=== PATIENT | female | born 1960 | race Caucasian/White ===

== ENCOUNTER 2018-04-16 17:14 | Inpatient (IN) | payer BC ==
[2018-04-16 18:44] LABS: Absolute Lymphocytes (CBC) 2.2 K/uL (0.7-4.9); Absolute Monocytes 0.4 K/uL (0.1-1.3); Absolute Neutrophil 6.1 K/uL (1.8-8.0); Eosinophils % 1.7 % (0-4.4); Hematocrit 38.4 % (36.0-45.0); Lymphocytes % 24.1 % (15.3-44.8); MPV 8.7 fL (7.6-11.3); RBC Red Blood Cell Count 4.69 M/uL (3.86-4.86)
--- NOTE | 2018-04-16 18:51 | RAD REPORT ---
EXAM DESCRIPTION: US - Extrem Venous W Compress Arash - 04/16/2018 6:44 pm CLINICAL HISTORY: Pain;Swelling Bilateral leg edema and swelling. COMPARISON: Extrem Venous W Compress Arash dated 10/14/2016 TECHNIQUE: Real-time sonographic interrogation of the left and right lower extremity deep venous sys tems was performed. FINDINGS: Normal compressibility, flow augmentation, phasic flow and spontaneous flow is identified in both the left and right lower extremity deep venous systems. IMPRESSION: No sonographic evidence of left or right lower extremity deep venous thrombosis.
[2018-04-16 19:13] LABS: Potassium 4.2 mmol/L (3.5-5.1)
[2018-04-16] MEDS ORDERED: VANCOMYCIN 1 GM/250 ML BAG ONE (19:27)
--- NOTE | 2018-04-16 19:35 | EDPHYS ---
Physician Documentation [facility] Name: Zarina Womack Age: 57 yrs Sex: Female : 1960 Arrival Date: 04/16/2018 Time: 17:16 Bed 26 Private MD: Raman Quevedo ED Physician Maximo Jimenez HPI: 04/16 18:38 This 57 yrs old Female presents to ER via Wheelchair with complaints of Leg kb Swelling. 18:45 The patient presents with pain, that is acute, swelling, tenderness, drainage, kb erythema. The complaints affect the left lower leg and right lower leg. Context: the patient can fully bear weight, the patient is able to ambulate. Onset: The symptoms/episode began/occurred 2 month(s) ago. Modifying factors: The symptoms are alleviated by nothing. the symptoms are aggravated by nothing. Associated signs and symptoms: Pertinent positives: calf tenderness, swelling, Pertinent negatives fever, nausea, numbness, rash, tingling, vomiting, warmth, weakness. Treatment prior to arrival includes: wound care. Severity of symptoms: At their worst the symptoms were moderate, in the emergency department the symptoms are unchanged. The patient has not experienced similar symptoms in the past. The patient has not recently seen a physician. Pt was at wound care and sent here for DVT rule out. Dr Quevedo recommends admission for cellulitis if US negative. Historical: - Allergies: 17:28 Sulfa (Sulfonamide Antibiotics); aj - Home Meds: 17:28 ProAir RespiClick 90 mcg/actuation inhalation aepb 1 puff every 4-6 hours [Active]; aj - PMHx: 17:28 COPD; Anxiety; Depression; lymphedema; aj - PSHx: 17:28 Tonsillectomy; Hysterectomy; aj - Immunization history:: Adult Immunizations up to date. - Social history:: Smoking status: Patient uses tobacco products, smokes one pack cigarettes per day. - Ebola Screening: : Patient negative for fever greater than or equal to 101.5 degrees Fahrenheit, and additional compatible Ebola Virus Disease symptoms Patient denies exposure to infectious person Patient denies travel to an Ebola-affected area in the 21 days before illness onset No symptoms or risks identified at this time. ROS: 18:42 Constitutional: Negative for fever, chills, and weight loss, Neck: Negative for injury, kb pain, and swelling, Cardiovascular: Negative for chest pain, palpitations, and edema, Respiratory: Negative for shortness of breath, cough, wheezing, and pleuritic chest pain, Abdomen/GI: Negative for abdominal pain, nausea, vomiting, diarrhea, and constipation, Back: Negative for injury and pain, : Negative for injury, bleeding, discharge, and swelling, Neuro: Negative for headache, weakness, numbness, tingling, and seizure. 18:42 MS/extremity: Positive for erythema, pain, swelling, of the right lower leg and left lower leg. Exam: 18:42 Constitutional: This is a well developed, well nourished patient who is awake, alert, kb and in no acute distress. Head/Face: Normocephalic, atraumatic. Chest/axilla: Normal chest wall appearance and motion. Nontender with no deformity. No lesions are appreciated. Cardiovascular: Regular rate and rhythm with a normal S1 and S2. No gallops, murmurs, or rubs. Normal PMI, no JVD. No pulse deficits. Respiratory: Lungs have equal breath sounds bilaterally, clear to auscultation and percussion. No rales, rhonchi or wheezes noted. No increased work of breathing, no retractions or nasal flaring. Abdomen/GI: Soft, non-tender, with normal bowel sounds. No distension or tympany. No guarding or rebound. No evidence of tenderness throughout. Neuro: Awake and alert, GCS 15, oriented to person, place, time, and situation. Cranial nerves II-XII grossly intact. Motor strength 5/5 in all extremities. Sensory grossly intact. Cerebellar exam normal. Normal gait. 18:42 Musculoskeletal/extremity: Extremities: grossly normal except: noted in the left lower leg and right lower leg: erythema, pain, swelling, tenderness, drainage, ROM: intact in all extremities, Circulation is intact in all extremities. Sensation intact. Vital Signs: 17:28 BP 140 / 75; Pulse 85; Resp 19; Temp 98.4; Pulse Ox 99% on 4 lpm NC; Weight 97.52 kg; aj Height 5 ft. 1 in. (154.94 cm); 18:10 BP 163 / 84; Pulse 83; Resp 20; Pulse Ox 98% on 2 lpm NC; tl3 19:58 BP 136 / 66; Pulse 80 MON; Resp 16 S; Pulse Ox 97% on 4 lpm NC; rv 21:08 BP 130 / 77; Pulse 68; Resp 17; Pulse Ox 98% on R/A; rv 22:10 BP 133 / 71; Pulse 82; Resp 18; Pulse Ox 98% on R/A; tl3 17:28 Body Mass Index 40.62 (97.52 kg, 154.94 cm) aj MDM: 17:33 Patient medically screened. kb 18:42 Data reviewed: vital signs, nurses notes. Data interpreted: Pulse oximetry: on room air kb is 98 %. Interpretation: normal. Counseling: I had a detailed discussion with the patient and/or guardian regarding: the historical points, exam findings, and any diagnostic results supporting the discharge/admit diagnosis, lab results, radiology results, the need for further work-up and treatment in the hospital. 19:32 Physician consultation: Kimberly Christy MD was contacted at 19:32, regarding admission, kb to the medical/surgical unit. patient's condition, and will see patient in ED, shortly. 04/16 17:46 Order name: CBC with Diff; Complete Time: 18:49 kb 04/16 17:46 Order name: Basic Metabolic Panel; Complete Time: 19:18 kb 04/16 17:46 Order name: Blood Culture Adult (2) kb 04/16 18:49 Order name: Procalcitonin; Complete Time: 20:17 kb 04/16 18:49 Order name: Lactate; Complete Time: 20:28 kb 04/16 18:59 Order name: Wound Culture kb 04/16 17:41 Order name: US Extremity Venous W Compression Arash; Complete Time: 18:58 kb Administered Medications: 19:35 Drug: vancoMYCIN 1 grams Route: IVPB; Infused Over: 2 hrs; Site: left forearm; tl3 Delivery: Primary tubing; 21:51 Follow up: IV Status: Completed infusion; IV Intake: 250ml tl3 19:36 Drug: [place] (7.5 mg-325 mg) 1 tabs Route: PO; tl3 21:51 Follow up: Response: No adverse reaction; Pain is decreased tl3 Disposition: 04/16/18 19:33 Hospitalization ordered by Kimberly Christy for Observation. Preliminary diagnosis are Cellulitis of right lower limb, Cellulitis of left lower limb, Lymphedema, not elsewhere classified. - Bed requested for Telemetry/MedSurg (observation). - Status is Observation. rv - Condition is Stable. - Problem is new. - Symptoms are unchanged. UTI on Admission? No Addendum: 04/24/2018 02:16 Co-signature as Attending Physician, Maximo Jimenez MD. r n Signatures: Dispatcher [employer] EDMS Mathieu Lauren, HEMMING AND TACKING MACHINE OPERATOR-C HEMMING AND TACKING MACHINE OPERATOR-Ckb Wilma Aleman, RN RN Anitha Godwin RN Maximo Junior MD MD rn Lowrey, Tammy, RN RN tl3 Kole Rehman RN RN rv Corrections: (The following items were deleted from the chart) 04/16 19:54 19:33 Hospitalization Ordered by Kimberly Christy MD for Inpatient Admission. Preliminary kb diagnosis is Cellulitis of right lower limb; Cellulitis of left lower limb; Lymphedema, not elsewhere classified. Bed requested for Telemetry/MedSurg (Inpatient). Status is Inpatient Admission. Condition is Stable. Problem is new. Symptoms are unchanged. UTI on Admission? No. kb 21:21 19:54 04/16/2018 19:33 Hospitalization Ordered by Kimberly Christy MD for Observation. kl Preliminary diagnosis is Cellulitis of right lower limb; Cellulitis of left lower limb; Lymphedema, not elsewhere classified. Bed requested for Telemetry/MedSurg (observation). Status is Observation. Condition is Stable. Problem is new. Symptoms are unchanged. UTI on Admission? No. kb 22:27 21:21 04/16/2018 19:33 Hospitalization Ordered by Kimberly Christy MD for Observation. rv Preliminary diagnosis is Cellulitis of right lower limb; Cellulitis of left lower limb; Lymphedema, not elsewhere classified. Bed requested for Telemetry/MedSurg (observation). Status is Observation. Condition is Stable. Problem is new. Symptoms are unchanged. UTI on Admission? No. kl
--- NOTE | 2018-04-16 19:35 | ER ---
Nurse's Notes [facility] Name: Zarina Womack Age: 57 yrs Sex: Female : 1960 Arrival Date: 04/16/2018 Time: 17:16 Bed 26 Private MD: Raman Quevedo Diagnosis: Cellulitis of right lower limb;Cellulitis of left lower limb;Lymphedema, not elsewhere classified Presentation: 04/16 17:26 Presenting complaint: Patient states: Bilateral leg pain for [address] marta Quevedo for evaluation for possible DVT. Transition of care: patient was received from another setting of care (ambulatory primary care physician practice). Onset of symptoms was January 2018. Risk Assessment: Do you want to hurt yourself or someone else? Patient reports no desire to harm self or others. Initial Sepsis Screen: Does the patient meet any 2 criteria? No. Patient's initial sepsis screen is negative. Does the patient have a suspected source of infection? No. Patient's initial sepsis screen is negative. Care prior to arrival: None. 17:26 Method Of Arrival: Wheelchair 17:26 Acuity: AISSATOU 3 aj Triage Assessment: 17:28 General: Appears in no apparent distress. comfortable, obese, Behavior is calm, aj cooperative, appropriate for age. Pain: Complains of pain in right leg and left leg. Neuro: Level of Consciousness is awake, alert, obeys commands, Oriented to person, place, time, situation, Appropriate for age. Respiratory: Airway is patent Respiratory effort is even, labored, Respiratory pattern is symmetrical, tachypnea. Derm: Skin is intact, is healthy with good turgor. Historical: - Allergies: 17:28 Sulfa (Sulfonamide Antibiotics); aj - Home Meds: 17:28 ProAir RespiClick 90 mcg/actuation inhalation aepb 1 puff every 4-6 hours [Active]; aj - PMHx: 17:28 COPD; Anxiety; Depression; lymphedema; aj - PSHx: 17:28 Tonsillectomy; Hysterectomy; aj - Immunization history:: Adult Immunizations up to date. - Social history:: Smoking status: Patient uses tobacco products, smokes one pack cigarettes per day. - Ebola Screening: : Patient negative for fever greater than or equal to 101.5 degrees Fahrenheit, and additional compatible Ebola Virus Disease symptoms Patient denies exposure to infectious person Patient denies travel to an Ebola-affected area in the 21 days before illness onset No symptoms or risks identified at this time. Screenin:32 Abuse screen: Denies threats or abuse. Nutritional screening: No deficits noted. tl3 Tuberculosis screening: No symptoms or risk factors identified. Fall Risk None identified. Assessment: 17:32 General: Appears uncomfortable, obese, well developed, well nourished, Behavior is tl3 calm, cooperative, appropriate for age. Pain: Complains of pain in left leg and right leg. Neuro: Level of Consciousness is awake, alert, obeys commands, Oriented to person, place, time, situation, Appropriate for age. Cardiovascular: Heart tones S1 S2 present Patient's skin is warm and dry. Cardiovascular: Respiratory: Airway is patent Respiratory effort is even, unlabored, Respiratory pattern is regular, symmetrical, Breath sounds are clear. GI: No signs and/or symptoms were reported involving the gastrointestinal system. : No signs and/or symptoms were reported regarding the genitourinary system. EENT: No signs and/or symptoms were reported regarding the EENT system. Derm: No signs and/or symptoms reported regarding the dermatologic system. Derm: swelling bilateral lower legs, for the last two months. Musculoskeletal: No signs and/or symptoms reported regarding the musculoskeletal system. 18:10 Reassessment: Patient appears in no apparent distress at this time. No changes from tl3 previously documented assessment. Patient and/or family updated on plan of care and expected duration. Pain level reassessed. Patient is alert, oriented x 3, equal unlabored respirations, skin warm/dry/pink. Ultrasound at beddside. 20:00 Reassessment: Patient appears in no apparent distress at this time. Patient and/or rv family updated on plan of care and expected duration. Pain level reassessed. Patient is alert, oriented x 3, equal unlabored respirations, skin warm/dry/pink. awaiting admitting orders. 21:09 Reassessment: Patient appears in no apparent distress at this time. Patient and/or rv family updated on plan of care and expected duration. Pain level reassessed. Patient is alert, oriented x 3, equal unlabored respirations, skin warm/dry/pink. 22:10 Reassessment: Patient appears in no apparent distress at this time. No changes from tl3 previously documented assessment. Patient and/or family updated on plan of care and expected duration. Pain level reassessed. Patient is alert, oriented x 3, equal unlabored respirations, skin warm/dry/pink. Vital Signs: 17:28 BP 140 / 75; Pulse 85; Resp 19; Temp 98.4; Pulse Ox 99% on 4 lpm NC; Weight 97.52 kg; aj Height 5 ft. 1 in. (154.94 cm); 18:10 BP 163 / 84; Pulse 83; Resp 20; Pulse Ox 98% on 2 lpm NC; tl3 19:58 BP 136 / 66; Pulse 80 MON; Resp 16 S; Pulse Ox 97% on 4 lpm NC; rv 21:08 BP 130 / 77; Pulse 68; Resp 17; Pulse Ox 98% on R/A; rv 22:10 BP 133 / 71; Pulse 82; Resp 18; Pulse Ox 98% on R/A; tl3 17:28 Body Mass Index 40.62 (97.52 kg, 154.94 cm) aj ED Course: 17:16 Patient arrived in ED. as 17:18 Raman Quevedo MD is Private Physician. as 17:27 Triage completed. aj 17:28 Arm band placed on left wrist. Patient placed in an exam room, on oxygen, on cardiac aj monitor, on pulse oximetry. 17:31 Zora Albert, DELMA is Primary Nurse. tl3 17:32 Patient has correct armband on for positive identification. court recording monitor on. Pulse tl3 ox on. NIBP on. 17:32 No provider procedures requiring assistance completed. tl3 17:33 Lauren Murdock FNP-C is [facility]. kb 17:33 Maximo Jimenez MD is Attending Physician. kb 18:00 Inserted saline lock: 20 gauge in left antecubital area, using aseptic technique. tl3 18:44 US Extremity Venous W Compression Arash In Process Unspecified. EDMS 18:45 Ultrasound completed. Patient tolerated well. hr 19:33 Kimberly Christy MD is Hospitalizing Provider. kb 22:10 Patient admitted, IV remains in place. tl3 Administered Medications: 19:35 Drug: vancoMYCIN 1 grams Route: IVPB; Infused Over: 2 hrs; Site: left forearm; tl3 Delivery: Primary tubing; 21:51 Follow up: IV Status: Completed infusion; IV Intake: 250ml tl3 19:36 Drug: [place] (7.5 mg-325 mg) 1 tabs Route: PO; tl3 21:51 Follow up: Response: No adverse reaction; Pain is decreased tl3 Intake: 21:51 IV: 250ml; Total: 250ml. tl3 Outcome: 19:33 Decision to Hospitalize by Provider. kb 22:10 Admitted to Med/surg accompanied by tech, via wheelchair, with chart, Report called to tl3 DELMA Henriquez 22:10 Condition: stable 22:10 Instructed on the need for admit, Demonstrated understanding of instructions. 22:27 Patient left the ED. rv Signatures: Dispatcher [employer] EDMS Lauren Murdock, DRUM BARKER OPERATOR-C DRUM BARKER OPERATOR-Anitha Carlson, RN Lorrie Gross Amelia as Lowrey, Tammy, RN RN tl3 Kole Rehman RN RN rv Corrections: (The following items were deleted from the chart) 17:30 17:28 BP 140 / 75; Pulse 85bpm; Resp 19bpm; Pulse Ox 99% RA; Temp 98.4F; 97.52 kg; aj Height 5 ft. 1 in.; BMI: 40.6; aj 22:10 18:00 Inserted saline lock: 20 gauge tl3 tl3
[2018-04-16] MEDS ORDERED: HYDROCODONE/APAP 7.5/325 MG TAB ONE (19:37)
--- NOTE | 2018-04-16 20:31 | P.HP ---
Certification for Inpatient Patient admitted to: Observation With expected LOS: <2 Midnights Practitioner: I am a practitioner with admitting privileges, knowledge of patient current condition, hospital course, and medical plan of care. Services: Services provided to patient in accordance with Admission requirements found in Title 42 Section 412.3 of the Code of Federal Regulations Patient History Date of Service: 04/16/18 Reason for admission: Cellulitis History of Present Illness: Ms Vu childs is 7-year-old woman with history of COPD on home oxygen about 4 L by [place], hypertension, chronic lymphedema, who has been dealing with bilateral lower extremity chronic wound that has been progressively worse lately. She noticed increasing secretion, yellowish/creatinine, foul odor. She stated that has had fever and chills but several weeks ago, not recently. She went to wound clinic today, she has seen Dr Quevedo, who send her to ER for evaluation and rule out DVT. Lab work shows normal WBC count, she is afebrile. Bilateral Doppler ultrasound lower extremity was negative for DVT. Allergies Sulfa (Sulfonamide Antibiotics) Adverse Reaction (Mild, Verified 05/06/17 11:24) hallucinations Home medications list reviewed: Yes Home Medications: Umeclidinium Brm/Vilanterol Tr [Anoro Ellipta 62.5-25 Mcg INH] 1 puff PO DAILY 08/26/16 Mirtazapine [Remeron*] 15 mg PO BEDTIME 04/16/17 Sertraline HCl 50 mg PO DAILY 04/28/17 - Past Medical/Surgical History Diabetic: No -: COPD -: Hyperlipidemia -: Tobacco abuse -: Chronic lymphedema to the lower extremities -: History of MRSA infection -: Nephrolithiasis bilaterally -: Staghorn calculus bilaterally -: Large ventral hernia -: Morbid obesity -: Depression with anxiety -: Hysterectomy -: Tonsillectomy -: Removal of kidney stones Psychosocial/ Personal History: The patient is , has 2 children. 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 - Family History Father -: Lung disease, Cancer Mother -: Heart disease, Hypertension, Stroke, Cancer - Social History Smoking Status: Current every day smoker Counseled patient to stop smoking for: less than 10 minutes Alcohol use: Yes CD- Drugs: No Caffeine use: Yes Place of Residence: Home Review of Systems 10-point ROS is otherwise unremarkable Physical Examination - Physical Exam General: Alert, In no apparent distress HEENT: Atraumatic, PERRLA, Mucous membr. moist/pink, EOMI, Sclerae nonicteric Neck: Supple, 2+ carotid pulse no bruit, No LAD, Without JVD or thyroid abnormality Respiratory: Clear to auscultation bilaterally, Normal air movement Cardiovascular: Regular rate/rhythm, Normal S1 S2 Gastrointestinal: Normal bowel sounds, No tenderness Musculoskeletal: No tenderness, Swelling (Lower extremity swelling 2+ bilaterally) Integumentary: Skin breakdown, Erythema, Other (Bilateral lower extremity lymphedema, with foul oder secretions) Neurological: Normal speech, Normal strength at 5/5 x4 extr, Normal tone, Normal affect Lymphatics: No axilla or inguinal lymphadenopathy - Studies Laboratory Data (last 24 hrs) 04/16/18 18:30: Sodium 138, Potassium 4.2, BUN 12, Creatinine 0.70, Glucose 119 H 04/16/18 18:30: WBC 9.0, Hgb 12.8, Hct 38.4, Plt Count 261 Assessment and Plan - Problems (Diagnosis) (1) Cellulitis Current Visit: Yes Status: Acute Qualifiers: Site of cellulitis: extremity Site of cellulitis of extremity: lower extremity Laterality: unspecified laterality Qualified Code(s): L03.119 - Cellulitis of unspecified part of limb (2) COPD (chronic obstructive pulmonary disease) Onset Date: 08/27/16 Current Visit: No Status: Acute Qualifiers: COPD type: unspecified COPD Qualified Code(s): J44.9 - Chronic obstructive pulmonary disease, unspecified (3) Lymphedema Onset Date: 08/26/14 Current Visit: No Status: Acute (4) chronic obstructive pulmonary disease Onset Date: 08/26/14 Current Visit: No Status: Chronic (5) Tobacco abuse Current Visit: Yes Status: Acute - Plan The patient will be admitted to the hospital due to bilateral lower extremities cellulitis in context of chronic lymphedema. Will start empiric IV antibiotics. She definitely Needs a good plan of wound care as outpatient, which will be established upon discharge. Consult wound care team. - Advance Directives Does patient have a Living Will: No Does patient have a Durable POA for Healthcare: No - Code Status/Comfort Care Code Status Assessed: Yes Code Status: Full Code
[2018-04-16] MEDS ORDERED: ONDANSETRON 4 MG/2 ML VIAL IV PRN (22:07)
[2018-04-16 23:08] VITALS: BMI 39.8
[2018-04-16] MEDS: Levofloxacin 750mg IV 750 MG/150 ML BAG IV SCH (23:40)
[2018-04-17] MEDS: ALBUTEROL 2.5 MG/3 ML NEB SOL NEB PRN (00:15)
[2018-04-17] MEDS: IPRATROPIUM BROM 0.5MG/2.5ML NEB PRN (00:15)
[2018-04-17] MEDS ORDERED: VANCOMYCIN 750 MG in NA CHLORIDE 0.9% 150 ML IVPB ONE (00:30)
[2018-04-17] MEDS ORDERED: VANCOMYCIN 1 GM/VIAL ONE (01:17)
[2018-04-17] MEDS ORDERED: NA CHLORIDE 0.9% 250 ML ONE (01:37)
[2018-04-17] MEDS: NICOTINE 21 MG/PAT TD SCH ×2 (01:53→09:04)
[2018-04-17] MEDS: ACETAMINOPHEN 500 MG TAB PO PRN ×3 (01:54→22:27)
[2018-04-17 05:42] LABS: Absolute Lymphocytes (CBC) 1.3 K/uL (0.7-4.9); Absolute Monocytes 0.5 K/uL (0.1-1.3); Absolute Neutrophil 6.7 K/uL (1.8-8.0); Basophils % 0.8 % (0-1.3); Eosinophils % 1.6 % (0-4.4); Hematocrit 37.1 % (36.0-45.0); MPV 9.3 fL (7.6-11.3); Monocytes % 5.6 % (3.3-12.3); RBC Red Blood Cell Count 4.49 M/uL (3.86-4.86)
[2018-04-17 06:02] LABS: Potassium 4.3 mmol/L (3.5-5.1)
[2018-04-17] MEDS ORDERED: INFLUENZA VACCINE (for 3y+) 0.5 ML DOSE IMVAC ONE (09:00)
[2018-04-17] MEDS: ENOXAPARIN 40 MG/0.4 ML SQ SCH (09:03)
[2018-04-17] MEDS: VANCOMYCIN 1.75 GM in NA CHLORIDE 0.9% 500 ML IVPB SCH (12:24)
--- NOTE | 2018-04-17 17:23 | PN ---
Date of Progress Note: 04/17/2018 Subjective: The patient is seen and examined. Chart reviewed, and case discussed with RN. The patient reports that she is having some weeping and pain from her lower extremity lymphedema along with some redness. Review of Systems: Negative except as above. Medications: List reviewed. Physical Examination: Vital Signs: Temperature 97.9, heart rate 81, blood pressure 123/60, respirations 20, O2 of 95% on 4 L via nasal cannula. General: Awake, alert, oriented x3, in some mild distress. An ill-appearing female, obese. CV: S1 and S2. Regular rate and rhythm. Peripheral pulses present. No murmurs. Respiratory: Moving air well bilaterally. No wheezing or stridor. Gastrointestinal: Abdomen is soft, nontender, nondistended. Positive bowel sounds. Extremities: No clubbing or cyanosis. The patient does have 3+ edema in bilateral lower extremities with weeping skin. Chronic venous stasis changes of bilateral lower extremities along with some erythema, warm to touch. Neurologic: Nonfocal. Laboratory Data: Sodium 138, potassium 4.3, chloride 101, CO2 of 32, BUN 11, creatinine 0.7, glucose 143, calcium 10.2. WBC 8.7, H and H 12.2 and 37.1, platelets 236, neutrophils 77%. Blood cultures are pending. Wound culture growing 3+ gram-negative rods. Assessment: A 57-year-old female with: 1. Bilateral lower extremity cellulitis. We will continue with IV antibiotics. Preliminary wound cultures are growing 3+ gram-negative rods. We will continue to monitor. Blood cultures are negative to date. Wound Care unfortunately is unavailable. 2. Chronic lymphedema of bilateral lower extremities. We will continue compression. 3. Chronic obstructive pulmonary disease, chronic bronchitis. Continue albuterol p.r.n. 4. Nicotine dependence with cigarette smoking, continuous, counseled. 5. Hyperlipidemia, diet controlled. 6. Large ventral hernia. 7. Morbid obesity. 8. Major depressive disorder with anxiety. 9. Gastrointestinal and deep venous thrombosis prophylaxis with PPI and Lovenox. Plan: We will continue with IV antibiotics. Follow up on cultures. Consider Infectious Disease consultation. ADDENDUM: Patient found to have maggots in her leg wounds. Dr. Scott consulted for debridement SA/MODL Voice ID: [id number] Report ID: [id number] CROW
[2018-04-17] MEDS: RANITIDINE 150 MG TABLET PO SCH (20:17)
[2018-04-17] MEDS: Levofloxacin 750mg IV 750 MG/150 ML BAG IV SCH (21:18)
[2018-04-18] MEDS: VANCOMYCIN 1.75 GM in NA CHLORIDE 0.9% 500 ML IVPB SCH (00:05)
[2018-04-18] MEDS: RANITIDINE 150 MG TABLET PO SCH ×2 (09:20→20:11)
[2018-04-18] MEDS: ENOXAPARIN 40 MG/0.4 ML SQ SCH (09:22)
[2018-04-18] MEDS: NICOTINE 21 MG/PAT TD SCH (09:23)
[2018-04-18] MEDS: ALBUTEROL 2.5 MG/3 ML NEB SOL NEB PRN (09:44)
[2018-04-18] MEDS: IPRATROPIUM BROM 0.5MG/2.5ML NEB PRN (09:44)
[2018-04-18] MEDS: NA CHLORIDE 0.9% 1,000 ML IV SCH ×2 (13:36→23:29)
[2018-04-18] MEDS: ACETAMINOPHEN 500 MG TAB PO PRN ×2 (14:54→20:14)
--- NOTE | 2018-04-18 16:57 | PN ---
Date of Progress Note: 04/18/2018 History: The patient seen and examined. Chart reviewed and case discussed with Dr. Scott. The leslie knutson is still having some pain and slight erythema of legs, still has some weeping. Pain is control led with medications. Review of Systems: Negative except as above. Medications: List reviewed. Physical Examination: Vital Signs: Temperature 97.9, heart rate 76, blood pressure 150/70, respirations 18, OS 92% on 4 L via nasal cannula. General: The awake, alert, oriented x3, not in any acute distress. Mildly ill-appearing female. BM I 39. Obese. CV: S1, S2. Regular rate and rhythm. Peripheral pulses are present. No murmurs. Respiratory: Diminished breath sounds bilaterally. No wheezing or stridor. Gastrointestinal: Abdomen is obese, soft, nontender, nondistended. Positive bowel sounds. Extremities: No clubbing, cyanosis. The patient has diffuse edema of the lower extremities. Skin: Bilateral lower extremity chronic venous stasis changes along with wound with some surrounding erythema. Warm to touch. The patient does have some weeping from the legs. Neurologic: Nonfocal. Laboratory Data: Labs are pending. Blood cultures no growth to date. Wound cultures are growing Kl ebsiella and Proteus. Assessment And Plan: A 57-year-old female with: 1.Bilateral lower extremity cellulitis. Wound cultures growing Klebsiella and Proteus sensitive to Levaquin. We will continue IV antibiotics. Appreciate Dr. Scott's input. We will need extensive local wound care. The patient did have maggots on her legs found yesterday on a bandage change. Blo od cultures are negative to date. 2.Chronic lymphedema of bilateral lower extremities. We will continue with compression and wound ca re as per Dr. Scott. 3.Chronic obstructive pulmonary disease, chronic bronchitis. The patient does have some diminished air sounds. We will continue breathing treatments. No wheezing at this time. We will avoid steroid s. 4.Nicotine dependence with cigarette smoking. Continue counseled. 5.Hyperlipidemia. 6.Diet, controlled. 7.Large ventral hernia. 8.Morbid obesity. 9.Major depressive disorder with anxiety, stable. 10.Gastrointestinal and deep venous thrombosis prophylaxes, addressed. 11.Hypercalcemia, unclear etiology. We will continue IV fluids and monitor calcium level. Plan: Continue IV antibiotics and wound care, likely discharge in the 24-48 hours, depending on clin ical response and surgery recommendations. SA/MODL Voice ID: [id number] Report ID: [id number]
[2018-04-18] MEDS: Levofloxacin 750mg IV 750 MG/150 ML BAG IV SCH (21:18)
[2018-04-18 22:40] VITALS: O2SAT 94
[2018-04-19 06:23] LABS: Absolute Lymphocytes (CBC) 1.3 K/uL (0.7-4.9); Absolute Monocytes 0.4 K/uL (0.1-1.3); Absolute Neutrophil 3.9 K/uL (1.8-8.0); Eosinophils % 3.1 % (0-4.4); Lymphocytes % 21.7 % (15.3-44.8); MPV 9.4 fL (7.6-11.3); Monocytes % 7.1 % (3.3-12.3); RBC Red Blood Cell Count 4.42 M/uL (3.86-4.86)
[2018-04-19 06:41] LABS: Albumin 2.8 g/dL (3.4-5.0); Bilirubin Total 0.3 mg/dL (0.2-1.0); Potassium 4.5 mmol/L (3.5-5.1); Protein, Total 8.9 g/dL (6.4-8.2)
[2018-04-19] MEDS: NICOTINE 21 MG/PAT TD SCH (07:57)
[2018-04-19] MEDS: ENOXAPARIN 40 MG/0.4 ML SQ SCH (07:57)
[2018-04-19] MEDS: RANITIDINE 150 MG TABLET PO SCH (07:58)
[2018-04-19 13:07] VITALS: BP 143/81; TEMP 98
--- NOTE | 2018-04-19 20:58 | DS ---
Date of Discharge: 04/19/2018 Consultants: Dr. Scott with General Surgery. Admitting Diagnoses: 1.Cellulitis, bilateral lower extremity. 2.Acute chronic obstructive pulmonary disease, chronic bronchitis. 3.Chronic respiratory failure secondary to chronic obstructive pulmonary disease. 4.Lymphedema, chronic. 5.Nicotine dependence with cigarette smoking, counseled. Discharge Diagnoses: 1.Bilateral lower extremity cellulitis with wound cultures growing Proteus and Klebsiella. 2.Chronic lymphedema of bilateral lower extremities. 3.Chronic obstructive pulmonary disease and chronic bronchitis. 4.Chronic respiratory failure on home O2 secondary to chronic obstructive pulmonary disease. 5.Nicotine dependence with cigarette smoking, counseled. 6.Hyperlipidemia, diet controlled. 7.Large ventral hernia. 8.Morbid obesity. 9.Major depressive disorder with anxiety, stable. 10.Hypercalcemia, corrected. 11.Noncompliance. Hospital Course: The patient is a 57-year-old female, who comes in with bilateral lower extremity ce llulitis. The patient does see Dr. Quevedo in the [facility] for her chronic lymphedema, ca glenn, had progressively worsening, weeping, foul odor, and erythema. The patient was found to have ce llulitis. Lower extremity Doppler was done, which was negative for DVT. Dr. Scott with [facility] was consulted for possible debridement. The patient was found to have maggots in the wound. T he patient had local wound care done. Dr. Scott did not recommend any surgical intervention at thi s point. Local wound care was initiated. The patient did have some hypercalcemia, started on IV flu id, which was then corrected. The patient otherwise is doing well. Blood cultures did not show any growth. Her wound cultures did show Klebsiella and Proteus, which is likely more usually bladder org anisms causing UTI, likely related to her urinary incontinence infecting the skin. The patient was c ounseled extensively regarding hygiene. The patient is very noncompliant. Does not wear her dwayne allen stockings. The patient was counseled extensively. She also does not keep good hygiene and does not elevate her legs and with the gravity dependent edema making her condition worse. The patient w as then cleared for discharge. She was sent home in a stable condition with home health with PT as s he does have some difficulty getting up into her hospital bed at home. Followup: She will follow up with primary care physician in 2-3 days. Follow up with warp preparer in 2 weeks for her toenails. Follow up with surgeon, Dr. Scott in 2 weeks. Follow up with [facility] with Dr. Quevedo next week. Return to ER for worsening condition. Diet: Heart healthy. Activity: Fall precautions. Finish up course of antibiotics. Physical Examination: General: Awake, alert, oriented x3. CV: S1 and S2. No murmurs. Respiratory: Moving air well bilaterally. Abdomen: Abdomen is soft, nontender, nondistended. Positive bowel sounds. Extremities: No clubbing, cyanosis. The patient has chronic lymphedema. Skin: Mild erythema and some chronic lymphedema changes and venous stasis changes. Neurologic: Nonfocal. Total time spent discharging the patient was 35 minutes. SISI Voice ID: [id number] Report ID: [id number]
== END 2018-04-19 15:45 | disposition home or self-care (01) | DRG 603 ==
LOC: ER 17:14 → ERHOLD 19:55 → INTOOBSV 19:55 → OBSVTOIN 19:55 → 2ND 22:02 → OBSVTOIN 04-18 11:40
PROVIDERS: ADMIT Internal Medicine; ATTEND Internal Medicine
DX: L03.116 Cellulitis of left lower limb (principal); J96.10 Chronic respiratory failure, unspecified whether with hypoxia or hypercapnia; L03.115 Cellulitis of right lower limb; B96.4 Proteus (mirabilis) (morganii) as the cause of diseases classified elsewhere; B96.1 Klebsiella pneumoniae [K. pneumoniae] as the cause of diseases classified elsewhere; I89.0 Lymphedema, not elsewhere classified; J44.9 Chronic obstructive pulmonary disease, unspecified; E78.5 Hyperlipidemia, unspecified; K43.9 Ventral hernia without obstruction or gangrene; E66.01 Morbid (severe) obesity due to excess calories; Z68.39 Body mass index [BMI] 39.0-39.9, adult; F32.9 Major depressive disorder, single episode, unspecified; E83.52 Hypercalcemia; F17.210 Nicotine dependence, cigarettes, uncomplicated; Z99.81 Dependence on supplemental oxygen; Z91.19 Patient's noncompliance with other medical treatment and regimen; Z88.2 Allergy status to sulfonamides
CPT/HCPCS: 36415; 80048; 80053; 80202; 83605; 84145; 85025; 87040; 87070; 87077; 87186; 87205; 93970; 94640; 94760; 96365; 96366; 99285; G0378; J1650; J3370; J7030

== ENCOUNTER 2018-09-07 01:52 | Inpatient (IN) | payer BC ==
[2018-09-07 02:31] LABS: Absolute Lymphocytes (CBC) 1.5 K/uL (0.7-4.9); Absolute Monocytes 0.4 K/uL (0.1-1.3); Absolute Neutrophil 6.1 K/uL (1.8-8.0); Basophils % 0.9 % (0-1.3); Eosinophils % 1.4 % (0-4.4); Hematocrit 42.6 % (36.0-45.0); Lymphocytes % 18.1 % (15.3-44.8); MPV 9.8 fL (7.6-11.3); Monocytes % 5.2 % (3.3-12.3); RBC Red Blood Cell Count 5.13 M/uL (3.86-4.86)
[2018-09-07] MEDS ORDERED: ALBUTEROL 2.5 MG/3 ML NEB SOL ONE (02:31)
[2018-09-07] MEDS ORDERED: IPRATROPIUM BROM 0.5MG/2.5ML ONE (02:31)
[2018-09-07 02:32] LABS: Protime INR 0.96
[2018-09-07 02:48] LABS: ALT/SGPT 29 U/L (12-78); AST/SGOT 22 U/L (15-37); Albumin 3.3 g/dL (3.4-5.0); Alkaline Phosphatase 159 U/L (45-117); BUN Blood Urea Nitrogen 15 mg/dL (7-18); Bicarbonate 36 mmol/L (21-32); Bilirubin Direct 0.1 mg/dL (0-0.2); Bilirubin Total 0.3 mg/dL (0.2-1.0); Glucose Level 171 mg/dL (74-106); Magnesium 2.1 mg/dL (1.8-2.4); NT PRO-BNP 390 pg/mL (<125); Potassium 4.5 mmol/L (3.5-5.1); Protein, Total 9.4 g/dL (6.4-8.2); Sodium Level 137 mmol/L (136-145); Troponin (Emerg Dept Use Only) < 0.02 ng/mL (0.0-0.045)
[2018-09-07] MEDS ORDERED: FUROSEMIDE 100 MG/10 ML VIAL IV ONE (03:05)
--- NOTE | 2018-09-07 04:16 | EDPHYS ---
Physician Documentation [facility] Name: Zarina Womack Age: 58 yrs Sex: Female : 1960 Arrival Date: 09/07/2018 Time: 01:54 Bed 7 Private MD: Gin Perez ED Physician Mikey Lange HPI: 09/07 03:48 This 58 yrs old Female presents to ER via Wheelchair with complaints of gs Breathing Difficulty, Chest Pain. 03:48 The patient has shortness of breath at rest. Onset: The symptoms/episode began/occurred gs 5 day(s) ago, and became worse and became persistent. Duration: The symptoms are chronic, are continuous. The patient's shortness of breath is aggravated by exertion, smoking. Associated signs and symptoms: Pertinent positives: non-productive cough. Severity of symptoms: At their worst the symptoms were incapacitating in the emergency department the symptoms are unchanged. The patient has experienced similar episodes in the past, multiple times. The patient has not recently seen a physician. Historical: - Allergies: 02:41 Sulfa (Sulfonamide Antibiotics); lp1 - Home Meds: 02:41 ProAir RespiClick 90 mcg/actuation inhalation aepb 1 puff every 4-6 hours [Active]; lp1 - PMHx: 02:41 Anxiety; COPD; Depression; lymphedema; lp1 - PSHx: 02:41 Hysterectomy; Tonsillectomy; lp1 - Immunization history:: Adult Immunizations up to date. - Social history:: Smoking status: Patient uses tobacco products, smokes one-half pack cigarettes per day. - Ebola Screening: : No symptoms or risks identified at this time. ROS: 03:48 All other systems are negative. gs Exam: 03:48 Head/Face: Normocephalic, atraumatic. Eyes: Pupils equal round and reactive to light, gs extra-ocular motions intact. Lids and lashes normal. Conjunctiva and sclera are non-icteric and not injected. Cornea within normal limits. Periorbital areas with no swelling, redness, or edema. ENT: Nares patent. No nasal discharge, no septal abnormalities noted. Tympanic membranes are normal and external auditory canals are clear. Oropharynx with no redness, swelling, or masses, exudates, or evidence of obstruction, uvula midline. Mucous membranes moist. 03:48 Neck: Trachea midline, no thyromegaly or masses palpated, and no cervical lymphadenopathy. Supple, full range of motion without nuchal rigidity, or vertebral point tenderness. No Meningismus. Chest/axilla: Normal chest wall appearance and motion. Nontender with no deformity. No lesions are appreciated. 03:48 Abdomen/GI: Soft, non-tender, with normal bowel sounds. No distension or tympany. No guarding or rebound. No evidence of tenderness throughout. Back: No spinal tenderness. No costovertebral tenderness. Full range of motion. 03:48 Constitutional: The patient appears alert, awake, in obvious distress, severely distressed. 03:48 Cardiovascular: Rate: tachycardic, Rhythm: regular, Edema: 4+ edema to level of left midcalf and right midcalf. 03:48 Respiratory: severe repiratory distress is noted, Respirations: accessory muscle usage, that is mild, Breath sounds: decreased breath sounds, that are severe, are located in both bases. 03:48 Musculoskeletal/extremity: Exam is negative for acute changes. 03:48 Skin: Appearance: Color: cyanotic. 03:48 Neuro: Exam negative for acute changes. Vital Signs: 02:03 BP 171 / 160; Pulse 98; Resp 26; Pulse Ox 95% on 8 lpm NC; Weight 95.25 kg (R); Height ak1 5 ft. 2 in. (157.48 cm) (R); Pain 3/10; 02:30 BP 149 / 79; Pulse 85; Resp 21; Pulse Ox 100% on 45% BiPAP; lp1 03:00 BP 149 / 79; Pulse 82; Resp 23; Pulse Ox 100% on BiPAP; ak1 03:30 BP 124 / 75; Pulse 79; Resp 23; Pulse Ox 100% on 45% BiPAP; lp1 04:23 BP 145 / 81; Pulse 77; Resp 21; Temp 98.1; Pulse Ox 98% on BiPAP; ak1 05:00 BP 139 / 76; Pulse 77; Resp 22; Pulse Ox 99% on 45% BiPAP; lp1 06:00 BP 151 / 78; Pulse 75; Resp 24; Pulse Ox 98% on 45% BiPAP; lp1 02:03 Body Mass Index 38.41 (95.25 kg, 157.48 cm) ak1 MDM: 02:05 Patient medically screened. 03:48 Differential diagnosis: CHF exacerbation, Chronic Obstructive Pulmonary Disease gs Myocardial Infarction pneumonia, pulmonary edema. Data reviewed: vital signs, nurses notes. Counseling: I had a detailed discussion with the patient and/or guardian regarding: the historical points, exam findings, and any diagnostic results supporting the discharge/admit diagnosis. Response to treatment: the patient's symptoms have markedly improved after treatment, and as a result, I will admit patient. 09/07 02:10 Order name: Basic Metabolic Panel; Complete Time: 03:11 09/07 02:10 Order name: CBC with Diff; Complete Time: 03:11 09/07 02:10 Order name: LFT's; Complete Time: 03:11 09/07 02:10 Order name: Magnesium; Complete Time: 03:11 09/07 02:10 Order name: NT PRO-BNP; Complete Time: 03:11 09/07 02:10 Order name: PT-INR; Complete Time: 03:11 09/07 02:10 Order name: Troponin (emerg Dept Use Only); Complete Time: 03:11 09/07 02:10 Order name: XRAY Chest (1 view) 09/07 02:10 Order name: BIPAP 09/07 03:11 Order name: ABG 09/07 04:52 Order name: Influenza Screen (A EDND 09/07 05:52 Order name: Procalcitonin [facility] 09/07 05:57 Order name: Lactate [facility] 09/07 02:10 Order name: EKG; Complete Time: 02:11 09/07 02:10 Order name: Cardiac monitoring; Complete Time: 02:42 09/07 02:10 Order name: EKG - Nurse/Tech; Complete Time: 04:23 09/07 02:10 Order name: IV Saline Lock; Complete Time: 02:42 09/07 02:10 Order name: Labs collected and sent; Complete Time: 02:43 09/07 02:10 Order name: O2 Per Protocol; Complete Time: 02:43 09/07 02:10 Order name: O2 Sat Monitoring; Complete Time: 02:43 gs Administered Medications: 02:10 Drug: Albuterol - atroVENT (3:1) (2.5 mg - 0.5 mg) 3 ml Route: Nebulizer; lp1 03:36 Follow up: Response: No adverse reaction ak1 02:59 Drug: Lasix 60 mg Route: IVP; Site: right forearm; ak1 03:36 Follow up: Response: No adverse reaction ak1 Disposition: 03:48 Critical Care:. Disposition: 09/07/18 04:15 Hospitalization ordered by Kimberly Christy for Inpatient Admission. Preliminary diagnosis are Heart failure, Acute and chronic respiratory failure. - Bed requested for Telemetry/MedSurg (observation). - Status is Inpatient Admission. lp1 - Condition is Stable. - Problem is an acute exacerbation. - Symptoms have improved. UTI on Admission? No Critical care time excluding procedures: 03:48 Critical care time: Bedside Care: 10 minutes, Consultation: 10 minutes, Family gs Intervention: 10 minutes. Total time: 30 minutes Signatures: Dispatcher [employer] EDRafaela Howell RN RN 1 Padmini Monzon RN RN ak1 Josefina Jorgensen RN RN Mikey Lange MD MD Corrections: (The following items were deleted from the chart) 05:09 04:15 Hospitalization Ordered by Kimberly Christy MD for Inpatient Admission. Preliminary cg diagnosis is Heart failure; Acute and chronic respiratory failure. Bed requested for Telemetry/MedSurg (observation). Status is Inpatient Admission. Condition is Stable. Problem is an acute exacerbation. Symptoms have improved. UTI on Admission? No. gs 06:27 05:09 09/07/2018 04:15 Hospitalization Ordered by Kimberly Christy MD for Inpatient lp1 Admission. Preliminary diagnosis is Heart failure; Acute and chronic respiratory failure. Bed requested for Telemetry/MedSurg (observation). Status is Inpatient Admission. Condition is Stable. Problem is an acute exacerbation. Symptoms have improved. UTI on Admission? No. cg
--- NOTE | 2018-09-07 04:16 | ER ---
Nurse's Notes [facility] Name: Zarina Womack Age: 58 yrs Sex: Female : 1960 Arrival Date: 09/07/2018 Time: 01:54 Bed 7 Private MD: Gin Perez Diagnosis: Heart failure;Acute and chronic respiratory failure Presentation: 09/07 02:05 Presenting complaint: Patient states: chest pain earlier in the day, SOB X3 days AT [employer]. ak1 pt uses home oxygen. 03:05 Transition of care: patient was not received from another setting of care. Onset of ak1 symptoms is unknown. Risk Assessment: Do you want to hurt yourself or someone else? Patient reports no desire to harm self or others. Initial Sepsis Screen: Does the patient meet any 2 criteria? RR > 20 per min. Care prior to arrival: None. 03:05 Acuity: AISSATOU 2 ak1 03:05 Method Of Arrival: Wheelchair ak1 06:26 Initial Sepsis Screen: Does the patient have a suspected source of infection? No. lp1 Patient's initial sepsis screen is negative. Triage Assessment: 03:05 General: Appears in no apparent distress. Behavior is calm, cooperative. EENT:. Neuro: ak1 No deficits noted. Cardiovascular: Reports chest pain. Respiratory: Reports shortness of breath at rest Onset: The symptoms/episode began/occurred 3 days AT [employer], the patient has moderate shortness of breath. Historical: - Allergies: 02:41 Sulfa (Sulfonamide Antibiotics); lp1 - Home Meds: 02:41 ProAir RespiClick 90 mcg/actuation inhalation aepb 1 puff every 4-6 hours [Active]; lp1 - PMHx: 02:41 Anxiety; COPD; Depression; lymphedema; lp1 - PSHx: 02:41 Hysterectomy; Tonsillectomy; lp1 - Immunization history:: Adult Immunizations up to date. - Social history:: Smoking status: Patient uses tobacco products, smokes one-half pack cigarettes per day. - Ebola Screening: : No symptoms or risks identified at this time. Screenin:00 Abuse screen: Denies threats or abuse. Denies injuries from another. Nutritional ak1 screening: No deficits noted. Tuberculosis screening: No symptoms or risk factors identified. Fall Risk Ambulatory Aid- Crutches/Cane/Walker (15 pts). Gait- Impaired (20 pts.). Assessment: 03:00 General: Appears in no apparent distress. Behavior is calm, cooperative. Pain: ak1 Complains of pain in chest. Neuro: No deficits noted. Cardiovascular: Rhythm is regular. Respiratory: Airway is patent Respiratory effort is labored, Breath sounds with wheezes. GI: No signs and/or symptoms were reported involving the gastrointestinal system. : No signs and/or symptoms were reported regarding the genitourinary system. EENT: No signs and/or symptoms were reported regarding the EENT system. Derm: No signs and/or symptoms reported regarding the dermatologic system. Musculoskeletal: No signs and/or symptoms reported regarding the musculoskeletal system. 03:15 Reassessment: Patient up to bs with assistance; voided and BM noted. lp1 Vital Signs: 02:03 BP 171 / 160; Pulse 98; Resp 26; Pulse Ox 95% on 8 lpm NC; Weight 95.25 kg (R); Height ak1 5 ft. 2 in. (157.48 cm) (R); Pain 3/10; 02:30 BP 149 / 79; Pulse 85; Resp 21; Pulse Ox 100% on 45% BiPAP; lp1 03:00 BP 149 / 79; Pulse 82; Resp 23; Pulse Ox 100% on BiPAP; ak1 03:30 BP 124 / 75; Pulse 79; Resp 23; Pulse Ox 100% on 45% BiPAP; lp1 04:23 BP 145 / 81; Pulse 77; Resp 21; Temp 98.1; Pulse Ox 98% on BiPAP; ak1 05:00 BP 139 / 76; Pulse 77; Resp 22; Pulse Ox 99% on 45% BiPAP; lp1 06:00 BP 151 / 78; Pulse 75; Resp 24; Pulse Ox 98% on 45% BiPAP; lp1 02:03 Body Mass Index 38.41 (95.25 kg, 157.48 cm) ak1 ED Course: 01:54 Patient arrived in ED. es 01:54 Gin Perez MD is Private Physician. es 02:03 Arm band placed on Patient placed in an exam room, in a wheelchair, on oxygen, on ak1 awake overnight monitor, on pulse oximetry, pt refused to get on to ER stretcher. 02:05 Mikey Lange MD is Attending Physician. gs 02:20 Rafaela Bravo, RN is Primary Nurse. lp1 02:20 Missed attempt(s): 22 gauge in left antecubital area. lp1 02:21 Initial lab(s) drawn, by me, sent to lab. lp1 02:22 XRAY Chest (1 view) In Process Unspecified. EDMS 02:30 Inserted saline lock: 22 gauge in right forearm, using aseptic technique. lp1 03:00 Patient has correct armband on for positive identification. Placed in gown. Call light ak1 in reach. front desk monitor on. Pulse ox on. NIBP on. bedside commode placed for pt comfort. pt staying in wheelchair for comfort. 03:06 Triage completed. ak1 04:13 Kimberly Christy MD is Hospitalizing Provider. gs 04:24 No provider procedures requiring assistance completed. Patient admitted, IV remains in ak1 place. 05:30 Initial lab(s) drawn, by me, sent to lab. Flu and/or RSV swab sent to lab. lp1 Administered Medications: 02:10 Drug: Albuterol - atroVENT (3:1) (2.5 mg - 0.5 mg) 3 ml Route: Nebulizer; lp1 03:36 Follow up: Response: No adverse reaction ak1 02:59 Drug: Lasix 60 mg Route: IVP; Site: right forearm; ak1 03:36 Follow up: Response: No adverse reaction ak1 Output: 06:00 Urine: 800ml (Voided); Total: 800ml. lp1 Outcome: 04:15 Decision to Hospitalize by Provider. 05:34 Admitted to Med/surg accompanied by tech, family with patient, via wheelchair, room ak1 409, with oxygen, with chart, Report called to ana 05:34 Condition: stable 05:34 Instructed on the need for admit. 06:27 Patient left the ED. lp1 Signatures: Dispatcher [employer] Shnadra Severino Laura, RN RN lp1 Padmini Monzon RN RN ak1 Mikey Lange MD MD
--- NOTE | 2018-09-07 05:03 | P.HP ---
Certification for Inpatient Patient admitted to: Inpatient With expected LOS: >2 Midnights Practitioner: I am a practitioner with admitting privileges, knowledge of patient current condition, hospital course, and medical plan of care. Services: Services provided to patient in accordance with Admission requirements found in Title 42 Section 412.3 of the Code of Federal Regulations Patient History Date of Service: 09/07/18 Reason for admission: acute on chronic respiratory failure History of Present Illness: Ms Womack is a 58 years old woman with history of COPD on home oxygen 3L, morbid obesity, chronic lymphedema on lower extremities, who start about 3 days ago with dry cough, chills and more SOB than usual. Last night, her symptoms got worse and she was brought to ED for further evaluation. At arrival to the hospital she was afebrile, O2 sat 95% on 8L of O2. She was placed on BiPAP, and gradually her SOB improved. CXR shows no acute infiltrate, awaiting formal radiology report. Lab work remarkable for normal WBC count. Allergies Sulfa (Sulfonamide Antibiotics) Adverse Reaction (Mild, Verified 04/16/18 23:02) hallucinations Home medications list reviewed: Yes Home Medications: Acetaminophen [Tylenol Extra Strength] 500 mg PO Q4HP PRN 04/17/18 Albuterol Sulfate [Proair Respiclick] 1 puff IH Q4HP PRN 04/17/18 levoFLOXacin [Levaquin] 500 mg PO DAILY #10 tab 04/19/18 - Past Medical/Surgical History Diabetic: No -: COPD -: Hyperlipidemia -: Tobacco abuse -: Chronic lymphedema to the lower extremities -: History of MRSA infection -: Nephrolithiasis bilaterally -: Staghorn calculus bilaterally -: Large ventral hernia -: Morbid obesity -: Depression with anxiety -: Hysterectomy -: Tonsillectomy -: Removal of kidney stones Psychosocial/ Personal History: The patient is , has 2 children. 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 - Family History Father -: Lung disease, Cancer Mother -: Heart disease, Hypertension, Stroke, Cancer - Social History Smoking Status: Current every day smoker Counseled patient to stop smoking for: less than 10 minutes Alcohol use: No CD- Drugs: No Caffeine use: Yes Place of Residence: Home Review of Systems 10-point ROS is otherwise unremarkable Physical Examination - Physical Exam General: Alert, In no apparent distress HEENT: Atraumatic, PERRLA, Mucous membr. moist/pink, EOMI, Sclerae nonicteric Neck: Supple, 2+ carotid pulse no bruit, No LAD, Without JVD or thyroid abnormality Respiratory: Diminished, Other (poor air movement) Cardiovascular: Regular rate/rhythm, Normal S1 S2 Gastrointestinal: Normal bowel sounds, No tenderness Musculoskeletal: No tenderness, Swelling Integumentary: No rashes Neurological: Normal speech, Normal strength at 5/5 x4 extr, Normal tone, Normal affect Lymphatics: No axilla or inguinal lymphadenopathy - Studies Laboratory Data (last 24 hrs) 09/07/18 02:10: PT 11.4, INR 0.96 09/07/18 02:10: WBC 8.3, Hgb 13.5, Hct 42.6, Plt Count 201 09/07/18 02:10: Sodium 137, Potassium 4.5, BUN 15, Creatinine 0.73, Glucose 171 H, Magnesium 2.1, Total Bilirubin 0.3, AST 22, ALT 29, Alkaline Phosphatase 159 H Assessment and Plan - Problems (Diagnosis) (1) Acute and chronic respiratory failure Onset Date: 04/29/17 Current Visit: No Status: Acute Qualifiers: Respiratory failure complication: hypoxia Qualified Code(s): J96.21 - Acute and chronic respiratory failure with hypoxia (2) COPD exacerbation Onset Date: 04/29/17 Current Visit: No Status: Acute (3) Lymphedema Onset Date: 08/26/14 Current Visit: No Status: Acute (4) Obesity, morbid Onset Date: 08/27/16 Current Visit: No Status: Chronic - Plan Will admit the patient due to acute on chronic respiratory failure secondary to COPD exacerbation. Will order lactate, procalcitonin, influenza screening. Continue BiPAP, IV steroids and breathing treatmenst, consult Dr Hogue. - Advance Directives Does patient have a Living Will: No Does patient have a Durable POA for Healthcare: No - Code Status/Comfort Care Code Status Assessed: Yes Code Status: Full Code
[2018-09-07 06:06] LABS: Arterial Blood Carboxyhemoglob 2.7 % (0-1.5); Blood O2 Saturation 98.8 % (92-98.5)
[2018-09-07] MEDS ORDERED: IPRATROPIUM BROM 0.5MG/2.5ML NEB PRN (07:31)
[2018-09-07] MEDS ORDERED: ONDANSETRON 4 MG/2 ML VIAL IV PRN (07:31)
[2018-09-07] MEDS ORDERED: ACETAMINOPHEN 500 MG TAB PO PRN (07:31)
[2018-09-07] MEDS ORDERED: ALBUTEROL 2.5 MG/3 ML NEB SOL NEB PRN (07:31)
--- NOTE | 2018-09-07 08:20 | RAD REPORT ---
EXAM DESCRIPTION: RAD - Chest Single View - 09/07/2018 2:24 am CLINICAL HISTORY: Shortness of breath COMPARISON: April 2017 chest film, July 2016 CT study TECHNIQUE: AP portable chest image was obtained 0221 hours . FINDINGS: Patient has a prominent baseline interstitial lung pattern. Pulmonary artery enlargement i s present and stable. Medial right base opacification is a prominent pericardial fat pad demonstrated on the comparison CT. This is a stable finding. No peripheral mass or consolidation. Heart and vascu lature are normal. No measurable pleural effusion and no pneumothorax. No acute bony abnormality seen . No acute aortic findings suspected. IMPRESSION: Prominent, chronic interstitial lung disease not substantially different from 2017. No focal mass or consolidation. Extent of chronic disease could mask early stages of interstitial edema or infiltrate.
[2018-09-07] MEDS ORDERED: METHYLPREDNISOLONE 40 MG INJ IV SCH (09:00)
[2018-09-07] MEDS: ENOXAPARIN 40 MG/0.4 ML SQ SCH (10:20)
[2018-09-07] MEDS: SPIRONOLACTONE 25 MG TABLET PO SCH ×2 (10:20→21:35)
[2018-09-07] MEDS: FUROSEMIDE 20 MG/ 2ML VIAL IV SCH ×2 (10:20→18:17)
--- NOTE | 2018-09-07 11:38 | P.CNS ---
Date of Consult: 09/07/18 Chief Complaint: acute on chronic respiratory failure History of Present Illness: Patient is 58 years of age well known to me she [place] in the for quite some time and then she could not afford to pay for her medications for visit doctors offices for refills patient has been only using pro air he had progressive dyspnea over the past many months also complains of right leg which is chronically more swollen than the left has some cough but no fever chills chest pain long-acting bronchodilators helped her Allergies Sulfa (Sulfonamide Antibiotics) Adverse Reaction (Mild, Verified 04/16/18 23:02) hallucinations Home Medications: Albuterol Sulfate [Proair Respiclick] 1 puff IH Q4HP PRN 04/17/18 - Past Medical/Surgical History Diabetic: No -: COPD -: Hyperlipidemia -: Tobacco abuse -: Chronic lymphedema to the lower extremities -: History of MRSA infection -: Nephrolithiasis bilaterally -: Staghorn calculus bilaterally -: Large ventral hernia -: Morbid obesity -: Depression with anxiety -: Hysterectomy -: Tonsillectomy -: Removal of kidney stones Psychosocial/ Personal History: The patient is , has 2 children. 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 - Family History Father Medical History: Lung disease, Cancer Mother Medical History: Heart disease, Hypertension, Stroke, Cancer - Social History Smoking Status: Current every day smoker Alcohol use: No CD- Drugs: No Caffeine use: Yes Place of Residence: Home Review of Systems General: Weakness Respiratory: Cough, Shortness of Breath Cardiovascular: Edema Physical Examination Temp Pulse Resp BP Pulse Ox 97.3 F 81 16 148/76 H 93 09/07/18 08:00 09/07/18 10:20 09/07/18 08:00 09/07/18 10:20 09/07/18 08:00 General: Alert, Oriented x3 HEENT: Atraumatic Neck: Supple Respiratory: Expiratory wheezes Cardiovascular: Regular rate/rhythm, Normal S1 S2, Edema (Left greater than the right) Gastrointestinal: Normal bowel sounds, Soft and benign Laboratory Data (last 24 hrs) 09/07/18 02:10: PT 11.4, INR 0.96 09/07/18 02:10: WBC 8.3, Hgb 13.5, Hct 42.6, Plt Count 201 09/07/18 02:10: Sodium 137, Potassium 4.5, BUN 15, Creatinine 0.73, Glucose 171 H, Magnesium 2.1, Total Bilirubin 0.3, AST 22, ALT 29, Alkaline Phosphatase 159 H - Problems (1) Respiratory failure Current Visit: Yes Status: Acute Plan: Patient is 58 years of age with a history of COPD admitted with acute on chronic respiratory failure noncompliance with medication she has hypoxic hypercapnic white count is normal vital signs satisfactory chest x-ray shows chronic interstitial changes prominent hilum possible underlying pulmonary hypertension will consider cheaper inhaler 2D echo trial of diuretics for the possibility of diastolic dysfunction no evidence of sepsis titrate sat to 90% do ABGs the qualify for noninvasive ventilator/BiPAP I have added diuretics Qualifiers: Chronicity: acute on chronic
[2018-09-07 12:25] LABS: Urine Appearance CLOUDY; Urine Bilirubin NEGATIVE (NEG); Urine Blood 3+ (NEG); Urine Color YELLOW; Urine Glucose TRACE (NEG); Urine Protein NEGATIVE (NEG); Urine Urobilinogen 0.2 mg/dL (0.2-1.0); Urine pH 5.5 (5.0-7.0)
[2018-09-07 12:45] LABS: Urine Microscopic Reflex ORDER UMIC
[2018-09-07 12:55] LABS: Urine Bacteria <20 /HPF (<20); Urine Culture Reflex Order NOT NEEDED; Urine RBC 20-50 /HPF (NONE SEEN)
[2018-09-07] MEDS: IPRATROPIUM BROM 0.5MG/2.5ML NEB SCH ×2 (14:13→19:30)
[2018-09-07] MEDS: ARFORMOTEROL TARTRATE 15 MCG/2 ML VIAL.NEB NEB SCH ×2 (14:13→19:30)
[2018-09-07 15:32] LABS: Arterial Blood Carboxyhemoglob 2.7 % (0-1.5); Blood O2 Saturation 90.9 % (92-98.5)
--- NOTE | 2018-09-07 16:01 | RAD REPORT ---
EXAM DESCRIPTION: US - Extrem Venous W Compress Arash - 09/07/2018 3:52 pm CLINICAL HISTORY: bilateral lower ext swelling Bilateral leg edema and swelling. COMPARISON: Extrem Venous W Compress Arash dated 04/16/2018 TECHNIQUE: Real-time sonographic interrogation of the left and right lower extremity deep venous sys tems was performed. FINDINGS: Normal compressibility, flow augmentation, phasic flow and spontaneous flow is identified in both the left and right lower extremity deep venous systems. IMPRESSION: No sonographic evidence of left or right lower extremity deep venous thrombosis.
--- NOTE | 2018-09-07 18:09 | PN ---
Date of Progress Note: 09/07/2018 Subjective: The patient is seen and examined. Chart reviewed and case discussed with RN and Dr. Cecille goode. The patient is having significant amount of respiratory distress, currently on BiPAP. Family at the bedside, treatment plan explained, all questions answered. Medications: List reviewed. Physical Examination: Vital Signs: Temperature 97.3, heart rate 81, blood pressure 148/73, respirations 16, and O2 of 93% on BiPAP. General: Awake, alert, and oriented x3. Appears much older than stated age, in acute respiratory di stress. Obese, BMI of 38.4. CV: S1 and S2. Regular rate and rhythm. Peripheral pulses present. Respiratory: Diminished breath sounds. Wheezing present. Gastrointestinal: Abdomen is soft, nontender, and nondistended. Positive bowel sounds. No guarding or rigidity. The patient has large ventral hernia. Extremities: No clubbing or cyanosis. The patient has chronic lymphedema of the lower extremities, left greater than right. Neurologic: Cranial nerves 2 to 12 intact grossly. No focal neurological deficit. Speech is normal . Skin: Left lower extremity lymphedema and chronic venous stasis changes, right greater than left. Laboratory Data: Sodium 137, potassium 4.5, chloride 99, CO2 of 36, BUN 15, creatinine 0.73, and glu cose 171. Lactate is 1.2. Influenza screen is negative. Assessment And Plan: A 58-year-old female with, 1.Utdgg-oq-uqtuusg respiratory failure with hypoxia. The patient normally uses 3 L of oxygen at [place], currently on BiPAP. The patient has hypercapnia as well. We will continue with BiPAP for now, ap preciate pulmonology input secondary to chronic obstructive pulmonary disease, the patient only takes albuterol inhaler as needed, is not on any maintenance inhalers due to cost. 2.Acute chronic obstructive pulmonary disease exacerbation. We will continue with nebulizer treatme nts and steroids. We will continue supplemental oxygen. 3.Chronic lymphedema. We will order a Doppler ultrasound to rule out deep venous thrombosis. 4.Obesity, BMI of 38.4. 5.Noncompliance due to cost. 6.Nicotine dependence with cigarette smoking, continuous. The patient is counseled for less than 3 minutes. 7.Deep venous thrombosis prophylaxis, currently on Lovenox. PLAN: We will obtain echocardiogram. The patient has been added on Aldactone by Pulmonology. Wean off steroids. Follow up on cultures. We will consult Wound Care for chronic lymphedema and obtain w ound cultures. /MARÍA Voice ID: [id number] Report ID: [id number]
[2018-09-07] MEDS: predniSONE 20 MG TAB PO SCH (21:36)
[2018-09-08] MEDS: IPRATROPIUM BROM 0.5MG/2.5ML NEB SCH ×4 (01:10→20:00)
[2018-09-08 06:20] LABS: Absolute Lymphocytes (CBC) 0.7 K/uL (0.7-4.9); Absolute Monocytes 0.3 K/uL (0.1-1.3); Absolute Neutrophil 6.4 K/uL (1.8-8.0); Basophils % 0.9 % (0-1.3); Eosinophils % 0.2 % (0-4.4); Hematocrit 42.6 % (36.0-45.0); Lymphocytes % 9.3 % (15.3-44.8); MPV 10.4 fL (7.6-11.3); Monocytes % 3.8 % (3.3-12.3); RBC Red Blood Cell Count 5.17 M/uL (3.86-4.86)
[2018-09-08 06:26] LABS: Potassium 4.7 mmol/L (3.5-5.1)
[2018-09-08 06:39] LABS: Blood Morphology Comment NOT SEEN (NOT SEEN); Platelet Estimate ADEQ; Urine White Blood Cell Casts OK
[2018-09-08] MEDS: ARFORMOTEROL TARTRATE 15 MCG/2 ML VIAL.NEB NEB SCH ×2 (07:35→20:00)
--- NOTE | 2018-09-08 08:36 | P.PN ---
Subjective Date of Service: 09/08/18 Chief Complaint: acute on chronic respiratory failure Subjective: Improving (Patient is doing much better wants to go home) Review of Systems General: Weakness Respiratory: Shortness of Breath Physical Examination - Vital Signs Temperature: 97.2 F Blood Pressure: 129/72 Pulse: 65 Respirations: 20 Pulse Ox (%): 94 - Physical Exam General: Alert, Oriented x3 Respiratory: Clear to auscultation bilaterally, Diminished Cardiovascular: Regular rate/rhythm, Edema Assessment & Plan - Problems (Diagnosis) (1) Respiratory failure Current Visit: Yes Status: Acute Plan: Patient admitted with acute on chronic respiratory failure is doing well is back at her baseline shortness of breath is much better I suggest patient be discharged home on Lasix 20 mg once a day spironolactone 25 mg twice a day albuterol nebulize q.4h to 6 p.r.n. and prednisone 10 mg twice a day for 10 days no antibiotics necessary patient to stop by my office and berry picker a sample of Symbicort she does not have significant desaturation on oxygen to qualify for a BiPAP Qualifiers: Chronicity: acute on chronic Discharge Plan: Home
[2018-09-08] MEDS: SPIRONOLACTONE 25 MG TABLET PO SCH ×2 (08:38→20:56)
[2018-09-08] MEDS: FUROSEMIDE 20 MG/ 2ML VIAL IV SCH ×2 (08:39→09:00)
[2018-09-08] MEDS: ENOXAPARIN 40 MG/0.4 ML SQ SCH (08:39)
[2018-09-08] MEDS: predniSONE 20 MG TAB PO SCH ×2 (08:39→20:56)
[2018-09-08] MEDS ORDERED: FUROSEMIDE 20 MG TABLET PO SCH (11:17)
--- NOTE | 2018-09-08 11:34 | EKG ---
Test Date: 2018-09-07 Test Time: 04:04:16 Screen Repairer Crusher: AG3 MEASUREMENT RESULTS: Intervals: Rate: 80 AZ: 128 QRSD: 80 QT: 368 QTc: 424 [place]: P: 68 AZ: 128 QRS: 93 T: 53 INTERPRETIVE STATEMENTS: Sinus rhythm with premature atrial complexes Rightward axis Borderline ECG Compared to ECG 04/28/2017 12:55:21 Atrial premature complex(es) now present supraventricular beat(s) now present Right-axis deviation now present Electronically Signed On 09-07-18 10:48:36 CDT by Biju Courtney
[2018-09-08] MEDS: FUROSEMIDE 20 MG TABLET PO SCH ×2 (11:57→16:32)
--- NOTE | 2018-09-08 23:02 | P.PN ---
Subjective Date of Service: 09/08/18 Chief Complaint: acute on chronic respiratory failure Subjective: Improving The patient is seen and examined. Chart reviewed and case discussed with nursing staff. The patient reports improved breathing. Requiring intermittent bipap Family at the bedside, treatment plan explained, all questions answered. Review of Systems 10-point ROS is otherwise unremarkable Physical Examination - Vital Signs Temperature: 98.2 F Blood Pressure: 153/70 Pulse: 83 Respirations: 20 Pulse Ox (%): 94 - Physical Exam General: Alert, In no apparent distress, Oriented x3 HEENT: Atraumatic, PERRLA, EOMI Neck: Supple, JVD not distended Respiratory: Diminished, Expiratory wheezes Cardiovascular: Regular rate/rhythm, Normal S1 S2 Gastrointestinal: Normal bowel sounds, No tenderness Musculoskeletal: Other (The patient has chronic lymphedema of the lower extremities, left greater than right. ) Integumentary: No rashes, Other (Chronic changes to bilateral lower extremities) Neurological: Normal speech, Normal tone, Normal affect Lymphatics: No axilla or inguinal lymphadenopathy Assessment And Plan - Plan A 58-year-old female with, Dsaoi-dc-blhalce respiratory failure with hypoxia. The patient normally uses 3 L of oxygen at home, currently on BiPAP. The patient has hypercapnia as well. We will continue with BiPAP as needed for now , appreciate pulmonology input secondary to chronic obstructive pulmonary disease, the patient only takes albuterol inhaler as needed, is not on any maintenance inhalers due to cost. Acute chronic obstructive pulmonary disease exacerbation. We will continue with nebulizer treatments and steroids. We will continue supplemental oxygen. Chronic lymphedema. Doppler ultrasound negative for deep venous thrombosis. Wound care, recommends [facility]. Recommendations appreciated. Wound cultures pending Obesity, BMI of 38.4. Noncompliance due to cost. Nicotine dependence with cigarette smoking, continuous. The patient is counseled for less than 3 minutes. Deep venous thrombosis prophylaxis, currently on Lovenox. PLAN: Continue Aldactone. Wean off steroids. Follow up on cultures.
[2018-09-09] MEDS: IPRATROPIUM BROM 0.5MG/2.5ML NEB SCH ×3 (02:00→12:51)
[2018-09-09 03:37] VITALS: O2SAT 97
[2018-09-09 05:05] VITALS: BMI 38.3
[2018-09-09] MEDS: ARFORMOTEROL TARTRATE 15 MCG/2 ML VIAL.NEB NEB SCH (08:09)
[2018-09-09] MEDS: predniSONE 20 MG TAB PO SCH (08:28)
[2018-09-09] MEDS: SPIRONOLACTONE 25 MG TABLET PO SCH (08:28)
[2018-09-09] MEDS: FUROSEMIDE 20 MG TABLET PO SCH (08:28)
[2018-09-09] MEDS: ENOXAPARIN 40 MG/0.4 ML SQ SCH (08:29)
[2018-09-09 08:52] VITALS: TEMP 97.9
[2018-09-09 13:58] VITALS: BP 130/65
== END 2018-09-09 15:00 | disposition home or self-care (01) | DRG 190 ==
LOC: ER 01:52 → ERHOLD 04:51 → 4TH 06:01
PROVIDERS: ADMIT Internal Medicine; ATTEND Family Medicine
PROC: 5A09457 Assistance with Respiratory Ventilation, 24-96 Consecutive Hours, Continuous Positive Airway Pressure (ICD-10-PCS; principal; 2018-09-07)
DX: J44.1 Chronic obstructive pulmonary disease with (acute) exacerbation (principal); J96.21 Acute and chronic respiratory failure with hypoxia; J96.22 Acute and chronic respiratory failure with hypercapnia; F17.210 Nicotine dependence, cigarettes, uncomplicated; E66.01 Morbid (severe) obesity due to excess calories; Z68.38 Body mass index [BMI] 38.0-38.9, adult; I89.0 Lymphedema, not elsewhere classified; E78.5 Hyperlipidemia, unspecified; Z22.322 Carrier or suspected carrier of Methicillin resistant Staphylococcus aureus; F32.9 Major depressive disorder, single episode, unspecified; F41.9 Anxiety disorder, unspecified; Z91.120 Patient's intentional underdosing of medication regimen due to financial hardship
CPT/HCPCS: 36415; 71045; 80048; 80076; 81003; 81015; 82805; 83605; 83735; 83880; 84145; 84443; 84484; 85025; 85610; 87070; 87077; 87186; 87205; 87804; 93005; 93970; 94640; 94660; 94760; 96374; 99285; J1650; J1940; J2920; J7512; J7605

== ENCOUNTER 2019-05-21 12:03 | Observation (INO) | payer BC ==
[2019-05-21] MEDS ORDERED: METHYLPREDNISOLONE 125 MG INJ ONE (12:48)
[2019-05-21] MEDS ORDERED: NA CHLORIDE 0.9% 500 ML ONE (12:49)
[2019-05-21] MEDS ORDERED: LEVALBUTEROL 1.25 MG/3 ML NEB ONE (12:49)
[2019-05-21 12:59] LABS: Basophils % 0.8 % (0-1.3); Hematocrit 40.4 % (36.0-45.0); Lymphocytes % 10.2 % (15.3-44.8); MPV 9.8 fL (7.6-11.3); RBC Red Blood Cell Count 4.75 M/uL (3.86-4.86)
[2019-05-21 13:18] LABS: Potassium 3.9 mmol/L (3.5-5.1)
--- NOTE | 2019-05-21 13:42 | RAD REPORT ---
EXAM DESCRIPTION: RAD - Chest Single View - 05/21/2019 1:13 pm CLINICAL HISTORY: Persistent cough and congestion COMPARISON: September 07, 2018, April 2017 TECHNIQUE: AP portable chest image was obtained 1302 hours . FINDINGS: Extensive chronic interstitial lung disease is present. This is worse in each lung base. H eart and vasculature are normal. No measurable pleural effusion and no pneumothorax. No acute bony ab normality seen. No acute aortic findings. IMPRESSION: Prominent interstitial lung disease in the mid and lower lung greer. Pattern is not substantially different back to 2017. Extent of chronic disease could mask acute interstitial edema or infiltrate.
--- NOTE | 2019-05-21 13:56 | ER ---
Nurse's Notes [facility] Name: Zarina Womack Age: 58 yrs Sex: Female : 1960 Arrival Date: 05/21/2019 Time: 12:06 Bed 13 Private MD: Gin Perez Diagnosis: Chronic obstructive pulmonary disease with (acute) exacerbation;Dyspnea, unspecified Presentation: 05/21 12:19 Presenting complaint: Patient states: Cough and congestion since Friday. Shortness of ca1 breath started 2 days ago. On home O2 at 3LPM continuous. Cough with brownish sputum reported. Fever yesterday at 101F. PT on tachypneic, breathing labored on mild respiratory distress. Transition of care: patient was not received from another setting of care. Onset of symptoms was May 21, 2019. Risk Assessment: Do you want to hurt yourself or someone else? Patient reports no desire to harm self or others. Initial Sepsis Screen: Does the patient meet any 2 criteria? No. Patient's initial sepsis screen is negative. Does the patient have a suspected source of infection? Yes: Productive cough/pneumonia. Care prior to arrival: None. 12:19 Method Of Arrival: Wheelchair ca1 12:19 Acuity: AISSATOU 2 ca1 Historical: - Allergies: 12:24 Sulfa (Sulfonamide Antibiotics); ca1 - Home Meds: 12:43 prednisone 10 mg Oral tab once daily [Active]; furosemide 40 mg Oral tab 2 tabs once ca1 daily [Active]; spironolactone 25 mg Oral tab 2 tabs once daily [Active]; Symbicort inhalation inhalation [Active]; Spiriva Respimat inhalation inhalation [Active]; - PMHx: 12:24 Anxiety; COPD; Depression; lymphedema; Hypertension; Hernia; ca1 - PSHx: 12:24 Hysterectomy; Tonsillectomy; Cataracts; ca1 - Immunization history:: Adult Immunizations up to date, Flu vaccine is not up to date. - Social history:: Smoking status: Patient uses tobacco products, smokes one-half pack cigarettes per day. - Ebola Screening: : Patient negative for fever greater than or equal to 101.5 degrees Fahrenheit, and additional compatible Ebola Virus Disease symptoms Patient denies exposure to infectious person Patient denies travel to an Ebola-affected area in the 21 days before illness onset No symptoms or risks identified at this time. - Family history:: not pertinent. - Hospitalizations: : No recent hospitalization is reported. Screenin:50 Abuse screen: Denies threats or abuse. Denies injuries from another. Nutritional ca1 screening: No deficits noted. Tuberculosis screening: No symptoms or risk factors identified. Fall Risk IV access (20 points). Ambulatory Aid- Crutches/Cane/Walker (15 pts). Gait- Weak (10 pts.). Total Iraheta Fall Scale indicates Low Risk Score (25-44 pts). Fall prevention measures have been instituted. Side Rails Up X 2 Family Present and informed to notify staff if they need to leave bedside As available Patient and Family Educated on Fall Prevention Program and strategies. Assessment: 12:50 General: Appears in no apparent distress. uncomfortable, ill, Behavior is calm, ca1 cooperative, appropriate for age. General: Reports feeling ill for > 3 days. Pain: Complains of pain in forehead Pain currently is 5 out of 10 on a pain scale. Neuro: Level of Consciousness is awake, alert, obeys commands, Oriented to person, place, time, situation, Appropriate for age. Cardiovascular: Heart tones S1 S2 present Capillary refill is > 3 seconds Patient's skin is warm and dry. Rhythm is sinus rhythm. Respiratory: Reports shortness of breath on exertion since 2 days ago cough that is productive, since a week ago Airway is patent Respiratory effort is even, labored, Respiratory pattern is symmetrical, tachypnea Breath sounds with wheezes bilaterally. Onset: The symptoms/episode began/occurred 2 days ago, the patient has moderate shortness of breath. GI: Abdomen is round obese, Bowel sounds present X 4 quads. Abd is soft and non tender X 4 quads. : No deficits noted. No signs and/or symptoms were reported regarding the genitourinary system. EENT: Parent/caregiver reports the patient having nasal congestion since a week ago. Derm: Skin is fragile, Skin is pink, warm \T\ dry. Derm: both legs wrapped with Kerlix Dressing. Pt reports it is seeping fluids and that is baseline. Last changed 2 days ago. Musculoskeletal: Circulation, motion, and sensation intact. Swelling present in right leg and left leg. 14:20 Reassessment: Patient appears in no apparent distress at this time. Patient is alert, ca1 oriented x 3, equal unlabored respirations, skin warm/dry/pink. Dr. Ramos at bedside. 15:04 Reassessment: Kerlix dressing changed on both lower extremities by AIDE Cohen. Pt ca1 tolerated well. 15:55 Reassessment: Patient appears in no apparent distress at this time. Patient is alert, ca1 oriented x 3, equal unlabored respirations, skin warm/dry/pink. Vital Signs: 12:24 BP 149 / 78; Pulse 92; Resp 28 S; Temp 98.3(O); Pulse Ox 90% on R/A; Weight 108.86 kg ca1 (R); Height 5 ft. 2 in. (157.48 cm) (R); Pain 5/10; 13:19 BP 150 / 74; Pulse 103; Resp 20 S; Pulse Ox 96% on 3 lpm NC; ca1 15:45 BP 138 / 63; Pulse 106; Resp 20; Temp 98.9(O); Pulse Ox 91% on 3 lpm NC; mh5 12:24 Body Mass Index 43.90 (108.86 kg, 157.48 cm) ca1 ED Course: 12:06 Patient arrived in ED. mr 12:06 Gin Perez MD is Private Physician. mr 12:19 Yen Blount, DELMA is Primary Nurse. ca1 12:23 Triage completed. ca1 12:24 Arm band placed on right wrist. ca1 12:28 Maximo Jimenez MD is Attending Physician. rn 12:40 Inserted saline lock: 20 gauge in right wrist, using aseptic technique. Blood jp3 collected. Oxygen administration via nasal cannula \T\ 4L/min. 12:40 Initial lab(s) drawn, by vt, sent to lab. First set of blood cultures drawn by vt. jp3 12:52 Call light in reach. Adult w/ patient. Verbal reassurance given. peoplesoft crm developer on. jp3 Pulse ox on. NIBP on. 12:58 EKG done, by nuclear test technician. reviewed by Maximo Jimenez MD. at1 13:14 XRAY CXR (1 view) In Process Unspecified. EDMS 13:25 Second set of blood cultures drawn by me. jp3 13:32 Blood Culture Adult (2) Sent. jp3 13:53 Carlos Ramos DO is Hospitalizing Provider. rn 15:56 No provider procedures requiring assistance completed. Patient admitted, IV remains in ca1 place. Administered Medications: 12:47 Drug: Xopenex (3) 1.25 mg Route: Inhalation; ca1 12:48 Drug: SOLU-Medrol 125 mg Route: IVP; Site: right forearm; ca1 14:21 Follow up: Response: No adverse reaction ca1 12:48 Drug: NS 0.9% 500 ml Route: IV; Rate: bolus; Site: right forearm; ca1 13:30 Follow up: Response: No adverse reaction; IV Status: Completed infusion ca1 14:22 Follow up: Response: No adverse reaction; IV Intake: 500ml ca1 Intake: 14:22 IV: 500ml; Total: 500ml. ca1 Outcome: 13:55 Decision to Hospitalize by Provider. rn 15:56 Admitted to Med/surg accompanied by tech, via wheelchair, room 230, with chart, Report ca1 called to MIGUEL RN 15:56 Condition: stable 15:56 Instructed on the need for admit. 16:18 Patient left the ED. ca1 Signatures: Dispatcher [employer] Dianne Avina Roman, MD MD rn Gonzales, Amanda, pet nutrition specialist EKG Tat1 Ally Peter 5 Nuno Smiley jp3 Yen Blount, RN RN ca1
--- NOTE | 2019-05-21 13:56 | EDPHYS ---
Physician Documentation [facility] Name: Zarina Womack Age: 58 yrs Sex: Female : 1960 Arrival Date: 05/21/2019 Time: 12:06 Bed 13 Private MD: Gin Perez ED Physician Maximo Jimenez HPI: 05/21 13:14 This 58 yrs old Female presents to ER via Wheelchair with complaints of rn Breathing Difficulty, Cough, Congestion. 13:14 The patient has shortness of breath with light activity. rn 13:15 Onset: The symptoms/episode began/occurred 1 week(s) ago. Duration: The symptoms are rn intermittent. The patient's shortness of breath is aggravated by exertion, light activity. Severity of symptoms: At their worst the symptoms were moderate in the emergency department the symptoms are unchanged. The patient has experienced similar episodes in the past. Reports sob, cough, fatigue, worse with exertion, felt flu like illness over last week. No fever now, reports edema in legs at baseline. Has COPD with oxygen at home. . Historical: - Allergies: 12:24 Sulfa (Sulfonamide Antibiotics); ca1 - Home Meds: 12:43 prednisone 10 mg Oral tab once daily [Active]; furosemide 40 mg Oral tab 2 tabs once ca1 daily [Active]; spironolactone 25 mg Oral tab 2 tabs once daily [Active]; Symbicort inhalation inhalation [Active]; Spiriva Respimat inhalation inhalation [Active]; - PMHx: 12:24 Anxiety; COPD; Depression; lymphedema; Hypertension; Hernia; ca1 - PSHx: 12:24 Hysterectomy; Tonsillectomy; Cataracts; ca1 - Immunization history:: Adult Immunizations up to date, Flu vaccine is not up to date. - Social history:: Smoking status: Patient uses tobacco products, smokes one-half pack cigarettes per day. - Ebola Screening: : Patient negative for fever greater than or equal to 101.5 degrees Fahrenheit, and additional compatible Ebola Virus Disease symptoms Patient denies exposure to infectious person Patient denies travel to an Ebola-affected area in the 21 days before illness onset No symptoms or risks identified at this time. - Family history:: not pertinent. - Hospitalizations: : No recent hospitalization is reported. ROS: 13:15 Constitutional: + subjective fever Eyes: Negative for injury, pain, redness, and internal control specialist, Neck: Negative for injury, pain, and swelling, Cardiovascular: Negative for chest pain, palpitations Respiratory: Negative for pleuritic chest pain Abdomen/GI: Negative for abdominal pain, nausea, vomiting, diarrhea, and constipation, MS/Extremity: + chronic lymphedema Skin: Negative for injury Neuro: Negative for headache, numbness, tingling, and seizure. Exam: 13:15 Constitutional: Overweight female, mild to moderate tachypnea, sitting in wheelchair rn by choice Head/Face: Normocephalic, atraumatic. ENT: dry MM, no stridor or swelling Cardiovascular: Regular rate and rhythm. No pulse deficits. Respiratory: + moderate tachypnea with poor inspiratory air flow, + exp wheezing noted Abdomen/GI: soft, non-tender MS/ Extremity: Pulses equal, no cyanosis. Neurovascular intact. Full, normal range of motion. Equal circumference. Neuro: Awake and alert, GCS 15, oriented to person, place, time, and situation. Cranial nerves II-XII grossly intact. Motor strength 4/5 in all extremities. Sensory grossly intact. Vital Signs: 12:24 BP 149 / 78; Pulse 92; Resp 28 S; Temp 98.3(O); Pulse Ox 90% on R/A; Weight 108.86 kg ca1 (R); Height 5 ft. 2 in. (157.48 cm) (R); Pain 5/10; 13:19 BP 150 / 74; Pulse 103; Resp 20 S; Pulse Ox 96% on 3 lpm NC; ca1 15:45 BP 138 / 63; Pulse 106; Resp 20; Temp 98.9(O); Pulse Ox 91% on 3 lpm NC; mh5 12:24 Body Mass Index 43.90 (108.86 kg, 157.48 cm) ca1 MDM: 12:28 Patient medically screened. rn 13:51 Differential diagnosis: CHF exacerbation, Chronic Obstructive Pulmonary Disease rn Myocardial Infarction pneumonia, Pneumothorax pulmonary edema, reactive airway disease. Data reviewed: vital signs, nurses notes, lab test result(s), radiologic studies, plain films, and as a result, I will admit patient. Counseling: I had a detailed discussion with the patient and/or guardian regarding: the historical points, exam findings, and any diagnostic results supporting the discharge/admit diagnosis, lab results, radiology results, the need for further work-up and treatment in the hospital. Response to treatment: the patient's symptoms have mildly improved after treatment, and as a result, I will admit patient. Admission orders: after a detailed discussion of the patient's condition and case, the admit orders are written by me. ED course: Pt still tachypneic, no pneumonia, neg flu, will admit for COPD exacerbation. . 05/21 12:40 Order name: Blood Culture Adult (2) rn 05/21 12:40 Order name: BMP; Complete Time: 13:31 rn 05/21 12:40 Order name: CBC with Diff; Complete Time: 13:31 rn 05/21 12:40 Order name: NT PRO-BNP; Complete Time: 13:31 rn 05/21 12:40 Order name: Lactate; Complete Time: 13:31 rn 05/21 12:40 Order name: Flu; Complete Time: 13:31 rn 05/21 12:40 Order name: XRAY CXR (1 view); Complete Time: 13:51 rn 05/21 12:40 Order name: EKG; Complete Time: 12:41 rn 05/21 12:40 Order name: Cardiac monitoring; Complete Time: 12:45 rn 05/21 12:40 Order name: EKG - Nurse/Tech; Complete Time: 12:45 rn 05/21 12:40 Order name: IV Saline Lock; Complete Time: 12:45 rn 05/21 12:40 Order name: Labs collected and sent; Complete Time: 12:45 rn 05/21 12:40 Order name: O2 Per Protocol; Complete Time: 12:45 rn 05/21 12:40 Order name: O2 Sat Monitoring; Complete Time: 12:45 rn Administered Medications: 12:47 Drug: Xopenex (3) 1.25 mg Route: Inhalation; ca1 12:48 Drug: SOLU-Medrol 125 mg Route: IVP; Site: right forearm; ca1 14:21 Follow up: Response: No adverse reaction ca1 12:48 Drug: NS 0.9% 500 ml Route: IV; Rate: bolus; Site: right forearm; ca1 13:30 Follow up: Response: No adverse reaction; IV Status: Completed infusion ca1 14:22 Follow up: Response: No adverse reaction; IV Intake: 500ml ca1 Disposition: 05/21/19 13:55 Hospitalization ordered by Carlos Ramos for Observation. Preliminary diagnosis are Chronic obstructive pulmonary disease with (acute) exacerbation, Dyspnea, unspecified. - Bed requested for Telemetry/MedSurg (observation). - Status is Observation. ca1 - Condition is Stable. - Problem is an acute exacerbation. - Symptoms have improved. UTI on Admission? No Signatures: Dispatcher [employer] EDMS Maximo Jimenez MD MD rn Botello, Elizabeth eb Acob, Cheryl, RN RN ca1 Corrections: (The following items were deleted from the chart) 14:51 13:55 Hospitalization Ordered by Carlos Ramos DO for Observation. Preliminary eb diagnosis is Chronic obstructive pulmonary disease with (acute) exacerbation; Dyspnea, unspecified. Bed requested for Telemetry/MedSurg (observation). Status is Observation. Condition is Stable. Problem is an acute exacerbation. Symptoms have improved. UTI on Admission? No. rn 16:18 14:51 05/21/2019 13:55 Hospitalization Ordered by Carlos Ramos DO for Observation. ca1 Preliminary diagnosis is Chronic obstructive pulmonary disease with (acute) exacerbation; Dyspnea, unspecified. Bed requested for Telemetry/MedSurg (observation). Status is Observation. Condition is Stable. Problem is an acute exacerbation. Symptoms have improved. UTI on Admission? No. eb
--- NOTE | 2019-05-21 14:56 | P.HP ---
Certification for Inpatient Patient admitted to: Observation With expected LOS: <2 Midnights Patient will require the following post-hospital care: None Practitioner: I am a practitioner with admitting privileges, knowledge of patient current condition, hospital course, and medical plan of care. Services: Services provided to patient in accordance with Admission requirements found in Title 42 Section 412.3 of the Code of Federal Regulations Patient History Date of Service: 05/21/19 Primary Care Provider: Dr. Perez; Pulmonary-Dr. Hogue Reason for admission: Shortness of breath, cough History of Present Illness: 58-year-old female with history of COPD on chronic steroid and oxygen. Patient reports increasing cough, congestion over the past week. She denies significant fever, chills. She reports some sputum production but clear. She has been trying to manage her COPD at home. She came to the ER for further evaluation. In the ER patient evaluated. Patient was slightly tachypneic in the ER. Oxygen saturations were around 90%. Chest x-ray shows no evidence of pneumonia. Influenza test negative. Lactic acid normal. BMP normal. White count 10.1, hemoglobin 13.2. Sodium 133, potassium 3.9, BUN of 13, creatinine 0.9 with a GFR 61. Bicarb 35. Glucose 343. Patient was given breathing treatment with improvement. Patient admitted for observation. When I saw the patient in the ER, she appeared stable. Patient with history of COPD, chronic lymphedema. She is seen by pulmonology as an outpatient. Patient did not appear in any respiratory distress. Patient continues to smoke. She is trying to quit. She uses a nicotine patch. Allergies Sulfa (Sulfonamide Antibiotics) Adverse Reaction (Mild, Verified 04/16/18 23:02) hallucinations Home medications list reviewed: Yes Home Medications: Albuterol Sulfate [Proair Respiclick] 1 puff IH Q4HP PRN 04/17/18 Budesonide/Formoterol Fumarate [Symbicort 160-4.5 Mcg Inhaler] 2 puff IH BID 30 Days #1 [email or web address] 09/08/18 Furosemide [Lasix*] 20 mg PO BIDL #60 tab 09/09/18 Spironolactone [Aldactone*] 25 mg PO BID #60 tab 09/09/18 Sulfamethoxazole/Trimethoprim [Bactrim Ds Tablet] 1 each PO BID #14 tablet 09/09 predniSONE [Deltasone*] 10 mg PO BID #20 tab 09/09/18 - Past Medical/Surgical History Diabetic: No -: COPD, steroid dependent, home oxygen -: Hyperlipidemia -: Tobacco abuse -: Chronic lymphedema to the lower extremities -: History of MRSA infection -: Nephrolithiasis bilaterally -: Staghorn calculus bilaterally -: Large ventral hernia -: Morbid obesity -: Depression with anxiety -: Hysterectomy -: Tonsillectomy -: Removal of kidney stones Psychosocial/ Personal History: The patient is , has 2 children. 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 - Family History Father -: Lung disease, Cancer Mother -: Heart disease, Hypertension, Stroke, Cancer - Social History Smoking Status: Heavy Tobacco smoker (>10 cigarettes/day) Counseled patient to stop smoking for: less than 10 minutes Smoking therapy provided: Yes Patient receptive to therapy: Yes Alcohol use: No CD- Drugs: No Caffeine use: Yes Review of Systems General: As per HPI Eyes: Unremarkable ENT: Nose Congestion, As per HPI Respiratory: Cough, Shortness of Breath, Sputum, Wheezing, As per HPI Cardiovascular: Unremarkable Gastrointestinal: Unremarkable Genitourinary: Unremarkable Musculoskeletal: As per HPI (Chronic lymphedema) Integumentary: As per HPI Neurological: Unremarkable Lymphatics: Unremarkable Physical Examination - Physical Exam General: Alert, In no apparent distress, Oriented x3, Cooperative HEENT: Atraumatic, Normocephalic, Mucous membr. moist/pink Neck: Supple Respiratory: Expiratory wheezes (Bilateral) Cardiovascular: Normal pulses, Regular rate/rhythm Gastrointestinal: Normal bowel sounds, Soft and benign, Non-distended, No tenderness, No masses, No rebound, No guarding, Other (Large ventral hernia, morbid obesity) Musculoskeletal: Other (Lower extremity wrapping in place of bilateral below- knee) Neurological: Normal speech, Normal strength at 5/5 x4 extr, Normal tone, Normal affect - Studies Laboratory Data (last 24 hrs) 05/21/19 12:40: WBC 10.1, Hgb 13.2, Hct 40.4, Plt Count 195 05/21/19 12:40: Sodium 133 L, Potassium 3.9, BUN 13, Creatinine 0.94, Glucose 343 H Microbiology Data (last 24 hrs): 05/21/19 12:44 Nasopharnyx Influenza Type A Antigen Screen - Final 12/20/19 12:44 Nasopharnyx Influenza Type B Antigen Screen - Final Assessment and Plan - Plan Impression: COPD exacerbation with history of COPD, steroid dependent/chronic home oxygen Chronic lymphedema to the lower extremities Elevated blood sugar suspect diabetes mellitus type 2 Morbid obesity Large ventral hernia Tobacco abuse Plan: COPD exacerbation with history of COPD, steroid dependent/chronic home oxygen: Patient will be admitted for further observation and treatment. Will continued to maintain sats above 93%. Will increase steroid to prednisone 20 mg 1 pill twice daily. Will continue with Dulera and Spiriva. Will provide albuterol/ Atrovent nebs as needed. Respiratory consulted to help with this. Will consult pulmonology who she sees as an outpatient for further recommendation. Will provide DVT prophylaxis-Lovenox. Anticipate discharge tomorrow with clinical improvement. Patient will need a continue with home oxygen at discharge. Chronic lymphedema to the lower extremities: Will continue with her wrappings every other day. Will continue with her diuretic therapy-Aldactone 50 mg daily and Lasix 40 mg daily. Will recommend 1500 cc per day fluid restriction. Elevated blood sugar suspect diabetes mellitus type 2: Blood sugar elevated. Suspect diabetes mellitus type 2. Will check A1c. Will provide sliding scale. Will monitor Accu-Cheks. Patient may require medication at discharge. Morbid obesity: Will calculate BMI. Lifestyle modification education provided. Large ventral hernia: No heavy lifting, pushing or pulling. Tobacco abuse: Will provide nicotine patch. Continue tobacco cessation especially since the patient uses home oxygen. Discharge Plan: Home Plan to discharge in: 24 Hours - Advance Directives Does patient have a Living Will: No Does patient have a Durable POA for Healthcare: No - Code Status/Comfort Care Code Status Assessed: Yes (Patient is full code) Time Spent Managing Pts Care (In Minutes): 55
--- NOTE | 2019-05-21 16:34 | EKG ---
Test Date: 2019-05-21 Test Time: 12:53:07 Mail Service Coordinator: DANY MEASUREMENT RESULTS: Intervals: Rate: 89 LA: 112 QRSD: 98 QT: 348 QTc: 423 [place]: P: 51 LA: 112 QRS: 61 T: 47 INTERPRETIVE STATEMENTS: Normal sinus rhythm Nonspecific ST abnormality Abnormal ECG Compared to ECG 09/07/2018 04:04:16 ST (T wave) deviation now present Atrial premature complex(es) no longer present Right-axis deviation no longer present Electronically Signed On 05-21-19 16:33:45 DEBEADER by Simone Alvarado
[2019-05-21] MEDS ORDERED: ACETAMINOPHEN 500 MG TAB PO PRN (16:39)
[2019-05-21] MEDS ORDERED: GLUCAGON 1 MG/VIAL IM PRN ×3 (16:39→17:57)
[2019-05-21] MEDS ORDERED: INSULIN -REGULAR HUMAN 50 UNIT/0.5 ML ML SQ SCH (16:39)
[2019-05-21] MEDS ORDERED: D50W 25 GM/50 ML SYRINGE/VIAL IV PRN ×3 (16:39→17:57)
[2019-05-21] MEDS ORDERED: ONDANSETRON 4 MG/2 ML VIAL IV PRN (16:39)
[2019-05-21] MEDS ORDERED: SYMBICORT IH SCH (17:00)
[2019-05-21] MEDS ORDERED: HOME MED [TIOTROPIUM 5 SPRAYS/INHALER] IH SCH (17:00)
[2019-05-21] MEDS: IPRATROPIUM BROM 0.5MG/2.5ML NEB PRN (17:07)
[2019-05-21] MEDS: ALBUTEROL 2.5 MG/3 ML NEB SOL NEB PRN (17:07)
[2019-05-21] MEDS: ENOXAPARIN 40 MG/0.4 ML SQ SCH (17:12)
[2019-05-21] MEDS ORDERED: INFLUENZA VACCINE (for 3y+) 0.5 ML DOSE IMVAC ONE (18:00)
[2019-05-21] MEDS: INSULIN -REGULAR HUMAN 50 UNIT/0.5 ML ML SQ SCH ×2 (18:53→21:00)
[2019-05-21] MEDS ORDERED: INSULIN GLARGINE 100 UNITS/ML SQ ONE (19:00)
[2019-05-21] MEDS ORDERED: INSULIN 70/30 100 UNITS/ML SQ ONE (20:52)
[2019-05-21] MEDS ORDERED: NA CHLORIDE 0.9% 1,000 ML IV SCH (21:00)
[2019-05-21] MEDS ORDERED: POTASSIUM CL SA 10 MEQ TAB PO ONE (21:00)
[2019-05-21] MEDS: predniSONE 20 MG TAB PO SCH (21:35)
[2019-05-21] MEDS: INSULIN GLARGINE 100 UNITS/ML SQ SCH (21:36)
[2019-05-22] MEDS: IPRATROPIUM BROM 0.5MG/2.5ML NEB PRN ×2 (00:10→09:35)
[2019-05-22 01:07] VITALS: BMI 39.5
[2019-05-22 05:25] LABS: Absolute Lymphocytes (CBC) 0.7 K/uL (0.7-4.9); Basophils % 0.3 % (0-1.3); Hematocrit 36.8 % (36.0-45.0); MPV 9.9 fL (7.6-11.3); RBC Red Blood Cell Count 4.38 M/uL (3.86-4.86)
[2019-05-22 05:43] LABS: Potassium 4.3 mmol/L (3.5-5.1)
[2019-05-22 06:48] LABS: Blood Morphology Comment NOT SEEN (NOT SEEN); Platelet Estimate ADEQ; Urine White Blood Cell Casts OK
--- NOTE | 2019-05-22 07:57 | RAD REPORT ---
EXAM DESCRIPTION: Chon Pa And Lat (2 Views)05/22/2019 7:09 am CLINICAL HISTORY: Cough COMPARISON: May 21, 2019 FINDINGS: Prominent bilateral interstitial lung opacities are without obvious change The lungs appear clear of acute infiltrate. Lungs are moderately hyperaerated. Main pulmonary artery is prominent perhaps secondary to pulmonary arterial hypertension The heart is normal size IMPRESSION: No acute abnormalities displayed
[2019-05-22] MEDS ORDERED: SPIRONOLACTONE 25 MG TABLET PO SCH (09:00)
[2019-05-22] MEDS ORDERED: FUROSEMIDE 40 MG TABLET PO SCH (09:00)
[2019-05-22] MEDS: INSULIN -REGULAR HUMAN 50 UNIT/0.5 ML ML SQ SCH ×2 (09:12→12:12)
[2019-05-22] MEDS: ENOXAPARIN 40 MG/0.4 ML SQ SCH (09:13)
[2019-05-22] MEDS: predniSONE 20 MG TAB PO SCH (09:13)
[2019-05-22] MEDS: INSULIN GLARGINE 100 UNITS/ML SQ SCH (09:13)
[2019-05-22] MEDS: ALBUTEROL 2.5 MG/3 ML NEB SOL NEB PRN (09:35)
[2019-05-22 12:26] VITALS: O2SAT 92
[2019-05-22 13:40] VITALS: BP 159/79; TEMP 98.6
[2019-05-22] MEDS ORDERED: INSULIN 70/30 100 UNITS/ML SQ ONE (20:46)
--- NOTE | 2019-05-23 04:33 | DS ---
Date of Discharge: 05/22/2019 Discharge Diagnoses: 1.Chronic obstructive pulmonary disease exacerbation. 2.Hypoxemia, improved. 3.Uncontrolled hyperglycemia? New diagnosis of diabetes mellitus. 4.Morbid obesity. 5.Large ventral hernia. 6.Tobacco abuse. 7.Chronic lymphedema in the lower extremity. Procedure: Chest x-ray did not show any acute abnormalities. Consultations: None. History Of Present Illness: Please refer to Dr. Ramos' history and physical exam. Hospital Course: A 58-year-old female with history of COPD, chronic steroid use, and home O2, presen marisa with increased cough and congestion, clear sputum. She presented to the emergency room with tach ypnea, O2 saturation around 90%. Chest x-ray did not show any signs of pneumonia. Flu was negative. Her sugar was very high around 350. She is not known to have diabetes. She was started on prednis one 20 mg twice a day and she felt much better and she demanded to go home this morning, because she had a lot of [place] work need to be done before the holiday. The patient understands that her sug ar was very high and she was started on Lantus yesterday because she had no history of diabetes tyrone quiroz. Her hemoglobin A1c was ordered, but it is still pending. I advised the patient to stay until M , so we can further assist her and arrange for a followup with the primary care physician before discharge because she needs to be seen as soon as possible, if not immediately, to evaluate her gluc ose. Patient refused. She understands the risk of diabetic coma, . We will discharge her on g lipizide pills 5 mg twice a day. She will also be continued on prednisone twice a day and she will follow up with Dr. Hogue to taper that down. She is clinically on 10 mg once a day. Sh leonie will continue her home inhaler. I will start her empirically on Levaquin 500 mg for 7 days for the COPD exacerbation, and she will be discharged today in stable condition. Discharge Condition: Stable. Discharge Diet: 1800 ADA. Discharge Followup: Discharge followup with primary care physician on Friday to discuss her glucose. Discharge followup with Dr. Lynn in a week to taper her prednisone. Discharge Activity: As tolerated. Discharge Physical Examination: Vital Signs: Blood pressure is 140/66, respiratory rate 17, pulse 7 1, temperature is 97.5. General: Patient is alert and oriented x3, does not look in any distress. HEENT: Atraumatic, normocephalic. PERRLA. Oral mucosa is moist. Neck: Supple. No JVP. No carotid bruits. Chest: Clear to auscultation bilaterally. There is no expiratory wheezing. No rhonchi. Heart: Regular rate and rhythm. S1 and S2 normal. No gallop or murmur. Abdomen: Soft, nontender. No masses. No hepatosplenomegaly. Positive bowel sounds. She does have hernia. Extremities: Both lower extremities are wrapped below the knee, but significant for lymphedema. Discharge Medications: 1.Levaquin 500 mg for 7 days. 2.Prednisone 20 mg twice a day for 7 days, then Dr. Hogue to taper. 3.Glipizide 5 mg orally twice a day for 7 days, then she had to follow up with primary care physicia n that she has diabetes or not and should she need to continue on that. The patient is on prednisone , so she most likely will need the glipizide for now. 4.Symbicort inhaler as before 2 puffs twice a day. 5.Lasix 20 mg once a day. 6.Aldactone mg once a day. 7.Spiriva, 2 puffs, inhaler daily. LANRE/MARÍA Voice ID: [id number] Report ID: [id number]
== END 2019-05-22 14:30 | disposition home or self-care (01) ==
LOC: ER 12:03 → ERHOLD 14:23 → 2ND 15:57
PROVIDERS: ADMIT Family Medicine; ATTEND Family Medicine
DX: J44.1 Chronic obstructive pulmonary disease with (acute) exacerbation (principal); R09.02 Hypoxemia; R73.9 Hyperglycemia, unspecified; E66.01 Morbid (severe) obesity due to excess calories; Z68.39 Body mass index [BMI] 39.0-39.9, adult; K43.9 Ventral hernia without obstruction or gangrene; F17.210 Nicotine dependence, cigarettes, uncomplicated; I89.0 Lymphedema, not elsewhere classified; Z79.52 Long term (current) use of systemic steroids; Z99.81 Dependence on supplemental oxygen; Z88.2 Allergy status to sulfonamides
CPT/HCPCS: 96361; 93005; 87040 ×2; 85025 ×2; 80048 ×2; 36415; 83735; 82947 ×7; 83605; 83036; 83880; 87804 ×2; 71045; 71046; 94640 ×3; 96374; 99285; J1650 ×2; J7040; J7030; J2930; G0378 ×3; J1815; J7512

== ENCOUNTER 2019-12-10 18:21 | Observation (INO) | payer BC ==
[2019-12-10 19:27] LABS: Absolute Lymphocytes (CBC) 0.7 K/uL (0.7-4.9); Basophils % 0.6 % (0-1.3); Hematocrit 43.7 % (36.0-45.0); Lymphocytes % 3.7 % (15.3-44.8); MPV 9.6 fL (7.6-11.3); RBC Red Blood Cell Count 5.13 M/uL (3.86-4.86)
[2019-12-10 19:30] LABS: Protime INR 1.03
--- NOTE | 2019-12-10 19:41 | RAD REPORT ---
EXAM DESCRIPTION: Chon Single View12/10/2019 7:28 pm CLINICAL HISTORY: sob COMPARISON: 2017 FINDINGS: Chronic appearing bilateral lung opacities. The lungs appear clear of acute infiltrate. T he heart is borderline enlarged Central pulmonary arteries are prominent indicative of pulmonary venous hypertension Lungs are moderately hyperaerated consistent with COPD
[2019-12-10 19:48] LABS: ALT/SGPT 33 U/L (12-78); AST/SGOT 33 U/L (15-37); Albumin 3.2 g/dL (3.4-5.0); Alkaline Phosphatase 138 U/L (45-117); Amylase 36 U/L (25-115); BUN Blood Urea Nitrogen 10 mg/dL (7-18); Bicarbonate 31 mmol/L (21-32); Bilirubin Direct 0.2 mg/dL (0-0.2); Bilirubin Total 0.7 mg/dL (0.2-1.0); CKMB Creatine Kinase MB 1.6 ng/mL (0.3-3.6); Creatine Phosphokinase 79 U/L (26-192); Glucose Level 310 mg/dL (74-106); Lipase 151 U/L (73-393); Potassium 4.2 mmol/L (3.5-5.1); Protein, Total 8.6 g/dL (6.4-8.2); Sodium Level 136 mmol/L (136-145); Troponin (Emerg Dept Use Only) < 0.02 ng/mL (0.0-0.045)
[2019-12-10 20:01] LABS: Blood Morphology Comment NOT SEEN (NOT SEEN); Platelet Estimate ADEQ; Urine White Blood Cell Casts OK
--- NOTE | 2019-12-10 20:53 | ER ---
Nurse's Notes [facility] Name: Zarina Womack Age: 59 yrs Sex: Female : 1960 Arrival Date: 12/10/2019 Time: 18:42 Bed 17 Private MD: Diagnosis: COPD Exacerbation Presentation: 12/09 18:45 Chief complaint: EMS states: SOB since AM worst at 1400, called on scene 30 means [employer]. ca1 pt has history of COPD, on continuous O2 at home at 4LPM via NC. Upon arrival on scene, pt severely tachypneic and tachycardic, SPO2 at 88%, NRB at 10LPM applied, Sats went up to 97-98%. Changed to 4LPM O2 via NC, sats stable and pt breathing better. ETCO2 initial at 50%, now at 30%. Solu-medrol 125mg IV given. Pt reports fever started today. Coronavirus screen: Surgical mask placed on patient. Patient moved to private room, placed in contact and droplet isolation with eye protection until further assessment. Patient reports a cough. Patient reports shortness of breath or difficulty breathing. Patient reports a measured and/or subjective temperature greater than 100.4F. Patient denies travel on a cruise ship or to a country the [facility] currently lists as an affected area. Patient denies contact with known and/or suspected case of COVID-19. Ebola Screen: Patient negative for fever greater than or equal to 101.5 degrees Fahrenheit, and additional compatible Ebola Virus Disease symptoms Patient denies exposure to infectious person. Patient denies travel to an Ebola-affected area in the 21 days before illness onset. No symptoms or risks identified at this time. Initial Sepsis Screen: Does the patient meet any 2 criteria? RR > 20 per min. HR > 90 bpm. Yes Does the patient have a suspected source of infection? Yes: Productive cough/pneumonia Skin breakdown/wound. Risk Assessment: Do you want to hurt yourself or someone else?. Onset of symptoms was December 10, 2019. 18:45 Method Of Arrival: EMS: [facility] ca1 18:45 Acuity: AISSATOU 2 ca1 18:45 Care prior to arrival: Medication(s) given: Normal saline infusion, 100 ml Solu-medrol ca1 125 mg IV IV initiated. 20 GA, in the right hand. Triage Assessment: 19:29 General: Appears in no apparent distress. comfortable, Behavior is calm, cooperative. ls4 Historical: - Allergies: 18:54 Sulfa (Sulfonamide Antibiotics); ca1 - PMHx: 18:54 Anxiety; COPD; Depression; Hernia; Hypertension; lymphedema; ca1 - PSHx: 18:54 Hysterectomy; Tonsillectomy; Cataracts; ca1 - Immunization history:: Adult Immunizations up to date. - Social history:: Smoking status: Patient reports the use of cigarette tobacco products, smokes one pack cigarettes per day. Screenin:27 Abuse screen: Denies threats or abuse. Denies injuries from another. Nutritional ls4 screening: No deficits noted. Tuberculosis screening: No symptoms or risk factors identified. Fall Risk None identified. Assessment: 19:29 General: Appears distressed, uncomfortable, ill, unkempt, Behavior is calm, ls4 cooperative, flat. Neuro: Level of Consciousness is awake, alert, obeys commands. Respiratory: Airway is patent Respiratory effort is unlabored, Respiratory pattern is tachypnea Breath sounds with rhonchi bilaterally. Derm: weeping edema and inflamed lower extremities, chronic. yellow discharge on dressing Decubitus Parent/caregiver reports the patient having. Musculoskeletal: No deficits noted. No signs and/or symptoms reported regarding the musculoskeletal system. Vital Signs: 18:45 BP 130 / 98; Pulse 116; Resp 26 S; Temp 99.4(O); Pulse Ox 90% on 4 lpm NC; Height 5 ft. ca1 1 in. (154.94 cm) (R); 20:30 BP 136 / 88; Pulse 104; Resp 24; Temp 98.9(O); Pulse Ox 93% on 4 lpm NC; Pain 0/10; ls4 22:00 BP 142 / 88; Pulse 104; Resp 23; Pulse Ox 95% on 4 lpm NC; Pain 0/10; ls4 23:00 BP 134 / 82; Pulse 104; Resp 21; Pulse Ox 96% on 4 lpm NC; Pain 0/10; ls4 ED Course: 18:42 Patient arrived in ED. ca1 18:52 Triage completed. ca1 18:54 Arm band placed on right wrist. ca1 19:00 Jonathan Jimenez MD is Attending Physician. mh7 19:15 Maintain EMS IV. Dressing intact. Good blood return noted. Site clean \T\ dry. Gauge \T\ ca 1 site: G20 R hand. 19:27 Sandra Monahan, RN is Primary Nurse. ls4 19:28 Chest Single View XRAY In Process Unspecified. EDMS 19:28 No apparent distress. ls4 19:28 No provider procedures requiring assistance completed. Oxygen administration via nasal ls4 cannula \T\ 4L/min. 19:33 Patient has correct armband on for positive identification. Bed in low position. Call ls4 light in reach. patient in wheelchair. 20:52 Tomas Carter is Hospitalizing Provider. [facility] Administered Medications: No medications were administered Outcome: 20:53 Decision to Hospitalize by Provider. [facility] 12/10 00:22 Admitted to Tele accompanied by nurse, via wheelchair, room 431, with oxygen, on ls4 monitor, with chart, Report called to JUAN NGUYỄN Condition: stable Instructed on the need for admit. 00:59 Patient left the ED. mg2 Signatures: Dispatcher [employer] EDMS Chente Fernandez RN RN mg2 Sandra Monahan, DELMA RN ls4 Yen Blount RN RN ca1 Jonathan Jimenez MD MD 7
--- NOTE | 2019-12-10 20:54 | EDPHYS ---
Physician Documentation [facility] Name: Zarina Womack Age: 59 yrs Sex: Female : 1960 Arrival Date: 12/10/2019 Time: 18:42 Bed 17 Private MD: ED Physician Jonathan Jimenez HPI: 12/09 19:43 This 59 yrs old Female presents to ER via EMS with complaints of Shortness of mh7 Breath. 19:43 The patient has shortness of breath at rest. Onset: The symptoms/episode began/occurred mh7 this morning. Duration: The symptoms are intermittent, with no pattern. The patient's shortness of breath is aggravated by coughing, is alleviated by nothing. Associated signs and symptoms: Pertinent positives: productive cough, fever, Pertinent negatives: chest pain, diaphoresis, dizziness, hemoptysis, loss of consciousness, nausea, numbness in extremities, visual changes, vomiting. Severity of symptoms: At their worst the symptoms were moderate today, in the emergency department the symptoms have improved moderately. The patient has experienced similar episodes in the past, chronically. Historical: - Allergies: 18:54 Sulfa (Sulfonamide Antibiotics); ca1 - PMHx: 18:54 Anxiety; COPD; Depression; Hernia; Hypertension; lymphedema; ca1 - PSHx: 18:54 Hysterectomy; Tonsillectomy; Cataracts; ca1 - Immunization history:: Adult Immunizations up to date. - Social history:: Smoking status: Patient reports the use of cigarette tobacco products, smokes one pack cigarettes per day. ROS: 19:43 Eyes: Negative for injury, pain, redness, and discharge, ENT: Negative for injury, mh7 pain, and discharge, Neck: Negative for injury, pain, and swelling, Cardiovascular: Negative for chest pain, palpitations, and edema, Abdomen/GI: Negative for abdominal pain, nausea, vomiting, diarrhea, and constipation, Back: Negative for injury and pain, : Negative for injury, bleeding, discharge, and swelling, MS/Extremity: Negative for injury and deformity, Skin: Negative for injury, rash, and discoloration, Neuro: Negative for headache, weakness, numbness, tingling, and seizure, Psych: Negative for depression, anxiety, suicide ideation, homicidal ideation, and hallucinations, Allergy/Immunology: Negative for hives, rash, and allergies, Endocrine: Negative for neck swelling, polydipsia, polyuria, polyphagia, and marked weight changes, Hematologic/Lymphatic: Negative for swollen nodes, abnormal bleeding, and unusual bruising. Exam: 19:43 Constitutional: This is a well developed, well nourished patient who is awake, alert, mh7 and in no acute distress. Head/Face: Normocephalic, atraumatic. Eyes: Pupils equal round and reactive to light, extra-ocular motions intact. Lids and lashes normal. Conjunctiva and sclera are non-icteric and not injected. Cornea within normal limits. Periorbital areas with no swelling, redness, or edema. Neck: Trachea midline, no thyromegaly or masses palpated, and no cervical lymphadenopathy. Supple, full range of motion without nuchal rigidity, or vertebral point tenderness. No Meningismus. Chest/axilla: Normal chest wall appearance and motion. Nontender with no deformity. No lesions are appreciated. 19:43 Abdomen/GI: Soft, non-tender, with normal bowel sounds. No distension or tympany. No guarding or rebound. No evidence of tenderness throughout. Back: No spinal tenderness. No costovertebral tenderness. Full range of motion. 19:43 Neuro: Awake and alert, GCS 15, oriented to person, place, time, and situation. Cranial nerves II-XII grossly intact. Motor strength 5/5 in all extremities. Sensory grossly intact. Cerebellar exam normal. Normal gait. Psych: Awake, alert, with orientation to person, place and time. Behavior, mood, and affect are within normal limits. 19:43 Cardiovascular: Rate: tachycardic, Rhythm: regular, Pulses: no pulse deficits are appreciated, Heart sounds: normal, normal S1and S2, Edema: is not appreciated, JVD: is not appreciated. 19:43 Respiratory: mild respiratory distress is noted, Respirations: prolonged exhalation, that is mild, tachypnea, that is mild, Breath sounds: rhonchi, that are moderate, are scattered, Respiratory rate: 26 19:43 Musculoskeletal/extremity: Extremities: noted in the right leg and left leg: erythema, chronic, ROM: intact in all extremities, Circulation is intact in all extremities. Sensation intact. 19:43 Skin: bilateral lower extremity erythema. Vital Signs: 18:45 BP 130 / 98; Pulse 116; Resp 26 S; Temp 99.4(O); Pulse Ox 90% on 4 lpm NC; Height 5 ft. ca1 1 in. (154.94 cm) (R); 20:30 BP 136 / 88; Pulse 104; Resp 24; Temp 98.9(O); Pulse Ox 93% on 4 lpm NC; Pain 0/10; ls4 22:00 BP 142 / 88; Pulse 104; Resp 23; Pulse Ox 95% on 4 lpm NC; Pain 0/10; ls4 23:00 BP 134 / 82; Pulse 104; Resp 21; Pulse Ox 96% on 4 lpm NC; Pain 0/10; ls4 MDM: 19:40 Patient medically screened. [facility] 19:43 Differential diagnosis: Anemia CHF exacerbation, Chronic Obstructive Pulmonary Disease [facility] pneumonia, Pneumothorax pulmonary edema. 20:51 Differential diagnosis: reactive airway disease. Data reviewed: vital signs, nurses [facility] notes, EMS record, old medical records, lab test result(s), cardiac enzymes, CBC, electrolytes, radiologic studies, plain films. 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 Interpretation: acceptable, Plan: O2 by NC applied. Counseling: I had a detailed discussion with the patient and/or guardian regarding: the historical points, exam findings, and any diagnostic results supporting the discharge/admit diagnosis, the presence of at least one elevated blood pressure reading (>120/80) during this emergency department visit, lab results, radiology results, the need for further work-up and treatment in the hospital. 12/09 18:55 Order name: Amylase, Serum; Complete Time: 19:54 ca1 12/09 18:55 Order name: Basic Metabolic Panel; Complete Time: 19:54 ca1 12/09 18:55 Order name: Blood Culture Adult (2) ca1 12/09 18:55 Order name: CBC with Diff; Complete Time: 20:42 ca1 12/09 18:55 Order name: Ckmb; Complete Time: 19:54 ca1 12/09 18:55 Order name: CPK; Complete Time: 19:54 ca1 12/09 18:55 Order name: Lactate; Complete Time: 19:54 ca1 12/09 18:55 Order name: LFT's; Complete Time: 19:54 ca1 12/09 18:55 Order name: Lipase; Complete Time: 19:54 ca1 12/09 18:55 Order name: Procalcitonin; Complete Time: 20:42 ca1 12/09 18:55 Order name: Protime (+inr); Complete Time: 19:54 ca1 12/09 18:55 Order name: Ptt, Activated; Complete Time: 19:54 ca1 12/09 18:55 Order name: Troponin (emerg Dept Use Only); Complete Time: 19:54 ca1 12/09 18:55 Order name: Urine Microscopic Only 12/09 18:55 Order name: Chest Single View XRAY; Complete Time: 19:54 ca1 12/09 18:55 Order name: Cardiac monitoring; Complete Time: 19:14 ca1 12/09 18:55 Order name: IV Saline Lock - Large Bore; Complete Time: 19:15 ca1 12/09 18:55 Order name: Labs collected and sent; Complete Time: 19:15 ca1 12/09 18:55 Order name: O2 Per Protocol; Complete Time: 19:15 ca1 12/09 18:55 Order name: O2 Sat Monitoring; Complete Time: 19:15 ca1 12/09 19:37 Order name: Flu; Complete Time: 06:44 ls4 12/09 19:37 Order name: COVID-19 [facility] 12/09 20:02 Order name: CBC Smear Scan; Complete Time: 20:42 EDMS Administered Medications: No medications were administered Disposition: 12/10/19 20:53 Hospitalization ordered by Tomas Carter for Inpatient Admission. Preliminary diagnosis is COPD Exacerbation. - Bed requested for Telemetry/MedSurg (Inpatient). - Status is Inpatient Admission. mg2 - Condition is Stable. - Problem is an acute exacerbation. - Symptoms have improved. Signatures: Dispatcher [employer] EDMS Josefina Jorgensen RN RN cg Chente Fernandez RN RN mg2 Sandra Monahan RN RN ls4 Yen Blount RN RN ca1 Jonathan Jimenez MD MD 7 Corrections: (The following items were deleted from the chart) 23:20 20:53 Hospitalization Ordered by Tomas Carter for Inpatient Admission. Preliminary cg diagnosis is COPD Exacerbation. Bed requested for Telemetry/MedSurg (Inpatient). Status is Inpatient Admission. Condition is Stable. Problem is an acute exacerbation. Symptoms have improved. mh7 12/10 00:59 12/09 23:20 12/10/2019 20:53 Hospitalization Ordered by Tomas Carter for Inpatient mg2 Admission. Preliminary diagnosis is COPD Exacerbation. Bed requested for Telemetry/MedSurg (Inpatient). Status is Inpatient Admission. Condition is Stable. Problem is an acute exacerbation. Symptoms have improved.
--- NOTE | 2019-12-10 21:56 | P.HP ---
Certification for Inpatient Patient admitted to: Inpatient With expected LOS: >2 Midnights Practitioner: I am a practitioner with admitting privileges, knowledge of patient current condition, hospital course, and medical plan of care. Services: Services provided to patient in accordance with Admission requirements found in Title 42 Section 412.3 of the Code of Federal Regulations Patient History Date of Service: 12/10/19 Reason for admission: Shortness of breath History of Present Illness: 59-year-old woman with a history of COPD, chronic respiratory failure on 3 L of oxygen by nasal cannula, chronic bilateral lower extremity lymphedema present to the emergency department with a complaint of progressive shortness of breath and cough for 3 days duration. Patient stated she used her nebulizers without improvement. Chest x-ray in the ED shows hyperinflated lungs, no acute infiltrate. Patient was still coughing and wheezing during my examination. She stated she only partially improved with treatment given in the ED. She is admitted for further management of COPD exacerbation. Allergies Sulfa (Sulfonamide Antibiotics) Adverse Reaction (Mild, Verified 04/16/18 23:02) hallucinations Home Medications: Albuterol Sulfate [Proair Respiclick] 1 puff IH Q4HP PRN 04/17/18 Budesonide/Formoterol Fumarate [Symbicort 160-4.5 Mcg Inhaler] 2 puff IH BID 30 Days #1 [email or web address] 09/08/18 Furosemide [Lasix*] 20 mg PO BIDL #60 tab 09/09/18 Spironolactone [Aldactone*] 25 mg PO BID #60 tab 09/09/18 Tiotropium [Spiriva Handihaler*] 2 puff IH DAILY 05/21/19 predniSONE [Deltasone*] 10 mg PO DAILY 05/21/19 Prednisone [Sterapred Ds] 20 mg PO BID #28 tab.ds.pk 05/22/19 glipiZIDE [Glipizide] 5 mg PO BID #14 tablet 05/22/19 levoFLOXacin [Levaquin] 500 mg PO DAILY #7 tab 05/22/19 - Past Medical/Surgical History Diabetic: No -: COPD, steroid dependent, home oxygen -: Hyperlipidemia -: Tobacco abuse -: Chronic lymphedema to the lower extremities -: History of MRSA infection -: Nephrolithiasis bilaterally -: Staghorn calculus bilaterally -: Large ventral hernia -: Morbid obesity -: Depression with anxiety -: Hysterectomy -: Tonsillectomy -: Removal of kidney stones Psychosocial/ Personal History: The patient is , has 2 children. 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 - Family History Father -: Lung disease, Cancer Mother -: Heart disease, Hypertension, Stroke, Cancer - Social History Alcohol use: No CD- Drugs: No Caffeine use: Yes Review of Systems Other: Except as documented, all other systems reviewed and negative. Physical Examination - Physical Exam General: Alert, In no apparent distress, Obese HEENT: Mucous membr. moist/pink, Sclerae nonicteric Neck: Supple, JVD not distended Respiratory: Diminished, Expiratory wheezes Cardiovascular: Regular rate/rhythm, Normal S1 S2, Edema (3+ bilateral lower extremity pitting edema) Gastrointestinal: Normal bowel sounds, Soft and benign, No tenderness Musculoskeletal: Other (Bilateral lower extremity lymphedema) Integumentary: Other (Weight-gain bilateral lower venostasis dermatitis.) Neurological: Normal strength at 5/5 x4 extr, Cranial nerves 3-12 intact - Studies Laboratory Data (last 24 hrs) 12/10/19 19:10: PT 12.1, INR 1.03, APTT 29.0 12/10/19 19:10: WBC 18.8 H, Hgb 14.1, Hct 43.7, Plt Count 203 12/10/19 19:10: Sodium 136, Potassium 4.2, BUN 10, Creatinine 0.69, Glucose 310 H, Total Bilirubin 0.7, AST 33, ALT 33, Alkaline Phosphatase 138 H, Amylase 36, Lipase 151 Microbiology Data (last 24 hrs): 12/10/19 20:03 Nasopharnyx Influenza Type A Antigen Screen - Final 12/10/19 20:03 Nasopharnyx Influenza Type B Antigen Screen - Final Assessment and Plan - Problems (Diagnosis) (1) Acute and chronic respiratory failure Onset Date: 04/29/17 Current Visit: No Status: Acute Qualifiers: Respiratory failure complication: hypoxia Qualified Code(s): J96.21 - Acute and chronic respiratory failure with hypoxia (2) COPD exacerbation Onset Date: 04/29/17 Current Visit: No Status: Acute (3) Chronic venous hypertension w ulceration Current Visit: No Status: Acute (4) Lymphedema Onset Date: 08/26/14 Current Visit: No Status: Acute (5) Obesity, morbid Onset Date: 08/27/16 Current Visit: No Status: Chronic - Plan Admit to the medical floor. Start IV Solu-Medrol, scheduled DuoNeb, IV antibiotics Screen for COVID 19 is done. Continue home dose lasix. Continue home medications. Consult to Pulmonary - Advance Directives Does patient have a Living Will: No Does patient have a Durable POA for Healthcare: No
[2019-12-11] MEDS ORDERED: ACETAMINOPHEN 500 MG TAB PO PRN (00:23)
[2019-12-11] MEDS: METHYLPREDNISOLONE 40 MG INJ IV SCH ×3 (01:13→12:49)
[2019-12-11] MEDS: IPRATROPIUM BROM 0.5MG/2.5ML NEB SCH ×3 (02:00→12:59)
[2019-12-11] MEDS: ALBUTEROL 2.5 MG/3 ML NEB SOL NEB SCH ×3 (02:00→12:59)
[2019-12-11 03:05] VITALS: BMI 36.8
[2019-12-11] MEDS ORDERED: levoFLOXacin 750 MG TAB PO SCH (05:00)
[2019-12-11 07:18] LABS: Absolute Lymphocytes (CBC) 0.5 K/uL (0.7-4.9); Basophils % 0.2 % (0-1.3); Hematocrit 41.8 % (36.0-45.0); Lymphocytes % 3.9 % (15.3-44.8); MPV 10.1 fL (7.6-11.3); RBC Red Blood Cell Count 4.88 M/uL (3.86-4.86)
[2019-12-11 07:20] LABS: BUN Blood Urea Nitrogen 13 mg/dL (7-18); Bicarbonate 34 mmol/L (21-32); Glucose Level 392 mg/dL (74-106); Phosphorus 3.1 mg/dL (2.5-4.9); Potassium 4.3 mmol/L (3.5-5.1); Sodium Level 138 mmol/L (136-145); Thyroid Stimulating Hormone 0.354 uIU/mL (0.360-3.740)
[2019-12-11] MEDS ORDERED: ENOXAPARIN 40 MG/0.4 ML SQ SCH (09:00)
--- NOTE | 2019-12-11 09:15 | P.PN ---
Subjective Date of Service: 12/11/19 Chief Complaint: Shortness of breath Patient reports feeling much better this morning. She states that the wheezing is almost resolved. She denies shortness of breath. She was able to sleep earlier this morning. Nurse reports maggots from the sores on her bilateral legs. Physical Examination - Vital Signs Temperature: 98.2 F Blood Pressure: 145/65 Pulse: 80 Respirations: 18 Pulse Ox (%): 97 - Physical Exam General: Alert, In no apparent distress, Oriented x3, Obese Neck: JVD not distended Respiratory: Clear to auscultation bilaterally, Diminished Cardiovascular: Regular rate/rhythm, Normal S1 S2 Gastrointestinal: Normal bowel sounds, Soft and benign, No tenderness Musculoskeletal: Other (Bilateral lower extremity lymphedema) Integumentary: Venous stasis ulcer (Bilateral legs, and weeping.) Neurological: Normal strength at 5/5 x4 extr - Studies Laboratory Data (last 24 hrs) 12/10/19 19:10: PT 12.1, INR 1.03, APTT 29.0 12/10/19 19:10: WBC 18.8 H, Hgb 14.1, Hct 43.7, Plt Count 203 12/10/19 19:10: Sodium 136, Potassium 4.2, BUN 10, Creatinine 0.69, Glucose 310 H, Total Bilirubin 0.7, AST 33, ALT 33, Alkaline Phosphatase 138 H, Amylase 36, Lipase 151 Microbiology Data (last 24 hrs): 12/10/19 20:03 Nasopharnyx Influenza Type A Antigen Screen - Final 12/10/19 20:03 Nasopharnyx Influenza Type B Antigen Screen - Final Assessment And Plan - Current Problems (Diagnosis) (1) Acute and chronic respiratory failure Onset Date: 04/29/17 Current Visit: No Status: Acute Qualifiers: Respiratory failure complication: hypoxia Qualified Code(s): J96.21 - Acute and chronic respiratory failure with hypoxia (2) COPD exacerbation Onset Date: 04/29/17 Current Visit: No Status: Acute (3) Chronic venous hypertension w ulceration Current Visit: No Status: Acute (4) Lymphedema Onset Date: 08/26/14 Current Visit: No Status: Acute (5) Obesity, morbid Onset Date: 08/27/16 Current Visit: No Status: Chronic - Plan Continue scheduled DuoNeb, IV antibiotics. Change IV steroids to oral prednisone. COVID 19 result is pending Continue home dose lasix. Continue home medications. Consult to Pulmonary. Consult general surgery.
[2019-12-11] MEDS ORDERED: VANCOMYCIN 1.5 GM in NA CHLORIDE 0.9% 500 ML IV SCH ×4 (10:00)
--- NOTE | 2019-12-11 10:07 | P.CNS ---
Date of Consult: 12/11/19 Reason for Consult: COPD exacerbation Chief Complaint: Shortness of breath History of Present Illness: Patient is 59 years of age with a history of severe COPD still continues to smoke heavily became short of breath denies any fever or productive cough she is doing well currently she has got maggots in her wound in the right leg feeling better patient has had multiple exacerbations in the past is on low-dose prednisone and was doing well until recently Allergies Sulfa (Sulfonamide Antibiotics) Adverse Reaction (Mild, Verified 04/16/18 23:02) hallucinations Home Medications: Budesonide/Formoterol Fumarate [Symbicort 160-4.5 Mcg Inhaler] 2 puff IH BID 12/11/19 Furosemide [Lasix*] 40 mg PO DAILY 12/11/19 Spironolactone [Aldactone*] 12/11/19 Tiotropium [place] [Spiriva] 2 puff IH DAILY 12/11/19 predniSONE [Prednisone*] 10 mg PO DAILY 12/11/19 - Past Medical/Surgical History Diabetic: No -: COPD, steroid dependent, home oxygen -: Hyperlipidemia -: Tobacco abuse -: Chronic lymphedema to the lower extremities -: History of MRSA infection -: Nephrolithiasis bilaterally -: Staghorn calculus bilaterally -: Large ventral hernia -: Morbid obesity -: Depression with anxiety -: Hysterectomy -: Tonsillectomy -: Removal of kidney stones Psychosocial/ Personal History: The patient is , has 2 children. 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 - Family History Father Medical History: Lung disease, Cancer Mother Medical History: Heart disease, Hypertension, Stroke, Cancer - Social History Smoking Status: Current every day smoker Alcohol use: No CD- Drugs: No Caffeine use: Yes Place of Residence: Home Review of Systems 10-point ROS is otherwise unremarkable General: Weakness Respiratory: Cough, Shortness of Breath Physical Examination Temp Pulse Resp BP Pulse Ox 98.2 F 80 18 145/65 H 97 12/11/19 09:15 12/11/19 09:15 12/11/19 09:15 12/11/19 09:15 12/11/19 09:15 General: Alert, In no apparent distress, Oriented x3 Respiratory: Expiratory wheezes Cardiovascular: Regular rate/rhythm, Normal S1 S2, Edema Laboratory Data (last 24 hrs) 12/10/19 19:10: PT 12.1, INR 1.03, APTT 29.0 12/10/19 19:10: WBC 18.8 H, Hgb 14.1, Hct 43.7, Plt Count 203 12/10/19 19:10: Sodium 136, Potassium 4.2, BUN 10, Creatinine 0.69, Glucose 310 H, Total Bilirubin 0.7, AST 33, ALT 33, Alkaline Phosphatase 138 H, Amylase 36, Lipase 151 - Problems (1) COPD exacerbation Onset Date: 04/29/17 Current Visit: No Status: Acute Plan: Patient is 59 years of age admitted with COPD exacerbation she is currently doing well oxygenation satisfactory chest x-ray consistent with COPD white count has declined consider discharging on prednisone the g twice a day for 5 days then 10 mg daily dose of levofloxacin 500 mg daily I sincerely doubt that she has noland virus infection she still continues to smoke heavily
[2019-12-11] MEDS ORDERED: D50W 25 GM/50 ML SYRINGE/VIAL IV PRN (10:24)
[2019-12-11] MEDS ORDERED: GLUCAGON 1 MG/VIAL IM PRN (10:24)
[2019-12-11 10:29] VITALS: O2SAT 93
[2019-12-11] MEDS ORDERED: ALBENDAZOLE 200 MG TABLET PO ONE (11:11)
[2019-12-11] MEDS ORDERED: INSULIN -REGULAR HUMAN 50 UNIT/0.5 ML ML IV SCH (11:30)
--- NOTE | 2019-12-11 12:43 | CON ---
Date of Consultation: 12/11/2019 Reason For Consultation: Maggots in lower extremity wounds. History Of Present Illness: Patient is a 59-year-old gentleman with multiple medical problems, who c breezy in with progressive shortness of breath and cough for 3 days duration. Her COVID test is pendin g. She is a person under investigation. She is feeling better with oxygen and she has lymphedema an d she had dressing that her changes once a week and that when the nurses changed it last time , they saw a few maggots in the right leg and I was consulted. She states that she has not seen any and [facility], saw Dr. Quevedo and she has not seen a lymphedema specialist. No sore throat, runny nose, headaches, dizziness, fever or chills. No chest pain. Review of Systems: Otherwise unremarkable. Past Medical History: Significant for COPD, steroid dependent, on home oxygen; hyperlipidemia; chron ic lymphedema; tobacco use; history of MRSA; history of kidney stones; morbid obesity; ventral hernia . Past Surgical History: Hysterectomy, tonsillectomy, removal of kidney stones. Allergies: SULFA. Social History: Patient recently stopped smoking but she did smoke. Denies any alcohol use. Family History: Significant for lung cancer in the father, heart disease, hypertension, stroke in th e mother. Physical Examination: Vital Signs: Her vitals are stable. She is afebrile. Neurological: She is awake, alert, and oriented x3. Head and Neck: Cranial nerves 2 through 12 are grossly within normal limits. No neck masses. No JV D. Throat clear. Neck supple. Chest: Clear. Heart: S1, S2. Abdomen: Soft. Extremities: Diminished dorsalis pedis and posterior tibial pulses. There is wrinkling of the skin indicating improvement with diuretics. There is redness in the lower extremities consistent with miley lulitis. Careful examination of both legs does not reveal any larva or any maggots that I can visual ize, may have been cleaned up already by the nursing staff last night. There is no open wounds. Laboratory Data: White count was 18.8, on admission is 12.9, may be secondary to steroid use. INR i s 1.03. Chemistry reviewed. Procalcitonin was 0.61. Assessment: 59-year-old female with chronic obstructive pulmonary disease, cellulitis and lymphedema , bilateral lower extremity with history of maggots. Recommendations: Continue IV antibiotics as ordered and respiratory management per the medical team. As far as the legs are concerned, I think Albendazole would help 1 time dose of 400 mg and Silvaden e 1% to the wound should help. No need for any acute surgical intervention. Patient can followup wi th me in my clinic after discharge in 2 weeks. Plan of care discussed with the patient as well as Dr. Ramos. AUGIE/MARÍA Voice ID: [id number] Report ID: [id number]
--- NOTE | 2019-12-11 13:19 | P.DS ---
Admission Date: 12/10/19 Discharge Date: 12/11/19 Reason for Admission: Shortness of breath Consultations: Pulmonology- Dr. Hogue General surgery- Dr. Akhtar Procedures: Chest x-ray EXAM DESCRIPTION: Chon Single View12/10/2019 7:28 pm CLINICAL HISTORY: sob COMPARISON: 2017 FINDINGS: Chronic appearing bilateral lung opacities. The lungs appear clear of acute infiltrate. The heart is borderline enlarged Central pulmonary arteries are prominent indicative of pulmonary venous hypertension Lungs are moderately hyperaerated consistent with COPD Medical problem list Acute on chronic respiratory failure secondary to COPD on chronic steroids and home oxygen Chronic venous hypertension with ulceration Lymphedema Obesity BMI 36.9 GERD Brief History of Present Illness: 51-year-old female with medical history of COPD on chronic steroids at home oxygen, lymphedema, tobacco abuse, GERD presented emergency department for 3 day history of increasing shortness of breath and cough. Patient was evaluated in the emergency department and found to persist to have cough and shortness of breath even after treatment. Patient was admitted for further evaluation and management. Hospital Course: Patient is admitted history for COPD exacerbation, patient was tested for COVID. Patient also found to have chronic lymphedema with recurrent cellulitis, apparently maggots were found in the ulcerations. Patient was admitted overnight, given steroids and antibiotics as well as oxygen. Patient tolerated this well and is currently not wheezing. The patient is on 3-4 L per nasal cannula on home oxygen is currently tolerating 4 L per nasal cannula in maintaining her saturations. Pulmonology and general surgery both evaluated the patient on the telemetry floor, patient tested negative for COVID, both pulmonology and general surgery agreed the patient could be managed better on outpatient basis. For the COPD exacerbation patient continue with prednisone 10 mg b.i.d. for 7 days and then continue with her normal 10 mg daily dosing of prednisone. Patient also given Levaquin 500 mg once daily for 7 days. Patient also continue with home oxygen. Patient also continue with her daily medications of Symbicort 160-4.5 mcg inhaler, Spiriva inhaler. Will also continue patient's Lasix 40 mg p.o. daily. Patient need to follow up with pulmonology in clinic. Patient with history of chronic lymphedema complicated by ulcerations. Patient was evaluated by general surgery to determine what kind of wound care she would need. General surgery give 1 time dose of mebendazole and recommends continuing with Silvadene topical daily to the affected area. Patient also follow up with general surgery on outpatient basis the next 2 weeks in clinic. <Ike Burnett - Last Filed: 12/11/19 13:20> Admission Date: 12/10/19 Discharge Date: 12/11/19 Procedures: Case discussed at length with nurse practitioner. Agree with evaluation, assessment and plan of care. Case also discuss with surgery and pulmonology. <Carlos Ramos - Last Filed: 12/11/19 18:08> Disposition: ROUTINE DISCHARGE Discharge Condition: FAIR Vital Signs/Physical Exam: Temp Pulse Resp BP Pulse Ox 98.2 F 80 18 145/65 H 97 12/11/19 09:15 12/11/19 09:15 12/11/19 09:15 12/11/19 09:15 12/11/19 09:15 General: Alert, In no apparent distress, Oriented x3 HEENT: Atraumatic, Normocephalic Neck: Supple Respiratory: Diminished (Bilaterally) Cardiovascular: Regular rate/rhythm, Normal S1 S2, Edema (Patient with chronic lymphedema) Capillary refill: <2 Seconds Gastrointestinal: Normal bowel sounds, Soft and benign Musculoskeletal: No clubbing, No contractures, No warmth Integumentary: Tenderness/swelling, Erythema, Other (Patient with chronic lymphedema bilateral lower extremities with some ulcerations present.) Neurological: Normal speech, Normal strength at 5/5 x4 extr, Normal tone, Sensation intact Laboratory Data at Discharge: WBC 12.9 K/uL (4.3-10.9) H D 12/11/19 05:40 Hgb 13.6 g/dL (12.0-15.0) 12/11/19 05:40 Hct 41.8 % (36.0-45.0) 12/11/19 05:40 Plt Count 172 K/uL (152-406) 12/11/19 05:40 PT 12.1 SECONDS (9.5-12.5) 12/10/19 19:10 INR 1.03 12/10/19 19:10 APTT 29.0 SECONDS (24.3-36.9) 12/10/19 19:10 Sodium 138 mmol/L (136-145) 12/11/19 05:40 Potassium 4.3 mmol/L (3.5-5.1) 12/11/19 05:40 BUN 13 mg/dL (7-18) 12/11/19 05:40 Creatinine 0.64 mg/dL (0.55-1.3) 12/11/19 05:40 Glucose 392 mg/dL (74-106) H 12/11/19 05:40 Phosphorus 3.1 mg/dL (2.5-4.9) 12/11/19 05:40 Magnesium 2.0 mg/dL (1.8-2.4) 12/11/19 05:40 Total Bilirubin 0.7 mg/dL (0.2-1.0) 12/10/19 19:10 AST 33 U/L (15-37) 12/10/19 19:10 ALT 33 U/L (12-78) 12/10/19 19:10 Alkaline Phosphatase 138 U/L (45-117) H 12/10/19 19:10 Amylase 36 U/L (25-115) 12/10/19 19:10 Lipase 151 U/L (73-393) 12/10/19 19:10 <Ike Burnett - Last Filed: 12/11/19 13:20> Vital Signs/Physical Exam: Temp Pulse Resp BP Pulse Ox 98.9 F 80 18 126/68 93 12/11/19 12:00 12/11/19 12:00 12/11/19 12:00 12/11/19 12:00 12/11/19 12:00 Laboratory Data at Discharge: WBC 12.9 K/uL (4.3-10.9) H D 12/11/19 05:40 Hgb 13.6 g/dL (12.0-15.0) 12/11/19 05:40 Hct 41.8 % (36.0-45.0) 12/11/19 05:40 Plt Count 172 K/uL (152-406) 12/11/19 05:40 PT 12.1 SECONDS (9.5-12.5) 12/10/19 19:10 INR 1.03 12/10/19 19:10 APTT 29.0 SECONDS (24.3-36.9) 12/10/19 19:10 Sodium 138 mmol/L (136-145) 12/11/19 05:40 Potassium 4.3 mmol/L (3.5-5.1) 12/11/19 05:40 BUN 13 mg/dL (7-18) 12/11/19 05:40 Creatinine 0.64 mg/dL (0.55-1.3) 12/11/19 05:40 Glucose 392 mg/dL (74-106) H 12/11/19 05:40 Phosphorus 3.1 mg/dL (2.5-4.9) 12/11/19 05:40 Magnesium 2.0 mg/dL (1.8-2.4) 12/11/19 05:40 Total Bilirubin 0.7 mg/dL (0.2-1.0) 12/10/19 19:10 AST 33 U/L (15-37) 12/10/19 19:10 ALT 33 U/L (12-78) 12/10/19 19:10 Alkaline Phosphatase 138 U/L (45-117) H 12/10/19 19:10 Amylase 36 U/L (25-115) 12/10/19 19:10 Lipase 151 U/L (73-393) 12/10/19 19:10 <Carlos Ramos - Last Filed: 12/11/19 18:08> Patient Discharge Instructions: 1. You need to follow up both with pulmonology and general surgery. Please follow up with general surgery in 2 weeks for further management of chronic lymphedema with ulcerations. Please follow up with pulmonology in 1-2 weeks as well. 2. Patient was admitted history for COPD exacerbation, patient was tested for COVID. Patient also found to have chronic lymphedema with recurrent cellulitis, apparently maggots were found in the ulcerations. Patient was admitted overnight, given steroids and antibiotics as well as oxygen. Patient tolerated this well and is currently not wheezing. The patient is on 3-4 L per nasal cannula on home oxygen is currently tolerating 4 L per nasal cannula in maintaining her saturations. Pulmonology and general surgery both evaluated the patient on the telemetry floor, patient tested negative for COVID, both pulmonology and general surgery agreed the patient could be managed better on outpatient basis. For the COPD exacerbation patient continue with prednisone 10 mg b.i.d. for 7 days and then continue with her normal 10 mg daily dosing of prednisone. Patient also given Levaquin 500 mg once daily for 7 days. Patient also continue with home oxygen. Patient also continue with her daily medications of Symbicort 160-4.5 mcg inhaler, Spiriva inhaler. Will also continue patient's Lasix 40 mg p.o. daily. Patient need to follow up with pulmonology in clinic. Patient with history of chronic lymphedema complicated by ulcerations. Patient was evaluated by general surgery to determine what kind of wound care she would need. General surgery give 1 time dose of mebendazole and recommends continuing with Silvadene topical daily to the affected area. Patient also follow up with general surgery on outpatient basis the next 2 weeks in clinic. Diet: AHA Activity: Ad max Time spent managing pt's care (in minutes): 55 <Ike Burnett - Last Filed: 12/11/19 13:20> <Carlos Ramos - Last Filed: 12/11/19 18:08> Home Medications: Budesonide/Formoterol Fumarate [Symbicort 160-4.5 Mcg Inhaler] 2 puff IH BID 12/11/19 Furosemide [Lasix*] 40 mg PO DAILY 12/11/19 Silver Sulfadiazine Crm [Silvadene] 1 appl TOP DAILY #1 jar 12/11/19 Spironolactone [Aldactone*] 12/11/19 Tiotropium Killen [Spiriva] 2 puff IH DAILY 12/11/19 levoFLOXacin [Levaquin] 500 mg PO DAILY #7 tab 12/11/19 predniSONE [Deltasone] 10 mg PO BID 7 Days #28 tab 12/11/19 New Medications: levoFLOXacin [Levaquin] 500 mg PO DAILY #7 tab predniSONE [Deltasone] 10 mg PO BID 7 Days #28 tab Silver Sulfadiazine Crm [Silvadene] 1 appl TOP DAILY #1 jar Followup: Raji Hogue MD [ACTIVE - CAN ADMIT] - (call to schedule appointment) Raad Akhtar MD [ACTIVE - CAN ADMIT] - (call to schedule an appointment)
[2019-12-11 13:41] VITALS: BP 126/68; TEMP 98.9
[2019-12-12] MEDS ORDERED: SILVER SULFADIAZINE 1% 50 GM TOP SCH (09:00)
== END 2019-12-11 14:45 | disposition home or self-care (01) ==
LOC: ER 18:21 → ERHOLD 22:00 → INTOOBSV 22:00 → 4TH 12-11 00:25
PROVIDERS: ADMIT Internal Medicine; ATTEND Internal Medicine
DX: J96.21 Acute and chronic respiratory failure with hypoxia (principal); J44.1 Chronic obstructive pulmonary disease with (acute) exacerbation; I87.2 Venous insufficiency (chronic) (peripheral); I89.0 Lymphedema, not elsewhere classified; L03.116 Cellulitis of left lower limb; L03.115 Cellulitis of right lower limb; E66.9 Obesity, unspecified; Z68.36 Body mass index [BMI] 36.0-36.9, adult; R05 Cough; Z20.828 Contact with and (suspected) exposure to other viral communicable diseases; K21.9 Gastro-esophageal reflux disease without esophagitis; E78.5 Hyperlipidemia, unspecified; F41.8 Other specified anxiety disorders; F17.210 Nicotine dependence, cigarettes, uncomplicated; Z79.52 Long term (current) use of systemic steroids; Z79.51 Long term (current) use of inhaled steroids; Z99.81 Dependence on supplemental oxygen; Z79.84 Long term (current) use of oral hypoglycemic drugs; Z79.899 Other long term (current) drug therapy; Z86.14 Personal history of Methicillin resistant Staphylococcus aureus infection
CPT/HCPCS: 87040 ×2; 85025 ×2; 80048 ×2; 36415; 82150; 83735; 82550; 87205; 84100; 85610; 82947; 80076; 83605; 85730; 84443; 84484; 82553; 83690; 84145; 87804 ×2; 71045; 94760 ×2; 99285; J1650; J2920 ×3; G0378 ×2; J3370; J7040

== ENCOUNTER 2020-09-11 09:30 | Inpatient (IN) | payer BC ==
--- OUTSIDE RECORDS SUMMARY | 2020-09-11 09:33 | XMS REPORT | Continuity of Care Document ---
:1960 Author Organization [facility] t Address [address] [place] [id number] Care Team Providers Name Role Phone Unavailable Unavailable Unavailable Problems This patient has no known problems. Allergies, Adverse Reactions, Alerts This patient has no known allergies or adverse reactions. Social History Social Habit Start Date Stop Date Quantity Comments Source Sex Assigned At [facility] Medications This patient has no known medications. Procedures Procedure Date / Time Performed Performing Clinician Sourc e SARS-COV2/RT-PCR ([facility] 2019-12-10 20:09:00 [facility] Results Test Description Test Time Test Comments Results Result Comments Source SARS-CoV2/RT-PCR ([facility]) 2019-12-11 10:15:00 Test Item Value Reference Range Interpretation Comme nts SARS-COV2/RT-PCR (test code = Negative Not Detected, Negative 21068-9) SARS-COV-2 PERFORMING LAB [facility] (test code = 35258-3) NORIS (test code = NORIS) Negative result for this test determines that SARS-CoV-2 RNA was not present in the specimen above the Limit of Detection (LOD). However, Negative results do not preclude SARS-CoV-2 infection and should not be used as the sole basis for treatment or patient management decisions. Negative results must be combined with clinical observations, patient history, and epidemiological information. A false negative result may occur if a specimen is improperly collected, transported or handled. A false negative result should be considered if patient's recent exposures or clinical presentation indicate that COVID-19 (SARS-CoV-2) is likely and diagnostic tests for other causes of illness are negative. Re-testing should be considered in cases of suspected false negatives. The limit of detection for this assay is 800 copies/mL. This SARS CoV-2 test is a real-time RT-PCR test intended for the qualitative detection of nucleic acid from SARS-CoV-2 in a nasopharyngeal swab specimen collected from individuals suspected of COVID-19 by their healthcare provider. This test has not been Food and Drug Administration (FDA) cleared or approved. This is a modified version of an approved Emergency Use Authorization (EUA) and is in the process of review by the FDA. Once authorized by the FDA, the issued EUA will be effective until the declaration that circumstances exist justifying the authorization of the emergency use of in vitro diagnostic tests for detection and/or diagnosis of COVID-19 is terminated under Section 564(b)(2) of the Act or the EUA is revoked under Section 564(g) of the Act. Fact Sheet for Healthcare Providers:https://www.[employer]/sites/default/files/produ ct/documents/Fact_Sheet_HC_Pr bllhgwq_Mify_YWOK-HyR-9.pdf Fact Sheet for Healthcare Patients:https://www.[employer]/sites/default/files/produc t/documents/Fact_Sheet_Patien uv_Lmhh_GKOX-MyS-8.pdf Performing Laboratory:[facility] [facility].[place], [place] [address] [place], [place] [address]ARS-COV2/RT-PCR ([facility])2019-12-11 10:15:00 Test Item Value Reference Range Interpretation Comments SARS-COV2/RT-PCR (test code = Negative Not Detected, Negative [id number]) SARS-COV-2 PERFORMING LAB [facility] (test code = 6127972) Negative result for this test determines that SARS-CoV-2 RNA was not present in the specimen above the Limit of Detection (LOD). However, Negative results do not preclude SARS-CoV-2 infection and should not be used as the sole basis for treatment or patient management decisions. Negative results mustbe combined with clinical observations, patient history, and epidemiological information. A false negative result may occur if a specimen is improperly collected, transported or handled. A false negative result should be considered if patient's recent exposures or clinical presentation indicate that COVID-19 (SARS-CoV-2) is likely and diagnostic tests for other causes of illness are negative. Re-testing should be considered in cases of suspected false negatives.The limit of detection for this assay is 800 copies/mL.This SARS CoV-2 test is a real-time RT-PCR test intended for the qualitative detection of nucleic acid from SARS-CoV-2 in a nasopharyngeal swab specimen collected from individuals susp ected of COVID-19 by their healthcare provider.This test has not been Food and Drug Administration (FDA) cleared or approved. This is a modified version of an approved Emergency Use Authorization (EUA) and is in the process of review by the FDA. Once authorized by the FDA, the issued EUA will be effective until the declaration that circumstances exist justifying the authorization of the emergency use of in vitro diagnostic tests for detection and/or diagnosis of COVID-19 is terminated under Section 564(b)(2) of the Act or the EUA is revoked under Section 564(g) of the Act.Fact Sheet for Healthcare Providers:https://www.[employer]/sites/default/files/product/documents/Fact_Shee w_JG_Okkzupgxd_Igxu_BJXL-FqL-4.pdfFact Sheet for Healthcare Patients:https://www.[employer]/sites/default/files/product/ documents/Foeb_Dmrev_Czgsrnyv_Rpis_LLLY-EbS-7.pdfPerforming Laboratory:[facility] [place] [address]
[2020-09-11] MEDS ORDERED: IPRATROPIUM BROM 0.5MG/2.5ML ONE (10:11)
[2020-09-11] MEDS ORDERED: ALBUTEROL 2.5 MG/3 ML NEB SOL ONE (10:11)
[2020-09-11] MEDS ORDERED: METHYLPREDNISOLONE 125 MG INJ ONE (10:11)
[2020-09-11 10:16] LABS: Absolute Lymphocytes (CBC) 0.9 K/uL (0.7-4.9); Basophils % 0.7 % (0-1.3); Hematocrit 42.5 % (36.0-45.0); Lymphocytes % 10.1 % (15.3-44.8); MPV 9.2 fL (7.6-11.3); RBC Red Blood Cell Count 4.93 M/uL (3.86-4.86)
[2020-09-11 10:24] LABS: Protime INR 0.98
--- NOTE | 2020-09-11 10:37 | RAD REPORT ---
EXAM DESCRIPTION: Chon Single View09/11/2020 10:15 am CLINICAL HISTORY: Shortness of breath COMPARISON: 2019 FINDINGS: Diffuse bilateral interstitial opacities without obvious change. Small pleural effusions. Heart is mildly enlarged. Central pulmonary arteries prominent probably pulmonary arterial hypertension. Lungs are hyperaerated
[2020-09-11 11:03] LABS: SARS-COV-2 RT PCR NEGATIVE (NEGATIVE)
[2020-09-11 11:13] LABS: ALT/SGPT 33 U/L (12-78); AST/SGOT 17 U/L (15-37); Albumin 3.3 g/dL (3.4-5.0); Alkaline Phosphatase 144 U/L (45-117); BUN Blood Urea Nitrogen 10 mg/dL (7-18); Bicarbonate 37 mmol/L (21-32); Bilirubin Direct 0.2 mg/dL (0-0.2); Bilirubin Total 0.4 mg/dL (0.2-1.0); Magnesium 1.9 mg/dL (1.8-2.4); NT PRO-BNP 140 pg/mL (<125); Potassium 3.9 mmol/L (3.5-5.1); Protein, Total 9.3 g/dL (6.4-8.2); Sodium Level 133 mmol/L (136-145); Troponin (Emerg Dept Use Only) < 0.02 ng/mL (0.0-0.045)
[2020-09-11 11:15] LABS: Glucose Level 426 mg/dL (74-106)
[2020-09-11] MEDS ORDERED: NA CHLORIDE 0.9% 1,000 ML ONE (11:56)
[2020-09-11] MEDS ORDERED: INSULIN -REGULAR HUMAN 50 UNIT/0.5 ML ML ONE ×2 (11:56→20:42)
[2020-09-11] MEDS ORDERED: AZITHROMYCIN IV 500 MG in NA CHLORIDE 0.9% 250 ML IVPB ONE (12:45)
[2020-09-11] MEDS ORDERED: CEFTRIAXONE/SWI 1gm 1 GM/10 ML SYR ONE (12:49)
--- NOTE | 2020-09-11 13:24 | ER ---
Nurse's Notes [facility] Caitlin Name: Zarina Womack Age: 60 yrs Sex: Female : 1960 Arrival Date: 09/11/2020 Time: 09:32 Bed 5 Private MD: Raji Hogue K Diagnosis: Chronic obstructive pulmonary disease with (acute) exacerbation;Hyperglycemia, unspecified;Type 2 diabetes mellitus-adult onset Presentation: 09/11 09:51 Chief complaint: Patient's son or daughter states: worsening SOB since Friday, also iw having right sided chest pain and pain between her shoulder blades. Coronavirus screen: shortness of breath. Ebola Screen: Patient negative for fever greater than or equal to 101.5 degrees Fahrenheit, and additional compatible Ebola Virus Disease symptoms Patient denies exposure to infectious person. Patient denies travel to an Ebola-affected area in the 21 days before illness onset. No symptoms or risks identified at this time. Initial Sepsis Screen: Does the patient meet any 2 criteria? RR > 20 per min. HR > 90 bpm. Does the patient have a suspected source of infection?. Risk Assessment: Do you want to hurt yourself or someone else? Patient reports no desire to harm self or others. Onset of symptoms was September 09, 2020. 09:51 Method Of Arrival: Wheelchair iw 09:51 Acuity: AISSATOU 2 iw Triage Assessment: 18:45 Respiratory: jl7 Historical: - Allergies: 09:53 Sulfa (Sulfonamide Antibiotics); iw - PMHx: 09:53 Anxiety; COPD; Depression; Hernia; Hypertension; lymphedema; iw - PSHx: 09:53 Hysterectomy; Tonsillectomy; Cataracts; iw - Immunization history:: Adult Immunizations up to date, Client reports receiving the 2nd dose of the Covid vaccine, Date received: August 27, 2020. - Social history:: Smoking status: unknown. Screenin:00 Abuse screen: Denies threats or abuse. Denies injuries from another. Nutritional jl7 screening: No deficits noted. Tuberculosis screening: No symptoms or risk factors identified. Fall Risk IV access (20 points). Total Iraheta Fall Scale indicates No Risk (0-24 pts). Assessment: 10:00 General: Appears in no apparent distress. uncomfortable, Behavior is calm, cooperative, jl7 appropriate for age. Pain: Denies pain. Neuro: Level of Consciousness is awake, alert, obeys commands, Oriented to person, place, time, situation. Cardiovascular: Heart tones present Patient's skin is warm and dry. Rhythm is regular. Respiratory: Airway is patent Respiratory effort is even, labored, with nasal flaring, Respiratory pattern is symmetrical, tachypnea Breath sounds are diminished bilaterally. Derm: Skin is pink, warm \T\ dry. 11:00 Reassessment: Patient appears in no apparent distress at this time. No changes from jl7 previously documented assessment. Patient and/or family updated on plan of care and expected duration. Pain level reassessed. Patient is alert, oriented x 3, equal unlabored respirations, skin warm/dry/pink. 12:00 Reassessment: Patient appears in no apparent distress at this time. No changes from jl7 previously documented assessment. Patient and/or family updated on plan of care and expected duration. Pain level reassessed. Patient is alert, oriented x 3, equal unlabored respirations, skin warm/dry/pink. 13:00 Reassessment: Patient appears in no apparent distress at this time. No changes from jl7 previously documented assessment. Patient and/or family updated on plan of care and expected duration. Pain level reassessed. Patient is alert, oriented x 3, equal unlabored respirations, skin warm/dry/pink. 16:00 Reassessment: Patient appears in no apparent distress at this time. No changes from jl7 previously documented assessment. Patient and/or family updated on plan of care and expected duration. Pain level reassessed. Patient is alert, oriented x 3, equal unlabored respirations, skin warm/dry/pink. 16:45 Reassessment: Pt moved to ER room 5. jl7 18:00 Reassessment: Patient appears in no apparent distress at this time. No changes from jl7 previously documented assessment. Patient and/or family updated on plan of care and expected duration. Pain level reassessed. Patient is alert, oriented x 3, equal unlabored respirations, skin warm/dry/pink. Vital Signs: 09:51 BP 155 / 116; Pulse 110; Resp 30 S; Temp 97.8; Pulse Ox 93% on 3 lpm NC; iw 11:47 BP 151 / 64; Pulse 109; Resp 26; Pulse Ox 95% on 4 lpm NC; jl7 12:42 BP 139 / 109; Pulse 107; Resp 24 S; Pulse Ox 84% on 5 lpm NC; jl7 14:30 BP 148 / 104; Pulse 106; Resp 22 S; Pulse Ox 95% on 4 lpm NC; jl7 16:45 BP 156 / 94; Pulse 105; Resp 21 S; Pulse Ox 95% on 4 lpm NC; jl7 ED Course: 09:32 Patient arrived in ED. am2 09:32 Raji Hogue MD is Private Physician. am2 09:40 Maykel Squires [facility] pm1 09:41 Chilo Venegas MD is Attending Physician. pm1 09:47 Latisha Chandler RN is Primary Nurse. jl7 09:52 Triage completed. iw 09:53 Arm band placed on. iw 10:00 Patient has correct armband on for positive identification. Bed in low position. Call jl7 light in reach. telemetry monitor on. Pulse ox on. NIBP on. Warm blanket given. 10:00 Initial lab(s) drawn, by me, sent to lab. Inserted saline lock: 20 gauge in right in jl7 left Blood collected. 10:14 COVID swab sent to lab. Flu and/or RSV swab sent to lab. jl7 10:15 XRAY Chest (1 view) In Process Unspecified. EDMS 13:22 Tomas Carter is Hospitalizing Provider. pm1 18:45 No provider procedures requiring assistance completed. Patient admitted, IV remains in jl7 place. intact, No redness/swelling at site. Administered Medications: 10:02 Drug: SOLU-Medrol 125 mg Route: IVP; Site: right antecubital; jl7 11:52 Follow up: Response: No adverse reaction jl7 10:11 Drug: Albuterol - atroVENT (ipratropium) (3:1) (2.5 mg - 0.5 mg) 3 ml Route: Nebulizer; jl7 11:52 Follow up: Response: No adverse reaction jl7 11:40 Drug: Insulin Regular Human 10 units {Co-Signature: aa5 (Tamara Balderrama RN).} Route: jl7 IVP; Site: right antecubital; 12:40 Follow up: Response: No adverse reaction; Blood sugar is lowered jl7 11:40 Drug: NS 0.9% 1000 ml Route: IV; Rate: 1000 ml; Site: right antecubital; jl7 13:00 Follow up: Response: No adverse reaction; IV Status: Completed infusion; IV Intake: jl7 1000ml 12:39 Drug: Rocephin (cefTRIAXone) 1 grams Route: IV; Rate: calculated rate; Site: right jl7 antecubital; 12:42 Follow up: Response: No adverse reaction; IV Status: Completed infusion jl7 13:13 Drug: AZITHromycin 500 mg Route: IVPB; Infused Over: 1 hrs; Site: right antecubital; jl7 14:13 Follow up: Response: No adverse reaction; IV Status: Completed infusion jl7 Intake: 13:00 IV: 1000ml; Total: 1000ml. jl7 Outcome: 13:23 Decision to Hospitalize by Provider. pm1 18:45 [facility] to [facility]. [facility] jl7 18:45 Condition: stable 18:45 Discharge instructions given to patient, Instructed on the need for admit, Demonstrated understanding of instructions. 20:59 Patient left the ED. rr5 Signatures: Dispatcher [employer] EDMS Vicki Monroy RN RN iw Maykel Squires NP [employer] pm1 Latisha Chandler RN RN jl7 Anitha Hardy am2 Mainor Jung RN RN rr5 Tamara Balderrama RN aa5 Corrections: (The following items were deleted from the chart) 13:14 12:42 BP 139 / 139; Pulse 107bpm; Resp 24bpm; Spontaneous; Pulse Ox 84% 5 lpm Nasal jl7 Cannula; jl7
--- NOTE | 2020-09-11 13:24 | EDPHYS ---
Physician Documentation [facility] Name: Zarina Womack Age: 60 yrs Sex: Female : 1960 Arrival Date: 09/11/2020 Time: 09:32 Bed 5 Private MD: Raji Hogue K ED Physician Chilo Venegas HPI: 09/11 10:06 This 60 yrs old Female presents to ER via Wheelchair with complaints of pm1 Breathing Difficulty. 10:06 The patient has shortness of breath at rest. Onset: The symptoms/episode began/occurred pm1 2 day(s) ago. Duration: The symptoms are continuous, and are steadily getting worse, Has increased her home oxygen and taken breathing treatment without improvement. The patient's shortness of breath is aggravated by light activity, is alleviated by nothing. Associated signs and symptoms: Pertinent positives: cough, chest pain, Pertinent negatives: fever. Severity of symptoms: in the emergency department the symptoms are worse. The patient has experienced similar episodes in the past, several times. The patient has not recently seen a physician, Sees Dr. Jurado for her COPD, PCP Dr. Perez who she has not seen in 2-3 years. Historical: - Allergies: 09:53 Sulfa (Sulfonamide Antibiotics); iw - PMHx: 09:53 Anxiety; COPD; Depression; Hernia; Hypertension; lymphedema; iw - PSHx: 09:53 Hysterectomy; Tonsillectomy; Cataracts; iw - Immunization history:: Adult Immunizations up to date, Client reports receiving the 2nd dose of the Covid vaccine, Date received: August 27, 2020. - Social history:: Smoking status: unknown. ROS: 10:06 Constitutional: Negative for fever, chills, and weight loss, Neck: Negative for injury, pm1 pain, and swelling. 10:06 Back: Negative for injury and pain, MS/Extremity: Negative for injury and deformity, Skin: Negative for injury, rash, and discoloration, Neuro: Negative for headache, weakness, numbness, tingling, and seizure. 10:06 Cardiovascular: Positive for chest pain, of the anterior aspect of right upper chest, Edema - history of lymphedema, Negative for palpitations. 10:06 Respiratory: Positive for cough, shortness of breath. 10:06 Abdomen/GI: Negative for abdominal pain, nausea, vomiting, and diarrhea. Exam: 10:06 Head/Face: Normocephalic, atraumatic. pm1 10:06 MS/ Extremity: Pulses equal, no cyanosis. Neurovascular intact. Full, normal range of motion. 10:06 Constitutional: The patient appears in no acute distress, alert, awake, comfortable, non-diaphoretic, non-toxic, well developed, well nourished, obese, unkempt. 10:06 Cardiovascular: Rate: tachycardic, actual rate is 110 bpm, Rhythm: regular, Pulses: no pulse deficits are appreciated, Edema: pedal edema, that is marked. 10:06 Respiratory: the patient does not display signs of respiratory distress, Breath sounds: decreased breath sounds, are located in both bases. 10:06 Abdomen/GI: Inspection: obese Large ventral hernia present, Palpation: abdomen is soft and non-tender, in all quadrants, Hernia: noted in the Ventral, incarceration, is not appreciated, tenderness, is not appreciated. 10:06 Neuro: Exam negative for acute changes, Orientation: is normal, Mentation: is normal, Motor: is normal, moves all fours. Vital Signs: 09:51 BP 155 / 116; Pulse 110; Resp 30 S; Temp 97.8; Pulse Ox 93% on 3 lpm NC; iw 11:47 BP 151 / 64; Pulse 109; Resp 26; Pulse Ox 95% on 4 lpm NC; jl7 12:42 BP 139 / 109; Pulse 107; Resp 24 S; Pulse Ox 84% on 5 lpm NC; jl7 14:30 BP 148 / 104; Pulse 106; Resp 22 S; Pulse Ox 95% on 4 lpm NC; jl7 16:45 BP 156 / 94; Pulse 105; Resp 21 S; Pulse Ox 95% on 4 lpm NC; jl7 MDM: 09:41 Patient medically screened. pm1 13:21 Data reviewed: vital signs. pm1 13:21 Physician consultation: Tomas Raul was called at 13:21, was contacted at 13:21, pm1 regarding admission, patient's condition, and will see patient. 09/11 09:47 Order name: Basic Metabolic Panel; Complete Time: 11:25 pm1 09/11 09:47 Order name: CBC with Diff; Complete Time: 11:03 pm1 09/11 09:47 Order name: LFT's; Complete Time: 11:25 pm1 09/11 09:47 Order name: Magnesium; Complete Time: 11:25 pm1 09/11 09:47 Order name: NT PRO-BNP; Complete Time: 11:25 pm1 09/11 09:47 Order name: PT-INR; Complete Time: 11:03 pm1 09/11 09:47 Order name: Troponin (emerg Dept Use Only); Complete Time: 11:25 pm1 09/11 11:03 Order name: COVID-19/FLU A+B; Complete Time: 11:03 EDMS 09/11 12:52 Order name: Glucose, Ancillary Testing; Complete Time: 13:08 EDMS 09/11 13:31 Order name: Basic Metabolic Panel EDMS 09/11 13:31 Order name: Basic Metabolic Panel EDMS 09/11 13:31 Order name: CBC with Automated Diff EDMS 09/11 09:47 Order name: XRAY Chest (1 view); Complete Time: 11:03 pm1 09/11 09:47 Order name: EKG; Complete Time: 09:48 pm1 09/11 09:47 Order name: Cardiac monitoring; Complete Time: 11:06 pm1 09/11 09:47 Order name: EKG - Nurse/Tech; Complete Time: 11:06 pm1 09/11 09:47 Order name: IV Saline Lock; Complete Time: 10:11 pm1 09/11 09:47 Order name: Labs collected and sent; Complete Time: 10:11 pm09/11 09:47 Order name: O2 Per Protocol; Complete Time: 10:11 pm1 09/11 09:47 Order name: O2 Sat Monitoring; Complete Time: 10:11 pm09/11 13:31 Order name: CBC with Automated Diff EDMS 09/11 20:30 Order name: Glucose, Ancillary Testing; Complete Time: 20:37 EDMS Administered Medications: 10:02 Drug: SOLU-Medrol 125 mg Route: IVP; Site: right antecubital; 11:52 Follow up: Response: No adverse reaction 7 10:11 Drug: Albuterol - atroVENT (ipratropium) (3:1) (2.5 mg - 0.5 mg) 3 ml Route: Nebulizer; 11:52 Follow up: Response: No adverse reaction 11:40 Drug: Insulin Regular Human 10 units {Co-Signature: aa5 (Tamara Balderrama RN).} Route: jl7 IVP; Site: right antecubital; 12:40 Follow up: Response: No adverse reaction; Blood sugar is lowered 11:40 Drug: NS 0.9% 1000 ml Route: IV; Rate: 1000 ml; Site: right antecubital; 7 13:00 Follow up: Response: No adverse reaction; IV Status: Completed infusion; IV Intake: jl7 1000ml 12:39 Drug: Rocephin (cefTRIAXone) 1 grams Route: IV; Rate: calculated rate; Site: right [facility] antecubital; 12:42 Follow up: Response: No adverse reaction; IV Status: Completed infusion [facility] 13:13 Drug: AZITHromycin 500 mg Route: IVPB; Infused Over: 1 hrs; Site: right antecubital; [facility] 14:13 Follow up: Response: No adverse reaction; IV Status: Completed infusion [facility] Disposition: 09/11/20 13:23 Hospitalization ordered by Tomas Carter for Inpatient Admission. Preliminary diagnosis are Chronic obstructive pulmonary disease with (acute) exacerbation, Hyperglycemia, unspecified, Type 2 diabetes mellitus - adult onset. - Bed requested for Telemetry/MedSurg (Inpatient). - Status is Inpatient Admission. rr5 - Condition is Stable. - Problem is new. - Symptoms have improved. Addendum: 09/13/2020 06:40 Co-signature as Attending Physician, Chilo Venegas MD I agree with the assessment and c olivares plan of care. Signatures: Dispatcher [employer] EDWY Zohra Luna Corey, MD MD cha Williams, Irene, RN Maykel Wilcox NP TRANSMISSION BUILDER pm1 Laitsha Chandler RN RN jl7 Mainor Jung RN RN rr5 Tamara Balderrama RN aa5 Corrections: (The following items were deleted from the chart) 09/11 10:24 09:48 CORONAVIRUS+MR.LAB.BRZ ordered. EDMS EDMS 10:24 09:48 Influenza Screen (A \T\ B)+BA.LAB.BRZ ordered. EDWY EDMS 13:24 13:23 Hospitalization Ordered by Tomas Carter for Inpatient Admission. Preliminary pm1 diagnosis is Chronic obstructive pulmonary disease with (acute) exacerbation; Hyperglycemia, unspecified. Bed requested for Telemetry/MedSurg (Inpatient). Status is Inpatient Admission. Condition is Stable. Problem is new. Symptoms have improved. pm1 18:24 13:24 09/11/2020 13:23 Hospitalization Ordered by Tomas Carter for Inpatient bd Admission. Preliminary diagnosis is Chronic obstructive pulmonary disease with (acute) exacerbation; Hyperglycemia, unspecified; Type 2 diabetes mellitus - adult onset. Bed requested for Telemetry/MedSurg (Inpatient). Status is Inpatient Admission. Condition is Stable. Problem is new. Symptoms have improved. pm1 18:42 18:24 09/11/2020 13:23 Hospitalization Ordered by Tomas Carter for Inpatient bd Admission. Preliminary diagnosis is Chronic obstructive pulmonary disease with (acute) exacerbation; Hyperglycemia, unspecified; Type 2 diabetes mellitus - adult onset. Bed requested for [facility] ER [facility]. Status is Inpatient Admission. Condition is Stable. Problem is new. Symptoms have improved. bd 19:51 18:42 09/11/2020 13:23 Hospitalization Ordered by Tomas Carter for Inpatient iw Admission. Preliminary diagnosis is Chronic obstructive pulmonary disease with (acute) exacerbation; Hyperglycemia, unspecified; Type 2 diabetes mellitus - adult onset. Bed requested for Telemetry/MedSurg (Inpatient). Status is Inpatient Admission. Condition is Stable. Problem is new. Symptoms have improved. bd 20:59 19:51 09/11/2020 13:23 Hospitalization Ordered by Tomas Carter for Inpatient rr5 Admission. Preliminary diagnosis is Chronic obstructive pulmonary disease with (acute) exacerbation; Hyperglycemia, unspecified; Type 2 diabetes mellitus - adult onset. Bed requested for Telemetry/MedSurg (Inpatient). Status is Inpatient Admission. Condition is Stable. Problem is new. Symptoms have improved. iw
[2020-09-11] MEDS ORDERED: ALBUTEROL 2.5 MG/3 ML NEB SOL NEB PRN (13:28)
[2020-09-11] MEDS ORDERED: IPRATROPIUM BROM 0.5MG/2.5ML NEB PRN (13:28)
[2020-09-11] MEDS: METHYLPREDNISOLONE 40 MG INJ IV SCH (18:00)
--- NOTE | 2020-09-11 18:58 | P.HP ---
Certification for Inpatient Patient admitted to: Inpatient With expected LOS: >2 Midnights Practitioner: I am a practitioner with admitting privileges, knowledge of patient current condition, hospital course, and medical plan of care. Services: Services provided to patient in accordance with Admission requirements found in Title 42 Section 412.3 of the Code of Federal Regulations Patient History Date of Service: 09/11/20 Reason for admission: Shortness of breath History of Present Illness: 60-year-old with a history COPD, bilateral lower extremity lymphedema, morbid obesity and a large ventral hernia presented to the emergency department with a complaint of progressive shortness of breath. Patient at baseline uses 3 L of oxygen by nasal cannula. She reports nonproductive cough and wheezing. She has bilateral lower extremity swelling from the lymphedema, with malodorous discharge which per patient is chronic. Patient was requiring 4 L of oxygen by nasal cannula in the ED after bronchodilator treatment and IV Solu-Medrol. Patient blood sugar also elevated to 400. She has not been diagnosed with diabetes and not on any therapy. Patient is admitted for further management of COPD exacerbation and hyperglycemia. Allergies Sulfa (Sulfonamide Antibiotics) Adverse Reaction (Mild, Verified 04/16/18 23:02) hallucinations Home Medications: Budesonide/Formoterol Fumarate [Symbicort 160-4.5 Mcg Inhaler] 2 puff IH BID 12/11/19 Furosemide [Lasix*] 40 mg PO DAILY 12/11/19 Silver Sulfadiazine Crm [Silvadene] 1 appl TOP DAILY #1 jar 12/11/19 Spironolactone [Aldactone*] 12/11/19 Tiotropium [place] [Spiriva] 2 puff IH DAILY 12/11/19 levoFLOXacin [Levaquin] 500 mg PO DAILY #7 tab 12/11/19 predniSONE [Deltasone] 10 mg PO BID 7 Days #28 tab 12/11/19 - Past Medical/Surgical History Diabetic: No -: COPD, steroid dependent, home oxygen -: Hyperlipidemia -: Tobacco abuse -: Chronic lymphedema to the lower extremities -: History of MRSA infection -: Nephrolithiasis bilaterally -: Staghorn calculus bilaterally -: Large ventral hernia -: Morbid obesity -: Depression with anxiety -: Hysterectomy -: Tonsillectomy -: Removal of kidney stones Psychosocial/ Personal History: The patient is , has 2 children. 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 - Family History Father -: Lung disease, Cancer Mother -: Heart disease, Hypertension, Stroke, Cancer - Social History Alcohol use: No CD- Drugs: No Caffeine use: Yes Review of Systems Other: Except as documented, all other systems reviewed and negative. Physical Examination - Physical Exam General: Alert, In no apparent distress, Other (Unkempt) HEENT: Atraumatic, Normocephalic, PERRLA, Mucous membr. moist/pink, EOMI, Sclerae nonicteric Neck: Supple, JVD not distended Respiratory: Diminished (Bilateral), Other (No crackles, mild expiratory wheezes.) Cardiovascular: Regular rate/rhythm, Normal S1 S2, Edema (4+ bilateral lower extremity edema) Gastrointestinal: Normal bowel sounds, Soft and benign, Non-distended, Other (Large ventral hernia) Musculoskeletal: Other (Bilateral lower extremity lymphedema) Integumentary: Other (And stasis ulcers and dermatitis with malodorous discharge) Neurological: Normal speech, Normal strength at 5/5 x4 extr, Cranial nerves 3-12 intact - Studies Laboratory Data (last 24 hrs) 09/11/20 10:01: PT 11.3, INR 0.98 09/11/20 10:01: WBC 8.90, Hgb 14.0, Hct 42.5, Plt Count 192 09/11/20 10:01: Sodium 133 L, Potassium 3.9, BUN 10, Creatinine 0.77, Glucose 426 H*, Magnesium 1.9, Total Bilirubin 0.4, AST 17, ALT 33, Alkaline Phosphatase 144 H Assessment and Plan - Problems (Diagnosis) (1) Acute and chronic respiratory failure Onset Date: 04/29/17 Current Visit: No Status: Acute Qualifiers: Respiratory failure complication: hypoxia Qualified Code(s): J96.21 - Acute and chronic respiratory failure with hypoxia (2) COPD exacerbation Onset Date: 04/29/17 Current Visit: No Status: Acute (3) Chronic venous hypertension w ulceration Current Visit: No Status: Acute (4) Lymphedema Onset Date: 08/26/14 Current Visit: No Status: Acute (5) Obesity, morbid Onset Date: 08/27/16 Current Visit: No Status: Chronic (6) Pulmonary hypertension Onset Date: 08/27/16 Current Visit: No Status: Chronic (7) Ventral hernia Onset Date: 08/27/16 Current Visit: No Status: Chronic Qualifiers: Obstruction and gangrene presence: without obstruction or gangrene Qualified Code(s): K43.9 - Ventral hernia without obstruction or gangrene (8) Obstructive sleep apnea Onset Date: 08/27/16 Current Visit: No Status: Suspected (9) Hypercalcemia Current Visit: Yes Status: Acute - Plan Admit patient to the medical floor. Start treatment for COPD exacerbation with IV steroids, scheduled bronchodilators. IV antibiotic-Rocephin and Zithromax. Start insulin sliding scale. Check hemoglobin A1c and start longer-acting insulin pending hemoglobin A1c result. Wound care Consult for lymphedema and venous stasis ulcers treatment. Hypercalcemia is chronic. Will treat lymphedema with IV Lasix. Lasix will also serve to treat hypercalcemia. Review of chart revealed patient had prior PTH elevation. Will check vitamin-D levels. - Advance Directives Does patient have a Living Will: No Does patient have a Durable POA for Healthcare: No
[2020-09-11] MEDS ORDERED: INSULIN -REGULAR HUMAN 50 UNIT/0.5 ML ML IV ONE ×2 (20:22→22:06)
[2020-09-11] MEDS ORDERED: D50W 25 GM/50 ML SYRINGE IV PRN ×2 (21:37)
[2020-09-11] MEDS ORDERED: GLUCAGON 1 MG/VIAL IM PRN (21:37)
[2020-09-11] MEDS: INSULIN -REGULAR HUMAN 50 UNIT/0.5 ML ML SQ SCH (22:27)
[2020-09-12 02:16] VITALS: BMI 33.4
[2020-09-12 04:40] LABS: Absolute Lymphocytes (CBC) 0.6 K/uL (0.7-4.9); Basophils % 0.7 % (0-1.3); Hematocrit 43.3 % (36.0-45.0); Lymphocytes % 7.8 % (15.3-44.8); MPV 9.3 fL (7.6-11.3); RBC Red Blood Cell Count 4.99 M/uL (3.86-4.86)
[2020-09-12 04:45] LABS: BUN Blood Urea Nitrogen 19 mg/dL (7-18); Bicarbonate 34 mmol/L (21-32); Glucose Level 261 mg/dL (74-106); Potassium 4.6 mmol/L (3.5-5.1); Sodium Level 136 mmol/L (136-145)
[2020-09-12 05:23] LABS: Blood Morphology Comment NOTED (NOT SEEN); Platelet Estimate ADEQ; Polychromasia SLIGHT
[2020-09-12] MEDS: METHYLPREDNISOLONE 40 MG INJ IV SCH ×3 (05:26→11:26)
[2020-09-12] MEDS ORDERED: CEFTRIAXONE 1 GM/NS 50 ML 1 GM/50 ML BAG IV SCH (09:00)
[2020-09-12] MEDS ORDERED: FUROSEMIDE 40 MG/4 ML VIAL IV SCH (09:00)
[2020-09-12] MEDS: INSULIN -REGULAR HUMAN 50 UNIT/0.5 ML ML SQ SCH ×4 (09:19→21:07)
[2020-09-12] MEDS ORDERED: D50W 25 GM/50 ML SYRINGE IV PRN (11:13)
[2020-09-12] MEDS ORDERED: GLUCAGON 1 MG/VIAL IM PRN (11:13)
[2020-09-12] MEDS ORDERED: INSULIN -REGULAR HUMAN 50 UNIT/0.5 ML ML IV ONE (11:14)
[2020-09-12] MEDS ORDERED: CEFTRIAXONE/SWI 1gm 1 GM/10 ML SYR IV SCH (12:00)
[2020-09-12] MEDS ORDERED: D50W 25 GM/50 ML VIAL IV PRN (12:00)
--- NOTE | 2020-09-12 12:09 | P.PN ---
Subjective Date of Service: 09/12/20 Chief Complaint: Shortness of breath Subjective: No new changes (reported feeling ok this morning, breathing more comfortably on 3L NC. Then had desaturation later in the morning, felt like she couldn't breathe at all, with mucous blocking her nose, had to be placed on nonrebreather) Review of Systems 10-point ROS is otherwise unremarkable Physical Examination - Vital Signs Temperature: 98 F Blood Pressure: 147/90 Pulse: 90 Respirations: 22 Pulse Ox (%): 86 Assessment & Plan Physician Review Additional Text: Physical Exam General: Alert, In no apparent distress, disheveled HEENT: Normal conjunctiva, sclerae anicteric Respiratory: Diminished bilaterally at bases, mild expiratory wheeze, slight tachypnea/increased work of breathing on 3 L nasal cannula Cardiovascular: Regular rate/rhythm, Normal S1 S2 Gastrointestinal: Normal bowel sounds, Soft and benign, large ventral hernia Musculoskeletal: Bilateral lower extremity lymphedema Integumentary: Venous stasis ulcers and dermatitis Problem List Acute and chronic respiratory failure secondary to COPD exacerbation Acute on Chronic COPD exacerbation Chronic venous hypertension w ulceration Diabetes mellitus, type 2, new onset/diagnosis, insulin-dependent Lymphedema Obesity, morbid Pulmonary hypertension Ventral hernia Obstructive sleep apnea Hypercalcemia continue IV steroids, bronchodilators, IV Rocephin for possible pneumonia and azithromycin Hemoglobin A1c greater than 11, start long-acting insulin, moderate insulin sliding scale, titrate as needed New diagnosis of diabetes mellitus type 2 - will need insulin on discharge, dietitian consulted Worsened by steroid induced hyperglycemia Wound care Consult for lymphedema and venous stasis ulcers treatment. Hypercalcemia is chronic. Will treat lymphedema with IV Lasix - should help with hypercalcemia as well Review of chart revealed patient had prior PTH elevation. Vit D level pending this AM check d-dimer, pt reports h/o provoked PE after hysterectomy stat CXR ordered after his hypoxic episode Pulm consulted Dispo: anticipate dc home tomorrow, has O2 at home already Time Spent Managing Pts Care (In Minutes): 35
--- NOTE | 2020-09-12 12:17 | P.CNS ---
Date of Consult: 09/12/20 Reason for Consult: COPD exacerbation Chief Complaint: Shortness of breath History of Present Illness: patient is 60 years of age well known to me she has a history of terminal COPD frequent exacerbations continued to smoke compliant with her medication became worse of the past week complaining of worsening dyspnea and a productive cough denies any fever or chills Allergies Sulfa (Sulfonamide Antibiotics) Adverse Reaction (Mild, Verified 04/16/18 23:02) hallucinations Home Medications: Furosemide [Lasix*] 40 mg PO DAILY 12/11/19 Silver Sulfadiazine Crm [Silvadene] 1 appl TOP DAILY #1 jar 12/11/19 Budesonide/Formoterol Fumarate [Symbicort 160-4.5 Mcg Inhaler] 2 puff IH BID 09/12/20 Spironolactone [Aldactone*] 25 mg PO DAILY 09/12/20 Tiotropium [place] [Spiriva Respimat] 2 puff IH DAILY 09/12/20 predniSONE [Deltasone*] 10 mg PO DAILY 09/12/20 - Past Medical/Surgical History Diabetic: Yes -: COPD, steroid dependent, home oxygen -: Hyperlipidemia -: Tobacco abuse -: Chronic lymphedema to the lower extremities -: History of MRSA infection -: Nephrolithiasis bilaterally -: Staghorn calculus bilaterally -: Large ventral hernia -: Morbid obesity -: Depression with anxiety -: Hysterectomy -: Tonsillectomy -: Removal of kidney stones -: bilateral cataracts Psychosocial/ Personal History: The patient is , has 2 children. 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 - Family History Father Medical History: Lung disease, Cancer Mother Medical History: Heart disease, Hypertension, Stroke, Cancer - Social History Smoking Status: Unknown if ever smoked Alcohol use: No CD- Drugs: No Caffeine use: Yes Place of Residence: Home Review of Systems General: Weakness Respiratory: Cough, Shortness of Breath Cardiovascular: Edema Physical Examination Temp Pulse Resp BP Pulse Ox 98 F 90 22 H 147/90 H 86 L 09/12/20 12:09 09/12/20 12:09 09/12/20 12:09 09/12/20 12:09 09/12/20 12:09 General: Alert, Oriented x3, Moderate distress HEENT: Atraumatic Neck: Supple Respiratory: Expiratory wheezes Cardiovascular: Regular rate/rhythm, Normal S1 S2, Edema - Problems (1) COPD exacerbation Onset Date: 04/29/17 Current Visit: No Status: Acute Plan: patient is 60 years of age with history of severe end-stage COPD continues to smoke has lymphedema admitted with worsening dyspnea for the past week chest x- ray consistent with COPD changes she has a prominent pulmonary artery most likely has underlying pulmonary hypertension chemistries reviewed blood sugar is significantly elevated A1c is also elevated he will need to be started on insulin complaining of anxiety add metformin reduce the dose of Solu-Medrol reduce dose of Solu-Medrol check arterial blood gases may need Diamox instead of Lasix
[2020-09-12] MEDS: NICOTINE 14 MG/PAT TD SCH (12:47)
[2020-09-12] MEDS: ALBUTEROL 2.5 MG/3 ML NEB SOL NEB SCH ×2 (13:10→19:30)
[2020-09-12] MEDS: IPRATROPIUM BROM 0.5MG/2.5ML NEB SCH ×2 (13:10→19:30)
--- NOTE | 2020-09-12 13:22 | RAD REPORT ---
EXAM DESCRIPTION: RAD - Chest Single View - 09/12/2020 1:14 pm CLINICAL HISTORY: SOB, hypoxia COMPARISON: September 11 TECHNIQUE: AP portable chest image was obtained 09/12/2020 1:14 pm . FINDINGS: Fibrotic lung pattern is again noted. Interstitial thickening remains more pronounced in e ach base. Overall interstitial pattern appears to be improved slightly. Heart size is normal. Pulmona ry vasculature within normal limits. Both are decreased from the prior day imaging. Bilateral pleural effusions again noted. No acute bony abnormality seen. No acute aortic findings suspected. IMPRESSION: Heart size and vasculature have decreased in prominence from prior day imaging. Small bilateral pleural effusions remain. Diffusely prominent interstitial pattern showing a slight improvement from prior imaging.
[2020-09-12 14:27] LABS: Arterial Blood Carboxyhemoglob 2.7 % (0-1.5); Blood O2 Saturation 94.3 % (92-98.5)
--- NOTE | 2020-09-12 16:37 | EKG ---
Test Date: 2020-09-11 Test Time: 10:21:42 School Bus Inspector: TRICIA MEASUREMENT RESULTS: Intervals: Rate: 110 ND: 136 QRSD: 70 QT: 314 QTc: 424 [place]: P: 76 ND: 136 QRS: 58 T: 57 INTERPRETIVE STATEMENTS: Sinus tachycardia Otherwise normal ECG Compared to ECG 05/21/2019 12:53:07 Sinus rhythm no longer present ST (T wave) deviation no longer present Electronically Signed On 09-12-20 16:33:25 CDT by Simone Alvarado
[2020-09-12] MEDS: METFORMIN HCL 500 MG TAB PO SCH (16:38)
[2020-09-12] MEDS ORDERED: INSULIN GLARGINE 100 UNITS/ML SQ SCH ×3 (17:00)
[2020-09-12] MEDS ORDERED: METHYLPREDNISOLONE 40 MG INJ IV SCH (17:00)
--- NOTE | 2020-09-12 17:44 | P.CNS ---
Date of Consult: 09/12/20 Reason for Consult: painful toenails Requesting Physician: Maximo Jimenez Chief Complaint: Shortness of breath Allergies Sulfa (Sulfonamide Antibiotics) Adverse Reaction (Mild, Verified 04/16/18 23:02) hallucinations Home Medications: Furosemide [Lasix*] 40 mg PO DAILY 12/11/19 Silver Sulfadiazine Crm [Silvadene] 1 appl TOP DAILY #1 jar 12/11/19 Budesonide/Formoterol Fumarate [Symbicort 160-4.5 Mcg Inhaler] 2 puff IH BID 09/12/20 Spironolactone [Aldactone*] 25 mg PO DAILY 09/12/20 Tiotropium [place] [Spiriva Respimat] 2 puff IH DAILY 09/12/20 predniSONE [Deltasone*] 10 mg PO DAILY 09/12/20 - Past Medical/Surgical History Diabetic: Yes -: COPD, steroid dependent, home oxygen -: Hyperlipidemia -: Tobacco abuse -: Chronic lymphedema to the lower extremities -: History of MRSA infection -: Nephrolithiasis bilaterally -: Staghorn calculus bilaterally -: Large ventral hernia -: Morbid obesity -: Depression with anxiety -: Hysterectomy -: Tonsillectomy -: Removal of kidney stones -: bilateral cataracts Psychosocial/ Personal History: The patient is , has 2 children. 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 - Family History Father Medical History: Lung disease, Cancer Mother Medical History: Heart disease, Hypertension, Stroke, Cancer - Social History Smoking Status: Unknown if ever smoked Alcohol use: No CD- Drugs: No Caffeine use: Yes Place of Residence: Home Review of Systems 10-point ROS is otherwise unremarkable Physical Examination Temp Pulse Resp BP Pulse Ox 99.2 F 96 H 18 128/61 92 09/12/20 16:00 09/12/20 16:00 09/12/20 16:00 09/12/20 16:00 09/12/20 16:00 General: Alert, In no apparent distress, Oriented x3 Cardiovascular: No edema (bilateral lymphedema), Abnormal pulses (absent posterior tibial and dorsalis pedis pulses bilateral) Capillary refill: >2 Seconds Musculoskeletal: No clubbing, No swelling, No contractures, No erythema, No tenderness, No warmth Integumentary: Other (Thickened hypertrophic nails with subungual debris x 10. ) Neurological: Sensation intact - Problems (1) Tinea unguium Current Visit: Yes Status: Acute (2) Generalized atherosclerosis Current Visit: Yes Status: Acute (3) Lymphedema Onset Date: 08/26/14 Current Visit: No Status: Acute Conclusions/Impression: Nails debrided at bedside Physician Review: Patient Assessed, Agree with Above Assessment and Plan
[2020-09-12] MEDS: predniSONE 20 MG TAB PO SCH (21:07)
[2020-09-13] MEDS: IPRATROPIUM BROM 0.5MG/2.5ML NEB SCH ×4 (00:50→19:15)
[2020-09-13] MEDS: ALBUTEROL 2.5 MG/3 ML NEB SOL NEB SCH ×4 (00:50→19:15)
[2020-09-13 06:07] LABS: Magnesium 2.3 mg/dL (1.8-2.4); Potassium 4.2 mmol/L (3.5-5.1)
[2020-09-13 06:48] LABS: Absolute Lymphocytes (CBC) 0.8 K/uL (0.7-4.9); Basophils % 0.6 % (0-1.3); Hematocrit 42.2 % (36.0-45.0); Lymphocytes % 8.1 % (15.3-44.8); RBC Red Blood Cell Count 4.86 M/uL (3.86-4.86)
[2020-09-13] MEDS: INSULIN -REGULAR HUMAN 50 UNIT/0.5 ML ML SQ SCH ×4 (08:42→21:52)
[2020-09-13] MEDS: APIXABAN 5 MG TABLET PO SCH ×2 (08:43→21:52)
[2020-09-13] MEDS: METFORMIN HCL 500 MG TAB PO SCH ×2 (08:43→16:28)
[2020-09-13] MEDS: predniSONE 20 MG TAB PO SCH ×2 (08:43→21:52)
[2020-09-13] MEDS: NICOTINE 14 MG/PAT TD SCH (08:44)
[2020-09-13] MEDS: FUROSEMIDE 40 MG/4 ML VIAL IV SCH (08:44)
--- NOTE | 2020-09-13 14:03 | P.PN ---
Subjective Date of Service: 09/13/20 Chief Complaint: Shortness of breath Subjective: Improving (feels slightly better, still on 5L NC this morning, more comfortable, unable to lay flat for CT scan) Review of Systems 10-point ROS is otherwise unremarkable Physical Examination - Vital Signs Temperature: 97.8 F Blood Pressure: 146/70 Pulse: 94 Respirations: 17 Pulse Ox (%): 96 Assessment & Plan Physician Review Additional Text: Physical Exam General: Alert, NAD HEENT: Normal conjunctiva, sclerae anicteric Respiratory: Diminished bilaterally at bases, mild expiratory wheeze, slight increased work of breathing on 5L NC Cardiovascular: Regular rate/rhythm, Normal S1 S2 Gastrointestinal: Normal bowel sounds, Soft and benign, large ventral hernia Musculoskeletal: Bilateral lower extremity lymphedema Integumentary: Venous stasis ulcers and dermatitis Problem List Acute and chronic respiratory failure secondary to COPD exacerbation Acute on Chronic COPD exacerbation Chronic venous hypertension w ulceration Diabetes mellitus, type 2, new onset/diagnosis, insulin-dependent Lymphedema Obesity, morbid Pulmonary hypertension Ventral hernia Obstructive sleep apnea Hypercalcemia steroids switched to PO on 09/12, continue bronchodilators, IV Rocephin for possible pneumonia Hemoglobin A1c greater than 11, started long-acting insulin, moderate insulin sliding scale, titrate as needed; increased tonight New diagnosis of diabetes mellitus type 2 - will need insulin on discharge, dietitian consulted Worsened by steroid induced hyperglycemia Wound care Consult for lymphedema and venous stasis ulcers treatment. Hypercalcemia is chronic. Will treat lymphedema with IV Lasix - should help with hypercalcemia as well d-dimer mildly elevated, pt reports h/o provoked PE after hysterectomy, unable to lay flat for VQ scan / CT, improving without anticoagulation Pulm consulted Dispo: anticipate dc home tomorrow, has O2 at home already Time Spent Managing Pts Care (In Minutes): 35
[2020-09-13] MEDS ORDERED: GLUCAGON 1 MG/VIAL IM PRN (15:49)
[2020-09-13] MEDS ORDERED: INSULIN -REGULAR HUMAN 50 UNIT/0.5 ML ML IV ONE (15:50)
[2020-09-13] MEDS ORDERED: D50W 25 GM/50 ML VIAL IV PRN (15:58)
[2020-09-13] MEDS ORDERED: INSULIN GLARGINE 100 UNITS/ML SQ SCH (17:00)
[2020-09-14] MEDS: ALBUTEROL 2.5 MG/3 ML NEB SOL NEB SCH ×3 (01:25→13:38)
[2020-09-14] MEDS: IPRATROPIUM BROM 0.5MG/2.5ML NEB SCH ×3 (01:25→13:38)
[2020-09-14 06:01] LABS: BUN Blood Urea Nitrogen 22 mg/dL (7-18); Bicarbonate 38 mmol/L (21-32); Glucose Level 203 mg/dL (74-106); Sodium Level 140 mmol/L (136-145)
[2020-09-14 06:51] LABS: Absolute Lymphocytes (CBC) 0.9 K/uL (0.7-4.9); Basophils % 0.7 % (0-1.3); Hematocrit 39.5 % (36.0-45.0); Lymphocytes % 11.8 % (15.3-44.8); MPV 9.3 fL (7.6-11.3); RBC Red Blood Cell Count 4.58 M/uL (3.86-4.86)
[2020-09-14] MEDS: INSULIN -REGULAR HUMAN 50 UNIT/0.5 ML ML SQ SCH ×2 (08:19→12:29)
[2020-09-14] MEDS: METFORMIN HCL 500 MG TAB PO SCH (08:21)
[2020-09-14] MEDS: FUROSEMIDE 40 MG/4 ML VIAL IV SCH (08:21)
[2020-09-14] MEDS: NICOTINE 14 MG/PAT TD SCH (08:21)
[2020-09-14] MEDS: predniSONE 20 MG TAB PO SCH (08:21)
--- NOTE | 2020-09-14 08:50 | RAD REPORT ---
EXAM DESCRIPTION: RAD - Chest Single View - 09/14/2020 4:30 am CLINICAL HISTORY: hypoxia, COPD Chest pain. COMPARISON: Chest Single View dated 09/12/2020; Chest Single View dated 09/11/2020; Chest Single View dated 12/10/2019; Chest Pa And Lat (2 Views) dated 05/22/2019 FINDINGS: Portable technique limits examination quality. Since 09/12/2020, little overall change is seen in the appearance of the chest. Bilateral interstitia l opacities right lung base opacity appears essentially stable. Heart size is mildly prominent. No di splaced fractures. IMPRESSION: Stable chest since 09/12/2020.
[2020-09-14 10:03] VITALS: O2SAT 97
--- NOTE | 2020-09-14 12:18 | P.DS ---
Admission Date: 09/11/20 Discharge Date: 09/14/20 Disposition: ROUTINE DISCHARGE Discharge Condition: FAIR Reason for Admission: Shortness of breath Consultations: Pulm - Dr. Hogue Podiatry - Dr. Adiar Procedures: CXR (09/11): Diffuse bilateral interstitial opacities without obvious change. Small pleural effusions. Heart is mildly enlarged. Central pulmonary arteries prominent probably pulmonary arterial hypertension. Lungs are hyperaerated CXR (09/12): Heart size and vasculature have decreased in prominence from prior day imaging. Small bilateral pleural effusions remain. Diffusely prominent interstitial pattern showing a slight improvement from prior imaging. CXR (09/14): Stable chest since 09/12/2020. Problem List Acute and chronic respiratory failure secondary to COPD exacerbation (acute on chronic) Chronic venous hypertension w ulceration Diabetes mellitus, type 2, new onset/diagnosis, insulin-dependent Lymphedema Obesity, morbid Pulmonary hypertension Ventral hernia Obstructive sleep apnea Hypercalcemia Tinea Unguium Brief History of Present Illness: 60-year-old with a history COPD, bilateral lower extremity lymphedema, morbid obesity and a large ventral hernia presented to the emergency department with a complaint of progressive shortness of breath. Patient at baseline uses 3 L of oxygen by nasal cannula. She reports nonproductive cough and wheezing. She has bilateral lower extremity swelling from the lymphedema, with malodorous discharge which per patient is chronic. Patient was requiring 4 L of oxygen by nasal cannula in the ED after bronchodilator treatment and IV Solu-Medrol. Patient blood sugar also elevated to 400. She has not been diagnosed with diabetes and not on any therapy. Patient is admitted for further management of COPD exacerbation and hyperglycemia. Hospital Course: Patient improved with treatment for COPD exacerbation. Initially there was concern for possible PE - she had mildly elevated d-dimer and h/o DVT in the past. Patient was unable to lay flat for CTA or VQ scan. She was empirically placed on eliquis, however she was already having improvement in her symptoms prior to receiving first dose. This was discussed with pulmonology who felt patient's symptoms were not due to PE and more consistent with COPD exacerbation, so eliquis was discontinued. She improved and was feeling back to her usual self, so she was discharged home with a few days of higher dose prednisone. She was noted to be hyperglycemic > 400 during her hospitalization. HgbA1c was 11.8. She required insulin while in the hospital. On discharge, pulmonology recommended Xigduo only for now. This was prescribed to her pharmacy and confirmed to be affordable prior to discharge. She was counselled on diabetic diet and using glucometer. She is to f/u with PCP in 3-5 days and pulmonology in the next few weeks. Vital Signs/Physical Exam: Physical Exam General: Alert, NAD HEENT: Normal conjunctiva, sclerae anicteric Respiratory: Diminished bilaterally at bases, clear to auscultation bilaterally, nonlabored on 4L NC Cardiovascular: Regular rate/rhythm, Normal S1 S2 Gastrointestinal: Normal bowel sounds, Soft and benign, large ventral hernia Musculoskeletal: Bilateral lower extremity lymphedema Integumentary: Venous stasis ulcers and dermatitis Temp Pulse Resp BP Pulse Ox 97.3 F 82 19 136/68 95 09/14/20 08:00 09/14/20 08:00 09/14/20 08:00 09/14/20 08:00 09/14/20 08:00 Laboratory Data at Discharge: WBC 7.60 K/uL (4.3-10.9) D 09/14/20 06:31 Hgb 13.0 g/dL (12.0-15.0) 09/14/20 06:31 Hct 39.5 % (36.0-45.0) 09/14/20 06:31 Plt Count 202 K/uL (152-406) 09/14/20 06:31 PT 11.3 SECONDS (9.5-12.5) 09/11/20 10:01 INR 0.98 09/11/20 10:01 Sodium 140 mmol/L (136-145) 09/14/20 05:12 Potassium 4.0 mmol/L (3.5-5.1) 09/14/20 05:12 BUN 22 mg/dL (7-18) H 09/14/20 05:12 Creatinine 0.57 mg/dL (0.55-1.3) 09/14/20 05:12 Glucose 203 mg/dL (74-106) H 09/14/20 05:12 Magnesium 2.0 mg/dL (1.8-2.4) 09/14/20 05:12 Total Bilirubin 0.4 mg/dL (0.2-1.0) 09/11/20 10:01 AST 17 U/L (15-37) 09/11/20 10:01 ALT 33 U/L (12-78) 09/11/20 10:01 Alkaline Phosphatase 144 U/L (45-117) H 09/11/20 10:01 Home Medications: Furosemide [Lasix*] 40 mg PO DAILY 12/11/19 Silver Sulfadiazine Crm [Silvadene*] 1 appl TOP DAILY #1 jar 12/11/19 Budesonide/Formoterol Fumarate [Symbicort 160-4.5 Mcg Inhaler] 2 puff IH BID 09/12/20 Spironolactone [Aldactone*] 25 mg PO DAILY 09/12/20 Tiotropium [place] [Spiriva Respimat] 2 puff IH DAILY 09/12/20 predniSONE [Deltasone*] 10 mg PO DAILY 09/12/20 Dapagliflozin/Metformin HCl [Xigduo Xr 5 mg-1,000 mg Tablet] 1 each PO DAILY 30 Days #30 tab.bp.24h 09/14/20 Lancets/Blood Glucose Strips [Fora [id number] Strp-Lnct] 1 each [facility] 30 Days #1 combo..pkg 09/14/20 predniSONE [Prednisone] 10 mg PO BID 5 Days #5 tablet 09/14/20 New Medications: Lancets/Blood Glucose Strips [Fora [id number] Strp-Lnct] 1 each [facility] 30 Days #1 combo..pkg predniSONE [Prednisone] 10 mg PO BID 5 Days #5 tablet Dapagliflozin/Metformin HCl [Xigduo Xr 5 mg-1,000 mg Tablet] 1 each PO DAILY 30 Days #30 tab.bp.24h Physician Discharge Instructions: PROBLEM: COPD Exacerbation, New Diabetes GOAL: Clear understanding of disease process INSTRUCTIONS: Diet: diabetic Activity: As tolerated If you have any questions regarding your stay call [phone] If your symptoms worsen call 911 or go to the ED. You were found to have an exacerbation of your COPD. You improved with steroids and nebulizers. You are prescribed a few more days of higher dose steroids. You were also found to have high blood sugar levels consistent with diabetes. You are discharged with a medication (Xigduo) - combination pill to help with your sugar. Please check your blood sugar level with a glucometer three times a day - first thing in morning, lunchtime, and prior to bedtime. Lancets and blood glucose strips were called into the [place] pharmacy. You can purchase a glucometer over the counter. If you have any questions with this at the pharmacy, have them call the phone number above. Follow up with your PCP in 3-5 days, please take your record of blood sugar levels to review. Follow up with Dr. Hogue in 1-2 weeks. Continue home medications as previously prescribed. Resume 10mg prednisone after you finish the higher dose (10mg twice a day). Prescriptions were sent to [facility] pharmacy in [place], [place]. The [facility] we had on file did not have your medications in stock and had to send to a different pharmacy. Diet: ADA Activity: Ad max Followup: Raji Hogue MD [ACTIVE - CAN ADMIT] - (Call to make an appointment. ) NONE,NONE [Primary Care Provider] - Time spent managing pt's care (in minutes): 35
[2020-09-14 14:07] VITALS: BP 158/72; TEMP 97.8
[2020-09-15 22:30] LABS: Vitamin D 1,25-Dihydroxy Total 53 pg/mL (18-72); Vitamin D,1,25-OH2, D2 <8 pg/mL
== END 2020-09-14 14:26 | disposition home or self-care (01) | DRG 190 ==
LOC: ER 09:30 → ERHOLD 19:52 → 2ND 20:32
PROVIDERS: ADMIT Internal Medicine; ATTEND Hospitalist
PROC: 0HBRXZZ Excision of Toe Nail, External Approach (ICD-10-PCS; principal; 2020-09-12)
DX: J44.1 Chronic obstructive pulmonary disease with (acute) exacerbation (principal); J96.21 Acute and chronic respiratory failure with hypoxia; I87.319 Chronic venous hypertension (idiopathic) with ulcer of unspecified lower extremity; E11.65 Type 2 diabetes mellitus with hyperglycemia; I89.0 Lymphedema, not elsewhere classified; E78.5 Hyperlipidemia, unspecified; I27.20 Pulmonary hypertension, unspecified; E83.52 Hypercalcemia; G47.33 Obstructive sleep apnea (adult) (pediatric); I10 Essential (primary) hypertension; B35.1 Tinea unguium; L30.9 Dermatitis, unspecified; I70.91 Generalized atherosclerosis; K43.9 Ventral hernia without obstruction or gangrene; E66.01 Morbid (severe) obesity due to excess calories; Z68.33 Body mass index [BMI] 33.0-33.9, adult; Z88.1 Allergy status to other antibiotic agents; Z90.710 Acquired absence of both cervix and uterus; Z79.52 Long term (current) use of systemic steroids; Z79.899 Other long term (current) drug therapy; Z86.14 Personal history of Methicillin resistant Staphylococcus aureus infection; Z79.51 Long term (current) use of inhaled steroids; Z99.81 Dependence on supplemental oxygen; Z20.822 Contact with and (suspected) exposure to COVID-19
CPT/HCPCS: 0240U; 36415; 71045; 80048; 80076; 82306; 82652; 82805; 82947; 83036; 83735; 83880; 84145; 84484; 85025; 85379; 85610; 93005; 94760; 96361; 96365; 96375; 99251; 99285; J0456; J0696; J1815; J1940; J2920; J2930; J7030; J7050; J7512

== ENCOUNTER 2022-07-04 14:34 | Inpatient (IN) | payer BC, OTHER ==
--- OUTSIDE RECORDS SUMMARY | 2022-07-04 14:49 | XMS REPORT | Continuity of Care Document ---
:1960 Author Organization [facility] t Address [address] [place] [address] Care Team Providers Name Role Phone Traci Rodrigues Primary Care Physician Traci Rodrigues Attending Clinician Unavailable Doctor Unassigned, [place] Attending Clinician Unavailable IRAIDA SOLOMON Attending Clinician Unavailable Iraida Solomon MD Attending Clinician [facility] Attending Clinician UnavailEMEKA Lin Attending Clinician Unavailable Emeka French MD Attending Clinician Radha Aguirre RN Attending Clinician Flakito Garcia MD Attending Clinician Tomas Pelayo DO Attending Clinician Teqwimdakota SCHILLING, Rick Attending Clinician TEQWIMUALisa, RICK Attending Clinician Unavailable EMEKA FRENCH Admitting Clinician Unavailable Teqwnichole SCHILLING, Rick Admitting Clinician TEQWIMDAKOTA, RICK Admitting Clinician Unavailable Payers Payer Name Policy Type Policy Number Effective Date Expiration Date Jhony galaviz [employer] 6 [id number] 2019 Common Spiri t Blue Shield of 00:00:00 - [facility] Problems Condition Condition Condition Status Onset Resolution Last Treating Co mments Source Name Details Category Date Date Treatment Clinician Date 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 U nivers y failure y failure 06-29 ity of with with 00:00: [place] hypoxia hypoxia 00 Medical Branch Hyperglyce Hyperglyce Disease Active 2020-06 U nivers [facility] 06-29 ity of 00:00: [place] 00 Medical Branch 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 U nivers y failure y failure 06-29 ity of with with 00:00: [place] hypercapni hypercapni 00 Me dical a a Branch 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 Allergic Allergic Problem Active Commo n rhinitis rhinitis, Spiri t unspecifie - [facility] d [facility] Chronic Chronic Problem Active Common obstructiv obstructiv Sp milton e e - [facility] pulmonary pulmonary [facility] Type II Diabetes Problem Active Common diabetes mellitus Spirit mellitus type II, - [facility] uncontroll uncontroll [facility] Lymphedema Lymphedema Problem Active C ommon [facility] Allergies, Adverse Reactions, Alerts Allergy Allergy Status Severity Reaction(s) Onset Inactive Treating Comm ents Source Name Type Date Date Clinician Sulfa Propensi Active Unknown - 2020-06 Unive rs [place] ty to See comments 06-29 ity of adverse 00:00: [place] reaction 00 Medical s Branch levoflox levoflox Active dizziness, [facility] Social History Social Habit Start Date Stop Date Quantity Comments Source History of Tobacco Current Smoker Co mmon Spirit - Use [facility] Sex Assigned At [birth year] [facility] 00:00:00 00:00:00 [facility] Smoking Status Start Date Stop Date Source Tobacco smoking consumption [facility] [place] Medical unknown Branch Current Smoker 2021-11-02 00:00:00 Common Spiri t - [facility] Ce nter Medications Ordered Filled Start Stop Current Ordering Indication Dosage Frequency Signature Comments Components Source Medication Medication Date Date Medication? Clinician (SIG) Name Name Mary Hernandez No 1{table QD Rosuvastat n Calcium n Calcium 6-06 t} in Calcium 10 MG 10 MG 00:00: 10 MG 00 HYDROcodone Yes 4647 1{tbl} Take 1 Un [place] -acetaminop 1-30 tablet by ity of hen 5-325 00:00: mouth [place] mg tablet 00 every 6 Medical (six) Branch hours as needed for Pain (scale 7-10). Indication s: acute pain HYDROcodone Yes 4647 1{tbl} Take 1 Un [place] -acetaminop 1-30 tablet by ity of hen 5-325 00:00: mouth [place] mg tablet 00 every 6 Medical (six) Branch hours as needed for Pain (scale 7-10). Indication s: acute pain HYDROcodone Yes 4647 1{tbl} Take 1 Un [place] -acetaminop 1-30 tablet by ity of hen 5-325 00:00: mouth [place] mg tablet 00 every 6 Medical (six) Branch hours as needed for Pain (scale 7-10). Indication s: acute pain HYDROcodone Yes 4647 1{tbl} Take 1 Un [place] -acetaminop 1-30 tablet by ity of hen 5-325 00:00: mouth [place] mg tablet 00 every 6 Medical (six) Branch hours as needed for Pain (scale 7-10). Indication s: acute pain dapaglifloz 2020-06 Yes 10mg Take 10 mg Univers in 2-19 by mouth ity of (FARXIGA) 11:57: daily. [place] 10 mg Medical tablet Branch prednisoLON 2020-06 Yes 10mg Take 10 mg Univers E 5 mg 2-19 by mouth ity of tablet 11:57: daily. [address] furosemide 2020-06 Yes 40mg Take 40 mg U nivers (LASIX) 40 2-19 by mouth ity o f mg tablet 11:57: daily. [address] Branch doxepin 25 2020-06 Yes 25mg Take 25 mg U nivers mg capsule 2-19 by mouth ity o f 11:57: daily. [address] montelukast 2020-06 Yes 10mg Take 10 mg Univers (SINGULAIR) 2-19 by mouth ity of 10 mg 11:57: daily. [address] budesonide/ 2020-06 Yes 2{puff} Inhale 2 Univers glycopyr/fo 2-19 Puffs 2 ity o f rmoterol 11:57: (two) [place] (BREZTRI 37 times Medical AEROSPHERE daily. Branch INHALE) insulin 2020-06 Yes inject Univers glargine,hu 2-19 under the ity of m.rec.anlog 11:57: skin. [place] (BASAGLAR [address] [place] [address] KWIKPEN [place] U-100 INSULIN SC) ALBUTEROL, 2020-06 Yes 2{puff} Inhale 2 Univers REFILL, 2-19 Puffs ity of INHALE 11:57: every 6 [place] [address] (six) Medical [facility]. [place] dapaglifloz 2020-06 Yes 10mg Take 10 mg Univers in 2-19 by mouth ity of (FARXIGA) 11:57: daily. [place] [address] prednisoLON 2020-06 Yes 10mg Take 10 mg Univers E 5 mg 2-19 by mouth ity of tablet 11:57: daily. [address] furosemide 2020-06 Yes 40mg Take 40 mg U nivers (LASIX) 40 2-19 by mouth ity o f mg tablet 11:57: daily. [address] doxepin 25 2020-06 Yes 25mg Take 25 mg U nivers mg capsule 2-19 by mouth ity o f 11:57: daily. [address] montelukast 2020-06 Yes 10mg Take 10 mg Univers (SINGULAIR) 2-19 by mouth ity of 10 mg 11:57: daily. [address] budesonide/ 2020-06 Yes 2{puff} Inhale 2 Univers glycopyr/fo 2-19 Puffs 2 ity o f rmoterol 11:57: (two) [place] (BREZTRI 37 times Medical AEROSPHERE daily. Branch INHALE) insulin 2020-06 Yes inject Univers glargine,hu 2-19 under the ity of .rec.anlog 11:57: skin. [place] (BASAGLAR [address] [facility] KWPEN [place] U-100 INSULIN SC) ALBUTEROL, 2020-06 Yes 2{puff} Inhale 2 Univers REFILL, 2-19 Puffs ity of INHALE 11:57: every 6 [place] [address] (six) Medical hours. Branch dapaglifloz 2020-06 Yes 10mg Take 10 mg Univers in 2-19 by mouth ity of (FARXIGA) 11:57: daily. [place] 10 mg Medical tablet Branch prednisoLON 2020-06 Yes 10mg Take 10 mg Univers E 5 mg 2-19 by mouth ity of tablet 11:57: daily. [address] furosemide 2020-06 Yes 40mg Take 40 mg U nivers (LASIX) 40 2-19 by mouth ity o f mg tablet 11:57: daily. [address] doxepin 25 2020-06 Yes 25mg Take 25 mg U nivers mg capsule 2-19 by mouth ity o f 11:57: daily. [address] montelukast 2020-06 Yes 10mg Take 10 mg Univers (SINGULAIR) 2-19 by mouth ity of 10 mg 11:57: daily. [address] budesonide/ 2020-06 Yes 2{puff} Inhale 2 Univers glycopyr/fo 2-19 Puffs 2 ity o f rmoterol 11:57: (two) [place] (BREZTRI 37 times Medical AEROSPHERE daily. Branch INHALE) insulin 2020-06 Yes inject Univers glargine,hu 2-19 under the ity of .rec.anlog 11:57: skin. [place] [facility] [address] [place] [address] U-100 INSULIN SC) ALBUTEROL, 2020-06 Yes 2{puff} Inhale 2 Univers REFILL, 2-19 Puffs ity of INHALE 11:57: every 6 [place] [address] (six) Medical hours. Branch dapaglifloz 2020-06 Yes 10mg Take 10 mg Univers in 2-19 by mouth ity of (FARXIGA) 11:57: daily. [place] 10 mg Medical tablet Branch prednisoLON 2020-06 Yes 10mg Take 10 mg Univers E 5 mg 2-19 by mouth ity of tablet 11:57: daily. [address] furosemide 2020-06 Yes 40mg Take 40 mg U nivers (LASIX) 40 2-19 by mouth ity o f mg tablet 11:57: daily. [address] doxepin 25 2020-06 Yes 25mg Take 25 mg U nivers mg capsule 2-19 by mouth ity o f 11:57: daily. [address] montelukast 2020-06 Yes 10mg Take 10 mg Univers (SINGULAIR) 2-19 by mouth ity of 10 mg 11:57: daily. [address] budesonide/ 2020-06 Yes 2{puff} Inhale 2 Univers glycopyr/fo 2-19 Puffs 2 ity o f rmoterol 11:57: (two) [place] (BREZTRI 37 times Medical AEROSPHERE daily. Branch INHALE) insulin 2020-06 Yes inject Univers glargine,hu 2-19 under the ity of m.rec.anlog 11:57: skin. [place] (BASAGLAR Medical KWIKPEN [place] U-100 INSULIN SC) ALBUTEROL, 2020-06 Yes 2{puff} Inhale 2 Univers REFILL, 2-19 Puffs ity of INHALE 11:57: every 6 [place] [address] (six) Medical hours. Branch Basaglar Basaglar No QD Basaglar KwikPen 100 KwikPen 100 7-02 KwikPen UNIT/ML UNIT/ML 00:00: 100 00 UNIT/ML Pen [place] Pen [place] No QD Pen 32G X 4 MM 32G X 4 MM 10-05 [place] 00:00: 32G X 4 MM 00 Pen [place] Pen [place] No QD Pen 32G X 4 MM 32G X 4 MM 10-05 [place] 00:00: 32G X 4 MM 00 Pen [place] Pen [place] No QD Pen 32G X 4 MM 32G X 4 MM 10-05 [place] 00:00: 32G X 4 MM 00 Lantus Lantus No QD Lantus SoloStar SoloStar 10-05 SoloStar 100 UNIT/ML 100 UNIT/ML 00:00: 100 00 UNIT/ML Pen [place] Pen [place] No QD Pen 32G X 4 MM 32G X 4 MM 10-05 [place] 00:00: 32G X 4 MM 00 Pen [place] Pen [place] 2020-0 No QD Pen 32G X 4 MM 32G X 4 MM 06 [place] 00:00: 32G X 4 MM 00 OneTouch OneTouch No OneTouch Delica Plus Delica Plus Delica Mzmddn94I - [id number] - Plus Ijdbtf22U - Atorvastati Atorvastati No 1{table QD Atorvastat n Calcium n Calcium t} in Calcium 40 MG 40 MG 40 MG predniSONE predniSONE No 1{table predniSONE 10 MG 10 MG t} 10 MG Montelukast Montelukast No Montelukas Sodium 10 Sodium 10 t Sodium MG MG 10 MG Basaglar Basaglar No QD Basaglar KwikPen 100 KwikPen 100 KwikPen UNIT/ML UNIT/ML 100 UNIT/ML OneTouch OneTouch No OneTouch Ultra 2 Ultra 2 Ultra 2 w/Device w/Device w/Device Furosemide Furosemide No Furosemide 40 MG 40 MG 40 MG OneTouch OneTouch No OneTouch Ultra - Ultra - Ultra - Albuterol Albuterol No 1{puff_ 6xD Albuterol Sulfate HFA Sulfate HFA as_need Sulfate 108 (90 108 (90 ed} HFA 108 Base) Base) (90 Base) MCG/ACT MCG/ACT MCG/ACT predniSONE predniSONE No 1{table predniSONE 10 MG 10 MG t} 10 MG OneTouch OneTouch No OneTouch Ultra 2 Ultra 2 Ultra 2 w/Device w/Device w/Device Furosemide Furosemide No Furosemide 40 MG 40 MG 40 MG Montelukast Montelukast No Montelukas Sodium 10 Sodium 10 t Sodium MG MG 10 MG Doxepin HCl Doxepin HCl No Doxepin 25 MG 25 MG HCl 25 MG Oxygen Oxygen No Oxygen concentrato concentrato concentrat r n/s r n/s or n/s OneTouch OneTouch No OneTouch Delica Plus Delica Plus Delica Ptprck84H - Lpcizw16U - Plus Vvlipn04U - Atorvastati Atorvastati No 1{table QD Atorvastat n Calcium n Calcium t} in Calcium 40 MG 40 MG 40 MG Breztri Breztri No 2{puffs BID Breztri Aerosphere Aerosphere } Aerosphere 160-9-4.8 160-9-4.8 160-9-4.8 MCG/ACT MCG/ACT MCG/ACT Basaglar Basaglar No QD Basaglar KwikPen 100 KwikPen 100 KwikPen UNIT/ML UNIT/ML 100 UNIT/ML Farxiga 10 Farxiga 10 No 1{table QD Farxiga 10 MG MG t} MG OneTouch OneTouch No OneTouch Delica Plus Delica Plus Delica Wopmfc27X - Crbsza72H - Plus Ultngz73I - Furosemide Furosemide No Furosemide 40 MG 40 MG 40 MG Farxiga 10 Farxiga 10 No 1{table QD Farxiga 10 MG MG t} MG Oxygen Oxygen No Oxygen concentrato concentrato concentrat r n/s r n/s or n/s Breztri Breztri No 2{puffs BID Breztri Aerosphere Aerosphere } Aerosphere 160-9-4.8 160-9-4.8 160-9-4.8 MCG/ACT MCG/ACT MCG/ACT Atorvastati Atorvastati No 1{table QD Atorvastat n Calcium n Calcium t} in Calcium 40 MG 40 MG 40 MG Doxepin HCl Doxepin HCl No Doxepin 25 MG 25 MG HCl 25 MG Montelukast Montelukast No Montelukas Sodium 10 Sodium 10 t Sodium MG MG 10 MG Basaglar Basaglar No QD Basaglar KwikPen 100 KwikPen 100 KwikPen UNIT/ML UNIT/ML 100 UNIT/ML predniSONE predniSONE No 1{table QD predniSONE 10 MG 10 MG t} 10 MG Albuterol Albuterol No 1{puff_ 6xD Albuterol Sulfate HFA Sulfate HFA as_need Sulfate 108 (90 108 (90 ed} HFA 108 Base) Base) (90 Base) MCG/ACT MCG/ACT MCG/ACT OneTouch OneTouch No OneTouch Ultra - Ultra - Ultra - OneTouch OneTouch No OneTouch Ultra 2 Ultra 2 Ultra 2 w/Device w/Device w/Device Farxiga 10 Farxiga 10 No 1{table QD Farxiga 10 MG MG t} MG Basaglar Basaglar No Basaglar KwikPen 100 KwikPen 100 KwikPen UNIT/ML UNIT/ML 100 UNIT/ML Furosemide Furosemide No .5{tabl QD Furosemide 20 MG 20 MG et} 20 MG Montelukast Montelukast No Montelukas Sodium 10 Sodium 10 t Sodium MG MG 10 MG OneTouch OneTouch No OneTouch Delica Plus Delica Plus Delica Tfnmgp74S - Bprcng55N - Plus Uqvyjv78P - Spironolact Spironolact No 1{table Spironolac one 25 MG one 25 MG t} tone 25 MG Oxygen Oxygen No Oxygen concentrato concentrato concentrat r n/s r n/s or n/s predniSONE predniSONE No 1{table QD predniSONE 2.5 MG 2.5 MG t} 2.5 MG Trelegy Trelegy No 1{puff} QD Trelegy Ellipta Ellipta Ellipta 200-62.5-25 200-62.5-25 200-62.5-2 MCG/INH MCG/INH 5 MCG/INH OneTouch OneTouch No OneTouch Ultra 2 Ultra 2 Ultra 2 w/Device w/Device w/Device Albuterol Albuterol No 1{puff_ 6xD Albuterol Sulfate HFA Sulfate HFA as_need Sulfate 108 (90 108 (90 ed} HFA 108 Base) Base) (90 Base) MCG/ACT MCG/ACT MCG/ACT OneTouch OneTouch No OneTouch Ultra - Ultra - Ultra - BD Pen BD Pen No BD Pen Needle Jojo Needle Jojo Needle 2nd Gen 32G 2nd Gen 32G Jojo 2nd X 4 MM X 4 MM Gen 32G X 4 MM Montelukast Montelukast No Montelukas Sodium 10 Sodium 10 t Sodium MG MG 10 MG OneTouch OneTouch No OneTouch Delica Plus Delica Plus Delica Aqexyn73A - Clqcyz33M - Plus Qcbfsz33W - OneTouch OneTouch No OneTouch Ultra - Ultra - Ultra - Furosemide Furosemide No .5{tabl QD Furosemide 20 MG 20 MG et} 20 MG Farxiga 10 Farxiga 10 No 1{table QD Farxiga 10 MG MG t} MG Albuterol Albuterol No 1{puff_ 6xD Albuterol Sulfate HFA Sulfate HFA as_need Sulfate 108 (90 108 (90 ed} HFA 108 Base) Base) (90 Base) MCG/ACT MCG/ACT MCG/ACT Spironolact Spironolact No 1{table Spironolac one 25 MG one 25 MG t} tone 25 MG OneTouch OneTouch No OneTouch Ultra 2 Ultra 2 Ultra 2 w/Device w/Device w/Device BD Pen BD Pen No BD Pen Needle Jojo Needle Jojo Needle 2nd Gen 32G 2nd Gen 32G Jojo 2nd X 4 MM X 4 MM Gen 32G X 4 MM Trelegy Trelegy No 1{puff} QD Trelegy Ellipta Ellipta Ellipta 200-62.5-25 200-62.5-25 200-62.5-2 MCG/INH MCG/INH 5 MCG/INH Basaglar Basaglar No Basaglar KwikPen 100 KwikPen 100 KwikPen UNIT/ML UNIT/ML 100 UNIT/ML Oxygen Oxygen No Oxygen concentrato concentrato concentrat r n/s r n/s or n/s predniSONE predniSONE No 1{table QD predniSONE 2.5 MG 2.5 MG t} 2.5 MG Atorvastati Atorvastati No 1{table QD Atorvastat n Calcium n Calcium t} in Calcium 40 MG 40 MG 40 MG Oxygen Oxygen No Oxygen concentrato concentrato concentrat r n/s r n/s or n/s predniSONE predniSONE No 1{table predniSONE 10 MG 10 MG t} 10 MG Doxepin HCl Doxepin HCl No Doxepin 25 MG 25 MG HCl 25 MG Albuterol Albuterol No 1{puff_ 6xD Albuterol Sulfate HFA Sulfate HFA as_need Sulfate 108 (90 108 (90 ed} HFA 108 Base) Base) (90 Base) MCG/ACT MCG/ACT MCG/ACT Furosemide Furosemide No Furosemide 40 MG 40 MG 40 MG Breztri Breztri No 2{puffs BID Breztri Aerosphere Aerosphere } Aerosphere 160-9-4.8 160-9-4.8 160-9-4.8 MCG/ACT MCG/ACT MCG/ACT OneTouch OneTouch No OneTouch Ultra - Ultra - Ultra - Farxiga 10 Farxiga 10 No 1{table QD Farxiga 10 MG MG t} MG Montelukast Montelukast No Montelukas Sodium 10 Sodium 10 t Sodium MG MG 10 MG OneTouch OneTouch No OneTouch Ultra 2 Ultra 2 Ultra 2 w/Device w/Device w/Device OneTouch OneTouch No OneTouch Delica Plus Delica Plus Delica Xpirml79M - Thcdmt59Q - Plus Jafnij64I - Basaglar Basaglar No QD Basaglar KwikPen 100 KwikPen 100 KwikPen UNIT/ML UNIT/ML 100 UNIT/ML Atorvastati Atorvastati No 1{table QD Atorvastat n Calcium n Calcium t} in Calcium 40 MG 40 MG 40 MG Farxiga 10 Farxiga 10 No 1{table QD Farxiga 10 MG MG t} MG Oxygen Oxygen No Oxygen concentrato concentrato concentrat r n/s r n/s or n/s Breztri Breztri No 2{puffs BID Breztri Aerosphere Aerosphere } Aerosphere 160-9-4.8 160-9-4.8 160-9-4.8 MCG/ACT MCG/ACT MCG/ACT OneTouch OneTouch No OneTouch Delica Plus Delica Plus Delica Fjkdhm62Z - Fryhvy68X - Plus Ppfvfj36V - Furosemide Furosemide No Furosemide 40 MG 40 MG 40 MG predniSONE predniSONE No 1{table predniSONE 10 MG 10 MG t} 10 MG OneTouch OneTouch No OneTouch Ultra - Ultra - Ultra - Doxepin HCl Doxepin HCl No Doxepin 25 MG 25 MG HCl 25 MG Albuterol Albuterol No 1{puff_ 6xD Albuterol Sulfate HFA Sulfate HFA as_need Sulfate 108 (90 108 (90 ed} HFA 108 Base) Base) (90 Base) MCG/ACT MCG/ACT MCG/ACT Montelukast Montelukast No Montelukas Sodium 10 Sodium 10 t Sodium MG MG 10 MG OneTouch OneTouch No OneTouch Ultra 2 Ultra 2 Ultra 2 w/Device w/Device w/Device OneTouch OneTouch No OneTouch Ultra - Ultra - Ultra - Oxygen Oxygen No Oxygen concentrato concentrato concentrat r n/s r n/s or n/s Breztri Breztri No 2{puffs BID Breztri Aerosphere Aerosphere } Aerosphere 160-9-4.8 160-9-4.8 160-9-4.8 MCG/ACT MCG/ACT MCG/ACT Farxiga 10 Farxiga 10 No 1{table QD Farxiga 10 MG MG t} MG Albuterol Albuterol No 1{puff_ 6xD Albuterol Sulfate HFA Sulfate HFA as_need Sulfate 108 (90 108 (90 ed} HFA 108 Base) Base) (90 Base) MCG/ACT MCG/ACT MCG/ACT Doxepin HCl Doxepin HCl No Doxepin 25 MG 25 MG HCl 25 MG Ammonium Ammonium 2021- No 1{appli BID Ammonium Lactate 12 Lactate 12 02-23 cation} Lactate 12 % % 00:00 % :00 Immunizations Ordered Filled Immunization Date Status Comments [facility] e Immunization Name Name SARS-COV-2 COVID-19 2020-08-27 Completed Unive rsity of MODERNA VACCINE 00:00:00 [facility] ical Branch SARS-COV-2 COVID-19 2020-08-27 Completed Unive rsity of MODERNA VACCINE 00:00:00 [facility] ical Branch SARS-COV-2 COVID-19 2020-08-27 Completed Unive rsity of MODERNA VACCINE 00:00:00 [facility] ical Branch SARS-COV-2 COVID-19 2020-08-27 Completed Unive rsity of MODERNA 12+ YRS 00:00:00 [facility] ical VACCINE Branch SARS-COV-2 COVID-19 2020-07-30 Completed Unive rsity of MODERNA VACCINE 00:00:00 [facility] ical Branch SARS-COV-2 COVID-19 2020-07-30 Completed Unive rsity [facility]NA VACCINE [facility]-19 2020-07-30 Completed Unive rsity of MODERNA VACCINE 00:00:00 [facility] ical Branch SARS-COV-2 COVID-19 2020-07-30 Completed Unive rsity of MODERNA 12+ YRS 00:00:00 [facility] ical VACCINE Branch Vital Signs Vital Name Observation Time Observation Value Comments Source height 2021-11-05 11:00:00 62 [in_i] [facility] weight 2021-11-05 11:00:00 180.6 [lb_av] Common [facility] temperature 2021-11-05 11:00:00 97.3 [degF] Common [facility] bmi 2021-11-05 11:00:00 33.03 kg/m2 Common [facility] oximetry 2021-11-05 11:00:00 93 % Common [facility] respiratory rate 2021-11-05 11:00:00 18 /min Comm on [facility] blood pressure 2021-11-05 11:00:00 138 mm[Hg] Common [facility] - systolic [facility] blood pressure 2021-11-05 11:00:00 89 mm[Hg] Common [facility] - diastolic [facility] Systolic blood 2021-09-03 21:24:00 139 mm[Hg] Univer sity of [facility] Diastolic blood 2021-09-03 21:24:00 71 mm[Hg] Unive rsity of [facility] Heart rate 2021-09-03 21:24:00 82 /min [facility] Body height 2021-09-03 21:24:00 157.5 cm [facility] Body weight 2021-09-03 21:24:00 77.565 kg [facility] BMI 2021-09-03 21:24:00 31.28 kg/m2 [facility] height 2021-09-03 13:20:00 62 [in_i] [facility] weight 2021-09-03 13:20:00 171 [lb_av] [facility] temperature 2021-09-03 13:20:00 98.1 [degF] Common [facility] bmi 2021-09-03 13:20:00 31.27 kg/m2 Common [facility] oximetry 2021-09-03 13:20:00 96 % Common [facility] respiratory rate 2021-09-03 13:20:00 20 /min Comm on [facility] blood pressure 2021-09-03 13:20:00 136 mm[Hg] Common [facility] - systolic [facility] blood pressure 2021-09-03 13:20:00 70 mm[Hg] Common [facility] - diastolic [facility] height 2021-05-29 09:00:00 62 [in_i] [facility] weight 2021-05-29 09:00:00 155.2 [lb_av] Common [facility] temperature 2021-05-29 09:00:00 98.4 [degF] Common [facility] bmi 2021-05-29 09:00:00 28.38 kg/m2 Common S [facility] oximetry 2021-05-29 09:00:00 90 % Common [facility] respiratory rate 2021-05-29 09:00:00 16 /min Comm on [facility] blood pressure 2021-05-29 09:00:00 130 mm[Hg] [facility] - systolic [facility] blood pressure 2021-05-29 09:00:00 72 mm[Hg] Common [facility] diastolic [facility] height 2021-03-12 11:00:00 62 [in_i] Common [facility] weight 2021-03-12 11:00:00 168 [lb_av] Common [facility] temperature 2021-03-12 11:00:00 98.6 [degF] [facility] bmi 2021-03-12 11:00:00 30.72 kg/m2 [facility] oximetry 2021-03-12 11:00:00 95 % Common [facility] respiratory rate 2021-03-12 11:00:00 20 /min Comm on [facility] height 2021-01-09 09:00:00 62 [in_i] [facility] weight 2021-01-09 09:00:00 180 [lb_av] [facility] temperature 2021-01-09 09:00:00 98.5 [degF] Common S pirit [facility] bmi 2021-01-09 09:00:00 32.92 kg/m2 Common [facility] oximetry 2021-01-09 09:00:00 95 % Common [facility] respiratory rate 2021-01-09 09:00:00 18 /min Comm on [facility] blood pressure 2021-01-09 09:00:00 107 mm[Hg] Common [facility] - systolic [facility] blood pressure 2021-01-09 09:00:00 63 mm[Hg] Common [facility] - diastolic [facility] height 2020-12-01 13:20:00 62 [in_i] [facility] weight 2020-12-01 13:20:00 180 [lb_av] [facility] temperature 2020-12-01 13:20:00 98.2 [degF] [facility] bmi 2020-12-01 13:20:00 32.92 kg/m2 Common [facility] oximetry 2020-12-01 13:20:00 96 % Common [facility] respiratory rate 2020-12-01 13:20:00 22 /min Comm on [facility] blood pressure 2020-12-01 13:20:00 122 mm[Hg] Common [facility] - systolic [facility] blood pressure 2020-12-01 13:20:00 72 mm[Hg] Common [facility] diastolic [facility] Procedures Procedure Date / Time Performing Clinician Source Performed AUTHORIZATION FOR 2022-04-10 06:01:00 [facility] Name Medical Branch AUTHORIZATION FOR 2021-12-31 05:01:00 [facility] Unassigned, [facility] RELEASE OF [facility]I Name Medical Branch Encounters Start End Encounter Admission Attending Care Care Encounter Source Date/Time Date/Time Type Type Clinicians Facility Department ID 2021-11-01 Outpatient PAMELA Rodrigues [facility] [id number] Common 09:06:01 Traci [id number] [facility] 2021-08-30 Outpatient [place], [facility] [id number] Common 09:21:02 Traci [id number] [facility] 2021-06-27 Outpatient [place], STLMLC ST[facility] [id number] Common 14:29:07 Traci [id number] [facility] 2021-06-27 Outpatient [place], [facility] [id number] Common 14:01:48 Traci [id number] [facility] 2021-06-27 Outpatient [place], [facility]LML[facility] [id number] Common 13:59:50 Traci [id number] [facility] 2021-06-27 Outpatient [place], STLC [facility] [id number] Common 13:21:38 Traci [id number] [facility] 2021-06-27 Outpatient [place], STLMLC [facility] [id number] Common 13:03:46 Traci [id number] [facility] 2021-06-27 Outpatient [place], STLC [facility] [id number] Common 13:00:11 Traci [id number] [facility] 2022-04-10 2022-04-10 Orders Doctor MIRIAM [id number] Univers 00:00:00 00:00:00 Only Unassigned, ANNA [id number] ity of [place] [facility] [phone] [facility] 009 Branch 2021-12-31 2021-12-31 Orders Doctor MIRIAM [id number] [place] [address] 00:00:00 00:00:00 Only Unassigned, ANNA [id number] ity of [place] [facility] [phone] [facility] 009 Branch 2021-11-05 2021-11-05 [facility] [id number] Co mmon 00:00:00 00:00:00 VISIT EST Spir it PT LEVEL 3 - [facility] 2021-09-03 2021-09-03 Outpatient Reg SOLOMON [facility] [id number] Univers 16:00:00 16:47:39 IRAIDA ity of [facility] 2021-09-03 2021-09-03 [facility] [id number] Univers 16:00:00 16:47:39 Visit Iraida Serna [facility] [id number] it y of [facility] [id number] Williams as JUN?BLEA [phone] Il criss RODRÍGUEZ [address] [place] [address] MEDICAL OFFICE BUILDING 2021-09-03 2021-09-03 OFFICE STLMLC STLMLC [id number] Co mmon 00:00:00 00:00:00 VISIT EST Spir it PT LEVEL 3 - [facility] 2021-09-03 2021-09-03 Orders Doctor MIRIAM [id number] Univers 00:00:00 00:00:00 Only Unassigned, ANNA [id number] ity of [place] [facility] [phone] [facility] 009 [place] 2021-07-04 2021-07-[address] [facility] [id number] Univers 00:00:00 00:00:00 (Out) Clinic SPECIALTY [id number] ity of C[place] [id number] [place] [facility] AT [phone] [place] criss CURRY [address] [place] [address] 2021-07-01 2021-07-01 Emergency X [facility] ERT [id number] Univers 03:18:00 07:32:00 EMEKA ity of [facility] 2021-07-01 2021-07-01 Emergency [facility] [id number] Univers 03:18:00 07:32:00 Emeka VALENTIN [id number] ity of [id number] [place] [phone] [facility] 084 [place] 2021-05-29 2021-05-29 OFFICE STLMLC STLMLC [id number] Co mmon 00:00:00 00:00:00 VISIT Spirit ESTAB PT - CHI LEVEL 4 [facility] 2021-05-222021-05-22 Transition JARED Aguirre [id number] Univers 00:00:00 00:00:00 of Care Radha WOLF [id number] i ty of [place] [id number] [facility] 403 Branch 2021-04-29 2021-05-20 Hospital Flakito Garcia [facility] [id number] Univers 08:46:00 11:57:00 Encounter Tomas Pelayo [facility] [id number] ity of [place], Rick CLEAR [id number] [facility] [id number] [facility] [address] ([facility] 2021-04-29 2021-05-20 Inpatient X MARTIN, [facility] KELBY [id number] Univers 08:46:00 11:57:00 RICK ity of [facility] 2021-05-14 2021-05-14 (TEL) STLMLC STLMLC [id number] Co mmon 00:00:00 00:00:00 [facility] 2021-03-12 2021-03-12 OFFICE STLMLC STLMLC [id number] Co mmon 00:00:00 00:00:00 VISIT EST Spir it PT LEVEL 3 [facility] 2021-01-09 2021-01-09 OFFICE STLMLC STLMLC [id number] Co mmon 00:00:00 00:00:00 VISIT EST Spir it PT LEVEL 3 [facility] 2020-12-01 2020-12-01 OFFICE STLMLC STLMLC [id number] Co mmon 00:00:00 00:00:00 VISIT EST Spir it PT LEVEL 3 [facility] 2020-11-06 2020-11-06 Outpatient STLMLC STLMLC [id number] Common 00:00:00 00:00:00 [facility] 2020-10-18 2020-10-18 Outpatient STLMLC STLMLC [id number] Common 00:00:00 00:00:00 [facility] 2020-10-05 2020-10-05 Outpatient STLMLC STLMLC [id number] Common 00:00:00 00:00:00 [facility] Results Test Description Test Time Test Comments Results Result Comments Source CALCIUM, IONIZED 2022-01-14 15:48:41 Test Item Value Reference Range Interpretation Comme nts CALCIUM, IONIZED (test code = 5.45 MG/DL 4.70-5.90 UNLESS OTHERWISE INDICATED, ALL 04153) TESTING PERFORM ED ATCLINICAL PATHOLOGY [facility]. [address] [place] [address] LABORATORY DIRE CTOR: DEON BURCH M.D. CLIA NUMBER [id number] [place]. [id number] COMPREHENSIVE METABOLIC [id number] 05:48:51 Test Item Value Reference Range Interpretation Comments GLUCOSE (test code = 267 MG/DL 70-99 H 2216) BUN (test code = 14 MG/DL 8-23 2207) CREATININE (test 0.53 MG/DL 0.60-1.30 L code = 2214) eGFR (2020 CKD-EPI) 106 >60 (test code = 44201) ML/MIN/1.73 CALC BUN/CREAT (test 26 RATIO 6-28 code = 2235) SODIUM (test code = 141 MEQ/L 005-270 0685) POTASSIUM (test code 4.6 MEQ/L 3.5-5.4 = 2228) CHLORIDE (test code 101 MEQ/L 95-107 = 2215) CARBON DIOXIDE (test 28 MEQ/L 19-31 code = 2206) CALCIUM (test code = 11.4 MG/DL 8.5-10.5 H 2208) PROTEIN, TOTAL (test 7.5 G/DL 6.1-8.3 code = 2229) ALBUMIN (test code = 4.4 G/DL 3.5-5.2 2200) CALC GLOBULIN (test 3.1 G/DL 1.9-3.7 code = 2240) CALC A/G RATIO (test 1.4 RATIO 1.0-2.6 code = 2234) BILIRUBIN, TOTAL 0.3 MG/DL See_Comment [Automated message] (test code = 2207) The syste m which generated this result transmitted ref erence range: <=1.2. T he reference range was not used to int erpret this result as normal/abnormal . ALKALINE PHOSPHATASE 129 U/L 40-136 (test code = 2204) AST (test code = 18 U/L 9-40 2218) ALT (test code = 23 U/L 5-40 UNLESS OTH ERWISE 2219) INDICATED, ALL TESTING PERFORM ED ATCLINICAL PATH OLOGY LABORATORIES, [facility]. [address] [place] [address] [facility] DIRECTOR: DEON BURCH M.D. IA NUMBER [id number] CAP ACCREDITATION N O. [id number] HEMOGLOBIN [id number] 04:06:00 Test Item Value Reference Range Interpretation Comments HEMOGLOBIN A1c (test 8.0 % 4.2-5.6 H AMERIC AN DIABETES code = 17880) ASSOCIATION IDELINES FOR HGB A1C: PREDIABETES/INC REASED RISK . . . . . . . 5.7 -6.4% DIAGNOSIS OF DI ABETES . . . . . . . . . >=6 .5% WITH CONFIRMATION OR APPROPRIATE SYMPTOMS NOTE: ASSAY MAY BE AFFECTED BY HEMOGLOBINOPATH IES (SICKLE CELL ANEMIA, S- C DISEASE, OTHERS) OR BARBARA FICIALLY LOWERED BY DECR EASED RED CELL SURVIVAL ( HEMOLYTIC ANEMIAS, BLOOD LOSS, ETC.). CONSIDER ALTERN ATE TESTING OR LABORATORY C ONSULTATION. CBC W/AUTO DIFF WITH [id number] 01:54:48 Test Item Value Reference Range Interpretation Comments WBC (test code = 11.5 K/UL 3.5-11.0 H 1001) RBC (test code = 5.42 M/UL 3.80-5.40 H 1002) HEMOGLOBIN (test code 15.2 G/DL 11.5-15.5 = 1003) HEMATOCRIT (test code 45.1 % 34.0-45.0 H = 1004) MCV (test code = 83.2 fL 80.0-99.0 1005) MCH (test code = 28.0 PG 25.0-33.0 1006) MCHC (test code = 33.7 G/DL 31.0-36.0 1007) RDW (test code = 13.8 % 11.5-15.0 1038) NEUTROPHILS (test 81.8 % code = 1008) LYMPHOCYTES (test 11.9 % code = 1010) MONOCYTES (test code 3.6 % = 1011) EOSINOPHILS (test 0.8 % code = 1012) BASOPHILS (test code 0.7 % = 1013) IMMATURE GRANULOCYTES 1.2 % (test code = 1036) NUCLEATED RBCS (test 0.0 /100 WBC'S See_Comment [Aut omated code = 1065) message] The sy stem which generated this result transmitted reference range : 0.0. The refere nce range was not u sed to interpret th is result as normal/abnormal . PLATELET COUNT (test 209 K/UL 130-400 code = 1015) ABSOLUTE NEUTROPHILS 9.38 K/UL 1.50-7.50 H (test code = 1066) ABSOLUTE LYMPHOCYTES 1.36 K/UL 1.00-4.00 (test code = 1067) ABSOLUTE MONOCYTES 0.41 K/UL 0.20-1.00 (test code = 1068) ABSOLUTE EOSINOPHILS 0.09 K/UL 0.00-0.50 (test code = 1040) ABSOLUTE BASOPHILS 0.08 K/UL 0.00-0.20 (test code = 1069) ABS IMMATURE 0.14 K/UL 0.00-0.10 H GRANULOCYTES (test code = 1020) ABS NUCLEATED RBCS 0.00 K/UL 0.00-0.11 (test code = 42193) HEMOGLOBIN [id number] 00:00:00 Test Item Value Reference Range Interpretation Comments A1C (test code = 4548-4) 7.4 HEMOGLOBIN [id number] 00:00:00 Test Item Value Reference Range Interpretation Comments A1C (test code = 4548-4) 10.0 HEMOGLOBIN [id number] 00:00:00 Test Item Value Reference Range Interpretation Comments A1C (test code = 4548-4) 10.0 SARS-COV2/RT-PCR ([facility])2019-12-11 10:15:00 Test Item Value Reference Range Interpretation Comments SARS-COV2/RT-PCR (test code = Negative Not Detected, Negative 3451983) SARS-COV-2 PERFORMING LAB [facility] (test code = 9288186) Negative result for this test determines that [...] individuals suspected of COVID-19 by their healthcare provider.This test [...] justifying the authorization of the emergency use ofin vitro diagnostic tests for detection and/or diagnosis of COVID-19 is terminated under Section 564(b)(2) of the Act or the EUA is revoked under Section 564(g) of the Act.Fact Sheet for Healthcare Prov iders:https://www.[employer]hands[employer]/sites/default/files/product/documents/Fact_Sheet_HC _Lfgbfcqzz_Ixzv_KQIY-KeF-9.pdfFact Sheet for Healthcare Patients:https://www.[employer]hands[employer]eva/sites/default/files/product/docume nts/Zurs_Tqjui_Nlfwjywx_Ahhn_LFIM-UvQ-3.pdfPerforming Laboratory:[facility], [place] [address]BYCWKMXRID A1C Test Item Value Reference Range Interpretation Comments A1C (test code = 4548-4) 9.8
--- NOTE | 2022-07-04 15:07 | RAD REPORT ---
EXAM DESCRIPTION: RAD - Chest Single View - 07/04/2022 3:00 pm CLINICAL HISTORY: DYSPNEA Chest pain. COMPARISON: Chest Single View dated 09/14/2020; Chest Single View dated 09/12/2020; Chest Single View dated 09/11/2020; Chest Single View dated 12/10/2019 FINDINGS: Portable technique limits examination quality. Moderate bilateral pulmonary opacities are present likely representing pulmonary edema. Pneumonia can have a similar appearance. The heart is moderately enlarged. No displaced fractures.
[2022-07-04 15:45] LABS: Absolute Lymphocytes (CBC) 1.1 K/uL (0.7-4.9); Lymphocytes % 15.9 % (15.3-44.8); MCV 87.6 fL (80-100); MPV 9.3 fL (7.6-11.3); RBC Red Blood Cell Count 5.47 M/uL (3.86-4.86)
[2022-07-04 16:02] LABS: Magnesium 1.6 mg/dL (1.6-2.4); Troponin High Sensitivity 36.3 pg/mL (<58.9)
--- NOTE | 2022-07-04 16:14 | ER ---
Nurse's Notes Formerly [facility] Caitlin Name: Zarina Womack Age: 61 yrs Sex: Female : 1960 Arrival Date: 07/04/2022 Time: 14:48 Bed 13 Private MD: Diagnosis: Heart failure, unspecified;Acute pulmonary edema;Generalized edema Presentation: 07/04 14:45 Chief complaint: EMS states: brought in by EMS for difficulty breathing on 3L O2 at db home, abdominal pain, no appetite not eating or drinking. Has had diarrhea, no vomiting peeing "foam". has a large hernia, is anxious. States has not been taking lasix x 2 weeks. Glucose 95. Has bilateral lower leg lymphedema with crusty skin on lower legs and feet. Coronavirus screen: Client denies travel out of the [place] in the last 14 days. At this time, the client does not indicate any symptoms associated with coronavirus-19. Ebola Screen: Patient negative for fever greater than or equal to 101.5 degrees Fahrenheit, and additional compatible Ebola Virus Disease symptoms Patient denies exposure to infectious person. Patient denies travel to an Ebola-affected area in the 21 days before illness onset. No symptoms or risks identified at this time. Initial Sepsis Screen: Does the patient meet any 2 criteria? RR > 20 per min. HR > 90 bpm. Yes Does the patient have a suspected source of infection? Yes: Dysuria/Frequency/Urgency/UTI Skin breakdown/wound. Risk Assessment: Do you want to hurt yourself or someone else? Patient reports no desire to harm self or others. Onset of symptoms was July 04, 2022. Care prior to arrival: Glucose check: 95 Oxygen administered. via nasal cannula. 14:45 Method Of Arrival: EMS db 14:45 Acuity: AISSATOU 2 db Triage Assessment: 14:53 General: Appears uncomfortable, Behavior is cooperative. Respiratory: Reports shortness db of breath. Historical: - Allergies: 14:53 Sulfa (Sulfonamide Antibiotics); db - Home Meds: 14:53 insulin [Active]; Prednisone Oral [Active]; Lasix Oral [Active]; db - PMHx: 14:53 Anxiety; COPD; Depression; Hernia; Hypertension; lymphedema; Diabetes mellitus; db - Immunization history:: Adult Immunizations unknown. Screenin:00 [facility] ED Fall Risk Assessment (Adult) History of falling in the last 3 months, eh3 including since admission No falls in past 3 months (0 pts) Confusion or Disorientation No (0 pts) Intoxicated or Sedated No (0 pts) Impaired Gait Yes (1 pt) Mobility Assist Device Used Yes (1 pt) Altered Elimination Yes (1 pt) Score/Fall Risk Level 3 or more points = High Risk Oriented to surroundings, Maintained a safe environment, Educated pt \\T\\ family on fall prevention, incl call for assistance when getting out of bed, Assessed \\T\\ reinforced patient's understanding of fall precautions, Hourly rounding (assess needs \\T\\ fall precautionary measures) done, Utilized family, sitter, or virtual film splicer as indicated. Abuse screen: Denies threats or abuse. Denies injuries from another. Nutritional screening: No deficits noted. Tuberculosis screening: No symptoms or risk factors identified. Assessment: 15:00 General: Appears in no apparent distress. uncomfortable, Behavior is calm, cooperative, eh3 appropriate for age. Pain: Denies pain. Neuro: Level of Consciousness is awake, alert, obeys commands, Oriented to person, place, time, situation. Cardiovascular: Capillary refill < 3 seconds Patient's skin is warm and dry. Respiratory: Airway is patent Respiratory effort is even, unlabored, Respiratory pattern is regular, symmetrical. GI: Abdomen is round distended. : Reports burning with urination, inability to void, urgency. Derm: Skin is dry, brown crusty skin on bilateral legs. 16:41 Reassessment: Verbal order from Dr. Zavala for CT chest w/contrast due to right breast db lump. Vital Signs: 14:45 BP 128 / 79; Pulse 102; Resp 24; Temp 98.6; Pulse Ox 93% on 3 lpm NC; db 15:00 BP 120 / 84; Pulse 98; Resp 22; Pulse Ox 96% on 3 lpm NC; eh3 15:00 Weight 84 kg; Height 5 ft. 2 in. (157.48 cm); eh3 15:00 Body Mass Index 33.87 (84.00 kg, 157.48 cm) eh3 Vitals: 15:00 Cardiac Rhythm Assessment Sinus rhythm. 3 ED Course: 14:48 Patient arrived in ED. ms3 14:48 Jayme Mehta DO is Attending Physician. ms3 14:48 Pau Daly, RN is Primary Nurse. db 14:53 Triage completed. db 14:55 Arm band placed on. db 14:59 Shiela Rivas, RN is Primary Nurse. eh3 15:00 Patient has correct armband on for positive identification. Bed in low position. Call [facility] light in reach. Side rails up X2. Adult w/ patient. Client placed on continuous cardiac and pulse oximetry monitoring. NIBP monitoring applied. Door closed. Noise minimized. Lights dimmed. Warm blanket given. 15:02 XRAY Chest (1 view) In Process Unspecified. EDMS 16:13 Michael Zavala MD is Hospitalizing Provider. ms3 Administered Medications: No medications were administered Outcome: 16:14 Decision to Hospitalize by Provider. ms3 19:06 Patient left the ED. [facility] Signatures: Dispatcher [employer] EDMS Jayme Mehta DO DO ms3 Shiela Rivas, RN RN 3 Pau Daly, RN RN db
--- NOTE | 2022-07-04 16:15 | EDPHYS ---
Physician Documentation [facility] Name: Zarina Womack Age: 61 yrs Sex: Female : 1960 Arrival Date: 07/04/2022 Time: 14:48 Bed 13 Private MD: ED Physician Jayme Mehta HPI: 07/04 14:51 This 61 yrs old Female presents to ER via Unassigned with complaints of shortness of ms3 breath, swelling. 14:51 61-year-old female with past medical history of lymphedema, diabetes, presents via [facility] [place], EMS COPD on 3 L oxygen at home for shortness of breath. Patient also noted to EMS she was having some abdominal pain and diarrhea. Patient noted to EMS that she quit taking her Lasix. On evaluation of patient she notes she has had shortness of breath, and whole body swelling. Patient denies pain at this time. Patient denies any alleviating or inciting factors. When asked about Lasix patient states she was not making urine and quit taking them.. Historical: - Allergies: 14:53 Sulfa (Sulfonamide Antibiotics); db - Home Meds: 14:53 insulin [Active]; Prednisone Oral [Active]; Lasix Oral [Active]; db - PMHx: 14:53 Anxiety; COPD; Depression; Hernia; Hypertension; lymphedema; Diabetes mellitus; db - Immunization history:: Adult Immunizations unknown. ROS: 14:51 Constitutional: Negative for fever, and chills. Neck: Negative for injury, pain, and ms3 swelling, Cardiovascular: Negative for chest pain, and palpitations. Abdomen/GI: Negative for abdominal pain, nausea, vomiting, diarrhea, and constipation. 14:51 Skin: Negative for injury, rash, and discoloration. 14:51 Respiratory: Positive for shortness of breath. 14:51 Abdomen/GI: Positive for abdominal pain. 14:51 All other systems are negative. Exam: 14:51 Constitutional: This is a well developed, well nourished patient who is awake, alert, ms3 and in no acute distress. Neck: Trachea midline, no cervical lymphadenopathy. Supple, full range of motion without nuchal rigidity, or vertebral point tenderness. No Meningismus. Chest/axilla: Normal chest wall appearance and motion. Nontender with no deformity. Cardiovascular: Regular rate and rhythm with a normal S1 and S2. No gallops, murmurs, or rubs. Normal PMI, no JVD. No pulse deficits. Abdomen/GI: Soft, non-tender, with normal bowel sounds. No distension or tympany. No guarding or rebound. No evidence of tenderness throughout. Skin: Warm, dry with normal turgor. Normal color with no rashes, no lesions, and no evidence of cellulitis. MS/ Extremity: Pulses equal, no cyanosis. Neurovascular intact. Full, normal range of motion. 14:51 Respiratory: mild respiratory distress is noted, Breath sounds: rales, that are moderate, are heard in the left posterior lower lobe and right posterior lower lobe. 15:20 ECG was reviewed by the Attending Physician. ms3 Vital Signs: 14:45 BP 128 / 79; Pulse 102; Resp 24; Temp 98.6; Pulse Ox 93% on 3 lpm NC; db 15:00 BP 120 / 84; Pulse 98; Resp 22; Pulse Ox 96% on 3 lpm NC; eh3 15:00 Weight 84 kg; Height 5 ft. 2 in. (157.48 cm); eh3 15:00 Body Mass Index 33.87 (84.00 kg, 157.48 cm) eh3 MDM: 14:51 Differential diagnosis: Chronic Obstructive Pulmonary Disease Myocardial Infarction ms3 pneumonia, pulmonary edema. 14:58 Patient medically screened. ms3 16:15 Data reviewed: vital signs, nurses notes, lab test result(s), EKG, radiologic studies, ms3 and as a result, I will admit patient. Consideration of Admission/Observation Patient was admitted/placed on observation. Management of patient was discussed with the following: Hospitalist: Dr Zavala. I considered the following discharge prescriptions or medication management in the emergency department Medications were administered in the Emergency Department. See MAR. Independent interpretation of the following test(s) in the Emergency Department EKG: See my EKG interpretation above property assessment monitor: rate is 96 beats/min, Rhythm is normal sinus rhythm, regular, with no ectopy, Interpretation: normal rate, normal rhythm. Counseling: I had a detailed discussion with the patient and/or guardian regarding: the historical points, exam findings, and any diagnostic results supporting the discharge/admit diagnosis, lab results, radiology results, the need for further work-up and treatment in the hospital. ED course: Discussed labs and need for admission with patient. Patient discussed with Dr. Zavala and he accepts patient.. 07/04 14:48 Order name: Basic Metabolic Panel; Complete Time: 16:09 ms3 07/04 14:48 Order name: CBC with Diff; Complete Time: 16:09 ms3 07/04 14:48 Order name: Magnesium; Complete Time: 16:09 ms3 07/04 14:48 Order name: NT PRO-BNP; Complete Time: 16:09 ms3 07/04 14:48 Order name: Troponin HS; Complete Time: 16:09 ms3 07/04 15:39 Order name: SARS RAPID ms3 07/04 14:48 Order name: XRAY Chest (1 view); Complete Time: 15:38 ms3 07/04 14:48 Order name: EKG; Complete Time: 14:49 ms3 07/04 14:48 Order name: Cardiac monitoring; Complete Time: 15:00 ms3 07/04 14:48 Order name: EKG - Nurse/Tech; Complete Time: 15:34 ms3 07/04 14:48 Order name: IV Saline Lock; Complete Time: 15:34 ms3 07/04 14:48 Order name: Labs collected and sent; Complete Time: 15:34 ms3 07/04 14:48 Order name: O2 Per Protocol; Complete Time: 15:00 ms3 07/04 16:41 Order name: CT Chest W/ Con db 07/04 14:48 Order name: O2 Sat Monitoring; Complete Time: 15:00 ms3 EC:20 Rate is 102 beats/min. Rhythm is regular. Right axis deviation noted. NJ interval is ms3 normal. Clinical impression: Sinus tachycardia. Administered Medications: No medications were administered Disposition Summary: 07/04/22 16:14 Hospitalization Ordered Hospitalization Status: Inpatient Admission ms3 Provider: Michael Zavala ms3 Location: Telemetry/MedSurg (Inpatient) ms3 Condition: Stable ms3 Problem: new ms3 Symptoms: are unchanged ms3 Bed/Room Type: Standard ms3 Room Assignment: 412(07/04/22 17:32) em1 Diagnosis - Heart failure, unspecified ms3 - Acute pulmonary edema ms3 - Generalized edema ms3 Forms: - Medication Reconciliation Form ms3 - SBAR form ms3 Signatures: Dispatcher [employer] Haseeb Rivera em1 Jayme Mehta DO DO ms3 Pau Daly, RN RN db Corrections: (The following items were deleted from the chart) 17:32 16:14 ms3 em1
[2022-07-04 16:20] LABS: SARS-CoV-2 Antigen Rapid Res Negative (Negative)
--- NOTE | 2022-07-04 18:50 | P.HP ---
Certification for Inpatient Patient admitted to: Inpatient With expected LOS: >2 Midnights Patient will require the following post-hospital care: None Practitioner: I am a practitioner with admitting privileges, knowledge of patient current condition, hospital course, and medical plan of care. Services: Services provided to patient in accordance with Admission requirements found in Title 42 Section 412.3 of the Code of Federal Regulations <Keith Castro - Last Filed: 07/04/22 18:45> Patient History Date of Service: 07/04/22 Primary Care Provider: Lilia Reason for admission: COPD exacerbation History of Present Illness: This is a 61-year-old female with past medical history significant for COPD on 3 L oxygen via nasal cannula at home, bilateral lower extremity lymphedema, morbid obesity, anxiety, hypertension, and diabetes type 2. Patient presents to the emergency department with complaint of progressive shortness of breath. Patient reported that she stopped taking her Lasix 3 days ago. She reports shortness of breath with dizziness, decreased urination, productive cough with yellow sputum, some nausea, diarrhea, headaches, and dysuria. She has bilateral lower extremity swelling from the lymphedema, with malodorous discharge which per patient is chronic. Patient also reported right breast swelling with tenderness. Patient was diuresis in the ED, but was still short of breath on presentation. Patient will be admitted under the care of Dr. Zavala. Pulmonology will be consulted along with wound care for further management and recommendation. - Past Medical/Surgical History Diabetic: Yes -: COPD, steroid dependent, home oxygen -: Hyperlipidemia -: Tobacco abuse -: Chronic lymphedema to the lower extremities -: History of MRSA infection -: Nephrolithiasis bilaterally -: Staghorn calculus bilaterally -: Large ventral hernia -: Morbid obesity -: Depression with anxiety -: Hysterectomy -: Tonsillectomy -: Removal of kidney stones -: bilateral cataracts Psychosocial/ Personal History: The patient is , has 2 children. 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 - Family History Father -: Lung disease, Cancer Mother -: Heart disease, Hypertension, Stroke, Cancer - Social History Alcohol use: No CD- Drugs: No Caffeine use: Yes <Keith Castro - Last Filed: 07/04/22 18:45> Date of Service: 07/05/22 <Michael Zavala - Last Filed: 07/05/22 19:31> Allergies Sulfa (Sulfonamide Antibiotics) Adverse Reaction (Mild, Verified 04/16/18 23:02) hallucinations Home Medications: RX: Budesonide/Formoterol Fumarate [Symbicort 160-4.5 Mcg Inhaler] 2 puff IH BID 09/12/20 Albuterol Sulfate [Albuterol Sulfate 0.083% Neb Soln] 2.5 mg IH Q6H 07/05/22 Cetirizine HCl [Zyrtec] 10 mg PO DAILY 07/05/22 Furosemide [Lasix] 20 mg PO DAILY 07/05/22 Insulin Glargine,Hum.rec.anlog [Lantus Solostar] 25 unit SQ BEDTIME 07/05/22 Umeclidinium Brm/Vilanterol Tr [Anoro Ellipta 62.5-25 Mcg INH] 1 each IH DAILY 07/05/22 predniSONE [Deltasone] 5 mg PO DAILY 07/05/22 Review of Systems 10-point ROS is otherwise unremarkable General: Weakness ENT: Ear Pain Respiratory: Cough, Shortness of Breath, SOB with Excertion Gastrointestinal: Nausea, Diarrhea Genitourinary: Dysuria Musculoskeletal: Leg Pain, As per HPI Integumentary: As per HPI Neurological: Weakness <Keith Castro - Last Filed: 07/04/22 18:45> Physical Examination - Vital Signs Temperature: 98.6 F Blood Pressure: 121/86 Pulse: 96 Respirations: 23 Pulse Ox (%): 96 - Physical Exam General: Alert, Oriented x3, Mild distress HEENT: Atraumatic, Normocephalic, PERRLA Neck: Supple Respiratory: Rhonchi/gurgles Cardiovascular: Edema Capillary refill: >2 Seconds Gastrointestinal: Normal bowel sounds, Ascites Musculoskeletal: Swelling, Tenderness (Lymphedema), Other Integumentary: Rash(es) (Lymphedema), Skin breakdown, Tenderness/swelling Neurological: Normal speech Lymphatics: No axilla or inguinal lymphadenopathy - Studies Laboratory Data (last 24 hrs) 07/04/22 15:30: WBC 6.70, Hgb 15.1 H, Hct 48.0 H, Plt Count 178 07/04/22 15:30: Sodium 137, Potassium 4.0, BUN 22 H, Creatinine 0.60, Glucose 116 H, Magnesium 1.6 <Glencoe,Keith - Last Filed: 07/04/22 18:45> Assessment and Plan - Plan Assessment Acute on chronic respiratory failure COPD exacerbation Chronic venous hypertension with ulceration Lymphedema Obesity morbid Pulmonary hypertension Ventral hernia Right breast swelling due to lymphedema Plan Continue diuresis with Lasix Continue IV steroids with nebulizer treatment Continue IV antibiotic Resume home medications when appropriate Monitor blood sugars before meals and at bedtime with starting scale insulin Pulmonology consulted, recommendations appreciated Wound care consult for lymphedema and venous status ulcer CT thorax pending DVT PPX- Lovenox Code- Full code Discharge Plan: Home Plan to discharge in: Greater than 2 days - Advance Directives Does patient have a Living Will: No Does patient have a Durable POA for Healthcare: No - Code Status/Comfort Care Code Status Assessed: Yes (Full code) Critical Care: No Time Spent Managing Pts Care (In Minutes): 50 <Keith Castro - Last Filed: 07/04/22 18:45> Physician Review: Patient Assessed, Agree with Above Assessment and Plan <Michael Zavala - Last Filed: 07/05/22 19:31>
[2022-07-04] MEDS: ALBUTEROL 2.5 MG/3 ML NEB SOL NEB SCH (20:30)
[2022-07-04] MEDS: INSULIN -REGULAR HUMAN 50 UNIT/0.5 ML ML SQ SCH (20:31)
[2022-07-04] MEDS: FUROSEMIDE 40 MG/4 ML VIAL IV SCH (20:41)
[2022-07-04] MEDS: NICOTINE 14 MG/PAT TD SCH (20:42)
[2022-07-04] MEDS: ENOXAPARIN 40 MG/0.4 ML SQ SCH (20:42)
[2022-07-04] MEDS: CEFTRIAXONE 1,000 MG in NA CHLORIDE 0.9% 50 ML IVPB SCH (20:42)
[2022-07-04] MEDS: METHYLPREDNISOLONE 40 MG INJ IV SCH (23:34)
[2022-07-05] MEDS: ALBUTEROL 2.5 MG/3 ML NEB SOL NEB SCH (01:50)
[2022-07-05 04:27] LABS: Absolute Lymphocytes (CBC) 0.5 K/uL (0.7-4.9); Hematocrit 45.7 % (36.0-45.0); MCV 88.2 fL (80-100); RBC Red Blood Cell Count 5.18 M/uL (3.86-4.86)
[2022-07-05 04:43] LABS: Magnesium 1.5 mg/dL (1.6-2.4); Potassium 4.5 mmol/L (3.5-5.1)
[2022-07-05] MEDS: METHYLPREDNISOLONE 40 MG INJ IV SCH ×2 (05:22→11:42)
[2022-07-05] MEDS ORDERED: CEFTRIAXONE 1000 MG/VIAL ONE (07:11)
[2022-07-05] MEDS ORDERED: NA CHLORIDE 0.9% 50 ML ONE (07:21)
[2022-07-05] MEDS: INSULIN -REGULAR HUMAN 50 UNIT/0.5 ML ML SQ SCH ×4 (07:30→21:30)
[2022-07-05] MEDS ORDERED: ALBUTEROL 2.5 MG/3 ML NEB SOL NEB PRN (07:52)
[2022-07-05] MEDS: NICOTINE 14 MG/PAT TD SCH (08:14)
[2022-07-05] MEDS: ENOXAPARIN 40 MG/0.4 ML SQ SCH (08:15)
[2022-07-05] MEDS: FUROSEMIDE 40 MG/4 ML VIAL IV SCH ×2 (08:15→16:35)
[2022-07-05] MEDS: CEFTRIAXONE 1,000 MG in NA CHLORIDE 0.9% 50 ML IVPB SCH ×2 (08:15→21:47)
[2022-07-05] MEDS ORDERED: Magnesium Sulfate 2gm IVPB 2 G/50 ML BAG IV ONE (09:00)
[2022-07-05] MEDS ORDERED: ALPRAZOLAM 0.25 MG TABLET PO ONE (09:05)
--- NOTE | 2022-07-05 10:56 | RAD REPORT ---
EXAM DESCRIPTION: CT - Thorax W/ Con CLINICAL HISTORY: Chest pain right breast COMPARISON: Thorax Wo Con dated 03/04/2016; Chest Single View dated 07/04/2022 FINDINGS: The lungs are mildly emphysematous bilateral pleural effusions, slightly greater on the ri ght noted with atelectasis in the right lung base. No pneumothorax. No axillary, mediastinal or hilar adenopathy. There is quite severe edema and swelling of the right breast. Mild free fluid in the upper abdomen. All CT scans are performed using dose optimization technique as appropriate and may include automated exposure control or mA/KV adjustment according to patient size. IMPRESSION: Quite significant edema and swelling of the right breast noted, incompletely visualized. This may be related to a generalized anasarca although full assessment is limited. Right breast ultra sound could be obtained for further evaluation. Small bilateral pleural effusions with mild ascites in the upper abdomen.
--- NOTE | 2022-07-05 12:16 | P.CNS ---
Date of Consult: 07/05/22 Primary Care Provider: Lilia Chief Complaint: COPD exacerbation History of Present Illness: Patient is 61 years of age well-known to me with a history of COPD congestive heart failure lower extremity lymphedema metabolic syndrome morbid obesity admitted with progressive dyspnea spite increasing her Lasix also complaining of swelling of her right breast pliant with her inhalers Allergies Sulfa (Sulfonamide Antibiotics) Adverse Reaction (Mild, Verified 04/16/18 23:02) hallucinations Home Medications: Budesonide/Formoterol Fumarate [Symbicort 160-4.5 Mcg Inhaler] 2 puff IH BID 09/12/20 Albuterol Sulfate [Albuterol Sulfate 0.083% Neb Soln] 2.5 mg IH Q6H 07/05/22 Cetirizine HCl [Zyrtec] 10 mg PO DAILY 07/05/22 Furosemide [Lasix] 20 mg PO DAILY 07/05/22 Insulin Glargine,Hum.rec.anlog [Lantus Solostar] 25 unit SQ BEDTIME 07/05/22 Umeclidinium Brm/Vilanterol Tr [Anoro Ellipta 62.5-25 Mcg INH] 1 each IH DAILY 07/05/22 predniSONE [Deltasone] 5 mg PO DAILY 07/05/22 - Past Medical/Surgical History Diabetic: Yes -: COPD, steroid dependent, home oxygen -: Hyperlipidemia -: Tobacco abuse -: Chronic lymphedema to the lower extremities -: History of MRSA infection -: Nephrolithiasis bilaterally -: Staghorn calculus bilaterally -: Large ventral hernia -: Morbid obesity -: Depression with anxiety -: Hysterectomy -: Tonsillectomy -: Removal of kidney stones -: bilateral cataracts Psychosocial/ Personal History: The patient is , has 2 children. 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 - Family History Father Medical History: Lung disease, Cancer Mother Medical History: Heart disease, Hypertension, Stroke, Cancer - Social History Smoking Status: Unknown if ever smoked Alcohol use: No CD- Drugs: No Caffeine use: Yes Place of Residence: Home Review of Systems General: Weakness Respiratory: Shortness of Breath Cardiovascular: Edema Physical Examination Temp Pulse Resp BP Pulse Ox 98.3 F 108 H 18 161/85 H 92 07/05/22 12:00 07/05/22 12:00 07/05/22 12:00 07/05/22 12:00 07/05/22 12:00 General: Alert, In no apparent distress, Oriented x3 HEENT: Atraumatic Neck: Supple Respiratory: Clear to auscultation bilaterally, Diminished Cardiovascular: Edema Integumentary: Other (Right breast is significantly swollen with the redness most likely infected) Laboratory Data (last 24 hrs) 07/04/22 15:30: WBC 6.70, Hgb 15.1 H, Hct 48.0 H, Plt Count 178 07/04/22 15:30: Sodium 137, Potassium 4.0, BUN 22 H, Creatinine 0.60, Glucose 116 H, Magnesium 1.6 - Problems (1) COPD (chronic obstructive pulmonary disease) Current Visit: Yes Status: Acute Plan: Patient has underlying COPD congestive heart failure diastolic failure patient has been stable as far as COPD is concerned has mastitis patient has bilateral pleural effusion on CT scan agree with antibiotic chemistries and labs reviewed oxygenation vital signs are stable add p.o. clindamycin reduce dose of prednisone add spironolactone COPD stable Qualifiers: COPD type: unspecified COPD Qualified Code(s): J44.9 - Chronic obstructive pulmonary disease, unspecified
[2022-07-05] MEDS: SPIRONOLACTONE 25 MG TABLET PO SCH ×2 (13:00→21:59)
[2022-07-05] MEDS ORDERED: MAGNESIUM SULFATE 1 gm IVPB 1 GM/100 ML BAG IV ONE (15:16)
--- NOTE | 2022-07-05 15:33 | RAD REPORT ---
EXAM DESCRIPTION: US - BREAST/AXILLA, COMPLETE - 07/05/2022 3:22 pm CLINICAL HISTORY: RIGHT BREAST SWELLING COMPARISON: CT CHEST JULY 05, 2022 FINDINGS: Marked edema is present throughout the superficial tissues of the right breast. A discrete mass is not seen. IMPRESSION: Marked edema throughout the superficial tissues of the right breast presumably mastitis or lymphatic obstruction. However, an inflammatory carcinoma can also have this appearance. This should be correlated clinicall y. If the diagnosis remains uncertain biopsy could be obtained
[2022-07-05] MEDS: ACETAMINOPHEN 325 MG TABLET PO PRN ×2 (15:41→22:34)
--- NOTE | 2022-07-05 19:40 | P.PN ---
Subjective Date of Service: 07/05/22 Primary Care Provider: Lilia Chief Complaint: COPD exacerbation No acute events overnight. Her edema is unchanged compared to yesterday. She reports orthopnea and shortness of breath on exertion. She denies any chest pain or palpitations. The CT chest was not performed overnight, because she stated that she was concerned about what the CT scan might show. Review of Systems 10-point ROS is otherwise unremarkable Respiratory: Cough, Shortness of Breath Cardiovascular: Orthopnea Physical Examination - Vital Signs Temperature: 98.2 F Blood Pressure: 133/83 Pulse: 101 Respirations: 16 Pulse Ox (%): 93 - Physical Exam General: Alert, In no apparent distress, Oriented x3 HEENT: Atraumatic, Mucous membr. moist/pink, EOMI, Sclerae nonicteric Neck: JVD not distended Respiratory: Clear to auscultation bilaterally, Diminished Cardiovascular: Regular rate/rhythm, Normal S1 S2, No gallops, No rubs, No murmurs, Edema (Significant bilateral lower extremity lymphedema) Gastrointestinal: Normal bowel sounds, Soft and benign, Non-distended, No tenderness, No rebound, No guarding Musculoskeletal: No clubbing Integumentary: No rashes, Tenderness/swelling (Right breast is significantly edematous in comparison to the left. There is weeping of clear fluid from the right breast. Exam performed alongside bedside RNPau.) Neurological: Normal speech, Cranial nerves 3-12 intact, Normal affect Assessment And Plan - Plan # Anasarca suspect due to Acute Decompensated Congestive Heart Failure with Unknown Ejection Fraction # Severe Chronic Lower Extremity Lymphedema - Consult Cardiology and spoke with Dr. Alvares - recommendations appreciated - Ordered transthoracic echocardiogram - Diuresis with IV furosemide - Daily weights - Strict I/O - Cardiac diet, 1.5 L fluid restriction, 2 g Na restriction - Wound care consulted for lymphedema - Chest x-ray = "moderate bilateral pulmonary opacities are present likely representing pulmonary edema. Pneumonia can have a similar appearance. The heart is moderately enlarged. No displaced fractures" # Right Breast Swelling - concern for Mastitis vs Inflammatory Carcinoma of the Breast # SIRS Criteria (Tachycardia and Tachypnea) - without confirmed Infectious Source - Discussed my concerns with her and she verbalized understanding - She agreed to proceed with CT chest this morning - Will start empiric antibiotics for possible infection - Spoke with Dr. Gregorio (Marketing Education Teacher) who recommended outpatient follow-up once CHF is treated # Chronic Respiratory Failure secondary to Chronic Obstructive Pulmonary Disease # Pulmonary Hypertension # Tobacco Use Disorder - Consulted Pulmonology and spoke with Dr. Hogue - recommendations appreciated - Does not appear to be in acute COPD exacerbation - Continue steroids and bronchodilators per Pulm # Depression with Anxiety # Dyslipidemia - Reconcile home medications once verified Michael Zavala M.D.
[2022-07-05] MEDS ORDERED: HOME MED 1 EA UNK (Insulin Glargine,Hum.Rec.Anlog [Lantus Solostar] 100 UNIT/ML Insuln.Pen SQ SCH (21:00)
[2022-07-05] MEDS: INSULIN GLARGINE 100 UNIT/ML SQ SCH (21:30)
[2022-07-06] MEDS: HYDROCODONE/APAP 5/325 MG TAB PO PRN ×2 (00:22→20:59)
[2022-07-06 04:18] LABS: Absolute Lymphocytes (CBC) 0.7 K/uL (0.7-4.9); Hematocrit 45.6 % (36.0-45.0); Lymphocytes % 11.6 % (15.3-44.8); MCV 87.5 fL (80-100); MPV 9.8 fL (7.6-11.3); RBC Red Blood Cell Count 5.22 M/uL (3.86-4.86)
[2022-07-06 04:31] LABS: Magnesium 1.9 mg/dL (1.6-2.4); Phosphorus 2.9 mg/dL (2.5-4.9); Potassium 4.9 mmol/L (3.5-5.1)
[2022-07-06] MEDS: INSULIN -REGULAR HUMAN 50 UNIT/0.5 ML ML SQ SCH ×4 (07:30→20:57)
[2022-07-06] MEDS: NICOTINE 14 MG/PAT TD SCH (08:44)
[2022-07-06] MEDS: CEFTRIAXONE 1,000 MG in NA CHLORIDE 0.9% 50 ML IVPB SCH ×2 (08:45→20:57)
[2022-07-06] MEDS: predniSONE 10 MG TAB PO SCH (08:46)
[2022-07-06] MEDS: ENOXAPARIN 40 MG/0.4 ML SQ SCH (08:46)
[2022-07-06] MEDS: SPIRONOLACTONE 25 MG TABLET PO SCH ×2 (08:46→20:56)
[2022-07-06] MEDS: Umeclidinium Brm/Vilanterol Tr [Anoro Ellipta 62.5-25 Mcg Inh] Blst.W.D IH SCH ×2 (08:47→12:49)
[2022-07-06] MEDS: FUROSEMIDE 40 MG/4 ML VIAL IV SCH ×2 (08:47→17:02)
--- NOTE | 2022-07-06 16:52 | P.PN ---
Subjective Date of Service: 07/06/22 Primary Care Provider: Lilia Chief Complaint: COPD exacerbation No acute events overnight. Her edema is slightly improved compared to yesterday. She reports unchanged orthopnea and shortness of breath on exertion. She denies any chest pain or palpitations. Review of Systems 10-point ROS is otherwise unremarkable Respiratory: Shortness of Breath Cardiovascular: Orthopnea, Edema Physical Examination - Vital Signs Temperature: 98.5 F Blood Pressure: 130/78 Pulse: 99 Respirations: 20 Pulse Ox (%): 93 Assessment And Plan - Plan - Physical Exam General: Alert, In no apparent distress, Oriented x3 HEENT: Atraumatic, Mucous membr. moist/pink, Sclerae nonicteric Neck: JVD not distended Respiratory: Clear to auscultation bilaterally, Diminished Cardiovascular: Regular rate/rhythm, Normal S1 S2, No gallops, No rubs, No murmu rs, Edema (Significant bilateral lower extremity lymphedema) Gastrointestinal: Normal bowel sounds, Soft and benign, Non-distended, No tenderness, No rebound, No guarding Musculoskeletal: No clubbing Integumentary: No rashes, Tenderness/swelling Neurological: Normal speech, Normal affect # Anasarca suspect due to Acute Decompensated Congestive Heart Failure with Unknown Ejection Fraction # Severe Chronic Lower Extremity Lymphedema - Consult Cardiology and spoke with Dr. Alvares - recommendations appreciated - Ordered transthoracic echocardiogram - Diuresis with IV furosemide - Daily weights - Strict I/O - Cardiac diet, 1.5 L fluid restriction, 2 g Na restriction - Wound care consulted for lymphedema - Chest x-ray = "moderate bilateral pulmonary opacities are present likely representing pulmonary edema. Pneumonia can have a similar appearance. The heart is moderately enlarged. No displaced fractures" # Right Breast Swelling - concern for Mastitis vs Inflammatory Carcinoma of the Breast # SIRS Criteria (Tachycardia and Tachypnea) - without confirmed Infectious Source - Discussed my concerns with her and she verbalized understanding - CT chest = "quite significant edema and swelling of the right breast noted, incompletely visualized.This may be related to a generalized anasarca although full assessment is limited. Right breast ultrasound could be obtained for further evaluation. Small bilateral pleural effusions with mild ascites in the upper abdomen." - Right breast ultrasound = "marked edema throughout the superficial tissues of the right breast presumably mastitis or lymphatic obstruction. However, an inflammatory carcinoma can also have this appearance. This should be correlated clinically. If the diagnosis remains uncertain biopsy could be obtained" - Will start empiric antibiotics per Pulm recs - Spoke with Dr. Gregorio (Manager Transplant) who recommended outpatient follow-up once CHF is treated # Chronic Respiratory Failure secondary to Chronic Obstructive Pulmonary Disease # Pulmonary Hypertension # Tobacco Use Disorder - Consulted Pulmonology and spoke with Dr. Hogue - recommendations appreciated - Does not appear to be in acute COPD exacerbation - Continue steroids and bronchodilators per Pulm # Depression with Anxiety # Dyslipidemia - Reconcile home medications once verified Michael Zavala M.D.
[2022-07-06] MEDS ORDERED: CEFTRIAXONE 1000 MG/VIAL ONE (20:03)
[2022-07-06] MEDS: INSULIN GLARGINE 100 UNIT/ML SQ SCH (20:57)
[2022-07-06 23:00] LABS: Specific Gravity 1.012 (1.005-1.030); Urine Bacteria <20 /HPF (<20); Urine Bilirubin NEGATIVE (Negative); Urine Blood 2+ (Negative); Urine Clarity Clear (Clear); Urine Color Light-Yellow (Yellow); Urine Glucose NEGATIVE (Negative); Urine Protein NEGATIVE (Negative); Urine RBC >50 /HPF (None Seen); Urine Urobilinogen Normal (Normal)
[2022-07-07 04:45] LABS: Absolute Lymphocytes (CBC) 1.5 K/uL (0.7-4.9); Hematocrit 43.9 % (36.0-45.0); Lymphocytes % 24.5 % (15.3-44.8); MCV 87.6 fL (80-100); MPV 9.7 fL (7.6-11.3); RBC Red Blood Cell Count 5.01 M/uL (3.86-4.86)
[2022-07-07 05:03] LABS: Phosphorus 2.4 mg/dL (2.5-4.9); Potassium 4.5 mmol/L (3.5-5.1)
[2022-07-07] MEDS: INSULIN -REGULAR HUMAN 50 UNIT/0.5 ML ML SQ SCH ×4 (07:30→21:00)
[2022-07-07] MEDS: ENOXAPARIN 40 MG/0.4 ML SQ SCH (07:59)
[2022-07-07] MEDS: CEFTRIAXONE 1,000 MG in NA CHLORIDE 0.9% 50 ML IVPB SCH (08:00)
[2022-07-07] MEDS: POTASS/SODIUM PHOSPHATE 1 PKT POWD.PACK PO SCH ×3 (08:00→10:22)
[2022-07-07] MEDS: FUROSEMIDE 40 MG/4 ML VIAL IV SCH (08:00)
[2022-07-07] MEDS: predniSONE 10 MG TAB PO SCH (08:01)
[2022-07-07] MEDS: SPIRONOLACTONE 25 MG TABLET PO SCH ×2 (08:01→22:15)
[2022-07-07] MEDS: NICOTINE 14 MG/PAT TD SCH (08:02)
[2022-07-07] MEDS: Umeclidinium Brm/Vilanterol Tr [Anoro Ellipta 62.5-25 Mcg Inh] Blst.W.D IH SCH (08:03)
--- NOTE | 2022-07-07 11:00 | P.PN ---
Subjective Date of Service: 07/07/22 Primary Care Provider: Lilia Chief Complaint: COPD exacerbation. Swelling of the right breast Patient states that she is not feeling any better complaining of chronic dizziness for a month she has problems with her right ear also her breast has decreased in size and the the right side pain and swelling have decreased still short of breath congestive Review of Systems General: Weakness Respiratory: Cough, Shortness of Breath Integumentary: Other (Swelling and tenderness of the right breast) Physical Examination - Vital Signs Temperature: 97.7 F Blood Pressure: 119/79 Pulse: 84 Respirations: 20 Pulse Ox (%): 95 - Physical Exam General: Alert, Mild distress Respiratory: Clear to auscultation bilaterally, Diminished Cardiovascular: Edema (Chronic lymphedema) Gastrointestinal: Normal bowel sounds, Soft and benign Integumentary: Other (Right breast inflammation is decreased) Assessment And Plan - Current Problems (Diagnosis) (1) COPD (chronic obstructive pulmonary disease) Current Visit: Yes Status: Acute Plan: Patient has underlying COPD has chronic productive cough oxygenation satisfactory check sputum cultures add bronchodilators scheduled Cris and Franca Qualifiers: COPD type: unspecified COPD Qualified Code(s): J44.9 - Chronic obstructive pulmonary disease, unspecified (2) Mastitis Current Visit: Yes Status: Acute Plan: Patient has enlargement of the right breast seems to be improving redness is decreased however it is significantly larger than the left side may have inflammatory cancer surgical consult White count is normal patient is on clind amycin Physician Review: Patient Assessed, Agree with Above Assessment and Plan
--- NOTE | 2022-07-07 13:55 | P.PN ---
Subjective Date of Service: 07/07/22 Primary Care Provider: Lilia Chief Complaint: COPD exacerbation. Swelling of the right breast No acute events overnight. Her edema continues to improve. She reports that her orthopnea and shortness of breath are gradually improving. She denies any chest pain or palpitations. Consulted Dr. Akhtar for possible right breast biopsy tomorrow. Review of Systems 10-point ROS is otherwise unremarkable Respiratory: Shortness of Breath Cardiovascular: Orthopnea Physical Examination - Vital Signs Temperature: 96.3 F Blood Pressure: 127/74 Pulse: 84 Respirations: 16 Pulse Ox (%): 94 Assessment And Plan - Plan - Physical Exam General: Alert, In no apparent distress, Oriented x3 HEENT: Atraumatic, Sclerae nonicteric Neck: JVD not distended Respiratory: Clear to auscultation bilaterally, Diminished Cardiovascular: Regular rate/rhythm, Normal S1 S2, No murmurs, Edema (Significant bilateral lower extremity lymphedema) Gastrointestinal: Normal bowel sounds, Soft, Non-distended, No tenderness Musculoskeletal: No clubbing Integumentary: No rashes, Tenderness/swelling Neurological: Normal speech, Normal affect # Anasarca suspect due to Acute Decompensated Congestive Heart Failure with Unknown Ejection Fraction # Severe Chronic Lower Extremity Lymphedema - Consult Cardiology and spoke with Dr. Alvares - recommendations appreciated - Ordered transthoracic echocardiogram - Diuresis with IV furosemide - Daily weights - Strict I/O - Cardiac diet, 1.5 L fluid restriction, 2 g Na restriction - Wound care consulted for lymphedema - Chest x-ray = "moderate bilateral pulmonary opacities are present likely representing pulmonary edema. Pneumonia can have a similar appearance. The heart is moderately enlarged. No displaced fractures" # Right Breast Swelling - concern for Mastitis vs Inflammatory Carcinoma of the Breast # SIRS Criteria (Tachycardia and Tachypnea) - without confirmed Infectious Source - Discussed my concerns with her and she verbalized understanding - CT chest = "quite significant edema and swelling of the right breast noted, incompletely visualized.This may be related to a generalized anasarca although full assessment is limited. Right breast ultrasound could be obtained for further evaluation. Small bilateral pleural effusions with mild ascites in the upper abdomen." - Right breast ultrasound = "marked edema throughout the superficial tissues of the right breast presumably mastitis or lymphatic obstruction. However, an inflammatory carcinoma can also have this appearance. This should be correlated clinically. If the diagnosis remains uncertain biopsy could be obtained" - Will start empiric antibiotics per Pulm recs - Spoke with Dr. Gregorio (Wire Drawing Setter) who recommended outpatient follow-up once CHF is treated - Consulted General Surgery and spoke with Dr. Akhtar - recommendations appreciated - Recommended NPO after midnight for possibly biopsy tomorrow # Chronic Respiratory Failure secondary to Chronic Obstructive Pulmonary Disease # Pulmonary Hypertension # Tobacco Use Disorder - Consulted Pulmonology and spoke with Dr. Hogue - recommendations appreciated - Does not appear to be in acute COPD exacerbation - Continue steroids and bronchodilators per Pulm # Depression with Anxiety # Dyslipidemia - Reconcile home medications once verified Michael Zavala M.D.
[2022-07-07] MEDS: IPRATROPIUM BROM 0.5MG/2.5ML NEB SCH ×2 (13:57→19:30)
[2022-07-07] MEDS: ARFORMOTEROL TARTRATE 15 MCG/2 ML VIAL.NEB NEB SCH (19:30)
[2022-07-07] MEDS: INSULIN GLARGINE 100 UNIT/ML SQ SCH (21:00)
[2022-07-08] MEDS: HYDROCODONE/APAP 5/325 MG TAB PO PRN ×2 (00:37→05:54)
[2022-07-08] MEDS: IPRATROPIUM BROM 0.5MG/2.5ML NEB SCH ×4 (02:00→19:40)
[2022-07-08 04:05] LABS: Magnesium 1.7 mg/dL (1.6-2.4); Phosphorus 2.3 mg/dL (2.5-4.9); Potassium 4.7 mmol/L (3.5-5.1)
[2022-07-08] MEDS: INSULIN -REGULAR HUMAN 50 UNIT/0.5 ML ML SQ SCH ×4 (07:30→21:00)
[2022-07-08] MEDS: ARFORMOTEROL TARTRATE 15 MCG/2 ML VIAL.NEB NEB SCH ×2 (08:00→19:40)
[2022-07-08] MEDS ORDERED: MIDAZOLAM HCL 2 MG/2 ML INJ ONE (08:22)
[2022-07-08] MEDS ORDERED: dexAMETHasone 10 MG/ML VIAL ONE (08:22)
[2022-07-08] MEDS ORDERED: FENTANYL CITR 100 MCG/2 ML ONE (08:22)
[2022-07-08] MEDS ORDERED: propofoL 200 MG/20 ML VIAL IV ONE (08:22)
[2022-07-08] MEDS ORDERED: KETOROLAC 30 MG/ML INJ ONE (08:22)
[2022-07-08] MEDS ORDERED: ONDANSETRON 4 MG/2 ML VIAL ONE (08:25)
[2022-07-08] MEDS ORDERED: LIDOCAINE 2% MPF 5 ML VIAL ONE (08:25)
[2022-07-08] MEDS ORDERED: NA CHLORIDE 0.9% 1,000 ML ONE (08:39)
[2022-07-08] MEDS ORDERED: CEFAZOLIN SODIUM 1 GM/VIAL ONE (08:51)
--- NOTE | 2022-07-08 08:55 | P.CNS ---
Date of Consult: 07/08/22 Reason for consult: Skin color changes right breast History of present illness: Patient is a 61-year-old female was admitted with COPD exacerbation. On a CT of the chest she was found to have marked edema in the right breast. On exam she had erythema and skin that was suspicious for peau d'orange. Patient states that she has had this increased swelling for the last 2 weeks. Ultrasound question the possibility of inflammatory carcinoma. Patient does have family history of breast cancer. Patient denies any nipple discharge or palpable masses. She is unsure when her last mammogram was done. Review of systems: Otherwise unremarkable Past medical history: COPD, hyperlipidemia, tobaccouse patient has been counseled, lymphedema, morbid obesity and depression Past surgical history: Tonsillectomy and adenoidectomy, total abdominal hysterectomy, kidney stone removal and cataract surgery Allergies: Sulfa Social history: Patient does not drink alcohol Family history: As per HPI Vital signs: Stable, afebrile Physical exam: Awake, alert and oriented x3 Head and neck exam: No masses Chest: Clear Heart: S1-S2 Abdomen: Soft Extremity: Neurovascular and nontender Neuro: Nonfocal Breast: Right breast is markedly enlarged with edema, erythema and peau d'orange skin Axilla: No masses Diagnostic data: As per HPI Assessment: Right breast swelling with erythema and peau d'orangerule out inflammatory carcinoma Plan/recommendation: Right breast skin biopsy. Patient understands risks benefits and alternatives and agrees to procedure. CC:
[2022-07-08] MEDS: Umeclidinium Brm/Vilanterol Tr [Anoro Ellipta 62.5-25 Mcg Inh] Blst.W.D IH SCH (09:00)
[2022-07-08] MEDS: FUROSEMIDE 40 MG TABLET PO SCH (09:00)
[2022-07-08] MEDS: predniSONE 10 MG TAB PO SCH (09:00)
[2022-07-08] MEDS: NICOTINE 14 MG/PAT TD SCH (09:00)
[2022-07-08] MEDS: SPIRONOLACTONE 25 MG TABLET PO SCH ×2 (09:00→22:07)
[2022-07-08] MEDS: ENOXAPARIN 40 MG/0.4 ML SQ SCH (09:00)
[2022-07-08] MEDS ORDERED: MAGNESIUM SULFATE 1 gm IVPB 1 GM/100 ML BAG IV ONE (09:15)
--- NOTE | 2022-07-08 09:54 | P.OP ---
Date of Service: 07/08/22 Preop diagnosis: Skin changes right breast, rule out inflammatory breast cancer Postop diagnosis: Same Procedure performed: Full-thickness skin biopsy of right breast Surgeon: Raad Akhtar MD Director Of Manufacturing Operations: Bianca CARTAGENA Estimated blood loss: Minimal Specimen: Right breast tissue Findings: As above Anesthesia: MAC Complications: None Drains: None Fluids and blood products: None applicable Disposition: Recovery room Operative note: Patient brought to the OR and placed in the supine position. General anesthesia began. Patient prepped and draped in the usual sterile fashion. Marcaine 0.5% infiltrated locally. Then a 3 x 1 cm elliptical skin incision made with a 15 blade. Dissection proceeded down through the breast tissue. A 3 x 1 cm piece of specimen excised including breast tissue and sent to pathology as specimen. Wound irrigated and bleeding controlled with cautery. 2-0 chromic used to approximate deep subcutaneous tissue. 4 nylon used to close skin. Sterile dressing applied. Patient tolerated procedure in stable condition taken to recovery room in good general condition. CC:
[2022-07-08] MEDS: POTASS/SODIUM PHOSPHATE 1 PKT POWD.PACK PO SCH ×3 (10:51→12:27)
[2022-07-08] MEDS: ONDANSETRON 4 MG/2 ML VIAL IV PRN (10:51)
[2022-07-08] MEDS ORDERED: ALBUTEROL 2.5 MG/3 ML NEB SOL NEB PRN (13:00)
[2022-07-08] MEDS: HYDROCODONE/APAP 7.5/325 MG TAB PO PRN ×2 (14:26→22:26)
[2022-07-08] MEDS: INSULIN GLARGINE 100 UNIT/ML SQ SCH (22:07)
[2022-07-09] MEDS: IPRATROPIUM BROM 0.5MG/2.5ML NEB SCH ×4 (02:00→20:25)
--- NOTE | 2022-07-09 02:52 | P.PN ---
Subjective Date of Service: 07/08/22 Patient states she is feeling better. Working with therapy. Status post breast biopsy. Pathology pending. Continue with diuresing and ambulating. Patient will would want to try to go to intermediate if she can qualify if she does not get accepted into inpatient rehab. Review of Systems 10-point ROS is otherwise unremarkable Physical Examination - Vital Signs Temperature: 96.9 F Blood Pressure: 128/78 Pulse: 98 Respirations: 18 Pulse Ox (%): 96 - Physical Exam General: Alert, In no apparent distress HEENT: Atraumatic, PERRLA, EOMI Neck: Supple, JVD not distended Respiratory: Clear to auscultation bilaterally, Normal air movement Cardiovascular: Regular rate/rhythm, Normal S1 S2 Gastrointestinal: Normal bowel sounds, No tenderness Musculoskeletal: No tenderness Integumentary: No rashes Neurological: Normal speech, Normal tone, Normal affect Lymphatics: No axilla or inguinal lymphadenopathy - Studies Medications List Reviewed: Yes Assessment & Plan - Problems (Diagnosis) (1) COPD (chronic obstructive pulmonary disease) Current Visit: Yes Status: Acute Qualifiers: COPD type: unspecified COPD Qualified Code(s): J44.9 - Chronic obstructive pulmonary disease, unspecified (2) Acute and chronic respiratory failure Onset Date: 04/29/17 Current Visit: No Status: Acute Qualifiers: Respiratory failure complication: hypoxia Qualified Code(s): J96.21 - Acute and chronic respiratory failure with hypoxia (3) Lymphedema Onset Date: 08/26/14 Current Visit: No Status: Acute (4) Tinea unguium Current Visit: No Status: Acute (5) Obesity, morbid Onset Date: 08/27/16 Current Visit: No Status: Chronic (6) Pulmonary hypertension Onset Date: 08/27/16 Current Visit: No Status: Chronic - Plan Plan: 1. repeat chest x-ray in the morning 2. Continue with physical therapy 3. Consult case management for possible intermediate facility placement 4. Await pathology report 5. gentle diuresing 6. Await echocardiogram 7. Continue with wound care for the lower extremity 8. gi DVT prophylaxis - Advance Directives Does patient have a Living Will: No Does patient have a Durable POA for Healthcare: No Physician Review: Patient Assessed, Agree with Above Assessment and Plan
[2022-07-09 06:20] LABS: Magnesium 1.9 mg/dL (1.6-2.4); Phosphorus 3.2 mg/dL (2.5-4.9); Potassium 5.4 mmol/L (3.5-5.1)
--- NOTE | 2022-07-09 06:48 | ECHO ---
HEIGHT: 5 ft 2 in WEIGHT: 225 lb 12.8 oz DATE OF STUDY: 07/08/[address]: Michael Zavala MD 2-DIMENSIONAL: YES M.MODE: YES DOPPLER: YES COLOR FLOW: YES TDS: PORTABLE: YES DEFINITY: BUBBLE STUDY: DIAGNOSIS: SUSPECT CONGESTIVE HEART FAILURE CARDIAC HISTORY: CATHERIZATION: NO SURGERY: NO PROSTHETIC VALVE: NO PACEMAKER: NO MEASUREMENTS (cm) DIASTOLIC (NORMALS) SYSTOLIC (NORMALS) IVSd 1.4 (0.6-1.2) LA Diam 2.7 (1.9-4.0) LVEF 60-65% LVIDd 3.3 (3.5-5.7) LVIDs 1.6 (2.0-3.5) %FS 50% LVPWd 1.5 (0.6-1.2) Ao Diam 2.5 (2.0-3.7) 2 DIMENSIONAL ASSESSMENT: RIGHT ATRIUM: ENLARGED LEFT ATRIUM: NORMAL RIGHT VENTRICLE: DILATED RIGHT VENTRICLE LEFT VENTRICLE: NORMAL TRICUSPID VALVE: MODERATE TRICUSPID REGURGITATION MITRAL VALVE: NORMAL PULMONIC VALVE: MILD PULMONARY INUSFFICIENCY AORTIC VALVE: NORMAL PERICARDIAL EFFUSION: NONE AORTIC ROOT: NORMAL LEFT VENTRICULAR WALL MOTION: NORMAL DOPPLER/COLOR FLOW: SEE BELOW COMMENTS: 1. NORMAL LEFT VENTRICULAR EJECTION FRACTION 60-65% WITH NORMAL WALL MOTION 2. DILATED RIGHT VENTRICLE WITH DECREASED FUNCTION 3. RIGHT ATRIAL ENLARGEMENT 4. MODERATE TO SEVERE TRICUSPID REGURGITATION 5. SEVERE PULMONARY HYPERTENSION WITH RIGHT VENTRICULAR SYSTOLIC PRESSURE OF 85-90 mmHg TECHNOLOGIST: PAMELA DURAND
--- NOTE | 2022-07-09 06:51 | RAD REPORT ---
EXAM DESCRIPTION: RAD - Chest Single View - 07/09/2022 6:18 am CLINICAL HISTORY: pneumonia COMPARISON: CT chest 07/05/2022, portable chest 07/04/2022 TECHNIQUE: AP portable chest image was obtained 07/09/2022 6:18 am . FINDINGS: Bilateral pleural effusions remain. Bibasilar atelectasis is present. Patchy interstitial and alveolar opacities in the mid and lower lung greer are slightly increased from the chest examina tion. Heart size is prominent. Upper lobe vasculature is stable. No pneumothorax. No acute bony abnormality seen. No acute aortic findings suspected. IMPRESSION: Slight increase in the mid and lower lung field opacification which could be progressive atelectasis or possibly infiltrates superimposed on atelectasis. Bilateral pleural effusions are stable.
[2022-07-09] MEDS: INSULIN -REGULAR HUMAN 50 UNIT/0.5 ML ML SQ SCH ×4 (07:30→20:38)
[2022-07-09] MEDS: ARFORMOTEROL TARTRATE 15 MCG/2 ML VIAL.NEB NEB SCH ×2 (08:12→20:25)
[2022-07-09] MEDS: NICOTINE 14 MG/PAT TD SCH (08:33)
[2022-07-09] MEDS: predniSONE 10 MG TAB PO SCH (08:34)
[2022-07-09] MEDS: ENOXAPARIN 40 MG/0.4 ML SQ SCH (08:34)
[2022-07-09] MEDS: SPIRONOLACTONE 25 MG TABLET PO SCH (08:34)
[2022-07-09] MEDS: FUROSEMIDE 40 MG TABLET PO SCH (08:34)
[2022-07-09] MEDS: Umeclidinium Brm/Vilanterol Tr [Anoro Ellipta 62.5-25 Mcg Inh] Blst.W.D IH SCH (08:39)
--- NOTE | 2022-07-09 11:58 | P.PN ---
Subjective Date of Service: 07/09/22 Primary Care Provider: Lilia Chief Complaint: COPD exacerbation. Swelling of the right breast Patient is improving doing better still feeling very weak shortness of breath is better right-sided breast pain is also better this post biopsy the right breast Review of Systems General: Weakness Respiratory: Shortness of Breath Physical Examination - Vital Signs Temperature: 97.2 F Blood Pressure: 100/64 Pulse: 85 Respirations: 14 Pulse Ox (%): 91 - Physical Exam General: Alert, Oriented x3 Respiratory: Clear to auscultation bilaterally, Diminished Cardiovascular: Edema - Studies Medications List Reviewed: Yes Assessment And Plan - Current Problems (Diagnosis) (1) COPD (chronic obstructive pulmonary disease) Current Visit: Yes Status: Acute Plan: Patient is doing better notes of breath has improved mildly hyperkalemic reduce dose of spironolactone titrate O2 down to a sat of 90% Qualifiers: COPD type: unspecified COPD Qualified Code(s): J44.9 - Chronic obstructive pulmonary disease, unspecified (2) Mastitis Current Visit: Yes Status: Acute Plan: Status postbiopsy most likely has inflammatory cancer redness is improving Physician Review: Patient Assessed, Agree with Above Assessment and Plan
--- NOTE | 2022-07-09 13:47 | PN ---
Date of Progress Note: 07/09/2022 Subjective: The patient is awake, alert. No complaint. Objective: Vital Signs: Stable, afebrile. Extremities: Dressing clean, dry, and intact. Assessment: Status post right breast biopsy to rule out inflammatory breast carcinoma. Recommendations: Check pathology, medical management. The patient upon discharge will follow up jaren flores in my office. AUGIE/MARÍA Voice ID: [id number] Report ID: [id number]
[2022-07-09] MEDS: HYDROCODONE/APAP 7.5/325 MG TAB PO PRN ×2 (13:53→20:39)
[2022-07-09] MEDS: FUROSEMIDE 40 MG/4 ML VIAL IV SCH (18:11)
[2022-07-09 18:47] VITALS: BMI 41.1
--- NOTE | 2022-07-09 18:59 | CON ---
Date of Consultation: 07/08/2022 Reason For Consultation: Congestive heart failure. History Of Present Illness: This is a 61-year-old female, who apparently had a recent surgical inter vention for infected skin in the right breast. She was also having a significant shortness of breath and lower extremity edema. I was consulted to manage her heart failure. Past Medical History: Significant for COPD, dyslipidemia, recurrent MRSA infection, congestive heart failure, chronic lower extremity edema. Medications: Refer to reconciliation sheet for detailed list. Allergies: TO SULFA. Family History: No premature coronary artery disease or cancer. Social History: Does not smoke, does not drink or use any drugs. Review of Systems: All systems reviewed and they were negative except what mentioned in HPI. Physical Examination: Vital Signs: Reviewed. Head and Neck: Pupils are equal, reactive to light. Intact eye movements. Positive JVD. No cervic al lymphadenopathy. Neck is supple. Thyroid is not enlarged. Lungs: Clear to auscultation bilaterally. No rhonchi, wheezing, or crackles. No accessory muscle u se. Heart: Regular rate and rhythm with S3. Abdomen: Soft, nontender. Bowel sounds positive. No organomegaly. No masses or hernia. No rigidi ty or rebound. Extremities: Significant edema, 4+, chronic with chronic skin changes. Neurologic: Alert, awake, oriented x3. No acute focal deficits appreciated. Lymph Nodes: No cervical or axillary lymphadenopathy. Investigations: BUN is 25, creatinine 0.57. Troponin is negative. Assessment And Recommendations: 1.Acute on chronic diastolic heart failure exacerbation, massive fluid retention. Recommend Lasix 4 0 mg IV q.12 hours. Monitor BUN, creatinine, electrolytes, and await on the echo results. 2.Chronic obstructive pulmonary disease with acute exacerbation. Currently on bronchodilators and d oing well. SR/MODL Voice ID: [id number] Report ID: [id number]
--- NOTE | 2022-07-09 19:29 | PN ---
Date of Progress Note: 07/09/2022 Subjective: Seen by bedside. She is breathing comfortably. Has significant lower extremity edema. No nausea, vomiting, diarrhea. No dysuria, polyuria, or urinary urgency. All other systems reviewe d and they were negative. On echo, her pulmonary pressures are extremely high, has severe pulmonary hypertension with RVSP more than 85 mmHg. Review of Systems: There is no chest pain. Has orthopnea and some shortness of breath on exertion with lower extremity edema. All other systems reviewed and they were negative. Physical Examination: Vital Signs: Reviewed. Head and Neck: Pupils are equal, reactive to light. Intact eye movements. No JVD. No cervical lym phadenopathy. Neck is supple. Thyroid is not enlarged. Lungs: Clear to auscultation bilaterally. No rhonchi, wheezing, or crackles. No accessory muscle u se. Heart: Regular rate and rhythm. No extra sounds. Abdomen: Soft, nontender. Bowel sounds positive. No organomegaly. No masses or hernia. No rigidi ty or rebound. Extremities: Massive edema bilaterally. No clubbing or cyanosis. Intact pulses. Skin: No rash. Neurologic: Alert, awake, oriented x3. No acute focal deficits appreciated. Lymph Nodes: No cervical or axillary lymphadenopathy. Investigations: Labs were reviewed. Assessment And Recommendations: 1.Acute on chronic diastolic heart failure exacerbation. Her right ventricular systolic pressures a re more than 85 mmHg. Discontinue oral Lasix and put her on Lasix 40 mg IV q.8 hours. Monitor BUN, creatinine, and electrolytes. 2.Severe pulmonary hypertension, likely due to the heart failure. The patient needs aggressive diur esis and reevaluate. 3.Severe lower extremity edema with chronic skin changes. After diuresis, she will need to have kota ous arterial Doppler done. SR/MODL Voice ID: [id number] Report ID: [id number]
[2022-07-09] MEDS ORDERED: MAGNES/ALUMIN/SIMET 30ML UCUP PO ONE (20:22)
[2022-07-09] MEDS: INSULIN GLARGINE 100 UNIT/ML SQ SCH (20:38)
[2022-07-09] MEDS ORDERED: PHENOL 1.4% ORAL SPRAY 180ML MM PRN (23:55)
[2022-07-10] MEDS: FUROSEMIDE 40 MG/4 ML VIAL IV SCH ×3 (00:51→16:10)
[2022-07-10] MEDS: ONDANSETRON 4 MG/2 ML VIAL IV PRN ×5 (00:55→21:19)
[2022-07-10] MEDS: IPRATROPIUM BROM 0.5MG/2.5ML NEB SCH ×4 (02:55→19:00)
[2022-07-10] MEDS: INSULIN -REGULAR HUMAN 50 UNIT/0.5 ML ML SQ SCH ×4 (07:30→22:01)
[2022-07-10] MEDS: ARFORMOTEROL TARTRATE 15 MCG/2 ML VIAL.NEB NEB SCH ×2 (08:00→19:25)
[2022-07-10] MEDS: Umeclidinium Brm/Vilanterol Tr [Anoro Ellipta 62.5-25 Mcg Inh] Blst.W.D IH SCH (09:00)
[2022-07-10] MEDS: predniSONE 10 MG TAB PO SCH (09:00)
[2022-07-10] MEDS: SPIRONOLACTONE 25 MG TABLET PO SCH (09:00)
[2022-07-10 09:03] LABS: Albumin 2.7 g/dL (3.4-5.0); Bilirubin Total 0.6 mg/dL (0.2-1.0); Magnesium 1.9 mg/dL (1.6-2.4); Phosphorus 2.3 mg/dL (2.5-4.9); Potassium 4.5 mmol/L (3.5-5.1); Protein, Total 6.3 g/dL (6.4-8.2)
[2022-07-10] MEDS: NICOTINE 14 MG/PAT TD SCH (09:11)
[2022-07-10] MEDS: ENOXAPARIN 40 MG/0.4 ML SQ SCH (09:12)
[2022-07-10] MEDS ORDERED: METHYLPREDNISOLONE 125 MG INJ IV ONE (11:04)
[2022-07-10] MEDS ORDERED: METOCLOPRAMIDE 10 MG/2mL INJ IV SCH ×2 (12:00→22:00)
--- NOTE | 2022-07-10 12:40 | RAD REPORT ---
EXAM DESCRIPTION: RAD - Abdomen Single View - 07/10/2022 12:34 pm CLINICAL HISTORY: Constipation Pain COMPARISON: [facility] Protocol dated 08/26/2016 FINDINGS: The bowel gas pattern is non-obstructive. No evidence of free air or pneumatosis. Calcific ations project over both renal shadows likely bilateral nephrolithiasis. No significant bony findings. There is moderate constipation. IMPRESSION: Moderate constipation. Bilateral nephrolithiasis.
[2022-07-10] MEDS ORDERED: POTASSIUM PHOS IN 0.9 % NACL 15 MMOL/250 ML BAG IV ONE (15:45)
[2022-07-10] MEDS ORDERED: LACTULOSE 20 GM/30 ML UCUP PO ONE (16:05)
[2022-07-10] MEDS ORDERED: BISACODYL 10 MG RECTAL SUPP PR ONE (21:54)
[2022-07-10] MEDS: INSULIN GLARGINE 100 UNIT/ML SQ SCH (22:05)
[2022-07-10] MEDS: HYDROCODONE/APAP 7.5/325 MG TAB PO PRN (22:29)
[2022-07-11] MEDS: FUROSEMIDE 40 MG/4 ML VIAL IV SCH ×3 (00:37→17:19)
[2022-07-11] MEDS ORDERED: PROMETHAZINE INJ 25 MG/ML AMP IV ONE (01:31)
[2022-07-11] MEDS: IPRATROPIUM BROM 0.5MG/2.5ML NEB SCH ×4 (02:00→20:05)
[2022-07-11 04:00] LABS: Phosphorus 2.6 mg/dL (2.5-4.9); Potassium 4.5 mmol/L (3.5-5.1)
[2022-07-11] MEDS: ONDANSETRON 4 MG/2 ML VIAL IV PRN (04:26)
[2022-07-11] MEDS: INSULIN -REGULAR HUMAN 50 UNIT/0.5 ML ML SQ SCH ×4 (07:30→21:00)
[2022-07-11] MEDS: ARFORMOTEROL TARTRATE 15 MCG/2 ML VIAL.NEB NEB SCH ×2 (08:26→20:05)
--- NOTE | 2022-07-11 08:28 | P.PN ---
Date of Service: 07/09/22 Subjective Pt doing well; no new c/o; Diuresing; awaiting DC planning Review of Systems 10-point ROS is otherwise unremarkable Physical Examination - Vital Signs reviewed - Physical Exam General: Alert, In no apparent distress Respiratory: Clear to auscultation bilaterally, Normal air movement Cardiovascular: Regular rate/rhythm, Normal S1 S2 Gastrointestinal: Normal bowel sounds, No tenderness Neurological: Normal speech, Normal tone, Normal affect Assessment & Plan - Problems (Diagnosis) (1) COPD (chronic obstructive pulmonary disease) Current Visit: Yes Status: Acute Qualifiers: COPD type: unspecified COPD Qualified Code(s): J44.9 - Chronic obstructive pulmonary disease, unspecified (2) Acute and chronic respiratory failure Onset Date: 04/29/17 Current Visit: No Status: Acute Qualifiers: Respiratory failure complication: hypoxia Qualified Code(s): J96.21 - Acute and chronic respiratory failure with hypoxia (3) Lymphedema Onset Date: 08/26/14 Current Visit: No Status: Acute (4) Tinea unguium Current Visit: No Status: Acute (5) Obesity, morbid Onset Date: 08/27/16 Current Visit: No Status: Chronic (6) Pulmonary hypertension Onset Date: 08/27/16 Current Visit: No Status: Chronic - Plan Continue with POC as mentioned below 1. Repeat chest x-ray stable 2. Continue with physical therapy 3. Consult case management for possible [facility] facility placement 4. Await pathology report 5. Gentle diuresing 6. Echocardiogram reviewed 7. Continue with wound care for the lower extremity 8. GI/DVT prophylaxis
--- NOTE | 2022-07-11 08:30 | P.PN ---
Date of Service: 07/10/22 Subjective Pt doing well; spoke with Cardiology; recc increased diuresing. Also constipated; Review of Systems 10-point ROS is otherwise unremarkable Physical Examination - Vital Signs reviewed - Physical Exam General: Alert, In no apparent distress Respiratory: Clear to auscultation bilaterally, Normal air movement Cardiovascular: Regular rate/rhythm, Normal S1 S2 Gastrointestinal: Normal bowel sounds, No tenderness Neurological: Normal speech, Normal tone, Normal affect Assessment & Plan - Problems (Diagnosis) (1) COPD (chronic obstructive pulmonary disease) Current Visit: Yes Status: Acute Qualifiers: COPD type: unspecified COPD Qualified Code(s): J44.9 - Chronic obstructive pulmonary disease, unspecified (2) Acute and chronic respiratory failure Onset Date: 04/29/17 Current Visit: No Status: Acute Qualifiers: Respiratory failure complication: hypoxia Qualified Code(s): J96.21 - Acute and chronic respiratory failure with hypoxia (3) Lymphedema Onset Date: 08/26/14 Current Visit: No Status: Acute (4) Tinea unguium Current Visit: No Status: Acute (5) Obesity, morbid Onset Date: 08/27/16 Current Visit: No Status: Chronic (6) Pulmonary hypertension Onset Date: 08/27/16 Current Visit: No Status: Chronic - Plan Continue with POC as mentioned below 1. Laxative-lactulose 2. Continue with physical therapy 3. Awaiting possible longterm facility placement 4. Await pathology report 5. Increased Lasix dosage; monitor renal function 6. Echocardiogram reviewed 7. Continue with wound care for the lower extremity 8. GI/DVT prophylaxis
--- NOTE | 2022-07-11 08:30 | P.PN ---
Date of Service: 07/11/22 Subjective Patient is doing better. Her status is improving. Continue with wound care. Lower extremity edema has improved. Significant metabolic alkalosis. We will start acetazolamide. Review of Systems 10-point ROS is otherwise unremarkable Physical Examination - Vital Signs reviewed - Physical Exam General: Alert, In no apparent distress Respiratory: Clear to auscultation bilaterally, Normal air movement Cardiovascular: Regular rate/rhythm, Normal S1 S2 Gastrointestinal: Normal bowel sounds, No tenderness Neurological: Normal speech, Normal tone, Normal affect Assessment & Plan - Problems (Diagnosis) (1) COPD (chronic obstructive pulmonary disease) Current Visit: Yes Status: Acute Qualifiers: COPD type: unspecified COPD Qualified Code(s): J44.9 - Chronic obstructive pulmonary disease, unspecified (2) Acute and chronic respiratory failure Onset Date: 04/29/17 Current Visit: No Status: Acute Qualifiers: Respiratory failure complication: hypoxia Qualified Code(s): J96.21 - Acute and chronic respiratory failure with hypoxia (3) Lymphedema Onset Date: 08/26/14 Current Visit: No Status: Acute (4) Tinea unguium Current Visit: No Status: Acute (5) Obesity, morbid Onset Date: 08/27/16 Current Visit: No Status: Chronic (6) Pulmonary hypertension Onset Date: 08/27/16 Current Visit: No Status: Chronic - Plan Continue with POC as mentioned below 1. Laxative-lactulose: Continue to monitor and get a chest x-ray 2. Continue with physical therapy; waiting on placement at senior living facility or swing bed 3. Awaiting possible senior living facility placement 4. Pathology report revealed mastitis with no malignancy 5. Diuresing and monitor renal function 6. Echocardiogram reviewed patient with severe pulmonary hypertension with right ventricular dilatation 7. Continue with wound care for the lower extremity 8. GI/DVT prophylaxis
[2022-07-11] MEDS: ENOXAPARIN 40 MG/0.4 ML SQ SCH (08:52)
[2022-07-11] MEDS: SPIRONOLACTONE 25 MG TABLET PO SCH (08:53)
[2022-07-11] MEDS: predniSONE 10 MG TAB PO SCH (08:53)
[2022-07-11] MEDS: NICOTINE 14 MG/PAT TD SCH (08:53)
[2022-07-11] MEDS: Umeclidinium Brm/Vilanterol Tr [Anoro Ellipta 62.5-25 Mcg Inh] Blst.W.D IH SCH (08:56)
[2022-07-11] MEDS ORDERED: ALBUMIN HUMAN 25% 50 ML IV ONE (10:23)
[2022-07-11] MEDS: INSULIN GLARGINE 100 UNIT/ML SQ SCH (20:59)
[2022-07-11] MEDS: GLUCERNA SHAKE 237 ML CAN PO SCH (21:00)
[2022-07-11] MEDS: HYDROCODONE/APAP 7.5/325 MG TAB PO PRN (21:05)
[2022-07-12] MEDS: FUROSEMIDE 40 MG/4 ML VIAL IV SCH (00:26)
[2022-07-12] MEDS: IPRATROPIUM BROM 0.5MG/2.5ML NEB SCH ×4 (01:20→20:25)
[2022-07-12] MEDS: INSULIN -REGULAR HUMAN 50 UNIT/0.5 ML ML SQ SCH ×4 (07:30→20:44)
[2022-07-12] MEDS: ARFORMOTEROL TARTRATE 15 MCG/2 ML VIAL.NEB NEB SCH ×2 (07:58→20:25)
[2022-07-12] MEDS ORDERED: WATER FOR INJ,STERILE 10 ML IV SCH (09:00)
[2022-07-12] MEDS: predniSONE 10 MG TAB PO SCH (09:05)
[2022-07-12] MEDS: SPIRONOLACTONE 25 MG TABLET PO SCH (09:05)
[2022-07-12] MEDS: NICOTINE 14 MG/PAT TD SCH (09:05)
[2022-07-12] MEDS: Umeclidinium Brm/Vilanterol Tr [Anoro Ellipta 62.5-25 Mcg Inh] Blst.W.D IH SCH (09:07)
[2022-07-12] MEDS: ENOXAPARIN 40 MG/0.4 ML SQ SCH (09:07)
[2022-07-12] MEDS: GLUCERNA SHAKE 237 ML CAN PO SCH ×2 (09:07→21:01)
[2022-07-12] MEDS: WATER FOR INJ,STERILE 10 ML IV SCH ×2 (09:12→20:50)
[2022-07-12] MEDS: ACETAZOLAMIDE 500 MG IV IV SCH ×2 (09:12→20:50)
[2022-07-12] MEDS: ONDANSETRON 4 MG/2 ML VIAL IV PRN (12:52)
[2022-07-12 14:23] LABS: BUN Blood Urea Nitrogen 21 mg/dL (7-18); Glomerular Filtration Rate 100 ml/min (=/>90); Glucose Level 81 mg/dL (74-106); Potassium 4.4 mmol/L (3.5-5.1); Sodium Level 135 mmol/L (136-145)
[2022-07-12 14:26] LABS: Bicarbonate > 45 mmol/L (21-32)
[2022-07-12] MEDS: HYDROCODONE/APAP 7.5/325 MG TAB PO PRN ×2 (15:23→20:57)
[2022-07-12] MEDS: INSULIN GLARGINE 100 UNIT/ML SQ SCH (20:58)
[2022-07-13] MEDS: IPRATROPIUM BROM 0.5MG/2.5ML NEB SCH ×4 (02:00→19:35)
[2022-07-13] MEDS: INSULIN -REGULAR HUMAN 50 UNIT/0.5 ML ML SQ SCH ×4 (07:30→20:50)
[2022-07-13] MEDS: ARFORMOTEROL TARTRATE 15 MCG/2 ML VIAL.NEB NEB SCH ×2 (07:41→19:35)
[2022-07-13] MEDS: NICOTINE 14 MG/PAT TD SCH (08:08)
[2022-07-13] MEDS: ENOXAPARIN 40 MG/0.4 ML SQ SCH (08:09)
[2022-07-13] MEDS: predniSONE 10 MG TAB PO SCH (08:09)
[2022-07-13] MEDS: SPIRONOLACTONE 25 MG TABLET PO SCH (08:09)
[2022-07-13] MEDS: ACETAZOLAMIDE 500 MG IV IV SCH ×2 (08:10→20:57)
[2022-07-13] MEDS: WATER FOR INJ,STERILE 10 ML IV SCH ×2 (08:10→20:57)
[2022-07-13] MEDS: Umeclidinium Brm/Vilanterol Tr [Anoro Ellipta 62.5-25 Mcg Inh] Blst.W.D IH SCH (08:11)
[2022-07-13] MEDS: GLUCERNA SHAKE 237 ML CAN PO SCH ×2 (08:11→21:02)
[2022-07-13] MEDS: HYDROCODONE/APAP 7.5/325 MG TAB PO PRN (20:50)
[2022-07-13] MEDS: INSULIN GLARGINE 100 UNIT/ML SQ SCH (20:51)
[2022-07-13] MEDS: NYSTATIN 500,000 UNIT/5 ML UDC PO SCH (20:51)
[2022-07-14] MEDS: IPRATROPIUM BROM 0.5MG/2.5ML NEB SCH ×4 (01:25→19:30)
[2022-07-14] MEDS: INSULIN -REGULAR HUMAN 50 UNIT/0.5 ML ML SQ SCH ×4 (07:30→21:00)
[2022-07-14] MEDS: ARFORMOTEROL TARTRATE 15 MCG/2 ML VIAL.NEB NEB SCH ×2 (08:00→19:30)
[2022-07-14] MEDS: NICOTINE 14 MG/PAT TD SCH (08:40)
[2022-07-14] MEDS: ACETAZOLAMIDE 500 MG IV IV SCH ×2 (08:41→21:49)
[2022-07-14] MEDS: ENOXAPARIN 40 MG/0.4 ML SQ SCH (08:41)
[2022-07-14] MEDS: WATER FOR INJ,STERILE 10 ML IV SCH ×2 (08:41→21:00)
[2022-07-14] MEDS: FLUCONAZOLE 100 MG TAB PO SCH (08:42)
[2022-07-14] MEDS: NYSTATIN 500,000 UNIT/5 ML UDC PO SCH ×3 (08:42→21:46)
[2022-07-14] MEDS: SPIRONOLACTONE 25 MG TABLET PO SCH (08:42)
[2022-07-14] MEDS: predniSONE 10 MG TAB PO SCH (08:42)
[2022-07-14] MEDS: GLUCERNA SHAKE 237 ML CAN PO SCH ×2 (08:43→21:50)
[2022-07-14] MEDS: Umeclidinium Brm/Vilanterol Tr [Anoro Ellipta 62.5-25 Mcg Inh] Blst.W.D IH SCH (08:44)
[2022-07-14] MEDS: HYDROCODONE/APAP 7.5/325 MG TAB PO PRN ×2 (10:59→22:25)
[2022-07-14] MEDS ORDERED: LACTULOSE 20 GM/30 ML UCUP PO ONE (16:07)
--- NOTE | 2022-07-14 16:16 | P.PN ---
Date of Service: 07/13/22 Subjective We get patient out of bed into the chair. She sat in a chair for a couple hours. Nursing staff was able to get her back in the bed. She states she is regaining her strength but it is very slow. She has a lot of muscular atrophy. Were waiting for possible transfer to [facility]. Continue with wound care of the lower extremities as well. Patient with severe pulmonary hypertension. Pulmonary consultation. Patient may benefit from sildenafil. Review of Systems 10-point ROS is otherwise unremarkable Physical Examination - Vital Signs reviewed - Physical Exam General: Alert, In no apparent distress Respiratory: Clear to auscultation bilaterally, Normal air movement Cardiovascular: Regular rate/rhythm, Normal S1 S2 Gastrointestinal: Normal bowel sounds, No tenderness Neurological: Normal speech, Normal tone, Normal affect Assessment & Plan - Problems (Diagnosis) (1) COPD (chronic obstructive pulmonary disease) Current Visit: Yes Status: Acute Qualifiers: COPD type: unspecified COPD Qualified Code(s): J44.9 - Chronic obstructive pulmonary disease, unspecified (2) Acute and chronic respiratory failure with respiratory hypercapnia with metabolic alkalosis Onset Date: 04/29/17 Current Visit: No Status: Acute Qualifiers: Respiratory failure complication: hypoxia Qualified Code(s): J96.21 - Acute and chronic respiratory failure with hypoxia (3) Lymphedema Onset Date: 08/26/14 Current Visit: No Status: Acute (4) Tinea unguium Current Visit: No Status: Acute (5) Obesity, morbid with obstructive sleep apnea Onset Date: 08/27/16 Current Visit: No Status: Chronic (6) Pulmonary hypertension Onset Date: 08/27/16 Current Visit: No Status: Chronic - Plan Continue with POC as mentioned below 1. Continue with intravenous acetazolamide 2. Continue with physical therapy; waiting on placement at alf facility ([facility]; or swing bed) 3. Awaiting possible alf facility placement 4. Pathology report revealed mastitis with no malignancy 5. Diuresing and monitor renal function 6. Echocardiogram reviewed patient with severe pulmonary hypertension with right ventricular dilatation 7. Continue with wound care for the lower extremity 8. GI/DVT prophylaxis
--- NOTE | 2022-07-14 16:16 | P.PN ---
Date of Service: 07/12/22 Subjective Patient denies any new complaints. Continue with therapy. Respiratory status is stable. Continue with antifungal ointment and monitor pulmonary status. Continue with protein supplements 3 times a day. Significant muscular atrophy as well. Very difficult ambulating and moving around because of the significant degree of muscular atrophy. Review of Systems 10-point ROS is otherwise unremarkable Physical Examination - Vital Signs reviewed - Physical Exam General: Alert, In no apparent distress Respiratory: Clear to auscultation bilaterally, Normal air movement Cardiovascular: Regular rate/rhythm, Normal S1 S2 Gastrointestinal: Normal bowel sounds, No tenderness Neurological: Normal speech, Normal tone, Normal affect Assessment & Plan - Problems (Diagnosis) (1) COPD (chronic obstructive pulmonary disease) Current Visit: Yes Status: Acute Qualifiers: COPD type: unspecified COPD Qualified Code(s): J44.9 - Chronic obstructive pulmonary disease, unspecified (2) Acute and chronic respiratory failure Onset Date: 04/29/17 Current Visit: No Status: Acute Qualifiers: Respiratory failure complication: hypoxia Qualified Code(s): J96.21 - Acute and chronic respiratory failure with hypoxia (3) Lymphedema Onset Date: 08/26/14 Current Visit: No Status: Acute (4) Tinea unguium Current Visit: No Status: Acute (5) Obesity, morbid Onset Date: 08/27/16 Current Visit: No Status: Chronic (6) Pulmonary hypertension Onset Date: 08/27/16 Current Visit: No Status: Chronic - Plan Continue with POC as mentioned below 1. Laxative-lactulose: Continue to monitor and get a chest x-ray 2. Continue with physical therapy; waiting on placement at nursing home facility or swing bed 3. Awaiting possible nursing home facility placement 4. Pathology report revealed mastitis with no malignancy 5. Diuresing and monitor renal function 6. Echocardiogram reviewed patient with severe pulmonary hypertension with right ventricular dilatation 7. Continue with wound care for the lower extremity 8. GI/DVT prophylaxis
[2022-07-14 16:59] LABS: Potassium 4.3 mmol/L (3.5-5.1)
[2022-07-14] MEDS: INSULIN GLARGINE 100 UNIT/ML SQ SCH (21:48)
--- NOTE | 2022-07-15 01:16 | P.PN ---
Date of Service: 07/14/22 Subjective Patient is a 61-year-old female who was admitted to our hospital with shortness of breath and acute COPD exacerbation. Patient has morbid obesity with obstructive sleep apnea. Patient has significant respiratory hypercapnia but she has metabolic compensation. Patient with significant metabolic alkalosis and was started with intravenous acetazolamide. We were able to get patient out of bed into the chair yesterday. She sat in a chair for a couple hours. Nursing staff was able to get her back in the bed. She states she is regaining her strength but it is very slow. She has significant muscular atrophy. We're waiting for possible transfer to [facility]. Continue with wound care of the lower extremities as well. Patient with severe pulmonary hypertension. Pulmonary consultation. Patient may benefit from sildenafil. Review of Systems 10-point ROS is otherwise unremarkable Physical Examination - Vital Signs reviewed - Physical Exam General: Alert, In no apparent distress Respiratory: Clear to auscultation bilaterally, Normal air movement Cardiovascular: Regular rate/rhythm, Normal S1 S2 Gastrointestinal: Normal bowel sounds, No tenderness Neurological: Normal speech, Normal tone, Normal affect Assessment & Plan - Problems (Diagnosis) (1) COPD (chronic obstructive pulmonary disease) Current Visit: Yes Status: Acute Qualifiers: COPD type: unspecified COPD Qualified Code(s): J44.9 - Chronic obstructive pulmonary disease, unspecified (2) Acute and chronic respiratory failure with respiratory hypercapnia with metabolic alkalosis Onset Date: 07/11/22 Current Visit: No Status: Acute Qualifiers: Respiratory failure complication: hypoxia Qualified Code(s): J96.21 - Acute and chronic respiratory failure with hypoxia (3) Lymphedema Onset Date: 07/09/22 Current Visit: No Status: Acute (4) Tinea unguium Current Visit: Yes Status: Acute (5) Obesity, morbid with obstructive sleep apnea Onset Date: 08/27/16 Current Visit: No Status: Chronic (6) Pulmonary hypertension Onset Date: 07/09/22 Current Visit: No Status: Acute (7) Odynophagia Onset Date: 07/12/22 Current Visit: No Status: Acute - Plan Continue with POC as mentioned below 1. Continue with intravenous acetazolamide 2. Continue with physical therapy; waiting on placement at fdc facility ([facility]; or swing bed) 3. Awaiting possible fdc facility placement 4. Pathology report revealed mastitis with no malignancy 5. Diuresing and monitor renal function 6. Echocardiogram reviewed patient with severe pulmonary hypertension with right ventricular dilatation 7. Continue with wound care for the lower extremity 8. Continue with physical therapy 9. Antifungal and nystatin swish and swallow 10. GI/DVT prophylaxis
[2022-07-15] MEDS: IPRATROPIUM BROM 0.5MG/2.5ML NEB SCH ×4 (02:40→19:00)
[2022-07-15] MEDS: BISACODYL 10 MG RECTAL SUPP PR PRN (05:50)
[2022-07-15 06:18] LABS: Absolute Lymphocytes (CBC) 1.4 K/uL (0.7-4.9); Hematocrit 42.5 % (36.0-45.0); Lymphocytes % 24.2 % (15.3-44.8); MPV 9.9 fL (7.6-11.3); RBC Red Blood Cell Count 4.94 M/uL (3.86-4.86)
[2022-07-15 06:32] LABS: Magnesium 1.9 mg/dL (1.6-2.4); Phosphorus 2.7 mg/dL (2.5-4.9); Potassium 3.9 mmol/L (3.5-5.1)
[2022-07-15] MEDS: INSULIN -REGULAR HUMAN 50 UNIT/0.5 ML ML SQ SCH ×4 (07:30→20:57)
[2022-07-15] MEDS: ARFORMOTEROL TARTRATE 15 MCG/2 ML VIAL.NEB NEB SCH ×2 (08:00→19:00)
--- NOTE | 2022-07-15 08:41 | RAD REPORT ---
EXAM DESCRIPTION: RAD - Chest Single View - 07/15/2022 5:18 am CLINICAL HISTORY: pneumonia Chest pain. COMPARISON: Chest Single View dated 07/09/2022; Chest Single View dated 07/04/2022; Chest Single View da marisa 09/14/2020; Chest Single View dated 09/12/2020 FINDINGS: Portable technique limits examination quality. Bilateral pleural effusions with moderate bilateral pulmonary opacities, unchanged. The heart is mild ly enlarged in size. No displaced fractures. IMPRESSION: Stable chest since 07/09/2022 study.
[2022-07-15] MEDS: Umeclidinium Brm/Vilanterol Tr [Anoro Ellipta 62.5-25 Mcg Inh] Blst.W.D IH SCH (09:00)
[2022-07-15] MEDS ORDERED: POTASSIUM CL SA 10 MEQ TAB PO ONE (09:00)
[2022-07-15] MEDS: NYSTATIN 500,000 UNIT/5 ML UDC PO SCH ×3 (09:25→20:56)
[2022-07-15] MEDS: ACETAZOLAMIDE 500 MG IV IV SCH ×2 (09:25→20:56)
[2022-07-15] MEDS: WATER FOR INJ,STERILE 10 ML IV SCH ×2 (09:25→20:57)
[2022-07-15] MEDS: POTASS/SODIUM PHOSPHATE 1 PKT POWD.PACK PO SCH ×3 (09:25→12:12)
[2022-07-15] MEDS: FLUCONAZOLE 100 MG TAB PO SCH (09:26)
[2022-07-15] MEDS: GLUCERNA SHAKE 237 ML CAN PO SCH ×2 (09:26→20:55)
[2022-07-15] MEDS: SPIRONOLACTONE 25 MG TABLET PO SCH (09:26)
[2022-07-15] MEDS: ENOXAPARIN 40 MG/0.4 ML SQ SCH (09:26)
[2022-07-15] MEDS: predniSONE 10 MG TAB PO SCH (09:26)
[2022-07-15] MEDS: NICOTINE 14 MG/PAT TD SCH (09:26)
[2022-07-15] MEDS: HYDROCODONE/APAP 7.5/325 MG TAB PO PRN ×2 (09:41→21:46)
--- NOTE | 2022-07-15 17:15 | P.PN ---
Subjective Date of Service: 07/15/22 Primary Care Provider: Lilia Chief Complaint: COPD exacerbation. Swelling of the right breast No acute events overnight. She has improved significantly since I evaluated her about 1 week ago. Her main concern at this time is generalized weakness and severe deconditioning. She is pending placement into a [facility] facility. Review of Systems 10-point ROS is otherwise unremarkable General: Weakness (generalized) Physical Examination - Vital Signs Temperature: 97.3 F Blood Pressure: 114/75 Pulse: 71 Respirations: 16 Pulse Ox (%): 96 - Studies Medications List Reviewed: Yes Assessment And Plan - Plan - Physical Exam General: Alert, In no apparent distress, Oriented x3 HEENT: Atraumatic, Sclerae nonicteric Neck: JVD not distended Respiratory: Clear to auscultation bilaterally, Diminished Cardiovascular: Regular rate/rhythm, Normal S1 S2, No murmurs, Edema (bilateral lower extremity lymphedema - swelling improved) Gastrointestinal: Normal bowel sounds, Soft, Non-distended, No tenderness Musculoskeletal: No clubbing Neurological: Normal speech, Normal affect # Anasarca suspect due to Acute Decompensated Diastolic Congestive Heart Failure with Preserved Ejection Fraction # Severe Pulmonary Hypertension # Severe Chronic Lower Extremity Lymphedema # Moderate-Severe Tricuspid Regurgitation - Consult Cardiology and spoke with Dr. Alvares - recommendations appreciated - Transthoracic echocardiogram = "1. normal left ventricular ejection fraction 60-65% with normal wall motion 2. dilated right ventricle with decreased function 3. right atrial enlargement 4. moderate to severe tricuspid regurgitation 5. severe pulmonary hypertension with right ventricular systolic pressure of 85-90 mmHg" - Diuretics changed from furosemide to acetazolamide + spironolactone due to contraction alkalosis - Daily weights - Strict I/O - Cardiac diet, 1.5 L fluid restriction, 2 g Na restriction - Wound care consulted for lymphedema - Chest x-ray = "moderate bilateral pulmonary opacities are present likely representing pulmonary edema. Pneumonia can have a similar appearance. The heart is moderately enlarged. No displaced fractures" # Right Breast Mastitis - CT chest = "quite significant edema and swelling of the right breast noted, incompletely visualized.This may be related to a generalized anasarca although full assessment is limited. Right breast ultrasound could be obtained for further evaluation. Small bilateral pleural effusions with mild ascites in the upper abdomen." - Right breast ultrasound = "marked edema throughout the superficial tissues of the right breast presumably mastitis or lymphatic obstruction. However, an inflammatory carcinoma can also have this appearance. This should be correlated clinically. If the diagnosis remains uncertain biopsy could be obtained" - Follow-up with Dr. Gregorio (Analyst Competitive Intelligence) who recommended outpatient follow-up once CHF is treated # Chronic Respiratory Failure secondary to Chronic Obstructive Pulmonary Disease # Pulmonary Hypertension # Tobacco Use Disorder - Consulted Pulmonology and spoke with Dr. Hogue - recommendations appreciated - Does not appear to be in acute COPD exacerbation - Continue steroids and bronchodilators per Pulm # Depression with Anxiety # Dyslipidemia - Reconcile home medications once verified # Severe Deconditioning - PT/OT consulted - Appreciate CM assistance with SNF placement Michael Zavala M.D.
[2022-07-15] MEDS: INSULIN GLARGINE 100 UNIT/ML SQ SCH (20:55)
[2022-07-16] MEDS: IPRATROPIUM BROM 0.5MG/2.5ML NEB SCH ×4 (01:25→20:50)
[2022-07-16 05:55] LABS: Absolute Lymphocytes (CBC) 1.3 K/uL (0.7-4.9); Hematocrit 39.9 % (36.0-45.0); Lymphocytes % 21.2 % (15.3-44.8); MCV 85.7 fL (80-100); RBC Red Blood Cell Count 4.66 M/uL (3.86-4.86)
[2022-07-16 05:58] LABS: Phosphorus 2.7 mg/dL (2.5-4.9)
[2022-07-16] MEDS: INSULIN -REGULAR HUMAN 50 UNIT/0.5 ML ML SQ SCH ×4 (07:30→20:38)
[2022-07-16] MEDS: ARFORMOTEROL TARTRATE 15 MCG/2 ML VIAL.NEB NEB SCH ×2 (07:50→20:50)
[2022-07-16] MEDS: GLUCERNA SHAKE 237 ML CAN PO SCH ×2 (09:00→20:38)
[2022-07-16] MEDS: Umeclidinium Brm/Vilanterol Tr [Anoro Ellipta 62.5-25 Mcg Inh] Blst.W.D IH SCH (09:00)
[2022-07-16] MEDS: SPIRONOLACTONE 25 MG TABLET PO SCH (09:20)
[2022-07-16] MEDS: ACETAZOLAMIDE 500 MG IV IV SCH ×2 (09:21→20:38)
[2022-07-16] MEDS: predniSONE 10 MG TAB PO SCH (09:21)
[2022-07-16] MEDS: WATER FOR INJ,STERILE 10 ML IV SCH ×2 (09:22→20:37)
[2022-07-16] MEDS: FLUCONAZOLE 100 MG TAB PO SCH (09:22)
[2022-07-16] MEDS: NYSTATIN 500,000 UNIT/5 ML UDC PO SCH ×3 (09:23→20:35)
[2022-07-16] MEDS: NICOTINE 14 MG/PAT TD SCH (09:23)
[2022-07-16] MEDS: ENOXAPARIN 40 MG/0.4 ML SQ SCH (09:23)
[2022-07-16] MEDS: POTASS/SODIUM PHOSPHATE 1 PKT POWD.PACK PO SCH ×3 (09:23→11:18)
--- NOTE | 2022-07-16 10:28 | P.PN ---
Subjective Date of Service: 07/16/22 Primary Care Provider: Lilia Chief Complaint: COPD exacerbation. Swelling of the right breast No acute events overnight. She reports persistent generalized weakness. She is awaiting placement into a alf facility. Review of Systems 10-point ROS is otherwise unremarkable General: Weakness (generalized) Physical Examination - Vital Signs Temperature: 98.7 F Blood Pressure: 103/61 Pulse: 76 Respirations: 17 Pulse Ox (%): 97 - Studies Medications List Reviewed: Yes Assessment And Plan - Plan - Physical Exam General: Alert, In no apparent distress, Oriented x3 HEENT: Atraumatic, Sclerae nonicteric Neck: JVD not distended Respiratory: Clear to auscultation bilaterally, Diminished Cardiovascular: Regular rate/rhythm, Normal S1 S2, No murmurs, Edema (bilateral lower extremity lymphedema - swelling improved) Gastrointestinal: Normal bowel sounds, Soft, Non-distended, No tenderness Musculoskeletal: No clubbing Neurological: Normal speech, Normal affect # Anasarca suspect due to Acute Decompensated Diastolic Congestive Heart Failure with Preserved Ejection Fraction # Severe Pulmonary Hypertension # Severe Chronic Lower Extremity Lymphedema # Moderate-Severe Tricuspid Regurgitation - Consult Cardiology and spoke with Dr. Alvares - recommendations appreciated - Transthoracic echocardiogram = "1. normal left ventricular ejection fraction 60-65% with normal wall motion 2. dilated right ventricle with decreased function 3. right atrial enlargement 4. moderate to severe tricuspid regurgit ation 5. severe pulmonary hypertension with right ventricular systolic pressure of 85-90 mmHg" - Diuretics changed from furosemide to acetazolamide + spironolactone due to contraction alkalosis - Daily weights - Strict I/O - Cardiac diet, 1.5 L fluid restriction, 2 g Na restriction - Wound care consulted for lymphedema - Chest x-ray = "moderate bilateral pulmonary opacities are present likely r epresenting pulmonary edema. Pneumonia can have a similar appearance. The heart is moderately enlarged. No displaced fractures" # Right Breast Mastitis - CT chest = "quite significant edema and swelling of the right breast noted, incompletely visualized.This may be related to a generalized anasarca although full assessment is limited. Right breast ultrasound could be obtained for further evaluation. Small bilateral pleural effusions with mild ascites in the upper abdomen." - Right breast ultrasound = "marked edema throughout the superficial tissues of the right breast presumably mastitis or lymphatic obstruction. However, an inflammatory carcinoma can also have this appearance. This should be correlated clinically. If the diagnosis remains uncertain biopsy could be obtained" - Follow-up with Dr. Gregorio (Managing Member) who recommended outpatient follow-up once CHF is treated # Chronic Respiratory Failure secondary to Chronic Obstructive Pulmonary Disease # Pulmonary Hypertension # Tobacco Use Disorder - Consulted Pulmonology and spoke with Dr. Hogue - recommendations appreciated - Does not appear to be in acute COPD exacerbation - Continue steroids and bronchodilators per Pulm # Depression with Anxiety # Dyslipidemia - Reconcile home medications once verified # Severe Deconditioning - PT/OT consulted - Appreciate CM assistance with SNF placement for continued PT Michael Zavala M.D.
[2022-07-16] MEDS: HYDROCODONE/APAP 7.5/325 MG TAB PO PRN ×2 (15:42→21:37)
[2022-07-16] MEDS: BISACODYL 10 MG RECTAL SUPP PR PRN (15:43)
--- NOTE | 2022-07-16 17:52 | EKG ---
Test Date: 2022-07-04 Test Time: 15:20:25 Cold Working Supervisor: YOU MEASUREMENT RESULTS: Intervals: Rate: 102 ID: [id number] QRSD: 102 QT: 346 QTc: 450 [place]: P: 64 ID: [id number] QRS: 107 T: -31 INTERPRETIVE STATEMENTS: Sinus tachycardia Incomplete right bundle branch block Possible Right ventricular hypertrophy T wave abnormality, consider inferior ischemia Abnormal ECG Compared to ECG 09/11/2020 10:21:42 Incomplete right bundle-branch block now present T-wave abnormality now present Possible ischemia now present Electronically Signed On 07-16-22 17:30:08 PHYSICIAN ASST by Moise Alvares
[2022-07-16] MEDS: INSULIN GLARGINE 100 UNIT/ML SQ SCH (20:37)
[2022-07-17] MEDS: IPRATROPIUM BROM 0.5MG/2.5ML NEB SCH ×4 (02:00→19:55)
[2022-07-17] MEDS: INSULIN -REGULAR HUMAN 50 UNIT/0.5 ML ML SQ SCH ×4 (07:30→21:00)
[2022-07-17] MEDS: GLUCERNA SHAKE 237 ML CAN PO SCH ×2 (09:00→21:00)
[2022-07-17] MEDS: Umeclidinium Brm/Vilanterol Tr [Anoro Ellipta 62.5-25 Mcg Inh] Blst.W.D IH SCH (09:00)
[2022-07-17] MEDS: ARFORMOTEROL TARTRATE 15 MCG/2 ML VIAL.NEB NEB SCH ×2 (09:00→19:55)
[2022-07-17] MEDS: ENOXAPARIN 40 MG/0.4 ML SQ SCH (10:36)
[2022-07-17] MEDS: predniSONE 10 MG TAB PO SCH (10:37)
[2022-07-17] MEDS: FLUCONAZOLE 100 MG TAB PO SCH (10:37)
[2022-07-17] MEDS: NICOTINE 14 MG/PAT TD SCH (10:37)
[2022-07-17] MEDS: SPIRONOLACTONE 25 MG TABLET PO SCH (10:37)
[2022-07-17] MEDS: NYSTATIN 500,000 UNIT/5 ML UDC PO SCH ×3 (10:37→20:59)
[2022-07-17] MEDS: WATER FOR INJ,STERILE 10 ML IV SCH ×2 (10:38→21:01)
[2022-07-17] MEDS: ACETAZOLAMIDE 500 MG IV IV SCH ×2 (10:38→21:01)
[2022-07-17 11:46] LABS: Specific Gravity 1.009 (1.005-1.030); Urine Bacteria <20 /HPF (<20); Urine Bilirubin NEGATIVE (Negative); Urine Blood 3+ (Negative); Urine Clarity Clear (Clear); Urine Color Light-Yellow (Yellow); Urine Glucose NEGATIVE (Negative); Urine Protein NEGATIVE (Negative); Urine RBC >50 /HPF (None Seen); Urine Urobilinogen Normal (Normal); Urine pH 8.5 (5.0-7.0)
--- NOTE | 2022-07-17 18:12 | P.PN ---
Subjective Date of Service: 07/17/22 Primary Care Provider: Lilia Chief Complaint: COPD exacerbation. Swelling of the right breast No acute events overnight. She reports persistent generalized weakness. She is awaiting placement into a snf facility. No new changes today. Review of Systems 10-point ROS is otherwise unremarkable General: Weakness (generalized) Physical Examination - Vital Signs Temperature: 98.9 F Blood Pressure: 136/80 Pulse: 78 Respirations: 17 Pulse Ox (%): 96 - Studies Medications List Reviewed: Yes Assessment And Plan - Plan - Physical Exam General: Alert, In no apparent distress, Oriented x3 HEENT: Atraumatic, Sclerae nonicteric Neck: JVD not distended Respiratory: Clear to auscultation bilaterally, Diminished Cardiovascular: Regular rate/rhythm, No murmurs, Edema (bilateral lower extremity lymphedema - swelling improved) Gastrointestinal: Normal bowel sounds, Soft, Non-distended, No tenderness Musculoskeletal: No clubbing Neurological: Normal speech, Normal affect # Anasarca suspect due to Acute Decompensated Diastolic Congestive Heart Failure with Preserved Ejection Fraction # Severe Pulmonary Hypertension # Severe Chronic Lower Extremity Lymphedema # Moderate-Severe Tricuspid Regurgitation - Consult Cardiology and spoke with Dr. Alvares - recommendations appreciated - Transthoracic echocardiogram = "1. normal left ventricular ejection fraction 60-65% with normal wall motion 2. dilated right ventricle with decreased function 3. right atrial enlargement 4. moderate to severe tricuspid regurgitation 5. severe pulmonary hypertension with right ventricular systolic pressure of 85-90 mmHg" - Diuretics changed from furosemide to acetazolamide + spironolactone due to contraction alkalosis - Daily weights - Strict I/O - Cardiac diet, 1.5 L fluid restriction, 2 g Na restriction - Wound care consulted for lymphedema - Chest x-ray = "moderate bilateral pulmonary opacities are present likely representing pulmonary edema. Pneumonia can have a similar appearance. The heart is moderately enlarged. No displaced fractures" # Right Breast Mastitis - CT chest = "quite significant edema and swelling of the right breast noted, incompletely visualized.This may be related to a generalized anasarca although full assessment is limited. Right breast ultrasound could be obtained for further evaluation. Small bilateral pleural effusions with mild ascites in the upper abdomen." - Right breast ultrasound = "marked edema throughout the superficial tissues of the right breast presumably mastitis or lymphatic obstruction. However, an inflammatory carcinoma can also have this appearance. This should be correlated clinically. If the diagnosis remains uncertain biopsy could be obtained" - Follow-up with Dr. Gregorio (Local Company Truck Driver) who recommended outpatient follow-up once CHF is treated # Chronic Respiratory Failure secondary to Chronic Obstructive Pulmonary Disease # Pulmonary Hypertension # Tobacco Use Disorder - Consulted Pulmonology and spoke with Dr. Hogue - recommendations appreciated - Does not appear to be in acute COPD exacerbation - Continue steroids and bronchodilators per Pulm # Depression with Anxiety # Dyslipidemia - Reconcile home medications once verified # Severe Deconditioning - PT/OT consulted - Appreciate CM assistance with SNF placement for continued PT No new changes today. Waiting on SNF placement. Michael Zavala M.D.
[2022-07-17] MEDS: HYDROCODONE/APAP 7.5/325 MG TAB PO PRN ×2 (18:17→23:41)
[2022-07-17] MEDS: INSULIN GLARGINE 100 UNIT/ML SQ SCH (21:00)
[2022-07-18] MEDS: IPRATROPIUM BROM 0.5MG/2.5ML NEB SCH ×4 (02:00→19:00)
[2022-07-18] MEDS ORDERED: ALBUTEROL 2.5 MG/3 ML NEB SOL NEB PRN ×2 (07:26→12:00)
[2022-07-18] MEDS: INSULIN -REGULAR HUMAN 50 UNIT/0.5 ML ML SQ SCH ×4 (07:30→20:47)
[2022-07-18] MEDS: ARFORMOTEROL TARTRATE 15 MCG/2 ML VIAL.NEB NEB SCH ×2 (08:25→19:00)
[2022-07-18] MEDS: FLUCONAZOLE 100 MG TAB PO SCH (08:29)
[2022-07-18] MEDS: SPIRONOLACTONE 25 MG TABLET PO SCH (08:29)
[2022-07-18] MEDS: predniSONE 10 MG TAB PO SCH (08:29)
[2022-07-18] MEDS: NICOTINE 14 MG/PAT TD SCH (08:30)
[2022-07-18] MEDS: NYSTATIN 500,000 UNIT/5 ML UDC PO SCH ×3 (08:30→20:47)
[2022-07-18] MEDS: WATER FOR INJ,STERILE 10 ML IV SCH ×2 (08:30→20:46)
[2022-07-18] MEDS: ENOXAPARIN 40 MG/0.4 ML SQ SCH (08:30)
[2022-07-18] MEDS: ACETAZOLAMIDE 500 MG IV IV SCH ×2 (08:30→20:46)
[2022-07-18] MEDS: Umeclidinium Brm/Vilanterol Tr [Anoro Ellipta 62.5-25 Mcg Inh] Blst.W.D IH SCH (08:31)
[2022-07-18] MEDS: GLUCERNA SHAKE 237 ML CAN PO SCH ×2 (08:31→20:47)
--- NOTE | 2022-07-18 18:36 | P.PN ---
Subjective Date of Service: 07/18/22 Primary Care Provider: Lilia Chief Complaint: COPD exacerbation. Swelling of the right breast No acute events overnight. She reports persistent generalized weakness, but believes that she is gradually getting stronger. She was able to sit in her chair yesterday for several hours. She is awaiting placement into a [facility] facility. No new changes today. Review of Systems 10-point ROS is otherwise unremarkable General: Weakness (generalized) Physical Examination - Vital Signs Temperature: 97.6 F Blood Pressure: 131/73 Pulse: 87 Respirations: 18 Pulse Ox (%): 94 - Studies Medications List Reviewed: Yes Assessment And Plan - Plan - Physical Exam General: Alert, In no apparent distress, Oriented x3 HEENT: Atraumatic, Sclerae nonicteric Neck: JVD not distended Respiratory: Clear to auscultation bilaterally, Diminished Cardiovascular: Regular rate/rhythm, No murmurs, Edema (bilateral lower extremity lymphedema) Gastrointestinal: Normal bowel sounds, Soft, Non-distended, No tenderness Musculoskeletal: No clubbing Neurological: Normal speech, Normal affect # Anasarca suspect due to Acute Decompensated Diastolic Congestive Heart Failure with Preserved Ejection Fraction # Severe Pulmonary Hypertension # Severe Chronic Lower Extremity Lymphedema # Moderate-Severe Tricuspid Regurgitation - Consult Cardiology and spoke with Dr. Alvares - recommendations appreciated - Transthoracic echocardiogram = "1. normal left ventricular ejection fraction 60-65% with normal wall motion 2. dilated right ventricle with decreased function 3. right atrial enlargement 4. moderate to severe tricuspid regurgitation 5. severe pulmonary hypertension with right ventricular systolic pressure of 85-90 mmHg" - Diuretics changed from furosemide to acetazolamide + spironolactone due to contraction alkalosis - Daily weights - Strict I/O - Cardiac diet, 1.5 L fluid restriction, 2 g Na restriction - Wound care consulted for lymphedema - Chest x-ray = "moderate bilateral pulmonary opacities are present likely representing pulmonary edema. Pneumonia can have a similar appearance. The heart is moderately enlarged. No displaced fractures" # Right Breast Mastitis - CT chest = "quite significant edema and swelling of the right breast noted, incompletely visualized.This may be related to a generalized anasarca although full assessment is limited. Right breast ultrasound could be obtained for further evaluation. Small bilateral pleural effusions with mild ascites in the upper abdomen." - Right breast ultrasound = "marked edema throughout the superficial tissues of the right breast presumably mastitis or lymphatic obstruction. However, an inflammatory carcinoma can also have this appearance. This should be correlated clinically. If the diagnosis remains uncertain biopsy could be obtained" - Follow-up with Dr. Gregorio (Bead Filler) who recommended outpatient follow-up once CHF is treated # Chronic Respiratory Failure secondary to Chronic Obstructive Pulmonary Disease # Pulmonary Hypertension # Tobacco Use Disorder - Consulted Pulmonology and spoke with Dr. Hogue - recommendations appreciated - Does not appear to be in acute COPD exacerbation - Continue steroids and bronchodilators per Pulm # Depression with Anxiety # Dyslipidemia - Reconcile home medications once verified # Severe Deconditioning - PT/OT consulted - Appreciate CM assistance with SNF placement for continued PT No new changes today. Waiting on SNF placement. Dr. Hogue will assume care as the primary attending physician starting on 07/19/2022 @ 06:00 AM. Michael Zavala M.D.
[2022-07-18] MEDS: HYDROCODONE/APAP 7.5/325 MG TAB PO PRN (20:45)
[2022-07-18] MEDS: INSULIN GLARGINE 100 UNIT/ML SQ SCH (20:47)
[2022-07-19] MEDS: IPRATROPIUM BROM 0.5MG/2.5ML NEB SCH ×4 (01:30→20:30)
[2022-07-19] MEDS: INSULIN -REGULAR HUMAN 50 UNIT/0.5 ML ML SQ SCH ×4 (07:30→21:00)
[2022-07-19] MEDS: ARFORMOTEROL TARTRATE 15 MCG/2 ML VIAL.NEB NEB SCH ×2 (08:37→20:30)
[2022-07-19] MEDS: GLUCERNA SHAKE 237 ML CAN PO SCH ×2 (09:00→21:00)
[2022-07-19] MEDS: Umeclidinium Brm/Vilanterol Tr [Anoro Ellipta 62.5-25 Mcg Inh] Blst.W.D IH SCH (09:14)
[2022-07-19] MEDS: NICOTINE 14 MG/PAT TD SCH (09:15)
[2022-07-19] MEDS: FLUCONAZOLE 100 MG TAB PO SCH (09:16)
[2022-07-19] MEDS: predniSONE 10 MG TAB PO SCH (09:16)
[2022-07-19] MEDS: SPIRONOLACTONE 25 MG TABLET PO SCH (09:16)
[2022-07-19] MEDS: ACETAZOLAMIDE 500 MG IV IV SCH ×2 (09:17→21:29)
[2022-07-19] MEDS: ENOXAPARIN 40 MG/0.4 ML SQ SCH (09:18)
[2022-07-19] MEDS: NYSTATIN 500,000 UNIT/5 ML UDC PO SCH ×3 (09:18→21:29)
[2022-07-19] MEDS: WATER FOR INJ,STERILE 10 ML IV SCH ×2 (09:19→21:00)
[2022-07-19] MEDS ORDERED: Mastisol Adhesive Liq ONE (11:06)
--- NOTE | 2022-07-19 12:23 | P.PN ---
Subjective Date of Service: 07/19/22 Primary Care Provider: Lilia Chief Complaint: COPD exacerbation. 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 Review of Systems General: Weakness Respiratory: Shortness of Breath Physical Examination - Vital Signs Temperature: 98.2 F Blood Pressure: 115/67 Pulse: 74 Respirations: 18 Pulse Ox (%): 95 - Physical Exam General: Alert, In no apparent distress, Oriented x3 Respiratory: Clear to auscultation bilaterally, Diminished Cardiovascular: Edema - Studies Medications List Reviewed: Yes Assessment And Plan - Current Problems (Diagnosis) (1) COPD (chronic obstructive pulmonary disease) Current Visit: Yes Status: Acute Plan: COPD stable labs reviewed patient able to ambulate we will plan for discharge with home health Qualifiers: COPD type: unspecified COPD Qualified Code(s): J44.9 - Chronic obstructive pulmonary disease, unspecified (2) Mastitis Current Visit: Yes Status: Acute Plan: Condition improving to continue with antibiotics as per general surgery Physician Review: Patient Assessed, Agree with Above Assessment and Plan
--- NOTE | 2022-07-19 17:13 | PN ---
Date of Progress Note: 07/19/2022 Subjective: Patient is awake, alert, no complaint. Objective: Vital Signs: Stable. Afebrile. Breasts: Examination of the right breast reveals markedly decreased erythema, edema, and tenderness. Wound is clean, dry, and intact. Pathology report revealed no evidence of inflammatory breast cancer. It was just mastitis. Assessment: Status post biopsy of the right breast, inflammatory breast cancer ruled out. Patient has mastitis. Recommendations: Remove sutures as instructed. 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 AUGIE/MARÍA Voice ID: [id number] Report ID: [id number] CROW
[2022-07-19] MEDS: INSULIN GLARGINE 100 UNIT/ML SQ SCH (21:29)
[2022-07-19] MEDS: ACETAMINOPHEN 325 MG TABLET PO PRN (21:32)
[2022-07-20] MEDS: IPRATROPIUM BROM 0.5MG/2.5ML NEB SCH ×4 (02:00→20:00)
[2022-07-20] MEDS: INSULIN -REGULAR HUMAN 50 UNIT/0.5 ML ML SQ SCH ×4 (07:30→20:04)
[2022-07-20] MEDS: ARFORMOTEROL TARTRATE 15 MCG/2 ML VIAL.NEB NEB SCH ×2 (08:40→20:00)
[2022-07-20] MEDS: WATER FOR INJ,STERILE 10 ML IV SCH ×2 (09:00→20:05)
[2022-07-20] MEDS: GLUCERNA SHAKE 237 ML CAN PO SCH ×2 (09:00→20:35)
[2022-07-20] MEDS: NYSTATIN 500,000 UNIT/5 ML UDC PO SCH (09:00)
[2022-07-20] MEDS: FLUCONAZOLE 100 MG TAB PO SCH (09:00)
[2022-07-20] MEDS: ACETAZOLAMIDE 500 MG IV IV SCH (09:00)
--- NOTE | 2022-07-20 09:03 | P.PN ---
Subjective Date of Service: 07/20/22 Primary Care Provider: Lilia Chief Complaint: COPD and mastitis with weakness Condition stable station feels a little wobbly off balance weak shortness of breath has improved the right breast is bone char kiln tender swelling is decreased Review of Systems General: Weakness Respiratory: Shortness of Breath Physical Examination - Vital Signs Temperature: 97.2 F Blood Pressure: 115/64 Pulse: 70 Respirations: 17 Pulse Ox (%): 96 - Physical Exam General: Alert, In no apparent distress, Oriented x3 Respiratory: Clear to auscultation bilaterally, Diminished Cardiovascular: Normal S1 S2, Edema Integumentary: Other (Right breast swelling is decreased is some redness) - Studies Medications List Reviewed: Yes Assessment And Plan - Current Problems (Diagnosis) (1) COPD (chronic obstructive pulmonary disease) Current Visit: Yes Status: Acute Plan: COPD stable oxygenation satisfactory awaiting disposition to rehab facility shelter patient complaining of problems with her ear DC Diamox for now Qualifiers: COPD type: unspecified COPD Qualified Code(s): J44.9 - Chronic obstructive pulmonary disease, unspecified (2) Mastitis Current Visit: Yes Status: Acute Plan: Continue with clindamycin as per general surgery Physician Review: Patient Assessed, Agree with Above Assessment and Plan
[2022-07-20] MEDS: ENOXAPARIN 40 MG/0.4 ML SQ SCH (09:16)
[2022-07-20] MEDS: NICOTINE 14 MG/PAT TD SCH (09:17)
[2022-07-20] MEDS: SPIRONOLACTONE 25 MG TABLET PO SCH (09:17)
[2022-07-20] MEDS: predniSONE 10 MG TAB PO SCH (09:17)
[2022-07-20] MEDS: Umeclidinium Brm/Vilanterol Tr [Anoro Ellipta 62.5-25 Mcg Inh] Blst.W.D IH SCH (09:18)
[2022-07-20] MEDS: INSULIN GLARGINE 100 UNIT/ML SQ SCH (20:34)
[2022-07-20] MEDS: MORPHINE 2 MG/ML SYR IV PRN (21:30)
[2022-07-21] MEDS: IPRATROPIUM BROM 0.5MG/2.5ML NEB SCH ×4 (02:00→20:05)
[2022-07-21] MEDS: INSULIN -REGULAR HUMAN 50 UNIT/0.5 ML ML SQ SCH ×4 (07:30→20:44)
[2022-07-21 07:33] LABS: Phosphorus 2.6 mg/dL (2.5-4.9); Potassium 4.5 mmol/L (3.5-5.1)
[2022-07-21] MEDS: NICOTINE 14 MG/PAT TD SCH (08:20)
[2022-07-21] MEDS: SPIRONOLACTONE 25 MG TABLET PO SCH (08:21)
[2022-07-21] MEDS: predniSONE 10 MG TAB PO SCH (08:21)
[2022-07-21] MEDS: ENOXAPARIN 40 MG/0.4 ML SQ SCH (08:22)
[2022-07-21] MEDS: GLUCERNA SHAKE 237 ML CAN PO SCH ×2 (08:22→20:44)
[2022-07-21] MEDS: ARFORMOTEROL TARTRATE 15 MCG/2 ML VIAL.NEB NEB SCH ×2 (08:30→20:05)
[2022-07-21] MEDS: WATER FOR INJ,STERILE 10 ML IV SCH ×2 (09:00→20:45)
[2022-07-21] MEDS ORDERED: acetaZOLAMIDE 250 MG TAB PO SCH (09:00)
[2022-07-21] MEDS: Umeclidinium Brm/Vilanterol Tr [Anoro Ellipta 62.5-25 Mcg Inh] Blst.W.D IH SCH (09:00)
[2022-07-21] MEDS: INSULIN GLARGINE 100 UNIT/ML SQ SCH (20:44)
[2022-07-21] MEDS: MORPHINE 2 MG/ML SYR IV PRN (22:56)
[2022-07-22] MEDS: IPRATROPIUM BROM 0.5MG/2.5ML NEB SCH ×4 (02:25→20:05)
[2022-07-22 06:14] LABS: Potassium 4.3 mmol/L (3.5-5.1)
[2022-07-22] MEDS: INSULIN -REGULAR HUMAN 50 UNIT/0.5 ML ML SQ SCH ×4 (07:30→21:00)
[2022-07-22] MEDS: ARFORMOTEROL TARTRATE 15 MCG/2 ML VIAL.NEB NEB SCH ×2 (08:00→20:05)
[2022-07-22] MEDS: SPIRONOLACTONE 25 MG TABLET PO SCH (08:42)
[2022-07-22] MEDS: predniSONE 10 MG TAB PO SCH (08:42)
[2022-07-22] MEDS: ENOXAPARIN 40 MG/0.4 ML SQ SCH (08:43)
[2022-07-22] MEDS: GLUCERNA SHAKE 237 ML CAN PO SCH ×2 (08:43→21:00)
[2022-07-22] MEDS: NICOTINE 14 MG/PAT TD SCH (08:45)
[2022-07-22] MEDS: Umeclidinium Brm/Vilanterol Tr [Anoro Ellipta 62.5-25 Mcg Inh] Blst.W.D IH SCH (08:46)
[2022-07-22] MEDS: WATER FOR INJ,STERILE 10 ML IV SCH ×2 (08:48→21:00)
[2022-07-22] MEDS: ACETAMINOPHEN 325 MG TABLET PO PRN (22:31)
[2022-07-22] MEDS: MORPHINE 2 MG/ML SYR IV PRN (22:32)
[2022-07-22] MEDS: INSULIN GLARGINE 100 UNIT/ML SQ SCH (22:34)
--- NOTE | 2022-07-22 22:38 | P.PN ---
Date of Service: 07/22/22 Subjective Patient is a 61-year-old female who was admitted to our hospital with shortness of breath and acute COPD exacerbation. Patient has morbid obesity with obstructive sleep apnea. Patient has significant respiratory hypercapnia but she has metabolic compensation. Patient with significant metabolic alkalosis and was started with intravenous acetazolamide. We were able to get patient out of bed into the chair yesterday. She sat in a chair for a couple hours. Nursing staff was able to get her back in the bed. She states she is regaining her strength but it is very slow. She has significant muscular atrophy. We're waiting for possible transfer to [facility]. Continue with wound care of the lower extremities as well. Patient with severe pulmonary hypertension. Pulmonary consultation. Patient may benefit from sildenafil. according to case management patient has been set up for home oxygen and patient is stable for discharge. Will make arrangements for discharge with family. Will get ambulance transfer. Review of Systems 10-point ROS is otherwise unremarkable Physical Examination - Vital Signs reviewed - Physical Exam General: Alert, In no apparent distress Respiratory: Clear to auscultation bilaterally, Normal air movement Cardiovascular: Regular rate/rhythm, Normal S1 S2 Gastrointestinal: Normal bowel sounds, No tenderness Neurological: Normal speech, Normal tone, Normal affect Assessment & Plan - Problems (Diagnosis) (1) COPD (chronic obstructive pulmonary disease) Current Visit: Yes Status: Acute Qualifiers: COPD type: unspecified COPD Qualified Code(s): J44.9 - Chronic obstructive pulmonary disease, unspecified (2) Acute and chronic respiratory failure with respiratory hypercapnia with metabolic alkalosis Onset Date: 07/11/22 Current Visit: No Status: Acute Qualifiers: Respiratory failure complication: hypoxia Qualified Code(s): J96.21 - Acute and chronic respiratory failure with hypoxia (3) Lymphedema Onset Date: 07/09/22 Current Visit: No Status: Acute (4) Tinea unguium Current Visit: Yes Status: Acute (5) Obesity, morbid with obstructive sleep apnea Onset Date: 08/27/16 Current Visit: No Status: Chronic (6) Pulmonary hypertension Onset Date: 07/09/22 Current Visit: No Status: Acute (7) Odynophagia Onset Date: 07/12/22 Current Visit: No Status: Acute - Plan Continue with POC as mentioned below 1. Continue with intravenous acetazolamide 2. Continue with physical therapy; waiting on placement at prison facility ([facility]; or swing [facility]) 3. Awaiting possible prison facility placement 4. Pathology report revealed mastitis with no malignancy 5. Diuresing and monitor renal function 6. Echocardiogram reviewed patient with severe pulmonary hypertension with right ventricular dilatation 7. Continue with wound care for the lower extremity 8. Continue with physical therapy 9. Antifungal and nystatin swish and swallow 10. GI/DVT prophylaxis
[2022-07-23] MEDS: IPRATROPIUM BROM 0.5MG/2.5ML NEB SCH (01:40)
[2022-07-23 02:42] VITALS: O2SAT 96
[2022-07-23 04:52] LABS: Absolute Lymphocytes (CBC) 1.7 K/uL (0.7-4.9); Hematocrit 39.7 % (36.0-45.0); Lymphocytes % 26.1 % (15.3-44.8); MCV 85.3 fL (80-100); MPV 9.4 fL (7.6-11.3); RBC Red Blood Cell Count 4.66 M/uL (3.86-4.86)
[2022-07-23 05:05] LABS: Albumin 2.7 g/dL (3.4-5.0); Bilirubin Total 0.5 mg/dL (0.2-1.0); Potassium 4.6 mmol/L (3.5-5.1)
[2022-07-23] MEDS: INSULIN -REGULAR HUMAN 50 UNIT/0.5 ML ML SQ SCH (07:30)
[2022-07-23] MEDS: WATER FOR INJ,STERILE 10 ML IV SCH (09:00)
[2022-07-23] MEDS: Umeclidinium Brm/Vilanterol Tr [Anoro Ellipta 62.5-25 Mcg Inh] Blst.W.D IH SCH (09:00)
[2022-07-23] MEDS: GLUCERNA SHAKE 237 ML CAN PO SCH (09:00)
[2022-07-23] MEDS: predniSONE 10 MG TAB PO SCH (09:56)
[2022-07-23] MEDS: SPIRONOLACTONE 25 MG TABLET PO SCH (09:56)
[2022-07-23] MEDS: NICOTINE 14 MG/PAT TD SCH (09:57)
[2022-07-23] MEDS: ENOXAPARIN 40 MG/0.4 ML SQ SCH (09:57)
[2022-07-23 10:16] VITALS: BP 133/79; TEMP 98.3
== END 2022-07-23 11:51 | disposition home health service (06) | DRG 987 ==
LOC: ER 14:34 → ERHOLD 17:12 → 4TH 18:23 → 2ND 07-20 16:29
PROVIDERS: ADMIT Internal Medicine; ATTEND Hospitalist
PROC: 0HBT0ZX Excision of Right Breast, Open Approach, Diagnostic (ICD-10-PCS; principal; 2022-07-08 09:00)
DX: I11.0 Hypertensive heart disease with heart failure (principal); E43 Unspecified severe protein-calorie malnutrition; J96.21 Acute and chronic respiratory failure with hypoxia; I50.33 Acute on chronic diastolic (congestive) heart failure; R18.8 Other ascites; I87.319 Chronic venous hypertension (idiopathic) with ulcer of unspecified lower extremity; R65.10 Systemic inflammatory response syndrome (SIRS) of non-infectious origin without acute organ dysfunction; E87.3 Alkalosis; E11.9 Type 2 diabetes mellitus without complications; E78.5 Hyperlipidemia, unspecified; E66.01 Morbid (severe) obesity due to excess calories; I27.20 Pulmonary hypertension, unspecified; J44.9 Chronic obstructive pulmonary disease, unspecified; F41.8 Other specified anxiety disorders; G47.33 Obstructive sleep apnea (adult) (pediatric); E87.5 Hyperkalemia; K43.9 Ventral hernia without obstruction or gangrene; I07.1 Rheumatic tricuspid insufficiency; I89.0 Lymphedema, not elsewhere classified; N61.0 Mastitis without abscess; B35.1 Tinea unguium; T50.1X6A Underdosing of loop [high-ceiling] diuretics, initial encounter; R13.10 Dysphagia, unspecified; Z88.1 Allergy status to other antibiotic agents; Z79.4 Long term (current) use of insulin; Z79.52 Long term (current) use of systemic steroids; Z68.38 Body mass index [BMI] 38.0-38.9, adult; Z99.81 Dependence on supplemental oxygen; Z91.14 Patient's other noncompliance with medication regimen; Z86.14 Personal history of Methicillin resistant Staphylococcus aureus infection; Z91.128 Patient's intentional underdosing of medication regimen for other reason; Z90.710 Acquired absence of both cervix and uterus; Z79.899 Other long term (current) drug therapy; Z20.822 Contact with and (suspected) exposure to COVID-19
CPT/HCPCS: 36415; 71045; 71260; 74018; 76641; 80048; 80053; 80061; 81001; 82947; 83735; 83880; 84100; 84484; 85025; 87811; 88305; 93005; 93306; 97110; 97112; 97116; 97161; 97165; 97530; 99283; J0690; J1100; J1120; J1650; J1815; J1940; J2001; J2250; J2270; J2405; J2550; J2704; J2765; J2920; J2930; J3010; J3475; J7030; J7512; J7605; J7613; J7644; P9047; Q9967

== ENCOUNTER 2022-07-30 07:42 | Emergency (ER) | payer OTHER ==
--- OUTSIDE RECORDS SUMMARY | 2022-07-30 07:46 | XMS REPORT | Continuity of Care Document ---
:1960 Author Organization [facility] t Address [address] [facility] [address] [place] [address] Care Team Providers Name Role Phone Traci Rodrigues Primary Care Physician Traci Rodrigues Attending Clinician Unavailable Doctor Unassigned, [place] Attending Clinician Unavailable IRAIDA SOLOMON Attending Clinician Unavailable Iraida Solomon MD Attending Clinician [facility], Orthopedic Attending Clinician UnavailEMEKA iLn Attending Clinician Unavailable Emeka French MD Attending Clinician Radha Aguirre RN Attending Clinician Flakito Garcia MD Attending Clinician Tomas Pelayo DO Attending Clinician Teqwnichole SCHILLING, Rick Attending Clinician RAJIIMREGINO, RICK Attending Clinician Unavailable EMEKA FRENCH Admitting Clinician Unavailable Martin SCHILLING, Rick Admitting Clinician TEQWIMREGINO, RICK Admitting Clinician Unavailable Payers Payer Name Policy Type Policy Number Effective Date Expiration Date S nevillerain [employer] 6 [id number] 2019 Common Spiri t Blue Shield of 00:00:00 - [facility] Problems Condition Condition Condition Status Onset Resolution Last Treating Co mments Source Name Details Category Date Date Treatment Clinician Date 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 U nivers y failure y failure 06-29 ity of with with 00:00: [place] hypoxia hypoxia 00 Medical Branch Hyperglyce Hyperglyce Disease Active 2020-06 U nivers [facility] 06-29 ity of 00:00: [place] 00 Medical Branch 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 U nivers y failure y failure 06-29 ity of with with 00:00: [place] hypercapni hypercapni 00 Me dical a a Branch 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 U nivers y failure y failure 06-29 ity of 00:00: [place] 00 Medical [place] [id number] COPD with Problem Active Com mon exacerbati Spirit on [facility] [id number] Mixed Problem Active Common hyperlipid Spirit emia [facility] [id number] Serum Problem Active Common calcium Spirit elevated [facility] [id number] snf Problem Active Com mon (current) Spirit use of [facility] [employer] [facility] insulin [facility] [id number] Type 2 Problem Active Common diabetes Spirit mellitus - [facility] with [facility] Allergic Allergic Problem Active Commo n rhinitis rhinitis, Spiri t unspecifie - [facility] d [facility] Chronic Chronic Problem Active Common obstructiv obstructiv Sp milton e e - [facility] pulmonary pulmonary [facility] Type II Diabetes Problem Active Common diabetes mellitus Spirit mellitus type II, - [facility] uncontroll uncontroll [facility] Lymphedema Lymphedema Problem Active C ommon [facility] Allergies, Adverse Reactions, Alerts Allergy Allergy Status Severity Reaction(s) Onset Inactive Treating Comm ents Source Name Type Date Date Clinician Sulfa Propensi Active Unknown - 2020-06 Unive rs Dyne ty to See comments 06-29 ity of adverse 00:00: [place] reaction 00 Medical s Branch levoflox levoflox Active dizziness, Co mmon acin acin [facility] Social History Social Habit Start Date Stop Date Quantity Comments Source History of Tobacco Current Smoker Co mmon Spirit - Use [facility] Sex Assigned At [birth year] [facility] 00:00:00 00:00:00 [facility] Smoking Status Start Date Stop Date Source Tobacco smoking consumption Univ [facility] [place] Medical unknown Branch Current Smoker 2021-11-02 00:00:00 Common Spiri t - [facility] Ce nter Medications Ordered Filled Start Stop Current Ordering Indication Dosage Frequency Signature Comments Components Source Medication Medication Date Date Medication? Clinician (SIG) Name Name Mary Hernandez No 1{table QD Rosuvastat n Calcium n Calcium 6- t} in Calcium 10 MG 10 MG [...] by mouth ity of (FARXIGA) 11:57: daily. [place] 10 mg 37 Medical tablet Branch prednisoLON 2020-06 Yes 10mg Take 10 mg Univers E 5 mg 2-19 by mouth ity of tablet 11:57: daily. [address] furosemide 2020-06 Yes 40mg Take 40 mg U nivers (LASIX) 40 2-19 by mouth ity o f mg tablet 11:57: daily. [address] Branch doxepin 25 2020-06 Yes 25mg Take 25 mg U nivers mg capsule 2-19 by mouth ity o f 11:57: daily. [address] montelukast 2020-06 Yes 10mg Take 10 mg Univers (SINGULAIR) 2-19 by mouth ity of 10 mg 11:57: daily. [address] budesonide/ 2020-06 Yes 2{puff} Inhale 2 Univers glycopyr/fo 2-19 Puffs 2 ity o f rmoterol 11:57: (two) [place] (BREZTRI 37 times Medical AEROSPHERE daily. Branch INHALE) insulin 2020-06 Yes inject Univers glargine,hu 2-19 under the ity of m.rec.anlog 11:57: skin. [place] (BASAGLAR [address] [place] [address] KWIKPEN [place] U-100 INSULIN SC) ALBUTEROL, 2020-06 Yes 2{puff} Inhale 2 Univers REFILL, 2-19 Puffs ity of INHALE 11:57: every [address] [place] [address] (six) Medical [facility]. [place] dapaglifloz 2020-06 Yes 10mg Take 10 mg Univers in 2-19 by mouth ity of (FARXIGA) 11:57: daily. [place] [address] prednisoLON 2020-06 Yes 10mg Take 10 mg Univers E 5 mg 2-19 by mouth ity of tablet 11:57: daily. [address] furosemide 2020-06 Yes 40mg Take 40 mg U nivers (LASIX) 40 2-19 by mouth ity o f mg tablet 11:57: daily. [address] doxepin 25 2020-06 Yes 25mg Take 25 mg U nivers mg capsule 2-19 by mouth ity o f 11:57: daily. [address] montelukast 2020-06 Yes 10mg Take 10 mg Univers (SINGULAIR) 2-19 by mouth ity of 10 mg 11:57: daily. [address] budesonide/ 2020-06 Yes 2{puff} Inhale 2 Univers glycopyr/fo 2-19 Puffs 2 ity o f rmoterol 11:57: (two) [place] (BREZTRI 37 times Medical AEROSPHERE daily. Branch INHALE) insulin 2020-06 Yes inject Univers glargine,hu 2-19 under the ity of .rec.anlog 11:57: skin. [place] (BASAGLAR 37 [facility] KWPEN [place] U-100 INSULIN SC) ALBUTEROL, 2020-06 Yes 2{puff} Inhale 2 Univers REFILL, 2-19 Puffs ity of INHALE 11:57: every [address] [place] [address] (six) Medical hours. Branch dapaglifloz 2020-06 Yes 10mg Take 10 mg Univers in 2-19 by mouth ity of (FARXIGA) 11:57: daily. [place] 10 mg Medical tablet Branch prednisoLON 2020-06 Yes 10mg Take 10 mg Univers E 5 mg 2-19 by mouth ity of tablet 11:57: daily. [address] furosemide 2020-06 Yes 40mg Take 40 mg U nivers (LASIX) 40 2-19 by mouth ity o f mg tablet 11:57: daily. [address] doxepin 25 2020-06 Yes 25mg Take 25 mg U nivers mg capsule 2-19 by mouth ity o f 11:57: daily. [address] montelukast 2020-06 Yes 10mg Take 10 mg Univers (SINGULAIR) 2-19 by mouth ity of 10 mg 11:57: daily. [address] budesonide/ 2020-06 Yes 2{puff} Inhale 2 Univers glycopyr/fo 2-19 Puffs 2 ity o f rmoterol 11:57: (two) [place] (BREZTRI 37 times Medical AEROSPHERE daily. Branch INHALE) insulin 2020-06 Yes inject Univers glargine,hu 2-19 under the ity of .rec.anlog 11:57: skin. [place] ([facility]AGLAR [address] [place] [address] U-100 INSULIN SC) ALBUTEROL, 2020-06 Yes 2{puff} Inhale 2 Univers REFILL, 2-19 Puffs ity of INHALE 11:57: every [address] [place] [address] (six) Medical hours. Branch dapaglifloz 2020-06 Yes 10mg Take 10 mg Univers in 2-19 by mouth ity of (FARXIGA) 11:57: daily. [place] 10 mg Medical tablet Branch prednisoLON 2020-06 Yes 10mg Take 10 mg Univers E 5 mg 2-19 by mouth ity of tablet 11:57: daily. [address] furosemide 2020-06 Yes 40mg Take 40 mg U nivers (LASIX) 40 2-19 by mouth ity o f mg tablet 11:57: daily. [address] doxepin 25 2020-06 Yes 25mg Take 25 mg U nivers mg capsule 2-19 by mouth ity o f 11:57: daily. [address] montelukast 2020-06 Yes 10mg Take 10 mg Univers (SINGULAIR) 2-19 by mouth ity of 10 mg 11:57: daily. [address] budesonide/ 2020-06 Yes 2{puff} Inhale 2 Univers glycopyr/fo 2-19 Puffs 2 ity o f rmoterol 11:57: (two) [place] (BREZTRI 37 times Medical AEROSPHERE daily. Branch INHALE) insulin 2020-06 Yes inject Univers glargine,hu 2-19 under the ity of mMikhailrec.anlog 11:57: skin. [place] (BASAGLAR Medical KWIKPEN [place] U-100 INSULIN SC) ALBUTEROL, 2020-06 Yes 2{puff} Inhale 2 Univers REFILL, 2-19 Puffs ity of INHALE 11:57: every [address] [place] [address] (six) Medical hours. Branch Basaglar Basaglar No QD Basaglar KwikPen 100 KwikPen 100 -02 KwikPen UNIT/ML UNIT/ML 00:00: 100 00 UNIT/ML Pen [place] Pen [place] No QD Pen 32G X 4 MM 32G X 4 MM 10-05 [place] 00:00: 32G X 4 MM 00 Pen [place] Pen [place] No QD Pen 32G X 4 MM 32G X 4 MM 10-05 [place] 00:00: 32G X 4 MM 00 Lantus Lantus No QD Lantus SoloStar SoloStar 10-05 SoloStar 100 UNIT/ML 100 UNIT/ML 00:00: 100 00 UNIT/ML Pen [place] Pen [place] No QD Pen 32G X 4 MM 32G X 4 MM - [place] 00:00: 32G X 4 MM 00 Pen [place] Pen [place] No QD Pen 32G X 4 MM 32G X 4 MM - [place] 00:00: 32G X 4 MM 00 Pen [place] Pen [place] 2020-0 No QD Pen 32G X 4 MM 32G X 4 MM 06 [place] 00:00: 32G X 4 MM 00 OneTouch OneTouch No OneTouch Delica Plus Delica Plus Delica Giewvw20P - Sihnlh92M - Plus Odprhn79T - Atorvastati Atorvastati No 1{table QD Atorvastat [...] No OneTouch Delica Plus Delica Plus Delica Qjlqga60F - Uhrpja48S - Plus Ospyeo95F - Atorvastati Atorvastati No 1{table QD Atorvastat [...] No OneTouch Delica Plus Delica Plus Delica Nhrovi67B - Csbejr52N - Plus Ditanx74H - Furosemide Furosemide No Furosemide 40 MG [...] No OneTouch Delica Plus Delica Plus Delica Bibldt61L - Izlcbs41P - Plus Uaopkt09Z - Spironolact Spironolact No 1{table Spironolac one [...] No OneTouch Delica Plus Delica Plus Delica Pogfgi21L - Znzipt99Y - Plus Jsqhin91H - OneTouch OneTouch No OneTouch Ultra - [...] No OneTouch Delica Plus Delica Plus Delica Ghxxfy91L - Yusnni99M - Plus Uzessh94Z - Basaglar Basaglar No QD Basaglar KwikPen [...] No OneTouch Delica Plus Delica Plus Delica Klocjb45C - Fpwzij61J - Plus Ugrqtk70Y - Furosemide Furosemide No Furosemide 40 MG [...] 1{appli BID Ammonium Lactate 12 Lactate 12 - cation} Lactate 12 % % 00:00 % :00 Immunizations Ordered Filled Immunization Date Status Comments [facility] e Immunization Name Name SARS-COV-2 COVID-19 2020-08-27 Completed Unive rsity of MODERNA VACCINE 00:00:00 [facility] ical Branch SARS-COV-2 COVID-19 2020-08-27 Completed Unive rsity of MODERNA VACCINE 00:00:00 [facility] ical Branch SARS-COV-2 COVID-19 2020-08-27 Completed Unive rsity of MODERNA VACCINE 00:00:00 [facility] ical Branch SARS-COV-2 COVID-19 2020-08-27 Completed Unive rsity of MODERNA 12+ YRS 00:00:00 [facility] ical VACCINE Branch SARS-COV-2 COVID-19 2020-07-30 Completed Unive rsity of MODERNA VACCINE 00:00:00 [facility] ical Branch SARS-COV-2 COVID-19 2020-07-30 Completed Unive rsity of MODERNA VACCINE 00:00:00 [facility] ical Branch SARS-COV-2 COVID-19 2020-07-30 Completed Unive rsity of MODERNA VACCINE 00:00:00 [facility] ical Branch SARS-COV-2 COVID-19 2020-07-30 Completed Unive rsity of MODERNA 12+ YRS 00:00:00 [facility] ical VACCINE Branch Vital Signs Vital Name Observation Time Observation Value Comments Source height 2021-11-05 11:00:00 62 [in_i] [facility] weight 2021-11-05 11:00:00 180.6 [lb_av] Common Spirit - [facility] temperature 2021-11-05 11:00:00 97.3 [degF] Common [facility] bmi 2021-11-05 11:00:00 33.03 kg/m2 Common [facility] oximetry 2021-11-05 11:00:00 93 % Common [facility] respiratory rate 2021-11-05 11:00:00 18 /min Comm on [facility] blood pressure 2021-11-05 11:00:00 138 mm[Hg] Common [facility] - systolic [facility] blood pressure 2021-11-05 11:00:00 89 mm[Hg] Common [facility] - diastolic [facility] Systolic blood 2021-09-03 21:24:00 139 mm[Hg] Univer sity of [facility] Diastolic blood 2021-09-03 21:24:00 71 mm[Hg] Unive rsity of [facility] Heart rate 2021-09-03 21:24:00 82 /min [facility] Body height 2021-09-03 21:24:00 157.5 cm [facility] Body weight 2021-09-03 21:24:00 77.565 kg [facility] BMI 2021-09-03 21:24:00 31.28 kg/m2 [facility] height 2021-09-03 13:20:00 62 [in_i] Common [facility] weight 2021-09-03 13:20:00 171 [lb_av] Common [facility] temperature 2021-09-03 13:20:00 98.1 [degF] Common [facility] bmi 2021-09-03 13:20:00 31.27 kg/m2 Common [facility] oximetry 2021-09-03 13:20:00 96 % Common [facility] respiratory rate 2021-09-03 13:20:00 20 /min Comm on [facility] blood pressure 2021-09-03 13:20:00 136 mm[Hg] Common [facility] - systolic [facility] blood pressure 2021-09-03 13:20:00 70 mm[Hg] Common [facility] - diastolic [facility] height 2021-05-29 09:00:00 62 [in_i] Common [facility] weight 2021-05-29 09:00:00 155.2 [lb_av] Common [facility] temperature 2021-05-29 09:00:00 98.4 [degF] [facility] bmi 2021-05-29 09:00:00 28.38 kg/m2 [facility] oximetry 2021-05-29 09:00:00 90 % Common [facility] respiratory rate 2021-05-29 09:00:00 16 /min Comm on [facility] blood pressure 2021-05-29 09:00:00 130 mm[Hg] Common [facility] - systolic [facility] blood pressure 2021-05-29 09:00:00 72 mm[Hg] Common [facility] diastolic [facility] height 2021-03-12 11:00:00 62 [in_i] Common [facility] weight 2021-03-12 11:00:00 168 [lb_av] Common [facility] temperature 2021-03-12 11:00:00 98.6 [degF] [facility] bmi 2021-03-12 11:00:00 30.72 [facility]m2 [facility] oximetry 2021-03-12 11:00:00 95 % [facility] respiratory rate 2021-03-12 11:00:00 20 /min Comm on [facility] height 2021-01-09 09:00:00 62 [in_i] Common [facility] weight 2021-01-09 09:00:00 180 [lb_av] [facility] temperature 2021-01-09 09:00:00 98.5 [degF] Common S pirit [facility] bmi 2021-01-09 09:00:00 32.92 kg/m2 Common [facility] oximetry 2021-01-09 09:00:00 95 % Common [facility] respiratory rate 2021-01-09 09:00:00 18 /min Comm on [facility] blood pressure 2021-01-09 09:00:00 107 mm[Hg] Common [facility] - systolic [facility] blood pressure 2021-01-09 09:00:00 63 mm[Hg] Common [facility] - diastolic [facility] height 2020-12-01 13:20:00 62 [in_i] [facility] weight 2020-12-01 13:20:00 180 [lb_av] [facility] temperature 2020-12-01 13:20:00 98.2 [degF] [facility] bmi 2020-12-01 13:20:00 32.92 kg/m2 Common [facility] oximetry 2020-12-01 13:20:00 96 % Common [facility] respiratory rate 2020-12-01 13:20:00 22 /min Comm on [facility] blood pressure 2020-12-01 13:20:00 122 mm[Hg] Common [facility] - systolic [facility] blood pressure 2020-12-01 13:20:00 72 mm[Hg] Common [facility] diastolic [facility] Procedures Procedure Date / Time Performing Clinician Source Performed AUTHORIZATION FOR 2022-04-10 06:01:00 [facility] Medical Branch AUTHORIZATION FOR 2021-12-31 05:01:00 [facility]igned, [facility] Name Medical Branch Encounters Start End Encounter Admission Attending Care Care Encounter Source Date/Time Date/Time Type Type Clinicians Facility Department ID 2022-07-24 Outpatient PAMELA Rodrigues [facility] [id number] Common 13:34:00 Traci [id number] [facility] 2021-11-01 Outpatient [place], STLMLC STLMLC [id number] Common 09:06:01 Traci [facility] 2021-08-30 Outpatient [place], STLMLC STLMLC [id number] Common 09:21:02 Traci [facility] 2021-06-27 Outpatient [place], STLMLC STLMLC [id number] Common 14:29:07 Traci [id number] [facility] 2021-06-27 Outpatient [place], STLMLC STLMLC [id number] Common 14:01:48 Traci [id number] [facility] 2021-06-27 Outpatient [place], STLMLC STLC [id number] Common 13:59:50 Traci [id number] [facility] 2021-06-27 Outpatient [place], STLMLC STLMLC [id number] Common 13:21:38 Traci 16925 [facility] 2021-06-27 Outpatient [place], STLMLC STLC [id number] Common 13:03:46 Traci [id number] [facility] 2021-06-27 Outpatient [place], STLMLC STLC [id number] Common 13:00:11 Traci [id number] [facility] 2022-04-10 2022-04-10 Orders Doctor MIRIAM [id number] Univers 00:00:00 00:00:00 Only Unassigned, ANNA [id number] ity of [place] [facility] [id number] [place] as [phone] [facility] vanessa 009 Branch 2021-12-31 2021-12-31 Orders Doctor MIRIAM [id number] Univers 00:00:00 00:00:00 Only Unassigned, ANNA [id number] ity of [place] [facility] [id number] [place] as [phone] [facility] vanessa 009 Branch 2021-11-05 2021-11-05 [facility] [id number] Co mmon 00:00:00 00:00:00 VISIT EST Spir it PT LEVEL 3 - CHI [facility] 2021-09-03 2021-09-03 Outpatient R NEHA [facility] [id number] Univers 16:00:00 16:47:39 IRAIDA itgénesis [facility] 2021-09-03 2021-09-03 [facility] [id number] Univers 16:00:00 16:47:39 Visit Iraida [facility] [id number] it y of [place] [id number] [place] as JUN?BLEA [phone] Sc syedagianfranco RODRÍGUEZ [address] [place] [address] MEDICAL OFFICE BUILDING 2021-09-03 2021-09-03 [facility] [id number] Co mmon 00:00:00 00:00:00 VISIT EST Spir it PT LEVEL 3 - [facility] 2021-09-03 2021-09-03 Orders Doctor MIRIAM [id number] Univers 00:00:00 00:00:00 Only Unassigned, ANNA [id number] ity of [place] [facility] [id number] [place] as [phone] [facility] [address] [place] 2021-07-04 2021-07-04 Letter Orthopedic [facility] [id number] Univers 00:00:00 00:00:00 (Out) Clinic SPECIALTY [id number] ity of [id number] [id number] Sc syedagianfranco CURRY [address] [place] [address] 2021-07-01 2021-07-01 Emergency X [facility] ERT [id number] Univers 03:18:00 07:32:00 CINDYLI ity [facility] 2021-07-01 2021-07-01 Emergency [facility] [id number] Univers 03:18:00 07:32:00 Emeka Booker BARBIE [id number] ity of [place] [id number] [place] [phone] [facility] [address] [place] 2021-05-29 2021-05-29 OFFICE STLMLC STLMLC [id number] Co mmon 00:00:00 00:00:00 VISIT Spirit ESTAB PT - CHI LEVEL 4 [facility] 2021-05-22 2021-05-22 Transition JARED Aguirre [id number] Univers 00:00:00 00:00:00 of Care Radha WOLF [id number] i ty of [place] [id number] [facility] [phone] [facility] 403 Branch 2021-04-29 2021-05-20 [facility] Flakito Garcia [facility] [id number] Univers 08:46:00 11:57:00 Encounter Tomas Pelayo [facility] [id number] ity of [place] [id number] [facility] [place] [phone] [facility] 109 Branch ([facility]) 2021-04-29 2021-05-20 Inpatient X MARTIN [facility] KELBY [id number] Univers 08:46:00 11:57:00 RICK ity of [facility] 2021-05-14 2021-05-14 (TEL) STLMLC STLMLC [id number] Co mmon 00:00:00 00:00:00 [facility] 2021-03-12 2021-03-12 OFFICE STLMLC STLMLC [id number] Co mmon 00:00:00 00:00:00 VISIT EST Spir it PT LEVEL 3 - [facility] 2021-01-09 2021-01-09 OFFICE STLMLC STLMLC [id number] Co mmon 00:00:00 00:00:00 VISIT EST Spir it PT LEVEL 3 - [facility] 2020-12-01 2020-12-01 OFFICE STLMLC STLMLC [id number] Co mmon 00:00:00 00:00:00 VISIT EST Spir it PT LEVEL 3 - [facility] 2020-11-06 2020-11-06 Outpatient STLMLC STLMLC [id number] Common 00:00:00 00:00:00 [facility] 2020-10-18 2020-10-18 Outpatient STLMLC STLMLC [id number] Common 00:00:00 00:00:00 [facility] 2020-10-05 2020-10-05 Outpatient [facility] [id number] Common 00:00:00 00:00:00 [facility] Results Test Description Test Time Test Comments Results Result Comments Source CALCIUM, IONIZED 2022-01-14 15:48:41 Test Item Value Reference Range Interpretation Comme nts CALCIUM, IONIZED (test code = 5.45 MG/DL 4.70-5.90 UNLESS OTHERWISE INDICATED, ALL 24515) TESTING PERFORM ED ATCLINICAL PATHOLOGY [employer]. [address] [place] [address] LABORATORY DIRE CTOR: DEON BURCH M.D. CLIA NUMBER [id number] [facility] [place]. [id number] COMPREHENSIVE METABOLIC [id number] 05:48:51 Test Item Value Reference Range Interpretation Comments GLUCOSE (test code = 267 MG/DL 70-99 H 2216) BUN (test code = 14 MG/DL 8-23 2207) CREATININE (test 0.53 MG/DL 0.60-1.30 L code = 2214) eGFR (2020 CKD-EPI) 106 >60 (test code = 18307) ML/MIN/1.73 CALC BUN/CREAT (test 26 RATIO 6-28 code = 2235) SODIUM (test code = 141 MEQ/L 277-259 4418) POTASSIUM (test code 4.6 MEQ/L 3.5-5.4 = 8) CHLORIDE (test code 101 MEQ/L 95-107 = [...] PHOSPHATASE 129 U/L 40-136 (test code = 2203) AST (test code = 18 U/L 9-40 8) ALT (test code = 23 U/L 5-40 UNLESS OTH ERWISE 2219) INDICATED, ALL TESTING PERFORM ED ATCLINICAL PATH [facility]. [address] [place] [id number] [place] [address] DIRECTOR: DEON BURCH M.D. CLIA NUMBER [id number] CAP ACCREDITATION N O. [id number] HEMOGLOBIN [id number] 04:06:00 Test Item Value Reference Range Interpretation Comments HEMOGLOBIN A1c (test 8.0 % 4.2-5.6 H AMERIC AN DIABETES code = 12980) ASSOCIATION IDELINES FOR HGB A1C: PREDIABETES/INC REASED [...] LABORATORY C ONSULTATION. CBC W/AUTO DIFF WITH [id number] 01:54:48 Test Item Value Reference Range Interpretation [...] RBCS 0.00 K/UL 0.00-0.11 (test code = 62723) HEMOGLOBIN [id number] 00:00:00 Test Item Value Reference Range Interpretation Comments A1C (test code = 4548-4) 7.4 HEMOGLOBIN [id number] 00:00:00 Test Item Value Reference Range Interpretation Comments A1C (test code = 4548-4) 10.0 HEMOGLOBIN [id number] 00:00:00 Test Item Value Reference Range Interpretation Comments A1C (test code = 4548-4) 10.0 SARS-COV2/RT-PCR ([facility])2019-12-11 10:15:00 Test Item Value Reference Range Interpretation Comments SARS-COV2/RT-PCR (test code = Negative Not Detected, Negative [id number]) SARS-COV-2 PERFORMING LAB [facility] (test code = 3784471) Negative result for this test determines that [...] of the Act.Fact Sheet for Healthcare Prov iders:https://www.[employer]/sites/default/files/product/documents/Fact_Sheet_HC _Ldyhblqdk_Lyqt_VDVP-WsI-4.pdfFact Sheet for Healthcare Patients:https://www.[employer]more/sites/default/files/product/docume nts/Oprv_Rfpba_Kxxrissc_Uccv_UADU-WmN-0.pdfPerforming Laboratory:[facility] [place] [address], [place] [id number] A1C Test Item Value Reference Range Interpretation Comments A1C (test code = 4548-4) 9.8
[2022-07-30] MEDS ORDERED: NA CHLORIDE 0.9% 500 ML ONE ×2 (07:57→08:53)
[2022-07-30] MEDS ORDERED: ONDANSETRON 4 MG/2 ML VIAL ONE (07:57)
[2022-07-30] MEDS ORDERED: MORPHINE 4 MG/ML SYR ONE (07:57)
[2022-07-30 08:12] LABS: Absolute Lymphocytes (CBC) 1.1 K/uL (0.7-4.9); Hematocrit 42.2 % (36.0-45.0); Lymphocytes % 13.6 % (15.3-44.8); MCV 85.1 fL (80-100); MPV 9.2 fL (7.6-11.3); RBC Red Blood Cell Count 4.96 M/uL (3.86-4.86)
[2022-07-30 08:34] LABS: Albumin 3.4 g/dL (3.4-5.0); Bilirubin Total 0.6 mg/dL (0.2-1.0); Potassium 3.8 mmol/L (3.5-5.1); Protein, Total 7.1 g/dL (6.4-8.2)
[2022-07-30 09:01] LABS: SARS-COV-2 RT PCR NEGATIVE (NEGATIVE)
[2022-07-30] MEDS ORDERED: PROMETHAZINE INJ 25 MG/ML AMP ONE (09:13)
--- NOTE | 2022-07-30 09:50 | RAD REPORT ---
EXAM DESCRIPTION: CT - Abdomen Pelvis W Contrast - 07/30/2022 8:53 am CLINICAL HISTORY: Abd pain COMPARISON: BREAST/AXILLA, COMPLETE dated 07/05/2022 TECHNIQUE: Thin cut axial CT imaging of the abdomen and pelvis was performed following intravenous a dministration of 100 mL Isovue 300. Multiplanar reformats were generated and reviewed. All CT scans are performed using dose optimization technique as appropriate and may include automated exposure control or mA/KV adjustment according to patient size. FINDINGS: Bibasilar subsegmental atelectasis. Small bilateral layering pleural effusions. Mild cardi omegaly and a small pericardial effusion are noted. The liver is diffusely enlarged, with patchy enhancement pattern, which is nonspecific but may relate to transient hepatic enhancement differences. Spleen, and pancreas show no suspicious findings. Gall bladder demonstrates 2 large cholesterol containing stones near the fundus. Bilateral renal calculi are present, the largest at the right lower pole measuring 1.8 centimeter. Le ft moderate hydroureteronephrosis. A 5 millimeter calculus is seen at the distal left ureter, which m ay be the cause of the obstruction. No dilated bowel loops or bowel wall thickening. No free air. Small volume predominantly perihepatic ascites. Diastasis recti. A large lower abdominal wall ventral hernia is present, containing nondistended tayler l. The urinary bladder is not optimally distended, limiting evaluation. Mild diffuse body wall edema, as well as mild presacral edema. Please correlate with patient's fluid status. No suspicious bony findings. IMPRESSION: Moderate left hydroureter nephrosis with a 5 millimeter left distal ureteral obstructing calculus. Other bilateral large nonobstructing renal calculi. Diffuse hepatomegaly, nonspecific, but could relate to medical hepatocellular disease. Mild perihepat ic ascites. Mild cardiomegaly and small layering bilateral pleural effusions. Cholelithiasis. Diastasis recti, with a large lower abdominal ventral hernia containing nondistended small bowel. The findings were communicated to Maximo Jimenez on 07/30/2022 at 09:29 hours.
[2022-07-30] MEDS ORDERED: MAGNESIUM SULFATE 1 gm IVPB 1 GM/100 ML BAG IV ONE (09:53)
[2022-07-30] MEDS ORDERED: TAMSULOSIN 0.4 MG SR CAP ONE (09:53)
[2022-07-30] MEDS ORDERED: KETOROLAC 30 MG/ML INJ ONE (09:53)
--- NOTE | 2022-07-30 10:35 | RAD REPORT ---
EXAM DESCRIPTION: RADChest Single View07/30/2022 8:53 am CLINICAL HISTORY: Cough COMPARISON: Chest Single View dated 07/15/2022; Chest Single View dated 07/09/2022; Chest Single View d ated 07/04/2022; Chest Single View dated 09/14/2020 TECHNIQUE: Portable AP view of the chest. FINDINGS: Partial improvement of basal predominant alveolar and interstitial opacities and small eff usions. No pneumothorax or sizable effusion. The cardiomediastinal contours are unremarkable. IMPRESSION: Partial improvement of bibasilar predominant alveolar and interstitial opacities and sma ll effusions.
[2022-07-30 11:06] LABS: Urine Blood 3+ (Negative); Urine Glucose Trace (Negative); Urine Protein 3+ (Negative); Urine Specific Gravity 1.015 (1.005-1.030); Urine pH 5.5 (5.0-7.0)
[2022-07-30] MEDS ORDERED: CEFTRIAXONE 1000 MG/VIAL ONE (11:39)
--- NOTE | 2022-07-30 12:12 | ER ---
Nurse's Notes [facility] Name: Zarina Womack Age: 61 yrs Sex: Female : 1960 Arrival Date: 07/30/2022 Time: 07:43 Bed 7 Private MD: Diagnosis: UTI/ Urinary tract infection, site not specified;Calculus of kidney with calculus of ureter Presentation: 07/30 07:43 Chief complaint: EMS states: shortness of breath, LUQ pain, n/v that started this kc6 morning. stated she was discharged last week for ascites. Coronavirus screen: Vaccine status: Patient reports receiving the 2nd dose of the covid vaccine. At this time, the client does not indicate any symptoms associated with coronavirus-19. Ebola Screen: No symptoms or risks identified at this time. Initial Sepsis Screen: Does the patient meet any 2 criteria? No. Patient's initial sepsis screen is negative. Does the patient have a suspected source of infection? No. Patient's initial sepsis screen is negative. Risk Assessment: Do you want to hurt yourself or someone else? Patient reports no desire to harm self or others. Onset of symptoms was July 30, 2022. 07:43 Method Of Arrival: EMS: [facility] kc6 07:43 Acuity: AISSATOU 3 kc6 Triage Assessment: 07:45 General: Appears in no apparent distress. uncomfortable, Behavior is calm, cooperative, kc6 appropriate for age. Pain: Complains of pain in left upper quadrant Pain does not radiate. Pain currently is 10 out of 10 on a pain scale. Is continuous, Alleviated by nothing. Also complains of no other associated symptoms. EENT: No signs and/or symptoms were reported regarding the EENT system. Neuro: Strange Agitation-Sedation Scale (RASS): 0 - Alert and Calm Level of Consciousness is awake, alert, obeys commands, Oriented to person, place, time, situation, Appropriate for age. Cardiovascular: Capillary refill < 3 seconds. Respiratory: Reports shortness of breath Airway is patent Trachea midline Respiratory effort is even, unlabored, Respiratory pattern is symmetrical, tachypnea Onset: The symptoms/episode began/occurred this morning, the patient has mild shortness of breath. GI: Abdomen is flat, non-distended, Pt is actively vomiting bile, Bowel sounds present X 4 quads. Abd is soft X 4 quads Abdomen is tender to palpation in left upper quadrant Reports nausea, vomiting, Patient currently denies diarrhea. : No signs and/or symptoms were reported regarding the genitourinary system. Derm: No signs and/or symptoms reported regarding the dermatologic system. Skin is intact, Skin is pink, warm \T\ dry. Musculoskeletal: No signs and/or symptoms reported regarding the musculoskeletal system. Circulation, motion, and sensation intact. Capillary refill < 3 seconds, Range of motion: intact in all extremities. Historical: - Allergies: 07:45 Sulfa (Sulfonamide Antibiotics); kc6 - Home Meds: 07:45 insulin [Active]; Lasix Oral [Active]; Prednisone Oral [Active]; kc6 - PMHx: 07:45 Anxiety; COPD; Depression; diabetes mellitus; Hernia; Hypertension; lymphedema; kc6 - Immunization history:: Client reports receiving the 2nd dose of the Covid vaccine, Flu vaccine is not up to date. - Social history:: Smoking status: Patient/guardian denies using tobacco. - Family history:: not pertinent. - Hospitalizations: : No recent hospitalization is reported. Screenin:[facility] ED Fall Risk Assessment (Adult) History of falling in the last 3 months, kc6 including since admission No falls in past 3 months (0 pts) Confusion or Disorientation No (0 pts) Intoxicated or Sedated No (0 pts) Impaired Gait No (0 pts) Mobility Assist Device Used No (0 pt) Altered Elimination No (0 pt) Score/Fall Risk Level 0 - 2 = Low Risk Oriented to surroundings, Maintained a safe environment, Educated pt \T\ family on fall prevention, incl call for assistance when getting out of bed, Assessed \T\ reinforced patient's understanding of fall precautions, Hourly rounding (assess needs \T\ fall precautionary measures) done. Abuse screen: Denies threats or abuse. Denies injuries from another. Nutritional screening: No deficits noted. Tuberculosis screening: No symptoms or risk factors identified. Assessment: 07:48 Reassessment: please see triage assessment. Cardiovascular: Capillary refill < 3 kc6 seconds Rhythm is sinus rhythm. Respiratory: Reports shortness of breath Airway is patent Trachea midline Respiratory effort is even, unlabored, Respiratory pattern is symmetrical, tachypnea Breath sounds are clear bilaterally. 08:46 Reassessment: Patient appears in no apparent distress at this time. No changes from [facility] previously documented assessment. Patient and/or family updated on plan of care and expected duration. Pain level reassessed. Patient is alert, oriented x 3, equal unlabored respirations, skin warm/dry/pink. 09:46 Reassessment: Patient appears in no apparent distress at this time. No changes from [facility] previously documented assessment. Patient and/or family updated on plan of care and expected duration. Pain level reassessed. Patient is alert, oriented x 3, equal unlabored respirations, skin warm/dry/pink. 10:46 Reassessment: Patient appears in no apparent distress at this time. No changes from [facility] previously documented assessment. Patient and/or family updated on plan of care and expected duration. Pain level reassessed. Patient is alert, oriented x 3, equal unlabored respirations, skin warm/dry/pink. 11:46 Reassessment: Patient appears in no apparent distress at this time. No changes from [facility] previously documented assessment. Patient and/or family updated on plan of care and expected duration. Pain level reassessed. Patient is alert, oriented x 3, equal unlabored respirations, skin warm/dry/pink. 12:32 Reassessment: d/c pending wheel chair gerry service arrival. [facility] Vital Signs: 07:43 BP 172 / 106; Pulse 84; Resp 30 S; Pulse Ox 95% on 4 lpm NC; Weight 95.25 kg (R); kc6 Height 5 ft. 3 in. (160.02 cm) (R); Pain 10/10; 08:03 Temp 98.0(O); vg1 08:46 BP 158 / 87; Pulse 78; Resp 24; Pulse Ox 90% on 3 lpm NC; kc6 09:04 BP 167 / 95; Pulse 80; Resp 22 S; Pulse Ox 95% on 3 lpm NC; kc6 09:30 BP 171 / 96; Pulse 82; Resp 20 S; Pulse Ox 95% on 3 lpm NC; kc6 10:04 BP 143 / 94; Pulse 100; Resp 23 S; Pulse Ox 96% on 4 lpm NC; kc6 11:00 BP 126 / 65; Pulse 102; Resp 20 S; Pulse Ox 96% on 3 lpm NC; kc6 07:43 Body Mass Index 37.20 (95.25 kg, 160.02 cm) kc6 ED Course: 07:43 Patient arrived in ED. kc6 07:45 Triage completed. kc6 07:45 Arm band placed on. kc6 07:48 Patient has correct armband on for positive identification. Bed in low position. Call kc6 light in reach. Side rails up X2. 07:49 Maximo Jimenez MD is Attending Physician. rn 07:49 Ira Adorno RN is Primary Nurse. kc6 07:49 Maintain EMS IV. Dressing intact. Good blood return noted. Site clean \T\ dry. Gauge \T\ cassie 6 site: 20G R Hand. 08:12 Lipase Sent. kc6 08:12 CMP Sent. kc6 08:12 CBC with Diff Sent. kc6 08:12 COVID-19/FLU A+B Sent. kc6 08:12 BNP Sent. kc6 08:47 Inserted saline lock: 22 gauge in right antecubital area, using aseptic technique. kc6 ,using aseptic technique. inserted by Monique from CT. 09:56 XRAY Chest (1 view) In Process Unspecified. EDMS 10:40 Inserted saline lock: 22 gauge in left wrist, using aseptic technique. kc6 12:33 No provider procedures requiring assistance completed. IV discontinued, intact, kc6 bleeding controlled, No redness/swelling at site. Pressure dressing applied. Administered Medications: 08:11 Drug: NS 0.9% 500 ml Route: IV; Rate: bolus; Site: right hand; kc6 11:28 Follow up: Response: No adverse reaction; IV Status: Completed infusion; IV Intake: kc6 500ml 08:12 Drug: Zofran (Ondansetron) 4 mg Route: IVP; Site: right hand; kc6 11:28 Follow up: Response: No adverse reaction; Nausea unchanged kc6 08:12 Drug: morphine 4 mg Route: IVP; Infused Over: 4 mins; Site: right hand; kc6 11:28 Follow up: Response: No adverse reaction; Pain is unchanged, physician notified; RASS: kc6 Alert and Calm (0) 09:04 Drug: NS 0.9% 500 ml Route: IV; Rate: bolus; Site: right antecubital; kc6 11:28 Follow up: Response: No adverse reaction; IV Status: Completed infusion; IV Intake: kc6 500ml 09:07 CANCELLED (Duplicate Order): morphine 2 mg IVP once over 4 mins rn 09:14 Drug: Phenergan (promethazine) 12.5 mg Route: IVP; Site: right antecubital; kc6 11:29 Follow up: Response: No adverse reaction; Nausea is decreased kc6 09:53 Drug: Ketorolac 15 mg {Note: pain 10/10, RASS 0.} Route: IVP; Site: right antecubital; ll1 11:29 Follow up: Response: No adverse reaction; Pain is decreased kc6 09:53 Drug: Flomax (tamsulosin) 0.4 mg Route: PO; ll1 11:29 Follow up: Response: No adverse reaction kc6 09:54 Drug: Magnesium Sulfate 1 grams Route: IVPB; Infused Over: 1 hrs; Site: right ll1 antecubital; 11:29 Follow up: Response: No adverse reaction; IV Status: Completed infusion; IV Intake: kc6 100ml 11:39 Drug: Rocephin (cefTRIAXone) 1 grams Route: IV; Rate: calculated rate; Site: left wrist;kc6 12:34 Follow up: Response: No adverse reaction; IV Status: Completed infusion; IV Intake: [id number] Medication: 12:33 VIS not applicable for this client. kc6 Intake: 11:28 IV: 500ml; Total: 500ml. kc6 11:28 IV: 500ml; Total: 1000ml. kc6 11:29 IV: 100ml; Total: 1100ml. kc6 12:34 IV: 10ml; Total: 1110ml. kc6 Outcome: 12:12 Discharge ordered by . rn 12:33 Discharged to home via wheelchair. kc6 12:33 Condition: stable 12:33 Discharge instructions given to patient, significant other, Instructed on discharge instructions, follow up and referral plans. medication usage, Demonstrated understanding of instructions, follow-up care, medications, Prescriptions given X 3. 12:50 Patient left the ED. kc6 Signatures: Dispatcher [employer] EDMS Maximo Jimenez MD MD rn Garcia, Victoria, RN RN vg1 Leigh Aleman RN RN ll1 Ira Adorno RN RN kc6 Corrections: (The following items were deleted from the chart) 08:53 08:46 BP 158 / 87; Pulse 78bpm; Resp 24bpm; Pulse Ox 90% Nasal Cannula; kc6 kc6 09:14 09:04 NS 0.9% 500 ml IV at bolus in left antecubital kc6 kc6
--- NOTE | 2022-07-30 12:12 | EDPHYS ---
Physician Documentation [facility] Name: Zarina Womack Age: 61 yrs Sex: Female : 1960 Arrival Date: 07/30/2022 Time: 07:43 Bed 7 Private MD: ED Physician Maximo Jimenez HPI: 07/30 07:50 This 61 yrs old Female presents to ER via EMS with complaints of Shortness Of Breath, rn Nausea/Vomiting. 07:50 The patient has shortness of breath at rest, with light activity. rn 07:51 Onset: The symptoms/episode began/occurred this morning. Duration: The symptoms are rn continuous. The patient's shortness of breath is aggravated by nothing, is alleviated by nothing. Associated signs and symptoms: Pertinent positives: non-productive cough, nausea, vomiting, Pertinent negatives: chest pain, fever, hemoptysis. Severity of symptoms: At their worst the symptoms were moderate in the emergency department the symptoms are unchanged. The patient has not experienced similar symptoms in the past. The patient has not recently seen a physician. Pt reports mid/upper abd pain that began this AM, assoc with nausea/vomiting. No blood in stool. + cough but not different from her typical COPD cough. Denies sob. NOrmally on 2 L. . Historical: - Allergies: 07:45 Sulfa (Sulfonamide Antibiotics); kc6 - Home Meds: 07:45 insulin [Active]; Lasix Oral [Active]; Prednisone Oral [Active]; kc6 - PMHx: 07:45 Anxiety; COPD; Depression; diabetes mellitus; Hernia; Hypertension; lymphedema; kc6 - Immunization history:: Client reports receiving the 2nd dose of the Covid vaccine, Flu vaccine is not up to date. - Social history:: Smoking status: Patient/guardian denies using tobacco. - Family history:: not pertinent. - Hospitalizations: : No recent hospitalization is reported. ROS: 07:54 Constitutional: Negative for fever, chills, and weight loss, Eyes: Negative for injury, rn pain, redness, and discharge, Neck: Negative for injury, pain, and swelling, Cardiovascular: Negative for chest pain, palpitations, and edema, Respiratory: + cough Abdomen/GI: Negative for diarrhea, and constipation, + vomiting and abd pain MS/Extremity: Negative for injury and deformity, Skin: Negative for injury, rash, and discoloration, Neuro: + generalized weakness Exam: 07:54 Constitutional: This is a well developed, well nourished patient who is awake, alert, rn holding emesis bag. Head/Face: Normocephalic, atraumatic. ENT: dry MM Cardiovascular: Regular rate and rhythm. No pulse deficits. Respiratory: + mild tachypnea, faint wheezing bilaterally Abdomen/GI: + soft, mid and upper abd tenderness, no rebound, + ventral hernia without skin changes Skin: Warm, dry MS/ Extremity: Pulses equal, no cyanosis. Dry cracked skin of bilateral lower legs Neuro: Awake and alert, GCS 15 08:51 ECG was reviewed by the Attending Physician. rn Vital Signs: 07:43 BP 172 / 106; Pulse 84; Resp 30 S; Pulse Ox 95% on 4 lpm NC; Weight 95.25 kg (R); kc6 Height 5 ft. 3 in. (160.02 cm) (R); Pain 10/10; 08:03 Temp 98.0(O); vg1 08:46 BP 158 / 87; Pulse 78; Resp 24; Pulse Ox 90% on 3 lpm NC; kc6 09:04 BP 167 / 95; Pulse 80; Resp 22 S; Pulse Ox 95% on 3 lpm NC; kc6 09:30 BP 171 / 96; Pulse 82; Resp 20 S; Pulse Ox 95% on 3 lpm NC; kc6 10:04 BP 143 / 94; Pulse 100; Resp 23 S; Pulse Ox 96% on 4 lpm NC; kc6 11:00 BP 126 / 65; Pulse 102; Resp 20 S; Pulse Ox 96% on 3 lpm NC; kc6 07:43 Body Mass Index 37.20 (95.25 kg, 160.02 cm) kc6 MDM: 07:49 Patient medically screened. rn 09:37 Differential diagnosis: Anemia Anxiety Reaction UTI, kidney stone, enteritis, colitis, rn diverticulitis. Data reviewed: vital signs, nurses notes, lab test result(s), EKG, radiologic studies, CT scan. 12:08 Antibiotic administration: The patient is discharged and will get outpatient rn antibiotics. Consideration of Admission/Observation Escalation of care including admission/observation considered. Patient states feels much better, appears to have passed kidney stone, pain markedly better, patient would like to go home with abx. Return precautions given and understood. . I considered the following discharge prescriptions or medication management in the emergency department Medications were administered in the Emergency Department. See MAR. Independent interpretation of the following test(s) in the Emergency Department CT Scan: My interpretation is CT abdomen images shows hydronephrosis and distal ureteral stone.. Discussion of test interpretation with radiology: I had a discussion with radiology regarding a test interpretation. Discussed images and reading with radiologist. . Counseling: I had a detailed discussion with the patient and/or guardian regarding: the historical points, exam findings, and any diagnostic results supporting the discharge/admit diagnosis, lab results, radiology results, the need for outpatient follow up, to return to the emergency department if symptoms worsen or persist or if there are any questions or concerns that arise at home. Response to treatment: the patient's symptoms have markedly improved after treatment, and as a result, I will discharge patient. Special discussion: I discussed with the patient/guardian in detail that at this point there is no indication for admission to the hospital. It is understood, however, that if the symptoms persist or worsen the patient needs to return immediately for re-evaluation. 07/30 07:50 Order name: CBC with Diff; Complete Time: 08:33 rn 07/30 07:50 Order name: CMP; Complete Time: 08:53 rn 07/30 07:50 Order name: Lipase; Complete Time: 08:53 rn 07/30 07:50 Order name: CT Abd/Pelvis - IV Contrast Only 07/30 07:50 Order name: IV Saline Lock; Complete Time: 07:50 rn 07/30 07:50 Order name: Labs collected and sent; Complete Time: 08:12 07/30 07:50 Order name: Urine Dipstick-Ancillary (obtain specimen); Complete Time: 11:06 rn 07/30 07:50 Order name: COVID-19/FLU A+B; Complete Time: 09:05 rn 07/30 07:50 Order name: BNP; Complete Time: 08:53 rn 07/30 07:51 Order name: XRAY Chest (1 view); Complete Time: 11:24 rn 07/30 08:02 Order name: EKG; Complete Time: 08:03 1 07/30 08:02 Order name: EKG - Nurse/Tech; Complete Time: 08:02 [facility] 07/30 09:51 Order name: CT; Complete Time: 10:30 EDMS 07/30 11:06 Order name: Urine Dipstick-Ancillary; Complete Time: 11:24 EDMS EC: Rate is 82 beats/min. Rhythm is regular. QRS Eddy is Normal. FL interval is normal. QRS rn interval is normal. QT interval is normal. No Q waves. T waves are Normal. No ST changes noted. Clinical impression: NSR w/ Non-specific ST/T Changes. Interpreted by me. Reviewed by me. Administered Medications: 08:11 Drug: NS 0.9% 500 ml Route: IV; Rate: bolus; Site: right hand; kc6 11:28 Follow up: Response: No adverse reaction; IV Status: Completed infusion; IV Intake: kc6 500ml 08:12 Drug: Zofran (Ondansetron) 4 mg Route: IVP; Site: right hand; kc6 11:28 Follow up: Response: No adverse reaction; Nausea unchanged kc6 08:12 Drug: morphine 4 mg Route: IVP; Infused Over: 4 mins; Site: right hand; 6 11:28 Follow up: Response: No adverse reaction; Pain is unchanged, physician notified; RASS: kc6 Alert and Calm (0) 09:04 Drug: NS 0.9% 500 ml Route: IV; Rate: bolus; Site: right antecubital; 6 11:28 Follow up: Response: No adverse reaction; IV Status: Completed infusion; IV Intake: kc6 500ml 09:07 CANCELLED (Duplicate Order): morphine 2 mg IVP once over 4 mins rn 09:14 Drug: Phenergan (promethazine) 12.5 mg Route: IVP; Site: right antecubital; 6 11:29 Follow up: Response: No adverse reaction; Nausea is decreased kc6 09:53 Drug: Ketorolac 15 mg {Note: pain 10/10, RASS 0.} Route: IVP; Site: right antecubital; 1 11:29 Follow up: Response: No adverse reaction; Pain is decreased kc6 09:53 Drug: Flomax (tamsulosin) 0.4 mg Route: PO; ll1 11:29 Follow up: Response: No adverse reaction kc6 09:54 Drug: Magnesium Sulfate 1 grams Route: IVPB; Infused Over: 1 hrs; Site: right ll1 antecubital; 11:29 Follow up: Response: No adverse reaction; IV Status: Completed infusion; IV Intake: kc6 100ml 11:39 Drug: Rocephin (cefTRIAXone) 1 grams Route: IV; Rate: calculated rate; Site: left wrist;kc6 12:34 Follow up: Response: No adverse reaction; IV Status: Completed infusion; IV Intake: [id number] Disposition Summary: 07/30/22 12:12 Discharge Ordered Location: Home rn Problem: new rn Symptoms: have improved rn Condition: Stable rn Diagnosis - UTI/ Urinary tract infection, site not specified rn - Calculus of kidney with calculus of ureter rn Followup: rn - With: Private Physician - When: As needed - Reason: Recheck today's complaints, Re-evaluation by your physician Discharge Instructions: - Discharge Summary Sheet rn - Kidney Stones rn - Renal Colic rn - Urinary Tract Infection, Adult rn - Dietary Guidelines to Help Prevent Kidney Stones rn Forms: - Medication Reconciliation Form rn - Thank You Letter rn - Antibiotic broomcorn scraper - Prescription Opioid Use rn Prescriptions: - Tramadol 50 mg Oral Tablet - take 1 tablet by ORAL route every 8 hours as needed; 12 tablet; Refills: 0, rn Product Selection Permitted - cefpodoxime 100 mg Oral Tablet - take 2 tablets by ORAL route every 12 hours for 10 days take with food; 40 rn tablet; Refills: 0, Product Selection Permitted - ondansetron 4 mg Oral - take 4 milligrams by SUBLINGUAL route every 8 hours; 15 tablet; Refills: 0, rn Product Selection Permitted Signatures: Dispatcher [employer] Maximo Alejandra MD MD rn Lewis, Lynsay, RN RN ll1 Ira Adorno RN RN kc6 Corrections: (The following items were deleted from the chart) 08:04 07:53 Abdomen ordered. EDMS EDMS 09:07 09:06 morphine 2 mg IVP once over 4 mins ordered. rn rn
--- NOTE | 2022-07-30 12:49 | EKG ---
Test Date: 2022-07-30 Test Time: 08:01:00 Graduate Student: NOHEMI MEASUREMENT RESULTS: Intervals: Rate: 82 DE: 148 QRSD: 110 QT: 394 QTc: 460 [place]: P: 66 DE: 148 QRS: 101 T: 11 INTERPRETIVE STATEMENTS: Normal sinus rhythm Right bundle branch block T wave abnormality, consider inferior ischemia Abnormal ECG Compared to ECG 07/04/2022 15:20:25 Right bundle-branch block now present Sinus tachycardia no longer present Incomplete right bundle-branch block no longer present T-wave abnormality still present Possible ischemia still present Electronically Signed On 07-30-22 12:47:52 [employer] DIRECT[employer] by Moise Alvares
[2022-07-30 14:02] VITALS: TEMP 98.7
[2022-07-30 14:03] VITALS: BP 106/62; O2SAT 97
== END 2022-07-30 12:50 | disposition home or self-care (01) ==
LOC: ER 07:42
DX: N39.0 Urinary tract infection, site not specified (principal); N20.2 Calculus of kidney with calculus of ureter; I10 Essential (primary) hypertension; E11.9 Type 2 diabetes mellitus without complications; Z79.4 Long term (current) use of insulin; Z20.822 Contact with and (suspected) exposure to COVID-19; Z88.2 Allergy status to sulfonamides
CPT/HCPCS: 93005; 85025; 36415; 81003; 83690; 80053; 83880; 0240U; 74177; 71045; 99284; Q9967; J2550; J3475; J7040 ×2; J2405